=== PATIENT | female | born 1945 | race Caucasian/White ===

== ENCOUNTER 2018-01-26 21:55 | Emergency (ER) | payer MEDICARE, OTHER ==
[~2018-01-26] VITALS: Ht 162.6 cm; Wt 97.5 kg
[~2018-01-26 21:55] MED LIST: ASPI-605 PO; ATEN25TA PO; BUSP10TA35 PO; LOVA20TA2 PO; PANT40TA4 PO; TRAZ300T2 PO; VENL25TA4 PO
--- NOTE | 2018-01-26 22:20 | NUR ---
"TRIPPED AND FELL WHILE IN THE GARDEN AND EVERYTHING HURTS"; DENIES HEAD INJURY. NAD NOTED, VSS, RESP EVEN AND UNLABORED, PT WAS PUT ON MONITOR, WAITING FOR MD HWANG.
--- NOTE | 2018-01-26 22:37 | NUR ---
CXR AT BEDSIDE
[2018-01-26 22:51] LABS: BASOPHILS % (AUTO) 0.6 % (0.0-2.0); EOSINOPHILS % (AUTO) 4.1 % (0.0-6.0); HEMATOCRIT 35 % (33-45); HEMOGLOBIN 11.4 g/dL (11.5-14.8); LYMPHOCYTES # (AUTO) 2.5 /CMM (0.8-4.8); LYMPHOCYTES % (AUTO) 33.9 % (20.0-44.0); MEAN CORPUSCULAR HGB CONC 33 g/dl (31.0-36.0); MEAN CORPUSCULAR VOLUME 86 fL (82-100); MONOCYTES # (AUTO) 0.7 /CMM (0.1-1.30); MONOCYTES % (AUTO) 9.6 % (2.0-12.0); NEUTROPHILS # (AUTO) 3.8 /CMM (1.8-8.9); NEUTROPHILS % (AUTO) 51.8 % (43.0-81.0); PLATELET COUNT (AUTO) 266 /CMM (150-450); RDW COEFFICIENT OF VARIATION 15.3 (11.5-15.0); RED BLOOD CELL COUNT(AUTO) 4.09 MIL/uL (4.0-5.2); WHITE BLOOD COUNT (AUTO) 7.2 K/uL (4.3-11.0)
[2018-01-26] MEDS ORDERED: methylPREDNISolone SOD SUCC 125 MG/2ML VIAL IV ONE (23:00)
[2018-01-26] MEDS ORDERED: methylPREDNISolone SOD SUCC 125 MG/2ML VIAL ONE (23:02)
[2018-01-26 23:07] LABS: INR 0.9 (0.87-1.13)
[2018-01-26 23:08] LABS: CALCIUM, SERUM 8.6 mg/dL (8.5-10.1); CARBON DIOXIDE 30 mmol/L (21-32); CHLORIDE 105 mmol/L (98-107); CREATININE 1.3 mg/dL (0.6-1.3); GLUCOSE 135 mg/dL (74-106); SODIUM SERUM 140 mmol/L (136-145); UREA NITROGEN, BLOOD 23 mg/dL (7-18)
[2018-01-26 23:11] LABS: TROPONIN I < 0.017 ng/mL (0.00-0.056)
[2018-01-26 23:20] LABS: ALANINE AMINOTRANSFERASE 25 U/L (12-78); ALBUMIN 2.5 g/dL (3.4-5.0); ALKALINE PHOSPHATASE 69 U/L (46-116); ASPARTATE AMINOTRANSFERASE 20 U/L (15-37); B-TYPE NATRIURETIC PEPTIDE 399 PG/ML (0-125); BILIRUBIN,TOTAL 0.1 mg/dL (0.2-1.0); TOTAL PROTEIN, SERUM 6.6 g/dL (6.4-8.2)
--- NOTE | 2018-01-26 23:22 | NUR ---
RECEIVED REPORT FROM CHRISTA HUGGINS FOR JENNI.
--- NOTE | 2018-01-26 23:54 | NUR ---
IV removed. Catheter intact and site benign. Pressure and 4x4 applied to site. No bleeding noted. Patient discharged to home in stable condition. Written and verbal after care instructions given. Patient verbalizes understanding of instruction. ambulatory with a steady gait. pt with daughter.
[2018-01-26 23:56] VITALS: BP 134/78
[2018-01-27] MEDS ORDERED: OMEP40CA37 PO (10:37)
[2018-01-27] MEDS ORDERED: VENL150C58 PO (10:37)
[2018-01-27] MEDS ORDERED: LORA-259 PO (10:37)
[2018-01-27] MEDS ORDERED: GABA-534 PO (10:37)
[2018-01-27] MEDS ORDERED: GABA-532 PO (10:45)
[2018-01-27] MEDS ORDERED: LISI-607 PO (10:45)
[2018-01-27] MEDS ORDERED: AMOX500T2 PO (13:35)
[2018-01-27] MEDS ORDERED: IBUP-1957 PO (13:35)
[2018-01-27] MEDS ORDERED: BUPR1FIL3 SL (13:35)
== END 2018-01-27 00:02 | disposition home or self-care (01) ==
LOC: ER 21:59
DX: J44.9 Chronic obstructive pulmonary disease, unspecified (principal); I10 Essential (primary) hypertension; F03.90 Unspecified dementia, unspecified severity, without behavioral disturbance, psychotic disturbance, mood disturbance, and anxiety; F41.9 Anxiety disorder, unspecified; F32.9 Major depressive disorder, single episode, unspecified; F17.290 Nicotine dependence, other tobacco product, uncomplicated; Z90.89 Acquired absence of other organs; Z90.710 Acquired absence of both cervix and uterus; Z79.82 Long term (current) use of aspirin; W01.0XXA Fall on same level from slipping, tripping and stumbling without subsequent striking against object, initial encounter; Y93.89 Activity, other specified; Y92.096 Garden or yard of other non-institutional residence as the place of occurrence of the external cause; Y99.8 Other external cause status
CPT/HCPCS: 36415; 71045-TC; 80048-TC; 80076-TC; 83605-TC; 83880; 84484-TC; 85025-TC; 85730-TC; 87040-TC; A4606; J2930; Z7610

== ENCOUNTER 2018-01-27 09:37 | Inpatient (IN) | payer MEDICARE, OTHER ==
[~2018-01-27] VITALS: Ht 162.6 cm; Wt 75.3 kg
[2018-01-27] MEDS ORDERED: OMEP40CA37 PO (10:37)
[2018-01-27] MEDS ORDERED: LORA-259 PO (10:37)
[2018-01-27] MEDS ORDERED: GABA-534 PO (10:37)
[2018-01-27] MEDS ORDERED: VENL150C58 PO (10:37)
[2018-01-27 10:44] LABS: BASOPHILS # (AUTO) 0.1 /CMM (0.0-0.2); BASOPHILS % (AUTO) 0.8 % (0.0-2.0); EOSINOPHILS % (AUTO) 0.1 % (0.0-6.0); HEMATOCRIT 39 % (33-45); HEMOGLOBIN 12.8 g/dL (11.5-14.8); LYMPHOCYTES # (AUTO) 1.2 /CMM (0.8-4.8); MEAN CORPUSCULAR HGB CONC 33 g/dl (31.0-36.0); MEAN CORPUSCULAR VOLUME 85 fL (82-100); MONOCYTES # (AUTO) 0.1 /CMM (0.1-1.30); MONOCYTES % (AUTO) 1.5 % (2.0-12.0); NEUTROPHILS # (AUTO) 8.4 /CMM (1.8-8.9); NEUTROPHILS % (AUTO) 85.6 % (43.0-81.0); PLATELET COUNT (AUTO) 319 /CMM (150-450); RDW COEFFICIENT OF VARIATION 14.9 (11.5-15.0); RED BLOOD CELL COUNT(AUTO) 4.52 MIL/uL (4.0-5.2); WHITE BLOOD COUNT (AUTO) 9.8 K/uL (4.3-11.0)
[2018-01-27 10:45] LABS: CALCIUM, SERUM 8.9 mg/dL (8.5-10.1); CARBON DIOXIDE 28 mmol/L (21-32); CHLORIDE 103 mmol/L (98-107); CREATININE 1.3 mg/dL (0.6-1.3); GLUCOSE 157 mg/dL (74-106); POTASSIUM 4.7 mmol/L (3.5-5.1); SODIUM SERUM 138 mmol/L (136-145); UREA NITROGEN, BLOOD 27 mg/dL (7-18)
[2018-01-27] MEDS ORDERED: GABA-532 PO (10:45)
[2018-01-27] MEDS ORDERED: LISI-607 PO (10:45)
[2018-01-27 10:49] LABS: INR 0.85 (0.85-1.15)
[2018-01-27 10:53] LABS: TROPONIN I < 0.017 ng/mL (0.00-0.056)
[2018-01-27 11:01] LABS: ALANINE AMINOTRANSFERASE 32 U/L (12-78); ALBUMIN 2.6 g/dL (3.4-5.0); ALKALINE PHOSPHATASE 70 U/L (46-116); ASPARTATE AMINOTRANSFERASE 25 U/L (15-37); B-TYPE NATRIURETIC PEPTIDE 472 PG/ML (0-125); BILIRUBIN,TOTAL 0.2 mg/dL (0.2-1.0); LIPASE 148 U/L (73-393); TOTAL PROTEIN, SERUM 7.5 g/dL (6.4-8.2)
[2018-01-27] MEDS ORDERED: LORAZEPAM 1 MG TABLET ONE ×2 (11:17→11:39)
[2018-01-27] MEDS ORDERED: ACETAMINOPHEN ES 500 MG TABLET ONE (11:17)
[2018-01-27] MEDS ORDERED: LORAZEPAM 0.5 MG TABLET PO ONE (11:30)
[2018-01-27] MEDS ORDERED: ACETAMINOPHEN ES 500 MG TABLET PO ONE (11:30)
[2018-01-27] MEDS ORDERED: IPRATROPIUM NEB FS 0.5 MG/2.5 ML AMPUL.NEB ONE (11:47)
[2018-01-27] MEDS ORDERED: ALBUTEROL FS 2.5 MG/3 ML VIAL.NEB ONE (11:47)
[2018-01-27] MEDS ORDERED: IPRATROPIUM NEB FS 0.5 MG/2.5 ML AMPUL.NEB NEB ONE (12:00)
[2018-01-27] MEDS ORDERED: ALBUTEROL FS 2.5 MG/3 ML VIAL.NEB NEB ONE (12:00)
[2018-01-27] MEDS ORDERED: LORAZEPAM 1 MG TABLET PO ONE (12:00)
[2018-01-27 13:20] VITALS: BP 148/60
[2018-01-27] MEDS ORDERED: ACETAMINOPHEN 325 MG TABLET PO PRN (13:30)
[2018-01-27] MEDS ORDERED: ZOLPIDEM TARTRATE 5 MG TABLET PO PRN (13:30)
[2018-01-27] MEDS ORDERED: LORAZEPAM INJ 2 MG/ML VIAL IV PRN (13:30)
[2018-01-27] MEDS ORDERED: HYDROCODONE/APAP 5/325MG 1 EACH TABLET PO PRN (13:30)
[2018-01-27] MEDS ORDERED: MAG HYDROX/AL HYDROX/SIMETH 30 ML UDC PO PRN (13:30)
[2018-01-27] MEDS ORDERED: Z GUARD REMEDY 2 OZ OINT TP PRN (13:30)
[2018-01-27] MEDS ORDERED: ONDANSETRON HCL/PF 4 MG/2 ML VIAL IVP PRN (13:30)
[2018-01-27] MEDS ORDERED: IBUP-1957 PO (13:35)
[2018-01-27] MEDS ORDERED: AMOX500T2 PO (13:35)
[2018-01-27] MEDS ORDERED: BUPR1FIL3 SL (13:35)
[2018-01-27] MEDS: PANTOPRAZOLE 40 MG TABLET.DR PO SCH (13:50)
[2018-01-27] MEDS: ENOXAPARIN SODIUM 40 MG/0.4 ML DISP.SYRIN SQ SCH (13:54)
[2018-01-27 16:00] VITALS: BP 139/65
[2018-01-27] MEDS ORDERED: IBUPROFEN 400 MG TABLET PO PRN (16:30)
[2018-01-27 20:00] VITALS: BP 148/61
[2018-01-27] MEDS: TRAZODONE 50 MG TABLET PO SCH (21:16)
[2018-01-27] MEDS: GABAPENTIN 300 MG CAPSULE PO SCH (21:16)
[2018-01-27 22:00] VITALS: BP 148/61
[2018-01-28] VITALS (7 sets, daily range): BP systolic 126–171; BP diastolic 53–92
[2018-01-28 06:43] LABS: BASOPHILS % (AUTO) 0.3 % (0.0-2.0); EOSINOPHILS % (AUTO) 1.1 % (0.0-6.0); HEMATOCRIT 35 % (33-45); HEMOGLOBIN 11.1 g/dL (11.5-14.8); LYMPHOCYTES # (AUTO) 2.8 /CMM (0.8-4.8); LYMPHOCYTES % (AUTO) 24.6 % (20.0-44.0); MEAN CORPUSCULAR HGB CONC 32 g/dl (31.0-36.0); MEAN CORPUSCULAR VOLUME 87 fL (82-100); MONOCYTES # (AUTO) 0.9 /CMM (0.1-1.30); MONOCYTES % (AUTO) 8.3 % (2.0-12.0); NEUTROPHILS # (AUTO) 7.4 /CMM (1.8-8.9); NEUTROPHILS % (AUTO) 65.7 % (43.0-81.0); PLATELET COUNT (AUTO) 270 /CMM (150-450); RDW COEFFICIENT OF VARIATION 15.9 (11.5-15.0); RED BLOOD CELL COUNT(AUTO) 3.97 MIL/uL (4.0-5.2); WHITE BLOOD COUNT (AUTO) 11.3 K/uL (4.3-11.0)
[2018-01-28 07:04] LABS: B-TYPE NATRIURETIC PEPTIDE 405 PG/ML (0-125); CALCIUM, SERUM 8.4 mg/dL (8.5-10.1); CARBON DIOXIDE 32 mmol/L (21-32); CHLORIDE 106 mmol/L (98-107); CREATININE 1.2 mg/dL (0.6-1.3); GLUCOSE 121 mg/dL (74-106); MAGNESIUM 2.2 mg/dL (1.8-2.4); PHOSPHORUS 3.8 mg/dL (2.5-4.9); POTASSIUM 4.2 mmol/L (3.5-5.1); SODIUM SERUM 142 mmol/L (136-145); UREA NITROGEN, BLOOD 28 mg/dL (7-18)
[2018-01-28 07:25] LABS: APPEARANCE,URINE CLEAR (CLEAR); BILIRUBIN,URINE NEGATIVE (NEGATIVE); BLOOD, URINE TRACE-INTA Ery/uL (NEGATIVE); KETONES,URINE NEGATIVE (NEGATIVE); LEUKOCYTE ESTERASE ,URINE NEGATIVE (NEGATIVE); NITRITE, URINE NEGATIVE (NEGATIVE); PH,URINE 6.5 (5.0-8.0); PROTEIN,URINE 2+ mg/dl (NEGATIVE); UGLUCOSE NEGATIVE (NEGATIVE); UROBILINOGEN,URINE 0.2 EU/dL (0.2)
[2018-01-28 07:29] LABS: COLOR,URINE Light yellow (YELLOW)
[2018-01-28 07:34] LABS: CHOLESTEROL 236 mg/dL (<200); HDL CHOLESTEROL 69 mg/dL (40-60); LDL 137 mg/dL (0-99); TRIGLYCERIDES 235 mg/dL (30-150)
[2018-01-28] MEDS ORDERED: REGADENOSON 0.4 MG/5 ML DISP.SYRIN IVP ONE (08:00)
[2018-01-28 08:08] LABS: BACTERIA,URINE Rare /HPF (None Seen); RBC,URINE 0-2 /HPF (0-2); SQUAMOUS EPITHELIAL CELL,UR Few /HPF (None Seen); WBC,URINE 0-2 /HPF (0-3)
[2018-01-28] MEDS: GABAPENTIN 100 MG CAPSULE PO SCH ×2 (09:16→12:22)
[2018-01-28] MEDS: ASPIRIN EC 81 MG TABLET.DR PO SCH (09:17)
[2018-01-28] MEDS: LISINOPRIL (5MG) 5 MG TABLET PO SCH (09:17)
[2018-01-28] MEDS: PANTOPRAZOLE 40 MG TABLET.DR PO SCH (09:17)
[2018-01-28] MEDS: VENLAFAXINE XR 150 MG CAP.SR.24H PO SCH (09:18)
[2018-01-28] MEDS: ENOXAPARIN SODIUM 40 MG/0.4 ML DISP.SYRIN SQ SCH (09:21)
[2018-01-28] MEDS: MAGNESIUM HYDROXIDE 30 ML UDC PO PRN (16:36)
[2018-01-28] MEDS: LORAZEPAM INJ 2 MG/ML VIAL IV PRN (18:05)
[2018-01-28] MEDS: GABAPENTIN 300 MG CAPSULE PO SCH (21:06)
[2018-01-28] MEDS: TRAZODONE 50 MG TABLET PO SCH (21:06)
[2018-01-28] MEDS ORDERED: ATORVASTATIN 10 MG TABLET PO SCH (22:00)
[2018-01-29] VITALS: BP 145/70
[2018-01-29 04:00] VITALS: BP 139/51
[2018-01-29] MEDS: MAGNESIUM HYDROXIDE 30 ML UDC PO PRN (06:12)
[2018-01-29 08:00] VITALS: BP 151/80
[2018-01-29] MEDS: VENLAFAXINE XR 150 MG CAP.SR.24H PO SCH (08:33)
[2018-01-29] MEDS: ASPIRIN EC 81 MG TABLET.DR PO SCH (08:33)
[2018-01-29] MEDS: PANTOPRAZOLE 40 MG TABLET.DR PO SCH (08:33)
[2018-01-29] MEDS: GABAPENTIN 100 MG CAPSULE PO SCH ×2 (08:33→12:29)
[2018-01-29] MEDS: ENOXAPARIN SODIUM 40 MG/0.4 ML DISP.SYRIN SQ SCH (08:35)
[2018-01-29] MEDS: LISINOPRIL (5MG) 5 MG TABLET PO SCH (08:36)
[2018-01-29] MEDS ORDERED: LACTULOSE 10 G/15 ML UDC (PYXIS) PO PRN (10:00)
[2018-01-29] MEDS: LORAZEPAM INJ 2 MG/ML VIAL IV PRN ×2 (11:11→17:09)
[2018-01-29 16:00] VITALS: BP_SYST 158; BP_SYST 168; BP_DIAS 70
[2018-01-30] MEDS ORDERED: LISINOPRIL (5MG) 5 MG TABLET PO SCH (09:00)
== END 2018-01-29 17:20 | disposition home or self-care (01) | DRG 191 ==
LOC: ER 09:39 → TELE1 12:35 → MEDSG1 01-28 09:10
PROVIDERS: ADMIT Hospitalist; ATTEND Hospitalist
DX: J44.1 Chronic obstructive pulmonary disease with (acute) exacerbation (principal); I50.32 Chronic diastolic (congestive) heart failure; E88.09 Other disorders of plasma-protein metabolism, not elsewhere classified; E66.01 Morbid (severe) obesity due to excess calories; I11.0 Hypertensive heart disease with heart failure; M94.0 Chondrocostal junction syndrome [Tietze]; E78.5 Hyperlipidemia, unspecified; M79.7 Fibromyalgia; I34.0 Nonrheumatic mitral (valve) insufficiency; F41.9 Anxiety disorder, unspecified; G47.00 Insomnia, unspecified; Z68.28 Body mass index [BMI] 28.0-28.9, adult; K59.00 Constipation, unspecified; Z71.6 Tobacco abuse counseling; F17.210 Nicotine dependence, cigarettes, uncomplicated; F32.9 Major depressive disorder, single episode, unspecified; F41.1 Generalized anxiety disorder; E11.9 Type 2 diabetes mellitus without complications; N28.1 Cyst of kidney, acquired; E78.1 Pure hyperglyceridemia; F03.90 Unspecified dementia, unspecified severity, without behavioral disturbance, psychotic disturbance, mood disturbance, and anxiety
CPT/HCPCS: 36415; 71045-TC; 80048-TC; 80061-TC; 80076-TC; 81000-TC; 83605-TC; 83690-TC; 83735-TC; 83880; 84100-TC; 84484-TC; 85025-TC; 85730-TC; 87040-TC; 87081-TC; 93307-TC; A4606; A6253; A9502; J1650; J2060; J2785; Z7610

== ENCOUNTER 2018-09-10 11:54 | Inpatient (IN) | payer MEDICARE, OTHER ==
[~2018-09-10] VITALS: Ht 162.6 cm; Wt 103.4 kg
[~2018-09-10 11:54] MED LIST changes: +AMOX500T2 PO; -ATEN25TA PO; +BUPR1FIL3 SL; -BUSP10TA35 PO; +GABA-532 PO; +GABA-534 PO; +IBUP-1957 PO; +LISI-607 PO; +LORA-259 PO; -LOVA20TA2 PO; +OMEP40CA37 PO; -PANT40TA4 PO; +VENL150C58 PO; -VENL25TA4 PO
--- NOTE | 2018-09-10 12:00 | NUR ---
BIB SELF, W C/O ABDOMINAL PAIN SINCE YESTERDAY EVENING, TO ER BED 9, HOOKED TO MONITOR, AWAITING MD HWANG
--- NOTE | 2018-09-10 12:12 | NUR ---
PA MAIN AT BEDSIDE
[2018-09-10] MEDS ORDERED: KETOROLAC TROMETHAMINE INJ 30 MG/ML VIAL ONE (12:29)
[2018-09-10] MEDS ORDERED: IV NS 0.9% 1,000 ML BAG IV ONE ×2 (12:30→14:30)
[2018-09-10] MEDS ORDERED: KETOROLAC TROMETHAMINE INJ 30 MG/ML VIAL IV ONE (12:30)
[2018-09-10 12:33] LABS: APPEARANCE,URINE Clear (CLEAR); BILIRUBIN,URINE Negative (NEGATIVE); BLOOD, URINE Negative Ery/uL (NEGATIVE); COLOR,URINE Yellow (YELLOW); KETONES,URINE Negative (NEGATIVE); LEUKOCYTE ESTERASE ,URINE Negative (NEGATIVE); NITRITE, URINE Negative (NEGATIVE); PH,URINE 6.5 (5.0-8.0); PROTEIN,URINE Negative (NEGATIVE); UGLUCOSE Negative (NEGATIVE); UROBILINOGEN,URINE 0.2 EU/dL (0.2)
[2018-09-10 12:35] LABS: BASOPHILS # (AUTO) 0.1 /CMM (0.0-0.2); BASOPHILS % (AUTO) 0.5 % (0.0-2.0); EOSINOPHILS % (AUTO) 1.1 % (0.0-6.0); HEMATOCRIT 39 % (33-45); HEMOGLOBIN 12.4 g/dL (11.5-14.8); LYMPHOCYTES # (AUTO) 2.3 /CMM (0.8-4.8); LYMPHOCYTES % (AUTO) 19.2 % (20.0-44.0); MEAN CORPUSCULAR HGB CONC 32 g/dl (31.0-36.0); MEAN CORPUSCULAR VOLUME 96 fL (82-100); MONOCYTES % (AUTO) 8.7 % (2.0-12.0); NEUTROPHILS # (AUTO) 8.5 /CMM (1.8-8.9); NEUTROPHILS % (AUTO) 70.5 % (43.0-81.0); PLATELET COUNT (AUTO) 251 /CMM (150-450); RED BLOOD CELL COUNT(AUTO) 4.03 MIL/uL (4.0-5.2); WHITE BLOOD COUNT (AUTO) 12.1 K/uL (4.3-11.0)
[2018-09-10] MEDS ORDERED: EZET10TA14 PO (12:41)
[2018-09-10] MEDS ORDERED: THIO300C PO (12:41)
[2018-09-10] MEDS ORDERED: ZOLP10TA2 PO (12:41)
[2018-09-10] MEDS ORDERED: GABA-534 PO (12:41)
[2018-09-10] MEDS ORDERED: DULO60CA45 PO (12:41)
[2018-09-10] MEDS ORDERED: SENN-168 PO (12:41)
[2018-09-10] MEDS ORDERED: MAGN400T26 PO (12:41)
[2018-09-10] MEDS ORDERED: MORP60CP14 PO (12:41)
[2018-09-10] MEDS ORDERED: CALC500T52 PO (12:41)
[2018-09-10] MEDS ORDERED: MORP30CP13 PO (12:41)
[2018-09-10] MEDS ORDERED: MULT-1200 PO (12:41)
[2018-09-10] MEDS ORDERED: METF-440 PO (12:41)
[2018-09-10] MEDS ORDERED: TRAZ300T2 PO (12:43)
[2018-09-10 12:44] LABS: CALCIUM, SERUM 8.8 mg/dL (8.5-10.1); CARBON DIOXIDE 34 mmol/L (21-32); CHLORIDE 100 mmol/L (98-107); GLUCOSE 113 mg/dL (74-106); SODIUM SERUM 137 mmol/L (136-145); UREA NITROGEN, BLOOD 15 mg/dL (7-18)
[2018-09-10 12:50] LABS: ALANINE AMINOTRANSFERASE 41 U/L (12-78); ALBUMIN 3.4 g/dL (3.4-5.0); ALKALINE PHOSPHATASE 48 U/L (46-116); ASPARTATE AMINOTRANSFERASE 24 U/L (15-37); BILIRUBIN,DIRECT 0.1 mg/dL (0.0-0.2); BILIRUBIN,TOTAL 0.3 mg/dL (0.2-1.0); LIPASE 84 U/L (73-393); TOTAL PROTEIN, SERUM 6.9 g/dL (6.4-8.2)
--- NOTE | 2018-09-10 12:57 | NUR ---
OUT FOR CT OF ABDOMEN PELVIS
[2018-09-10] MEDS ORDERED: MORPHINE SULFATE INJ 4 MG/ML DISP.SYRIN ONE (13:27)
[2018-09-10] MEDS ORDERED: MORPHINE SULFATE INJ 10 MG/ML DISP.SYRIN IV ONE (13:30)
[2018-09-10] MEDS ORDERED: METRONIDAZOLE 500MG/ NS 100ML 100 ML IV ONE (14:28)
[2018-09-10] MEDS ORDERED: CEFTRIAXONE 2 G in IV D5W 50 ML IV ONE (14:30)
[2018-09-10] MEDS: FLAGYL/NS RTU 500 MG/100 ML PIGGYBACK IV ONE ×2 (15:12→15:24)
--- NOTE | 2018-09-10 15:16 | NUR ---
IVA TURK CALLED ON THE PHONE WITH EFREM ALVAREZ.
[2018-09-10] MEDS ORDERED: HYDROMORPHONE 1 MG/1 ML DISP.SYRIN ONE ×2 (15:40→17:04)
[2018-09-10] MEDS ORDERED: HYDROMORPHONE 1 MG/1 ML DISP.SYRIN IV ONE (16:00)
--- NOTE | 2018-09-10 16:57 | NUR ---
REPORT GIVEN TO JESSICA GOODWIN
[2018-09-10] MEDS ORDERED: HYDROMORPHONE INJ 0.5 MG/0.5 ML SYRINGE IM ONE (17:00)
[2018-09-10] MEDS: HYDROMORPHONE 1 MG/1 ML DISP.SYRIN IV PRN ×2 (17:08→22:28)
[2018-09-10 17:41] VITALS: BP 99/37
--- NOTE | 2018-09-10 17:41 | NUR ---
MS CLOTH BURLER 73 years old female admitted to med surg. brought in via wheel chair from ER. Patient is A/O x4, ambulates independently. Skin intact, reported pain in her right lower abdomen, patient was given pain medication prior transferred to the unit. Orientation to room, unit, staff. Maintained safety, will cont to monitor.
[2018-09-10] MEDS ORDERED: SENNOSIDES 8.6 MG TABLET PO SCH (18:30)
[2018-09-10] MEDS ORDERED: ONDANSETRON HCL/PF 4 MG/2 ML VIAL IVP PRN (19:00)
[2018-09-10] MEDS ORDERED: LACTULOSE 10 G/15 ML UDC (PYXIS) PO PRN (19:00)
[2018-09-10] MEDS ORDERED: ACETAMINOPHEN 325 MG TABLET PO PRN (19:00)
[2018-09-10] MEDS ORDERED: BISACODYL SUPP (10 MG) 10 MG/SUPP.RECT SUPP.RECT RC PRN (19:00)
[2018-09-10] MEDS ORDERED: Z GUARD REMEDY 2 OZ OINT TP PRN (19:00)
--- NOTE | 2018-09-10 19:00 | NUR ---
RECIEVED ALERT AND ORIENTATED. MANY QUESTIONS AND DEMANDS. SPEECH CLEAR. REVIEVED TONIGHTS PROGRAM.
--- NOTE | 2018-09-10 19:00 | NUR ---
AWAKE AND ALERT ORIENTATED X4 VERBALIZING HER NEEDS. TALKATIVE REGARDING HER HEALTH CALL LIGHT REVIEVED WITH PATIENT
--- NOTE | 2018-09-10 19:17 | NUR ---
MS RN CLOSING NOTES Patient is awake, up sitting in the bed, having dinner with good appetite. No complaint of abdominal pain, awaiting medication to be verified by pharmacy. Maintained safety, endorsed to oncoming RN.
[2018-09-10] MEDS ORDERED: MAGNESIUM CITRATE 296 ML BOTTLE PO ONE (20:00)
[2018-09-10] MEDS ORDERED: SENNOSIDES 8.6 MG TABLET ONE (20:09)
[2018-09-10] MEDS: IV NS 0.9% 1,000 ML IV PRN (20:25)
[2018-09-10] MEDS: LEVOFLOXACIN (500MG) 500 MG TABLET PO SCH (21:19)
[2018-09-10] MEDS: GABAPENTIN 300 MG CAPSULE PO SCH (21:20)
[2018-09-10] MEDS: ENOXAPARIN SODIUM 40 MG/0.4 ML DISP.SYRIN SQ SCH (21:21)
[2018-09-10] MEDS ORDERED: TRAZODONE 50 MG TABLET PO PRN (22:00)
[2018-09-10] MEDS ORDERED: ZOLPIDEM TARTRATE 5 MG TABLET PO PRN (22:00)
[2018-09-10] MEDS ORDERED: TRAZODONE 50 MG TABLET PO SCH (22:00)
[2018-09-10] MEDS: ZOLPIDEM TARTRATE 5 MG TABLET PO SCH (22:27)
[2018-09-10] MEDS: METRONIDAZOLE 250 MG TABLET PO SCH (23:39)
[2018-09-11] MEDS: HYDROMORPHONE 1 MG/1 ML DISP.SYRIN IV PRN ×3 (00:02→15:11)
[2018-09-11 04:00] VITALS: BP 102/52
[2018-09-11] MEDS: METRONIDAZOLE 250 MG TABLET PO SCH ×3 (05:22→18:09)
--- NOTE | 2018-09-11 05:30 | NUR ---
ENDING NOTES: MS. EATON MEDICATED X2 WITH DILAUDID FOR RIGHT LOWER ABD PAIN, EFFECTIVE. AMBULATED TO THE BATHROOM STEADY ON HER LEGS, NO BM VOIDED ONLY. MG CITRATE AND SENOKOT GIVEN EARLIER ORDERED. SLEPT BETWEEN CARE NO N/V COMLAINTS.
[2018-09-11 06:35] LABS: BASOPHILS % (AUTO) 0.4 % (0.0-2.0); EOSINOPHILS % (AUTO) 2.3 % (0.0-6.0); HEMATOCRIT 33 % (33-45); HEMOGLOBIN 10.6 g/dL (11.5-14.8); LYMPHOCYTES # (AUTO) 2.2 /CMM (0.8-4.8); LYMPHOCYTES % (AUTO) 31.1 % (20.0-44.0); MEAN CORPUSCULAR HGB CONC 32 g/dl (31.0-36.0); MEAN CORPUSCULAR VOLUME 96 fL (82-100); MONOCYTES # (AUTO) 0.8 /CMM (0.1-1.30); MONOCYTES % (AUTO) 11.8 % (2.0-12.0); NEUTROPHILS # (AUTO) 3.9 /CMM (1.8-8.9); NEUTROPHILS % (AUTO) 54.4 % (43.0-81.0); PLATELET COUNT (AUTO) 178 /CMM (150-450); WHITE BLOOD COUNT (AUTO) 7.1 K/uL (4.3-11.0)
[2018-09-11 06:51] LABS: ALANINE AMINOTRANSFERASE 30 U/L (12-78); ALBUMIN 2.5 g/dL (3.4-5.0); ALKALINE PHOSPHATASE 43 U/L (46-116); ASPARTATE AMINOTRANSFERASE 21 U/L (15-37); BILIRUBIN,TOTAL 0.2 mg/dL (0.2-1.0); CALCIUM, SERUM 8.3 mg/dL (8.5-10.1); CARBON DIOXIDE 28 mmol/L (21-32); CHLORIDE 106 mmol/L (98-107); CREATININE 1.1 mg/dL (0.6-1.3); GLUCOSE 139 mg/dL (74-106); MAGNESIUM 2.1 mg/dL (1.8-2.4); PHOSPHORUS 3.3 mg/dL (2.5-4.9); POTASSIUM 3.9 mmol/L (3.5-5.1); SODIUM SERUM 142 mmol/L (136-145); TOTAL PROTEIN, SERUM 5.6 g/dL (6.4-8.2); UREA NITROGEN, BLOOD 15 mg/dL (7-18)
[2018-09-11 06:58] LABS: CHOLESTEROL 157 mg/dL (<200); HDL CHOLESTEROL 51 mg/dL (40-60); LDL 87 mg/dL (0-99); THYROID STIMULATING HORMONE 2.674 uIU/mL (0.358-3.74); TRIGLYCERIDES 183 mg/dL (30-150)
[2018-09-11] MEDS: MORPHINE SULFATE SR 15 MG TABLET.SA PO SCH (07:30)
--- NOTE | 2018-09-11 07:30 | NUR ---
RN OPENING NOTES RECEIVED PT. IN BED A&OX4. BREATHING UNLABORED ON ROOM AIR. NO S/S OF ACUTE DISTRESS. IV FLUIDS RUNNING AT 75 ML/HR. BED IS IN LOWEST, AND LOCKED POSITION, 2 SIDE RAILS UP, AND INSTRUCTED PT. TO USE CALL LIGHT FOR ASSISTANCE.
--- NOTE | 2018-09-11 07:30 | NUR ---
PER EEG TECH PT.'S SPO2 IS BETWEEN 83-85 %. REASSESSED PT.'S OXYGEN. PT. C/O THAT SHE HAD BEEN FEELING SOB SINCE 6 AM THIS MORNING. PT. WAS PLACED ON OXYGEN AT 3L/MIN VIA NASAL CANNULA. PT. IS TOLERATING OXYGEN WELL, AND SPO2 IS AT 92%.
[2018-09-11 08:00] VITALS: BP 108/63
[2018-09-11] MEDS ORDERED: NA PHOS,M-B/NA PHOS,DI-BA 1 EA ENEMA RC ONE (09:00)
[2018-09-11] MEDS ORDERED: LISINOPRIL (5MG) 5 MG TABLET PO SCH (09:00)
[2018-09-11] MEDS: GABAPENTIN 300 MG CAPSULE PO SCH ×2 (09:24→22:21)
[2018-09-11] MEDS: MAGNESIUM OXIDE 400 MG TABLET PO SCH ×2 (09:24→17:03)
[2018-09-11] MEDS: DULOXETINE HCL 30 MG CAPSULE.DR PO SCH (09:24)
[2018-09-11] MEDS: EZETIMIBE 10 MG TABLET PO SCH (09:25)
--- NOTE | 2018-09-11 09:31 | NUR ---
PT. HAD AN EPISODE OF DIARRHEA AND DOES NOT WANT TO RECEIVE THE FLEET ENEMA AT THIS TIME.
[2018-09-11] MEDS: GABAPENTIN 100 MG CAPSULE PO SCH (12:49)
[2018-09-11] MEDS ORDERED: FURO-144 PO (14:30)
[2018-09-11] MEDS ORDERED: AMLO5TAB7 PO (14:30)
[2018-09-11] MEDS ORDERED: LURA40TA PO (14:30)
[2018-09-11] MEDS ORDERED: PHEN15CA PO (14:30)
[2018-09-11] MEDS ORDERED: ASPI-1169 PO (14:30)
[2018-09-11] MEDS: IV NS 0.9% 1,000 ML IV PRN (15:19)
[2018-09-11 16:00] VITALS: BP 110/51
[2018-09-11] MEDS: PEG 3350/NA SULF,BICARB,CL/KCL 4,000 ML BOTTLE PO ONE ×2 (17:00→20:25)
[2018-09-11] MEDS ORDERED: MORPHINE SULFATE SR 15 MG TABLET.SA PO SCH (18:00)
--- NOTE | 2018-09-11 19:45 | NUR ---
MS RN NOTE: RECEIVED PT SITTING AT EDGE OF BED ALERT AND ORIENTED X3. ABLE TO MAKE NEEDS KNOWN. NO APPARENT DISTRESS NOTED. DENIES PAIN AND DISCOMFORT AT THIS TIME. ON ROOM AIR, SATURATING WELL. IV ON RIGHT HAND #22 INTACT AND PATENT, IVF INFUSING WELL. PT IS AMBULATORY. CALL LIGHT PLACED WITHIN REACH. KEPT CLEAN, DRY AND COMFORTABLE. SAFETY AND FALL PRECAUTIONS OBSERVED AND MAINTAINED. WILL CONTINUE TO MONITOR PT.
--- NOTE | 2018-09-11 19:54 | NUR ---
RN CLOSING NOTES PT. IS IN BED A&OX4. BREATHING UNLABORED ON OXYGEN AT 2.5L/MIN VIA NASAL CANNULA. NO S/S OF ACUTE DISTRESS. IV FLUIDS RUNNING AT 75 ML/HR. BED IS IN LOWEST, AND LOCKED POSITION, 2 SIDE RAILS UP, AND INSTRUCTED PT. TO USE CALL LIGHT FOR ASSISTANCE. WILL ENDORSE REPORT TO NURSE.
[2018-09-11 20:00] VITALS: BP 129/63
[2018-09-11] MEDS: LEVOFLOXACIN (500MG) 500 MG TABLET PO SCH (20:22)
[2018-09-11] MEDS: ENOXAPARIN SODIUM 40 MG/0.4 ML DISP.SYRIN SQ SCH (20:23)
--- NOTE | 2018-09-11 21:49 | NUR ---
MS RN NOTE: PATIENT REFUSED TO FINISH THE GOLYTELY, STATED "I DONT WANT TO FINISH IT ANYMORE". EXPLAINED RISKS AND BENEFITS PT STILL REFUSED.
[2018-09-11] MEDS: ZOLPIDEM TARTRATE 5 MG TABLET PO SCH (22:21)
[2018-09-11] MEDS: LORAZEPAM 1 MG TABLET PO PRN (22:49)
[2018-09-12] MEDS: METRONIDAZOLE 250 MG TABLET PO SCH ×3 (00:20→13:02)
[2018-09-12] MEDS: LORAZEPAM 1 MG TABLET PO PRN ×2 (04:53→10:54)
[2018-09-12 05:19] VITALS: BP 148/74
[2018-09-12] MEDS: HYDROMORPHONE 1 MG/1 ML DISP.SYRIN IV PRN ×2 (06:40→13:31)
--- NOTE | 2018-09-12 06:47 | NUR ---
MS RN NOTE: NO CHANGES NOTED THROUGHOUT THE SHIFT. NO APPARENT DISTRESS NOTED. PT COMPLAINED OF GENERALIZED BODY PAIN, PRN DILAUDID GIVEN. NO SOB NOTED. KEPT CLEAN, DRY AND COMFORTABLE. CALL LIGHT PLACED WITHIN REACH. WILL ENDORSE TO DAY SHIFT RN FOR CONTINUITY OF CARE.
--- NOTE | 2018-09-12 07:10 | NUR ---
MS RN OPENING NOTES RECEIVED PT ON BED.ALERT/ORIENTED X4.WITH ROOM AIR,TOLERATING WELL.NO SOB AND ACUTE DISTRESS NOTED.CAM AMBULATE WELL WITH OUT ASSISTANCE.IV LINE IS ON RIGHT HAND G22,SITE IS CLEAN,DRY AND INTACT.SAFETY IS MAINTAINED AT ALL TIMES.BED IS IN LOW POSITION AND LOCKED.CALL LIGHT IS WITHIN REACH.WILL CONTINUE TO MONITOR THE PT CLOSELY.
[2018-09-12 08:00] VITALS: BP_SYST 131; BP_DIAS 50; BP_DIAS 58
[2018-09-12 08:15] VITALS: BP 131/58
[2018-09-12] MEDS: DULOXETINE HCL 30 MG CAPSULE.DR PO SCH (08:15)
[2018-09-12] MEDS: EZETIMIBE 10 MG TABLET PO SCH (08:15)
[2018-09-12] MEDS: MAGNESIUM OXIDE 400 MG TABLET PO SCH (08:15)
[2018-09-12] MEDS: GABAPENTIN 300 MG CAPSULE PO SCH (08:19)
[2018-09-12] MEDS ORDERED: ASPIRIN 81 MG TAB.CHEW PO SCH (09:00)
[2018-09-12] MEDS ORDERED: AMLODIPINE BESYLATE 5 MG TABLET PO SCH (09:00)
[2018-09-12] MEDS ORDERED: FUROSEMIDE 40 MG TABLET PO SCH (09:00)
[2018-09-12] MEDS ORDERED: LISINOPRIL (20MG) 20 MG TABLET PO SCH (09:00)
[2018-09-12] MEDS: MORPHINE SULFATE SR 15 MG TABLET.SA PO SCH (10:23)
[2018-09-12] MEDS: GABAPENTIN 100 MG CAPSULE PO SCH (13:01)
[2018-09-12 13:54] LABS: BASOPHILS % (AUTO) 0.5 % (0.0-2.0); EOSINOPHILS % (AUTO) 1.3 % (0.0-6.0); HEMATOCRIT 36 % (33-45); HEMOGLOBIN 11.5 g/dL (11.5-14.8); LYMPHOCYTES # (AUTO) 1.3 /CMM (0.8-4.8); LYMPHOCYTES % (AUTO) 17.6 % (20.0-44.0); MEAN CORPUSCULAR HGB CONC 32 g/dl (31.0-36.0); MEAN CORPUSCULAR VOLUME 95 fL (82-100); MONOCYTES # (AUTO) 0.5 /CMM (0.1-1.30); MONOCYTES % (AUTO) 6.7 % (2.0-12.0); NEUTROPHILS # (AUTO) 5.5 /CMM (1.8-8.9); NEUTROPHILS % (AUTO) 73.9 % (43.0-81.0); PLATELET COUNT (AUTO) 228 /CMM (150-450); WHITE BLOOD COUNT (AUTO) 7.5 K/uL (4.3-11.0)
[2018-09-12 14:03] LABS: CALCIUM, SERUM 8.9 mg/dL (8.5-10.1); CARBON DIOXIDE 28 mmol/L (21-32); CHLORIDE 105 mmol/L (98-107); GLUCOSE 208 mg/dL (74-106); MAGNESIUM 1.9 mg/dL (1.8-2.4); PHOSPHORUS 2.9 mg/dL (2.5-4.9); POTASSIUM 4.1 mmol/L (3.5-5.1); SODIUM SERUM 142 mmol/L (136-145); UREA NITROGEN, BLOOD 11 mg/dL (7-18)
[2018-09-12] MEDS ORDERED: METR500T PO (14:38)
[2018-09-12] MEDS ORDERED: LEVO500T75 PO (14:38)
--- NOTE | 2018-09-12 15:45 | NUR ---
MS FASHION EDITOR NOTES PT IS DISCHARGED TO HOME WITH THE DAUGHTER VIA PRIVATE CAR.ALERT/ORIENTED X4.ON ROOM AIR WITH VITAL SIGNS ARE WNL.NO SOB AND ACUTE DISTRESS NOTED.ALL THE DISCHARGE MEDICATIONS AND PROCESS DISCUSSED TO THE PT AND DAUGHTER.THE MEDICATION PRESCRIPTION IS GIVEN TO THE PT.INVENTORY LIST SIGNED BY THE DAUGHTER.SKIN ASSESSMENT IS DONE AND PICTURE HAS TAKEN.IV LINE FROM RIGHT FA IS REMOVED.DRESSING IS APPLIED.NO BLEEDING NOTED.PT AMBULATED TO HOME WITH THE DAUGHTER.NO COMPLICATIONS NOTED.
[2018-09-12] MEDS ORDERED: LURASIDONE HCL 20 MG PO SCH (18:00)
== END 2018-09-12 14:45 | disposition home or self-care (01) | DRG 372 ==
LOC: ER 11:55 → MEDSG1 16:50
PROVIDERS: ADMIT Nurse Practitioner Acute Care; ATTEND Nurse Practitioner Acute Care
DX: A04.9 Bacterial intestinal infection, unspecified (principal); E66.2 Morbid (severe) obesity with alveolar hypoventilation; E87.3 Alkalosis; F11.20 Opioid dependence, uncomplicated; M79.7 Fibromyalgia; E78.5 Hyperlipidemia, unspecified; J44.9 Chronic obstructive pulmonary disease, unspecified; Z90.49 Acquired absence of other specified parts of digestive tract; F03.90 Unspecified dementia, unspecified severity, without behavioral disturbance, psychotic disturbance, mood disturbance, and anxiety; M19.90 Unspecified osteoarthritis, unspecified site; K59.00 Constipation, unspecified; F41.9 Anxiety disorder, unspecified; F32.9 Major depressive disorder, single episode, unspecified; I25.10 Atherosclerotic heart disease of native coronary artery without angina pectoris; F17.210 Nicotine dependence, cigarettes, uncomplicated; I10 Essential (primary) hypertension; E11.51 Type 2 diabetes mellitus with diabetic peripheral angiopathy without gangrene; Z79.84 Long term (current) use of oral hypoglycemic drugs; Z68.39 Body mass index [BMI] 39.0-39.9, adult; R59.0 Localized enlarged lymph nodes; K76.0 Fatty (change of) liver, not elsewhere classified; Z87.442 Personal history of urinary calculi; Z90.710 Acquired absence of both cervix and uterus
CPT/HCPCS: 36415; 71045-TC; 80048-TC; 80053-TC; 80061-TC; 80076-TC; 81000-TC; 82378; 82962-TC; 83605-TC; 83690-TC; 83735-TC; 84100-TC; 84443-TC; 84484-TC; 85025-TC; 85730-TC; 87040-TC; 87081-TC; 87086-TC; A4606; A6402; G0378; J0696; J1170; J1650; J1885; J2270; J3490; J7030; J7060; Z7610

== ENCOUNTER 2018-11-17 16:13 | Emergency (ER) | payer MEDICARE, OTHER ==
[~2018-11-17] VITALS: Ht 165.1 cm; Wt 97.5 kg
[~2018-11-17 16:13] MED LIST changes: +AMLO5TAB9 PO; -AMOX500T2 PO; +ASPI-1169 PO; -ASPI-605 PO; -BUPR1FIL3 SL; +CALC500T52 PO; +DULO60CA45 PO; +EZET10TA14 PO; +FURO-144 PO; +LEVO500T75 PO; +LURA40TA PO; +MAGN400T26 PO; +METF-440 PO; +METR500T PO; +MORP30CP13 PO; +MORP60CP14 PO; +MULT-1200 PO; -OMEP40CA37 PO; +PHEN15CA PO; +SENN-168 PO; -VENL150C58 PO; +ZOLP10TA2 PO
--- NOTE | 2018-11-17 16:15 | NUR ---
BIB DAUGHTER 73 YEAR OLD FEMALE C/O RLE PAIN SINCE 1329. WORST WHEN AMBULATING. ALERT AND ORIENTED X4, BREATHING EVEN AND UNLABORED WITH NO DISTRESS NOTED. SKIN INTACT AND WARM TO TOUCH. AWAITING TO BE SEEN BY
[2018-11-17] MEDS ORDERED: oxyCODONE/APAP (5/325 MG) 1 UDTAB TABLET ONE (17:04)
[2018-11-17] MEDS: oxyCODONE/APAP (5/325 MG) 1 UDTAB TABLET PO ONE (17:05)
--- NOTE | 2018-11-17 17:20 | NUR ---
U/S TECH AT BEDSIDE
[2018-11-17 18:18] VITALS: BP 112/66
== END 2018-11-17 18:10 | disposition home or self-care (01) ==
LOC: ER 16:16
DX: M79.661 Pain in right lower leg (principal); I10 Essential (primary) hypertension; E11.9 Type 2 diabetes mellitus without complications; F32.9 Major depressive disorder, single episode, unspecified; F41.9 Anxiety disorder, unspecified; F03.90 Unspecified dementia, unspecified severity, without behavioral disturbance, psychotic disturbance, mood disturbance, and anxiety; M79.7 Fibromyalgia; I73.89 Other specified peripheral vascular diseases; M19.90 Unspecified osteoarthritis, unspecified site; F17.200 Nicotine dependence, unspecified, uncomplicated; Z90.89 Acquired absence of other organs; Z90.710 Acquired absence of both cervix and uterus; Z98.890 Other specified postprocedural states; Z79.82 Long term (current) use of aspirin; Z79.899 Other long term (current) drug therapy; Z79.84 Long term (current) use of oral hypoglycemic drugs
CPT/HCPCS: 93971; 99284; A4606

== ENCOUNTER 2018-12-18 10:53 | Emergency (ER) | payer MEDICARE, OTHER ==
[~2018-12-18] VITALS: Ht 162.6 cm; Wt 101.6 kg
--- NOTE | 2018-12-18 11:00 | NUR ---
PT C/O "When I wipe this morning, I see blood but I don't know whether it is coming from my vagina or rectum" PT IS AAOX2, NOT IN RESPIRATORY DISTRESS, V/S STABLE, KEPT RESTED AND COMFORTABLE, WILL CONTINUE TO MONITOR.
--- NOTE | 2018-12-18 11:40 | NUR ---
PT IV LINE ESTABLISHED, LABS DRAWNED AND SENT TO LAB.
--- NOTE | 2018-12-18 11:50 | NUR ---
URINAL GIVEN BUT UNABLE TO PROVIDE URINE SAMPLE.
--- NOTE | 2018-12-18 11:50 | NUR ---
Lis tamez in [facility] - 12/18/18 at 1246 by LEXI URINE COLLECTED AND SENT TO LAB.
[2018-12-18 11:53] LABS: BASOPHILS # (AUTO) 0.1 /CMM (0.0-0.2); BASOPHILS % (AUTO) 0.8 % (0.0-2.0); EOSINOPHILS % (AUTO) 4.8 % (0.0-6.0); HEMATOCRIT 35 % (33-45); HEMOGLOBIN 11.6 g/dL (11.5-14.8); LYMPHOCYTES # (AUTO) 2.4 /CMM (0.8-4.8); LYMPHOCYTES % (AUTO) 36.2 % (20.0-44.0); MEAN CORPUSCULAR HGB CONC 33 g/dl (31.0-36.0); MEAN CORPUSCULAR VOLUME 93 fL (82-100); MONOCYTES # (AUTO) 0.6 /CMM (0.1-1.30); MONOCYTES % (AUTO) 9.7 % (2.0-12.0); NEUTROPHILS # (AUTO) 3.2 /CMM (1.8-8.9); NEUTROPHILS % (AUTO) 48.5 % (43.0-81.0); PLATELET COUNT (AUTO) 243 /CMM (150-450); RED BLOOD CELL COUNT(AUTO) 3.81 MIL/uL (4.0-5.2); WHITE BLOOD COUNT (AUTO) 6.7 K/uL (4.3-11.0)
[2018-12-18 12:00] LABS: CALCIUM, SERUM 9.3 mg/dL (8.5-10.1); CARBON DIOXIDE 34 mmol/L (21-32); CHLORIDE 102 mmol/L (98-107); CREATININE 1.7 mg/dL (0.6-1.3); GLUCOSE 113 mg/dL (74-106); POTASSIUM 5.2 mmol/L (3.5-5.1); SODIUM SERUM 140 mmol/L (136-145); UREA NITROGEN, BLOOD 34 mg/dL (7-18)
[2018-12-18 12:06] LABS: ALANINE AMINOTRANSFERASE 27 U/L (12-78); ALBUMIN 3.9 g/dL (3.4-5.0); ALKALINE PHOSPHATASE 54 U/L (46-116); ASPARTATE AMINOTRANSFERASE 19 U/L (15-37); BILIRUBIN,DIRECT 0.1 mg/dL (0.0-0.2); BILIRUBIN,TOTAL 0.5 mg/dL (0.2-1.0); TOTAL PROTEIN, SERUM 6.7 g/dL (6.4-8.2)
--- NOTE | 2018-12-18 12:26 | NUR ---
CALLED HOUSE SUP FOR TELE BED
[2018-12-18] MEDS ORDERED: IV NS 0.9% 1,000 ML BAG IV ONE (12:30)
--- NOTE | 2018-12-18 12:30 | NUR ---
YARD ATTENDANT AT BEDSIDE FOR XRAY.
[2018-12-18] MEDS ORDERED: VITA1TAB56 PO (12:36)
[2018-12-18] MEDS ORDERED: OXYC30TA2 PO (12:36)
[2018-12-18] MEDS ORDERED: THIO100C2 PO (12:36)
[2018-12-18] MEDS ORDERED: NAPR-1009 PO (12:36)
[2018-12-18] MEDS ORDERED: ALBU8.5H8 IH (12:36)
[2018-12-18] MEDS ORDERED: ESZO3TAB27 PO (12:36)
[2018-12-18] MEDS ORDERED: POLY17PO4 PO (12:36)
[2018-12-18] MEDS ORDERED: ACET-2605 PO (12:36)
--- NOTE | 2018-12-18 12:47 | NUR ---
FOLLOW UP TO PT FOR URINE SPECIMEN, BUT STILL UNABLE TO PROVIDE.
[2018-12-18 13:23] LABS: APPEARANCE,URINE Clear (CLEAR); BILIRUBIN,URINE Negative (NEGATIVE); BLOOD, URINE Negative Ery/uL (NEGATIVE); COLOR,URINE Yellow (YELLOW); KETONES,URINE Negative (NEGATIVE); LEUKOCYTE ESTERASE ,URINE Negative (NEGATIVE); NITRITE, URINE Negative (NEGATIVE); PH,URINE 5.5 (5.0-8.0); PROTEIN,URINE Negative (NEGATIVE); UGLUCOSE Negative (NEGATIVE); UROBILINOGEN,URINE 0.2 EU/dL (0.2)
[2018-12-18 14:22] VITALS: BP 122/58
--- NOTE | 2018-12-18 14:22 | NUR ---
IV removed. Catheter intact and site benign. Pressure and 4x4 applied to site. No bleeding noted. Patient discharged to home in stable condition. Written and verbal after care instructions given. Patient verbalizes understanding of instruction.
== END 2018-12-18 14:28 | disposition home or self-care (01) ==
LOC: ER 10:56
DX: K62.5 Hemorrhage of anus and rectum (principal); N17.9 Acute kidney failure, unspecified; G89.29 Other chronic pain; F03.90 Unspecified dementia, unspecified severity, without behavioral disturbance, psychotic disturbance, mood disturbance, and anxiety; M79.7 Fibromyalgia; I10 Essential (primary) hypertension; E11.9 Type 2 diabetes mellitus without complications; F32.9 Major depressive disorder, single episode, unspecified; E78.00 Pure hypercholesterolemia, unspecified; F41.9 Anxiety disorder, unspecified; F17.200 Nicotine dependence, unspecified, uncomplicated; Z90.89 Acquired absence of other organs; Z90.710 Acquired absence of both cervix and uterus; Z79.82 Long term (current) use of aspirin
CPT/HCPCS: 36415; 80048; 80076; 81001; 85025; 85730; 86850; 93005; 99284; J7030; 81000-TC

== ENCOUNTER 2018-12-26 00:45 | Emergency (ER) | payer MEDICARE, OTHER ==
[~2018-12-26] VITALS: Ht 165.1 cm; Wt 99.8 kg
[~2018-12-26 00:45] MED LIST changes: +ACET-2605 PO; +ALBU8.5H8 IH; +ESZO3TAB27 PO; -GABA-532 PO; -IBUP-1957 PO; -LEVO500T75 PO; -METR500T PO; -MORP30CP13 PO; -MORP60CP14 PO; +NAPR-1009 PO; +OXYC30TA2 PO; +POLY17PO4 PO; -SENN-168 PO; +THIO100C2 PO; +VITA1TAB56 PO; -ZOLP10TA2 PO
[2018-12-26] MEDS ORDERED: IV NS 0.9% 1,000 ML BAG IV ONE (01:30)
[2018-12-26 01:34] LABS: BASOPHILS % (AUTO) 0.5 % (0.0-2.0); EOSINOPHILS % (AUTO) 2.1 % (0.0-6.0); HEMATOCRIT 38 % (33-45); HEMOGLOBIN 12.4 g/dL (11.5-14.8); LYMPHOCYTES # (AUTO) 2.1 /CMM (0.8-4.8); LYMPHOCYTES % (AUTO) 30.1 % (20.0-44.0); MEAN CORPUSCULAR HGB CONC 33 g/dl (31.0-36.0); MEAN CORPUSCULAR VOLUME 94 fL (82-100); MONOCYTES # (AUTO) 0.6 /CMM (0.1-1.30); MONOCYTES % (AUTO) 8.8 % (2.0-12.0); NEUTROPHILS % (AUTO) 58.5 % (43.0-81.0); PLATELET COUNT (AUTO) 293 /CMM (150-450); RED BLOOD CELL COUNT(AUTO) 4.06 MIL/uL (4.0-5.2); WHITE BLOOD COUNT (AUTO) 6.9 K/uL (4.3-11.0)
[2018-12-26 01:40] LABS: CALCIUM, SERUM 8.9 mg/dL (8.5-10.1); CARBON DIOXIDE 32 mmol/L (21-32); CHLORIDE 104 mmol/L (98-107); CREATININE 1.3 mg/dL (0.6-1.3); GLUCOSE 111 mg/dL (74-106); POTASSIUM 4.9 mmol/L (3.5-5.1); SODIUM SERUM 140 mmol/L (136-145); UREA NITROGEN, BLOOD 21 mg/dL (7-18)
[2018-12-26 01:54] LABS: ALANINE AMINOTRANSFERASE 30 U/L (12-78); ALBUMIN 3.9 g/dL (3.4-5.0); ALKALINE PHOSPHATASE 59 U/L (46-116); ASPARTATE AMINOTRANSFERASE 21 U/L (15-37); BILIRUBIN,DIRECT 0.1 mg/dL (0.0-0.2); BILIRUBIN,TOTAL 0.3 mg/dL (0.2-1.0); LIPASE 126 U/L (73-393); TOTAL PROTEIN, SERUM 7.4 g/dL (6.4-8.2)
--- NOTE | 2018-12-26 02:00 | NUR ---
BIB SELF FOR DIARRHEA. NEGATIVE FOR NAUSEA/ VOMITING.
[2018-12-26 02:17] LABS: APPEARANCE,URINE Clear (CLEAR); BILIRUBIN,URINE Negative (NEGATIVE); BLOOD, URINE Negative Ery/uL (NEGATIVE); COLOR,URINE Yellow (YELLOW); KETONES,URINE Negative (NEGATIVE); LEUKOCYTE ESTERASE ,URINE Negative (NEGATIVE); NITRITE, URINE Negative (NEGATIVE); PH,URINE 7.5 (5.0-8.0); PROTEIN,URINE 100 mg/dl (NEGATIVE); UGLUCOSE Negative (NEGATIVE); UROBILINOGEN,URINE 0.2 EU/dL (0.2)
[2018-12-26 02:35] LABS: BACTERIA,URINE Few /HPF (None Seen); RBC,URINE 0-2 /HPF (0-2); SQUAMOUS EPITHELIAL CELL,UR Rare /HPF (None Seen); URINE AMORPHOUS PHOSPHATES Moderate /HPF (None Seen); WBC,URINE 0-2 /HPF (0-3)
[2018-12-26 04:07] VITALS: BP 137/73
== END 2018-12-26 04:08 | disposition home or self-care (01) ==
LOC: ER 00:48
DX: R19.7 Diarrhea, unspecified (principal); R00.2 Palpitations; F03.90 Unspecified dementia, unspecified severity, without behavioral disturbance, psychotic disturbance, mood disturbance, and anxiety; M79.7 Fibromyalgia; E11.40 Type 2 diabetes mellitus with diabetic neuropathy, unspecified; I10 Essential (primary) hypertension; F32.9 Major depressive disorder, single episode, unspecified; F41.9 Anxiety disorder, unspecified; M19.90 Unspecified osteoarthritis, unspecified site; F17.200 Nicotine dependence, unspecified, uncomplicated; Z90.89 Acquired absence of other organs; Z90.710 Acquired absence of both cervix and uterus; Z98.890 Other specified postprocedural states; Z79.82 Long term (current) use of aspirin; Z79.899 Other long term (current) drug therapy; Z79.84 Long term (current) use of oral hypoglycemic drugs
CPT/HCPCS: 36415; 71045; 74176; 80048; 80076; 81001; 83605; 83690; 84484; 85025; 85730; 87040 ×2; 93005; 96360; 99284; J7030; 81000-TC

== ENCOUNTER 2019-06-18 16:25 | Emergency (ER) | payer MEDICARE, OTHER ==
[~2019-06-18] VITALS: Ht 167.6 cm; Wt 90.7 kg
[~2019-06-18 16:25] MED LIST changes: -EZET10TA14 PO; +EZET10TA16 PO
--- NOTE | 2019-06-18 16:50 | NUR ---
seen by ER MD at bedside
--- NOTE | 2019-06-18 16:51 | NUR ---
labs drawn and sent to lab
[2019-06-18 17:21] LABS: BASOPHILS # (AUTO) 0.1 /CMM (0.0-0.2); HEMATOCRIT 35 % (33-45); HEMOGLOBIN 11.3 g/dL (11.5-14.8); LYMPHOCYTES # (AUTO) 2.3 /CMM (0.8-4.8); LYMPHOCYTES % (AUTO) 33.6 % (20.0-44.0); MEAN CORPUSCULAR HGB CONC 32 g/dl (31.0-36.0); MEAN CORPUSCULAR VOLUME 96 fL (82-100); MONOCYTES # (AUTO) 0.8 /CMM (0.1-1.30); MONOCYTES % (AUTO) 11.3 % (2.0-12.0); NEUTROPHILS # (AUTO) 3.5 /CMM (1.8-8.9); NEUTROPHILS % (AUTO) 50.1 % (43.0-81.0); PLATELET COUNT (AUTO) 297 /CMM (150-450); RED BLOOD CELL COUNT(AUTO) 3.63 MIL/uL (4.0-5.2)
[2019-06-18 17:31] LABS: CALCIUM, SERUM 9.6 mg/dL (8.5-10.1); CARBON DIOXIDE 31 mmol/L (21-32); CHLORIDE 102 mmol/L (98-107); CREATININE 1.3 mg/dL (0.6-1.3); GLUCOSE 123 mg/dL (74-106); POTASSIUM 4.4 mmol/L (3.5-5.1); SODIUM SERUM 141 mmol/L (136-145); UREA NITROGEN, BLOOD 26 mg/dL (7-18)
[2019-06-18 17:44] LABS: ALANINE AMINOTRANSFERASE 26 U/L (12-78); ALBUMIN 3.7 g/dL (3.4-5.0); ALKALINE PHOSPHATASE 53 U/L (46-116); ASPARTATE AMINOTRANSFERASE 23 U/L (15-37); B-TYPE NATRIURETIC PEPTIDE 141 PG/ML (0-125); BILIRUBIN,DIRECT 0.1 mg/dL (0.0-0.2); BILIRUBIN,TOTAL 0.2 mg/dL (0.2-1.0); TOTAL PROTEIN, SERUM 7.6 g/dL (6.4-8.2)
[2019-06-18] MEDS ORDERED: VANCOMYCIN 1 GM in IV D5W 250 ML IV ONE (18:30)
[2019-06-18 20:13] VITALS: BP 108/60
--- NOTE | 2019-06-18 20:13 | NUR ---
Patient discharged to home in stable condition. Written and verbal after care instructions given. Patient verbalizes understanding of instruction. IV removed. Catheter intact and site benign. Pressure and 4x4 applied to site. No bleeding noted.
== END 2019-06-18 20:14 | disposition home or self-care (01) ==
LOC: ER 16:27
DX: L03.116 Cellulitis of left lower limb (principal); L03.115 Cellulitis of right lower limb; R09.02 Hypoxemia; J44.9 Chronic obstructive pulmonary disease, unspecified; E11.22 Type 2 diabetes mellitus with diabetic chronic kidney disease; E11.40 Type 2 diabetes mellitus with diabetic neuropathy, unspecified; E87.5 Hyperkalemia; F03.90 Unspecified dementia, unspecified severity, without behavioral disturbance, psychotic disturbance, mood disturbance, and anxiety; M79.7 Fibromyalgia; I10 Essential (primary) hypertension; E78.00 Pure hypercholesterolemia, unspecified; F32.9 Major depressive disorder, single episode, unspecified; F41.9 Anxiety disorder, unspecified; F17.200 Nicotine dependence, unspecified, uncomplicated; E86.0 Dehydration; Z90.89 Acquired absence of other organs; Z90.710 Acquired absence of both cervix and uterus; Z79.82 Long term (current) use of aspirin
CPT/HCPCS: 36415; 71045; 80048; 80076; 83605; 83880; 84484; 85025; 85730; 87040 ×2; 93005; 93970; 96365; 99284; J3370; J7060

== ENCOUNTER 2019-07-02 12:04 | Emergency (ER) | payer MEDICARE, OTHER ==
[~2019-07-02] VITALS: Ht 165.1 cm; Wt 105.2 kg
--- NOTE | 2019-07-02 12:05 | NUR ---
"PAINFUL RASH,LEFT INFRAMAMMARY AREA X 2 DAYS" PT AAOX4, -SOB, NAD NOTED, VSS ,PENDING MD HWANG
[2019-07-02 12:55] LABS: BASOPHILS % (AUTO) 0.6 % (0.0-2.0); EOSINOPHILS % (AUTO) 2.6 % (0.0-6.0); HEMATOCRIT 34 % (33-45); HEMOGLOBIN 11.2 g/dL (11.5-14.8); LYMPHOCYTES # (AUTO) 2.8 /CMM (0.8-4.8); LYMPHOCYTES % (AUTO) 34.8 % (20.0-44.0); MEAN CORPUSCULAR HGB CONC 33 g/dl (31.0-36.0); MEAN CORPUSCULAR VOLUME 95 fL (82-100); MONOCYTES # (AUTO) 0.8 /CMM (0.1-1.30); MONOCYTES % (AUTO) 10.5 % (2.0-12.0); NEUTROPHILS # (AUTO) 4.1 /CMM (1.8-8.9); NEUTROPHILS % (AUTO) 51.5 % (43.0-81.0); PLATELET COUNT (AUTO) 373 /CMM (150-450); RED BLOOD CELL COUNT(AUTO) 3.59 MIL/uL (4.0-5.2)
[2019-07-02 13:03] LABS: CALCIUM, SERUM 9.7 mg/dL (8.5-10.1); CARBON DIOXIDE 34 mmol/L (21-32); CHLORIDE 101 mmol/L (98-107); CREATININE 1.2 mg/dL (0.6-1.3); GLUCOSE 110 mg/dL (74-106); POTASSIUM 3.9 mmol/L (3.5-5.1); SODIUM SERUM 140 mmol/L (136-145); UREA NITROGEN, BLOOD 27 mg/dL (7-18)
[2019-07-02 13:16] LABS: ALANINE AMINOTRANSFERASE 24 U/L (12-78); ALBUMIN 3.9 g/dL (3.4-5.0); ALKALINE PHOSPHATASE 58 U/L (46-116); ASPARTATE AMINOTRANSFERASE 21 U/L (15-37); B-TYPE NATRIURETIC PEPTIDE 237 PG/ML (0-125); BILIRUBIN,TOTAL 0.2 mg/dL (0.2-1.0); TOTAL PROTEIN, SERUM 7.9 g/dL (6.4-8.2)
[2019-07-02] MEDS ORDERED: CT SWABBABLE VALVE TRANS SET 1 EA INFUS.SET MC ONE (13:28)
[2019-07-02] MEDS ORDERED: IOHEXOL-350 100 ML VIAL IV ONE (13:28)
[2019-07-02] MEDS ORDERED: IV NS 0.9% 250 ML IV ONE (13:28)
--- NOTE | 2019-07-02 14:45 | NUR ---
Patient discharged to home in stable condition. Written and verbal after care instructions given. Patient verbalizes understanding of instruction.IV removed. Catheter intact and site benign. Pressure and 4x4 applied to site. No bleeding noted.
[2019-07-02 14:46] VITALS: BP 121/70
== END 2019-07-02 14:46 | disposition home or self-care (01) ==
LOC: ER 12:11
DX: R07.89 Other chest pain (principal); R21 Rash and other nonspecific skin eruption; R60.0 Localized edema; F03.90 Unspecified dementia, unspecified severity, without behavioral disturbance, psychotic disturbance, mood disturbance, and anxiety; M79.7 Fibromyalgia; I10 Essential (primary) hypertension; E11.40 Type 2 diabetes mellitus with diabetic neuropathy, unspecified; M19.90 Unspecified osteoarthritis, unspecified site; F32.9 Major depressive disorder, single episode, unspecified; F41.9 Anxiety disorder, unspecified; F17.200 Nicotine dependence, unspecified, uncomplicated; Z90.89 Acquired absence of other organs; Z90.710 Acquired absence of both cervix and uterus; Z98.890 Other specified postprocedural states; Z79.899 Other long term (current) drug therapy; Z79.82 Long term (current) use of aspirin
CPT/HCPCS: 36415; 71275; 80048; 80076; 83880; 84484; 85025; 85730; 93005; 99284; J7050; Q9967

== ENCOUNTER 2019-08-22 10:21 | Emergency (ER) | payer MEDICARE, OTHER ==
[~2019-08-22] VITALS: Ht 165.1 cm; Wt 98.4 kg
--- NOTE | 2019-08-22 10:39 | NUR ---
BIB SELF C/O BILATERAL LOWER LEG PAIN FOR 2 MONTHS MUCH WORSE TODAY, DENIES INJURY. +HIP PAIN, TO ER BED 12, HOOKED TO MONITOR, CHANGED TO HOSP GOWN, AWAITING MD HWANG.
--- NOTE | 2019-08-22 11:10 | NUR ---
SEEN AND EXAMINED BY
--- NOTE | 2019-08-22 11:12 | NUR ---
ER PHLEB AT BEDSIDE FOR BLOOD DRAW
[2019-08-22 11:21] LABS: BASOPHILS # (AUTO) 0.1 /CMM (0.0-0.2); BASOPHILS % (AUTO) 0.8 % (0.0-2.0); EOSINOPHILS % (AUTO) 2.2 % (0.0-6.0); HEMATOCRIT 42 % (33-45); HEMOGLOBIN 13.2 g/dL (11.5-14.8); LYMPHOCYTES # (AUTO) 2.6 /CMM (0.8-4.8); LYMPHOCYTES % (AUTO) 27.3 % (20.0-44.0); MEAN CORPUSCULAR HGB CONC 31 g/dl (31.0-36.0); MEAN CORPUSCULAR VOLUME 96 fL (82-100); MONOCYTES # (AUTO) 0.8 /CMM (0.1-1.30); MONOCYTES % (AUTO) 8.1 % (2.0-12.0); NEUTROPHILS # (AUTO) 5.9 /CMM (1.8-8.9); NEUTROPHILS % (AUTO) 61.6 % (43.0-81.0); PLATELET COUNT (AUTO) 352 /CMM (150-450); RED BLOOD CELL COUNT(AUTO) 4.38 MIL/uL (4.0-5.2); WHITE BLOOD COUNT (AUTO) 9.5 K/uL (4.3-11.0)
[2019-08-22 11:29] LABS: CARBON DIOXIDE 30 mmol/L (21-32); CHLORIDE 102 mmol/L (98-107); CREATININE 1.2 mg/dL (0.6-1.3); GLUCOSE 142 mg/dL (74-106); POTASSIUM 4.4 mmol/L (3.5-5.1); SODIUM SERUM 141 mmol/L (136-145); UREA NITROGEN, BLOOD 33 mg/dL (7-18)
[2019-08-22 11:35] LABS: ALANINE AMINOTRANSFERASE 28 U/L (12-78); ALBUMIN 3.9 g/dL (3.4-5.0); ALKALINE PHOSPHATASE 62 U/L (46-116); ASPARTATE AMINOTRANSFERASE 17 U/L (15-37); BILIRUBIN,TOTAL 0.1 mg/dL (0.2-1.0); CALCIUM, SERUM 9.6 mg/dL (8.5-10.1); LIPASE 163 U/L (73-393); TOTAL PROTEIN, SERUM 7.9 g/dL (6.4-8.2)
--- NOTE | 2019-08-22 11:43 | NUR ---
PATIENT UNABLE TO PROVIDE URINE SAMPLE, MADE AWARE
[2019-08-22 12:38] LABS: APPEARANCE,URINE Clear (CLEAR); BILIRUBIN,URINE Negative (NEGATIVE); BLOOD, URINE Trace-intact Ery/uL (NEGATIVE); COLOR,URINE Yellow (YELLOW); KETONES,URINE Negative (NEGATIVE); LEUKOCYTE ESTERASE ,URINE Negative (NEGATIVE); NITRITE, URINE Negative (NEGATIVE); PH,URINE 6.5 (5.0-8.0); PROTEIN,URINE Negative (NEGATIVE); UGLUCOSE Negative (NEGATIVE); UROBILINOGEN,URINE 0.2 EU/dL (0.2)
[2019-08-22 12:56] LABS: BACTERIA,URINE None seen /HPF (None Seen); WBC,URINE 0-2 /HPF (0-3)
[2019-08-22 12:57] LABS: SQUAMOUS EPITHELIAL CELL,UR Few /HPF (None Seen)
[2019-08-22 13:50] VITALS: BP 127/89
--- NOTE | 2019-08-22 13:50 | NUR ---
Patient discharged to home in stable condition. Written and verbal after care instructions given. Patient verbalizes understanding of instruction.
[2019-09-23] MEDS ORDERED: BUPR1TAB34 SL (08:35)
[2019-09-27] MEDS ORDERED: PRED20TA PO (11:46)
[2019-09-27] MEDS ORDERED: FLUT1BLS IH (11:46)
[2019-09-27] MEDS ORDERED: DILT240C88 PO (11:58)
== END 2019-08-22 13:52 | disposition home or self-care (01) ==
LOC: ER 10:24
DX: M79.662 Pain in left lower leg (principal); M79.661 Pain in right lower leg; G89.29 Other chronic pain; R10.30 Lower abdominal pain, unspecified; M54.5 Low back pain; E11.40 Type 2 diabetes mellitus with diabetic neuropathy, unspecified; I48.91 Unspecified atrial fibrillation; N28.1 Cyst of kidney, acquired; F03.90 Unspecified dementia, unspecified severity, without behavioral disturbance, psychotic disturbance, mood disturbance, and anxiety; I10 Essential (primary) hypertension; M79.7 Fibromyalgia; M19.90 Unspecified osteoarthritis, unspecified site; F32.9 Major depressive disorder, single episode, unspecified; F41.9 Anxiety disorder, unspecified; F17.200 Nicotine dependence, unspecified, uncomplicated; Z90.89 Acquired absence of other organs; Z90.710 Acquired absence of both cervix and uterus; Z98.890 Other specified postprocedural states; Z79.899 Other long term (current) drug therapy; Z79.82 Long term (current) use of aspirin; Z79.84 Long term (current) use of oral hypoglycemic drugs
CPT/HCPCS: 36415; 80048-TC; 80076-TC; 81000-TC; 83690-TC; 83880; 84484-TC; 85025-TC; 93926-TC; 93970-TC

== ENCOUNTER 2019-09-22 18:20 | Inpatient (IN) | payer MEDICARE, OTHER ==
[~2019-09-22] VITALS: Ht 165.1 cm; Wt 104.3 kg
--- NOTE | 2019-09-22 18:28 | NUR ---
PT AAOX4. AMBULATORY. C/O SOB X4 DAYS, SAT 90 ON RA. UPON ASSESMSMENT RR EVEN AND UNLABORED. SAT 92 ON ROOM AIR. PLACED ON 2L NC. ON MONITOR AND PULSE OX. AT BEDSIDE.
[2019-09-22] MEDS ORDERED: ALBUTEROL FS 2.5 MG/3 ML VIAL.NEB NEB ONE (18:30)
[2019-09-22] MEDS ORDERED: FUROSEMIDE 40 MG/4 ML VIAL IV ONE (18:30)
[2019-09-22] MEDS ORDERED: methylPREDNISolone SOD SUCC 125 MG/2ML VIAL IV ONE (18:30)
[2019-09-22] MEDS ORDERED: IPRATROPIUM NEB FS 0.5 MG/2.5 ML AMPUL.NEB NEB ONE (18:30)
[2019-09-22] MEDS ORDERED: ASPIRIN 325 MG TABLET PO ONE (18:30)
[2019-09-22] MEDS ORDERED: methylPREDNISolone SOD SUCC 125 MG/2ML VIAL ONE (18:34)
[2019-09-22] MEDS ORDERED: FUROSEMIDE 100 MG/10 ML VIAL ONE (18:34)
[2019-09-22] MEDS ORDERED: ASPIRIN 81 MG TAB.CHEW ONE (18:35)
[2019-09-22 18:45] LABS: BASOPHILS % (AUTO) 0.5 % (0.0-2.0); EOSINOPHILS % (AUTO) 3.5 % (0.0-6.0); HEMATOCRIT 37 % (33-45); HEMOGLOBIN 11.5 g/dL (11.5-14.8); LYMPHOCYTES % (AUTO) 13.5 % (20.0-44.0); MEAN CORPUSCULAR HGB CONC 32 g/dl (31.0-36.0); MEAN CORPUSCULAR VOLUME 96 fL (82-100); MONOCYTES # (AUTO) 0.5 /CMM (0.1-1.30); MONOCYTES % (AUTO) 7.1 % (2.0-12.0); NEUTROPHILS # (AUTO) 5.6 /CMM (1.8-8.9); NEUTROPHILS % (AUTO) 75.4 % (43.0-81.0); PLATELET COUNT (AUTO) 281 /CMM (150-450); RED BLOOD CELL COUNT(AUTO) 3.82 MIL/uL (4.0-5.2); WHITE BLOOD COUNT (AUTO) 7.4 K/uL (4.3-11.0)
--- NOTE | 2019-09-22 18:55 | NUR ---
PT AMBULATED TO RESTROOM
--- NOTE | 2019-09-22 19:04 | NUR ---
PT RECIEVING BREATHING TREATMENT
[2019-09-22 19:05] LABS: ALANINE AMINOTRANSFERASE 29 U/L (12-78); ALKALINE PHOSPHATASE 67 U/L (46-116); ASPARTATE AMINOTRANSFERASE 16 U/L (15-37); B-TYPE NATRIURETIC PEPTIDE 1389 PG/ML (0-125); BILIRUBIN,TOTAL 0.1 mg/dL (0.2-1.0); CALCIUM, SERUM 9.1 mg/dL (8.5-10.1); CARBON DIOXIDE 35 mmol/L (21-32); CHLORIDE 104 mmol/L (98-107); CREATININE 1.1 mg/dL (0.6-1.3); GLUCOSE 129 mg/dL (74-106); POTASSIUM 4.7 mmol/L (3.5-5.1); SODIUM SERUM 142 mmol/L (136-145); TOTAL PROTEIN, SERUM 7.1 g/dL (6.4-8.2); UREA NITROGEN, BLOOD 32 mg/dL (7-18)
[2019-09-22] MEDS ORDERED: ALBUTEROL FS 2.5 MG/0.5 ML VIAL.NEB ONE (19:10)
[2019-09-22] MEDS ORDERED: ALBUTEROL FS 2.5 MG/3 ML VIAL.NEB ONE (19:10)
--- NOTE | 2019-09-22 19:27 | NUR ---
XRAY AT BEDSIDE
--- NOTE | 2019-09-22 19:30 | NUR ---
CALLED [facility], DAVID PONCE
--- NOTE | 2019-09-22 19:32 | NUR ---
CALLED NURSING SUP FOR BED
--- NOTE | 2019-09-22 20:38 | NUR ---
REPORT GIVEN TO LEV GOODWIN FOR JENNI
[2019-09-22] MEDS ORDERED: MAGNESIUM HYDROXIDE 30 ML UDC PO PRN (21:00)
[2019-09-22] MEDS ORDERED: ENOXAPARIN SODIUM 40 MG/0.4 ML DISP.SYRIN SQ SCH (21:00)
[2019-09-22] MEDS ORDERED: Z GUARD REMEDY 2 OZ OINT TP PRN (21:00)
[2019-09-22] MEDS ORDERED: ACETAMINOPHEN 325 MG TABLET PO PRN (21:00)
[2019-09-22] MEDS ORDERED: ONDANSETRON HCL/PF 4 MG/2 ML VIAL IVP PRN (21:00)
[2019-09-22] MEDS ORDERED: MAG HYDROX/AL HYDROX/SIMETH 30 ML UDC PO PRN (21:00)
[2019-09-22] MEDS ORDERED: ZOLPIDEM TARTRATE 5 MG TABLET PO PRN (21:00)
--- NOTE | 2019-09-22 21:00 | NUR ---
PT TRANSFERED PER ACLS PROTOCOL
[2019-09-22 21:05] VITALS: BP 118/71
--- NOTE | 2019-09-22 21:05 | NUR ---
ELECTRICIAN RESEARCH NOTES AFTER REPORT RECEIVED FROM JENIFER VELÁZQUEZ RN. PATIENT ARRIVED ON THE UNIT AT 2100 VIA GURNEY. PATIENT ON TELE MONITORING. PATIENT PLACED ON O2 2 LPM WITH CURRENT READING AT 90% O2 SAT, TOLERATING WELL, NO COMPLAINTS. PATIENT WEIGHED VIA BED SCALE. VITAL SIGNS TAKEN. ALL QUESTIONS AND CONCERNS ADDRESSED. BELONGINGS CHECKED AND INSPECTED BY PHUC MARTINEZ. SAFETY PRECAUTIONS IMPLEMENTED; CALL LIGHT WITHIN REACH, BED LOW, BED LOCKED, BILATERAL UPPER SIDE RAILS UP. WILL CONTINUE TO MONITOR.
[2019-09-22] MEDS ORDERED: DEXTROSE 50%-WATER 50 ML DISP.SYRIN IV PRN (23:30)
[2019-09-22] MEDS: BLOOD SUGAR DIAGNOSTIC 1 EACH STRIP VI SCH (23:47)
[2019-09-22] MEDS: *INSULIN REGULAR(HUMULIN R)HUM 100 UNIT/ML VIAL SQ PRN (23:50)
[2019-09-23] VITALS (12 sets, daily range): BP systolic 93–126; BP diastolic 57–82
[2019-09-23] MEDS: IPRATROPIUM NEB FS 0.5 MG/2.5 ML AMPUL.NEB NEB SCH ×7 (00:13→23:30)
[2019-09-23] MEDS: ALBUTEROL FS 2.5 MG/0.5 ML VIAL.NEB NEB SCH ×7 (00:13→23:30)
[2019-09-23] MEDS: INSULIN REGULAR, HUMAN 100 UNIT/ML 3 ML VIAL SQ PRN ×3 (06:30→17:01)
--- NOTE | 2019-09-23 06:40 | NUR ---
RN CLOSING NOTES PATIENT ASLEEP, RESTING COMFORTABLY IN BED, EASILY AWAKENED. NO SIGNS OF RESPIRATORY DISTRESS. NO SHORTNESS OF BREATH NOTED. PATIENT DENIES ANY PAIN. IV SITE INTACT, NO SIGNS OF INFECTION/INFILTRATION. TELE MONITOR. PATIENT REFUSED AM INSULIN ADMINISTRATION, EXPLAINED THE RISKS AND BENEFITS, PATIENT INSISTS ON REFUSING. ALL NEEDS ATTENDED. SAFETY PRECAUTIONS IMPLEMENTED; CALL LIGHT WITHIN REACH, BED LOW, BED LOCKED, BILATERAL UPPER SIDE RAILS UP. NO SIGNIFICANT CHANGES SINCE ADMISSION. WILL ENDORSE TO DAY SHIFT NURSE FOR CONTINUITY OF CARE.
[2019-09-23 06:58] LABS: BASOPHILS % (AUTO) 0.2 % (0.0-2.0); EOSINOPHILS % (AUTO) 0.1 % (0.0-6.0); HEMATOCRIT 36 % (33-45); HEMOGLOBIN 11.2 g/dL (11.5-14.8); LYMPHOCYTES # (AUTO) 0.7 /CMM (0.8-4.8); LYMPHOCYTES % (AUTO) 8.2 % (20.0-44.0); MEAN CORPUSCULAR HGB CONC 32 g/dl (31.0-36.0); MEAN CORPUSCULAR VOLUME 95 fL (82-100); MONOCYTES # (AUTO) 0.2 /CMM (0.1-1.30); MONOCYTES % (AUTO) 2.7 % (2.0-12.0); NEUTROPHILS # (AUTO) 7.1 /CMM (1.8-8.9); NEUTROPHILS % (AUTO) 88.8 % (43.0-81.0); PLATELET COUNT (AUTO) 272 /CMM (150-450); RED BLOOD CELL COUNT(AUTO) 3.76 MIL/uL (4.0-5.2)
[2019-09-23 07:26] LABS: ALBUMIN 2.9 g/dL (3.4-5.0); BILIRUBIN,TOTAL 0.1 mg/dL (0.2-1.0); CALCIUM, SERUM 9.1 mg/dL (8.5-10.1); MAGNESIUM 2.2 mg/dL (1.8-2.4); PHOSPHORUS 3.5 mg/dL (2.5-4.9); POTASSIUM 4.8 mmol/L (3.5-5.1); TOTAL PROTEIN, SERUM 7.2 g/dL (6.4-8.2)
[2019-09-23] MEDS: BLOOD SUGAR DIAGNOSTIC 1 EACH STRIP VI SCH ×4 (07:57→21:38)
--- NOTE | 2019-09-23 08:00 | NUR ---
WEB MERCHANT OPENING NOTES RECEIVED PT IN BED. AWAKE, ALERT AND ORIENTED X4. NO CARDIAC OR [id number] DISTRESS NOTED. BREATH SOUNDS CLEAR. BREATHING EVEN AND UNLABORED. O2 SAT 97% ON ROOM AIR. PT IS AMBULATORY. SKIN INTACT. IV SITE INTACT. ON R AC G20. PT REFUSED INSULIN THIS AM. NO COMPLAINTS OF PAIN OR DISCOMFORT. ON PORTABLE ROUTER OPERATOR NSR.
[2019-09-23] MEDS: methylPREDNISolone SOD SUCC 40 MG/ML VIAL IV SCH ×3 (08:25→16:56)
[2019-09-23] MEDS ORDERED: AMIODARONE 150 MG in IV D5W 100 ML IV ONE (08:30)
[2019-09-23] MEDS ORDERED: AMIODARONE 900 MG in IV D5W 500 ML IV PRN (08:30)
[2019-09-23] MEDS ORDERED: RIVAROXABAN 10 MG TABLET PO SCH (08:30)
--- NOTE | 2019-09-23 08:30 | NUR ---
Tele/RN - Xarelto dose Xarelto dose not given at 08:30, scheduled for 1700 dinnertime.
[2019-09-23] MEDS ORDERED: CARV6.252 PO (08:35)
[2019-09-23] MEDS ORDERED: THIO300C PO (08:35)
[2019-09-23] MEDS ORDERED: FERR160T11 PO (08:35)
[2019-09-23] MEDS ORDERED: BUPR1TAB45 SL (08:35)
[2019-09-23] MEDS ORDERED: GLUC100017 PO (08:35)
[2019-09-23] MEDS ORDERED: VENL150C2 PO (08:35)
[2019-09-23] MEDS ORDERED: APIX5TAB PO (08:35)
[2019-09-23] MEDS ORDERED: CLON2TAB PO (08:35)
[2019-09-23] MEDS ORDERED: LAMO25TA5 PO (08:35)
[2019-09-23] MEDS ORDERED: DICL100G16 TP (08:35)
[2019-09-23] MEDS ORDERED: OMEP20TA5 PO (08:35)
[2019-09-23] MEDS ORDERED: NIFE-34 PO (08:35)
[2019-09-23] MEDS ORDERED: FUROSEMIDE 40 MG/4 ML VIAL IV SCH (09:00)
--- NOTE | 2019-09-23 09:34 | NUR ---
transfer to [facility] PT TRANSFERRED TO [facility] TO NEW ONSET OF AFIB. REPORT GIVEN TO BRENNON GOODWIN. ENDORSED TO RN RE: AMIODARONE INFUSION.
--- NOTE | 2019-09-23 10:00 | NUR ---
BAND TACKER NOTE PATIENT TRANSFERED FROM [address] [place] [address] SURGICAL UNIT. ALERT ORIENTEDX4 , NEW ONSET ATRIAL FIBRILATION. CARDIOLOGY ORDERED AMIODARONE DRIP. RN TO START BOLUS AND CONTINUE IV, MONITOR VITALS AND RHYTHM EVERY HOUR. PATIENT AMBULATORY WITH ASIST, SKIN IS INTACT, IV PATENT RIGHT AC AND RN PLACED ANOTHER IV L HAND. RN COUNSELED PATIENT ON REFUSAL OF INSULIN INJECTION PER MD ORDER. PATIENT ORIGIANLLY WAS REFUSING ADMINISTRATION " i DONT WANT TO START TAKING INJECTION, ONLY WANT ORAL MEDS". RN INFORMED NEED FOR INSULIN DUE TO STEROIDS. SIDE RAILS UP CALL LIGHT WITHIN REACH, ALL NEEDS MET AT THIS TIME. RECOMEDATION TO REST WITH OXYGEN AT THIS TIME.
[2019-09-23] MEDS ORDERED: AMIODARONE 900 MG in IV D5W 482 ML IV PRN (10:30)
--- NOTE | 2019-09-23 12:00 | NUR ---
RN NOTE RN CONTACTED PRIMARY MD TO CONTINUE GABAPENTIN KLONOPIN AND ATIVAN ORDERS. MD OK TO CONTINUE. PATIENT IS AGIATED, ALL VITALS WNL, O2 AT 3 LITERS SATURTION 93% AT REST.
[2019-09-23] MEDS: HYDROCODONE/APAP 5/325MG 1 EACH TABLET PO PRN ×2 (12:15→21:27)
[2019-09-23] MEDS ORDERED: METFORMIN 500 MG TABLET PO SCH (13:00)
[2019-09-23] MEDS: GABAPENTIN 300 MG CAPSULE PO SCH ×2 (13:09→16:53)
[2019-09-23] MEDS: *INSULIN REGULAR(HUMULIN R)HUM 100 UNIT/ML VIAL SQ PRN ×2 (13:40→21:45)
--- NOTE | 2019-09-23 14:00 | NUR ---
RN NOTE PATIENT AGITATED, WANTS THE ATIVAN NOW. RN TO ADMINISTER . RHYTHM REMAINS THE SAME AFIB 90'S
[2019-09-23] MEDS: LORAZEPAM INJ 2 MG/ML VIAL IV PRN (14:40)
[2019-09-23] MEDS: APIXABAN 5 MG TABLET PO SCH (16:55)
--- NOTE | 2019-09-23 19:15 | NUR ---
RN OPENING NOTE RECEIVED PATIENT IN BED RESTING WITH HOB ELEVATED. PATIENT IS WATCHING TV. A&O X3. BREATHING IS EVEN AND NON LABORED, NO SOB NOTED. ON O2 3 LITERS VIA NC AND TOLERATED WELL. IN NO APPARENT DISTRESS NOTED. BED IS LOWERED AND LOCKED FOR SAFETY. CALL LIGHT IS WITHIN EASY REACH. INSTRUCTED PATIENT TO USE CALL LIGHT WHEN IN NEED OF ASSISTANCE. WILL CONTINUE TO MONITOR.
--- NOTE | 2019-09-23 20:00 | NUR ---
RN NOTE RECEIVED PATIENT ON AMIODARONE 0.5 MG/MIN VIA IV. PER DAY SHIFT RN, AMIODARONE 0.5 MG/MIN IV BEGAN AT 1612.
[2019-09-23] MEDS: GABAPENTIN 400 MG CAPSULE PO SCH (21:29)
[2019-09-23] MEDS: clonazePAM 1 MG TABLET PO SCH (21:29)
--- NOTE | 2019-09-23 21:40 | NUR ---
Patient is alert,lives locally with family. States she ambulates without assistive device inside household and uses a walker outside mobility. She is independent with adl's and has good family support. Pcp is Dr. Eboni Aparicio [phone]. She plan to return home once discharge. Addendum: 09/23/19 at 2141 by ALYSIA REYES RN Amended: Links added.
[2019-09-24] VITALS (7 sets, daily range): BP systolic 105–139; BP diastolic 60–88
[2019-09-24] MEDS: ALBUTEROL FS 2.5 MG/0.5 ML VIAL.NEB NEB SCH ×5 (03:41→20:27)
[2019-09-24] MEDS: IPRATROPIUM NEB FS 0.5 MG/2.5 ML AMPUL.NEB NEB SCH ×5 (03:41→20:27)
--- NOTE | 2019-09-24 06:54 | NUR ---
RN CLOSING NOTE PATIENT IS IN BED RESTING WITH HOB ELEVATED, WATCHING TV. A&O X3. BREATHING IS EVEN AND NON LABORED. ON O2 3 LPM VIA NC AND TOLERATED WELL. IN NO APPARENT DISTRESS NOTED AT THIS TIME. ALL DUE MEDS GIVEN AND TOLERATED WELL. BED IS LOWERED TO LOWEST POSITION AND LOCKED FOR SAFETY. CALL LIGHT IS WITHIN EASY REACH. WILL ENDORSE TO AM SHIFT RN FOR JENNI.
[2019-09-24] MEDS: BLOOD SUGAR DIAGNOSTIC 1 EACH STRIP VI SCH ×4 (07:41→22:00)
[2019-09-24] MEDS: methylPREDNISolone SOD SUCC 40 MG/ML VIAL IV SCH ×3 (08:30→18:03)
[2019-09-24] MEDS: GABAPENTIN 300 MG CAPSULE PO SCH ×2 (08:31→18:03)
[2019-09-24] MEDS: APIXABAN 5 MG TABLET PO SCH ×2 (08:33→18:07)
[2019-09-24 09:45] LABS: BASOPHILS % (AUTO) 0.4 % (0.0-2.0); EOSINOPHILS % (AUTO) 0.3 % (0.0-6.0); HEMATOCRIT 35 % (33-45); LYMPHOCYTES # (AUTO) 1.1 /CMM (0.8-4.8); LYMPHOCYTES % (AUTO) 9.3 % (20.0-44.0); MEAN CORPUSCULAR HGB CONC 31 g/dl (31.0-36.0); MEAN CORPUSCULAR VOLUME 94 fL (82-100); MONOCYTES # (AUTO) 0.6 /CMM (0.1-1.30); MONOCYTES % (AUTO) 4.7 % (2.0-12.0); NEUTROPHILS # (AUTO) 10.6 /CMM (1.8-8.9); NEUTROPHILS % (AUTO) 85.3 % (43.0-81.0); PLATELET COUNT (AUTO) 318 /CMM (150-450); RED BLOOD CELL COUNT(AUTO) 3.72 MIL/uL (4.0-5.2); WHITE BLOOD COUNT (AUTO) 12.4 K/uL (4.3-11.0)
[2019-09-24 10:18] LABS: CALCIUM, SERUM 8.9 mg/dL (8.5-10.1); MAGNESIUM 2.2 mg/dL (1.8-2.4); PHOSPHORUS 3.4 mg/dL (2.5-4.9); POTASSIUM 3.9 mmol/L (3.5-5.1)
[2019-09-24] MEDS: DILTIAZEM HCL CD 240 MG PO SCH (10:28)
[2019-09-24] MEDS: HYDROCODONE/APAP 5/325MG 1 EACH TABLET PO PRN ×2 (11:42→20:50)
[2019-09-24] MEDS: NALOXONE MC SCH ×2 (11:55→18:32)
[2019-09-24] MEDS: BUPRENORPHINE MC SCH ×2 (11:55→18:32)
[2019-09-24] MEDS ORDERED: KEY,NONCONTROL,TO KEEP IN PYXI 1 EA MC ONE ×2 (12:07→18:15)
--- NOTE | 2019-09-24 19:10 | NUR ---
RN OPENING NOTES RECEIVED PATIENT RESTING IN BED, A/O X4. NO SOB NOTED. ON O2 AT 3L/MIN NASAL CANNULA. NO WHEEZING NOTED. NO COMPLAIN OF PAIN. CALL LIGHT WITHIN REACH. BED ALARM ON. BED IN LOWEST AND LOCKED POSITION. WITH MEPILEX DRESSING ON THE RIGHT UPPER OUTER THIGH INTACT, WITH VERY SMALL WOUND NOTED. PER REPORT, WOUND CARE CONSULTED. ACCORDING TO PATIENT, SHE SCRATCHED IT.
--- NOTE | 2019-09-24 20:53 | NUR ---
PATIENT SAT IN THE CHAIR EARLIER. WALKED BACK TO THE BED, STEADY GAIT. HOLDING ON TO THE BED SIDERAILS. CALL LIGHT WITHIN REACH.
[2019-09-24] MEDS: *INSULIN REGULAR(HUMULIN R)HUM 100 UNIT/ML VIAL SQ PRN (22:39)
--- NOTE | 2019-09-24 22:40 | NUR ---
BLOOD SUGAR FINGERSTICK 136, PATIENT REFUSED INSULIN.
[2019-09-24] MEDS: GABAPENTIN 400 MG CAPSULE PO SCH (23:32)
[2019-09-24] MEDS: clonazePAM 1 MG TABLET PO SCH (23:33)
--- NOTE | 2019-09-24 23:38 | NUR ---
PATIENT VERBALIZED " I DO NOT WANT TO TAKE MY OWN MED AT 0000, DO NOT BRING IT TO ME".
[2019-09-25] VITALS: BP 131/78
[2019-09-25] MEDS: IPRATROPIUM NEB FS 0.5 MG/2.5 ML AMPUL.NEB NEB SCH ×7 (00:14→22:56)
[2019-09-25] MEDS: ALBUTEROL FS 2.5 MG/0.5 ML VIAL.NEB NEB SCH ×7 (00:14→22:57)
[2019-09-25] MEDS: HYDROCODONE/APAP 5/325MG 1 EACH TABLET PO PRN (03:13)
[2019-09-25 04:00] VITALS: BP 122/85
--- NOTE | 2019-09-25 05:09 | NUR ---
PT REFUSED EKG AT THIS TIME. NURSE IS AWARE OF THE SITUATION.
[2019-09-25] MEDS: NALOXONE MC SCH ×4 (06:00→18:22)
[2019-09-25] MEDS: BUPRENORPHINE MC SCH ×4 (06:00→18:22)
--- NOTE | 2019-09-25 06:22 | NUR ---
RN CLOSING NOTES: PATIENT IS RESTING IN BED AT THIS TIME. NO SOB NOTED. NO ACUTE EVENTS OVERNIGHT. NO CHEST PAIN NOTED. AMBULATORY. VITALS STABLE. AFEBRILE. CALL LIGHT WITHIN REACH. BED IN LOWEST AND LOCKED POSITION.
--- NOTE | 2019-09-25 06:33 | NUR ---
PATIENT REFUSED TO TAKE HER OWN MED RIGHT NOW. PATIENT SAID SHE WILL TAKE IT DURING BREAKFAST TODAY, WILL ENDORSE TO THE NEXT SHIFT RN. PATIENT IS SITTING IN THE CHAIR AT THIS TIME.
[2019-09-25 06:52] LABS: BASOPHILS % (AUTO) 0.2 % (0.0-2.0); HEMATOCRIT 34 % (33-45); HEMOGLOBIN 10.8 g/dL (11.5-14.8); LYMPHOCYTES # (AUTO) 1.2 /CMM (0.8-4.8); LYMPHOCYTES % (AUTO) 10.2 % (20.0-44.0); MEAN CORPUSCULAR HGB CONC 32 g/dl (31.0-36.0); MEAN CORPUSCULAR VOLUME 95 fL (82-100); MONOCYTES # (AUTO) 0.5 /CMM (0.1-1.30); MONOCYTES % (AUTO) 4.2 % (2.0-12.0); NEUTROPHILS # (AUTO) 10.4 /CMM (1.8-8.9); NEUTROPHILS % (AUTO) 85.4 % (43.0-81.0); PLATELET COUNT (AUTO) 313 /CMM (150-450); RED BLOOD CELL COUNT(AUTO) 3.59 MIL/uL (4.0-5.2); WHITE BLOOD COUNT (AUTO) 12.2 K/uL (4.3-11.0)
[2019-09-25 07:19] LABS: MAGNESIUM 2.3 mg/dL (1.8-2.4); PHOSPHORUS 3.6 mg/dL (2.5-4.9); POTASSIUM 4.9 mmol/L (3.5-5.1)
[2019-09-25] MEDS: LORAZEPAM INJ 2 MG/ML VIAL IV PRN ×2 (07:23→13:45)
--- NOTE | 2019-09-25 07:30 | NUR ---
RN NOTE AROUND 0720 PT WAS CRYING, CALLING HER , CO ABOUT ANXIETY AND CHEST PAIN, ASKING FOR SUBLINGUAL NITROGLYCERIN. VS STABLE, AFIB 80 BEATS/MIN ON TELEMETRY, DENIES SOB. ATIVAN OFFERED, AND DR EMMANUEL HERNANDEZ, PER HIM DR COLEMAN WILL FOLLOW UP WITH PT. ATIVAN 0.5 MG IV GIVEN WILL CONTINUE TO MONITOR.
[2019-09-25] MEDS: BLOOD SUGAR DIAGNOSTIC 1 EACH STRIP VI SCH ×4 (07:42→21:58)
[2019-09-25 08:00] VITALS: BP 137/73
[2019-09-25] MEDS: APIXABAN 5 MG TABLET PO SCH ×2 (08:34→18:11)
[2019-09-25] MEDS: GABAPENTIN 300 MG CAPSULE PO SCH ×2 (08:34→18:05)
[2019-09-25] MEDS: methylPREDNISolone SOD SUCC 40 MG/ML VIAL IV SCH ×3 (08:35→18:07)
[2019-09-25] MEDS: DILTIAZEM HCL CD 240 MG PO SCH (08:35)
[2019-09-25] MEDS: INSULIN REGULAR, HUMAN 100 UNIT/ML 3 ML VIAL SQ PRN ×3 (08:43→18:13)
[2019-09-25] MEDS ORDERED: NITROGLYCERIN 4.9 GM SPRAY SL ONE (09:00)
[2019-09-25] MEDS ORDERED: DICLOFENAC TOPICAL 100 GM GEL..GM. TP SCH (10:30)
[2019-09-25] MEDS ORDERED: NAPROXEN 500 MG TABLET PO PRN (10:30)
[2019-09-25] MEDS ORDERED: LORAZEPAM 1 MG TABLET PO PRN (10:30)
[2019-09-25] MEDS: FUROSEMIDE 40 MG TABLET PO SCH (10:33)
[2019-09-25] MEDS: POLYETHYLENE GLYCOL 3350 17 GM POWD.PACK PO SCH (10:37)
[2019-09-25] MEDS ORDERED: APIXABAN 5 MG TABLET PO SCH (10:39)
[2019-09-25] MEDS: CARVEDILOL 6.25 MG TABLET PO SCH ×2 (10:40→20:47)
[2019-09-25] MEDS: MULTIPLE VIT (LYCOPENE/FA/MV,CA,IRON,MIN/LUT)1 TAB PO SCH (10:40)
[2019-09-25] MEDS ORDERED: CT SWABBABLE VALVE TRANS SET 1 EA INFUS.SET MC ONE (10:59)
[2019-09-25] MEDS ORDERED: IV NS 0.9% 250 ML IV ONE (10:59)
[2019-09-25] MEDS ORDERED: IOHEXOL-350 100 ML VIAL IV ONE (10:59)
[2019-09-25] MEDS: SLOW FE 1 TAB PO SCH (11:00)
[2019-09-25] MEDS ORDERED: METOPROLOL TARTRATE INJ 5 MG/5 ML AMPUL ONE ×2 (11:22→12:01)
[2019-09-25] MEDS ORDERED: NITROGLYCERIN 0.4 MG/TAB BOTTLE SL PRN (11:30)
[2019-09-25] MEDS: METOPROLOL TARTRATE INJ 5 MG/5 ML AMPUL IVP PRN ×11 (11:38→12:28)
[2019-09-25 12:00] VITALS: BP_SYST 131; BP_SYST 96; BP_DIAS 64; BP_DIAS 73
--- NOTE | 2019-09-25 12:30 | NUR ---
ICU/RN: PT IN CT FOR CTA. LEFT AC 18G IV IN PLACE, IV ASSESSED, FLUSHED, NO S/S OF INFILTRATION NOTED. BLOOD RETURN NOTED. MAX DOSE OF METOPROLOL ADMINISTERED PER PROTOCOL. PT A.FIB ON TELE. PER OK TO PROCEED EVEN THOUGHT AFTER FULL DOSE HR WAS NOT IN 50S-60S. DURING EXAM IV WAS TESTED WITH NS FLUSH, DURING CONTRAST INFUSION PIV BLEW AND CONTRAST INFILTRATED LEFT ARM. EXAM WAS IMMEDIATELY STOPPED, PIV REMOVED AND HOT PACK APPLIED. CALLED AND NOTIFIED. PRIMARY MD GAVE ORDERS FOR MIDLINE. WILL REATTEMPT EXAM IN AM PER PT REQUEST.
[2019-09-25] MEDS: ACETAMINOPHEN ES 500 MG TABLET PO SCH ×2 (12:52→20:48)
[2019-09-25] MEDS ORDERED: KEY,NONCONTROL,TO KEEP IN PYXI 1 EA MC ONE ×2 (12:55→18:19)
[2019-09-25] MEDS ORDERED: [UNRECOGNIZED DRUG - OTHER] SL SCH (13:00)
[2019-09-25] MEDS ORDERED: NALOXONE HCL SL SCH (13:00)
[2019-09-25] MEDS ORDERED: BUPRENORPHINE HCL SL SCH (13:00)
--- NOTE | 2019-09-25 13:00 | NUR ---
PT HAD LEFT ac 18 IV INSERTED JUST BEFORE CTA, pt was not able to go through CTA DUE TO IV SITE INFILTRATION DURING CONTRAST ADMINISTRATION. PT WILL HAVE MIDLINE INSERTED.
[2019-09-25] MEDS ORDERED: ALBUTEROL FS 2.5 MG/3 ML VIAL.NEB NEB PRN (13:30)
--- NOTE | 2019-09-25 14:00 | NUR ---
RN NOTE PT WANTED TO HAVE CTA IN 30 MIN, BUT PER RADIOLOGIST THEY WERE NOT HAVING TIME TO WAIT, SO PT AGREED TO DO THE TEST TOMORROW. PT WANTS TO GET ATIVAN DOSE BEFORE CTA, WILL ENDORSE TO NIGHT/NEXT SHIFT.
[2019-09-25 16:00] VITALS: BP 144/82
[2019-09-25] MEDS ORDERED: FURO80TA3 PO (16:34)
[2019-09-25] MEDS ORDERED: IBUP-1953 PO (16:45)
[2019-09-25] MEDS: MAGNESIUM OXIDE 400 MG TABLET PO SCH (18:05)
[2019-09-25] MEDS: LamoTRIgine 25 MG TABLET PO SCH ×2 (18:05→20:48)
[2019-09-25] MEDS: EZETIMIBE 10 MG TABLET PO SCH (18:06)
[2019-09-25] MEDS: VITAMIN B COMP W-C 1 TAB TABLET PO SCH (18:17)
[2019-09-25] MEDS: CALCIUM CARBONATE (1250) 500 MG TABLET PO SCH (18:18)
--- NOTE | 2019-09-25 19:35 | NUR ---
RN NOTE RECEIVED PT ALERT AND ORIENTED IN BED IN SEMI WHITAKER'S POSITION. PT DENIES PAIN OR DISCOMFORT. ON 2L OF O2 VIA NC AND WITHOUT SHORTNESS OF BREATH. TELE MONITOR ON. WILL MONITOR.
--- NOTE | 2019-09-25 19:45 | NUR ---
RN NOTE PER BURR BENCH HAND REPORT PT MIDLINE DRESSING CUSTODIAL PEELING OFF AND MIDLINE WAS ABOUT TO DISLODGE, DRESSING CHANGED , BLOOD RETURN PRESENT, PORT FLUSHES WELL, WILL ENDORSE TO CLOTH STOCK SORTER TO MONITOR AND PT INSTRUCTED NOT TO SHOWER TODAY.
[2019-09-25 20:00] VITALS: BP 132/94
[2019-09-25] MEDS: clonazePAM 1 MG TABLET PO SCH (21:58)
[2019-09-25] MEDS: GABAPENTIN 400 MG CAPSULE PO SCH (21:58)
[2019-09-25] MEDS ORDERED: Medication Not On Formulary EA (Eszopiclone (Lunesta) 3 MG) PO SCH (22:00)
[2019-09-25] MEDS: *INSULIN REGULAR(HUMULIN R)HUM 100 UNIT/ML VIAL SQ PRN (22:00)
[2019-09-25] MEDS: TRAZODONE 50 MG TABLET PO SCH (22:36)
[2019-09-26] VITALS: BP 129/71
--- NOTE | 2019-09-26 00:26 | NUR ---
RN NOTE PT REFUSED TO TAKE NALOXONE AT THIS TIME. EXPLAINED RISKS AND ADVANTAGES BUT PT CONTINUES TO REFUSE.
[2019-09-26] MEDS: ALBUTEROL FS 2.5 MG/0.5 ML VIAL.NEB NEB SCH ×6 (03:07→23:26)
[2019-09-26] MEDS: IPRATROPIUM NEB FS 0.5 MG/2.5 ML AMPUL.NEB NEB SCH ×6 (03:07→23:26)
[2019-09-26 04:00] VITALS: BP 116/72
--- NOTE | 2019-09-26 06:00 | NUR ---
RN NOTE OFFERED PT NALOXONE TO BE GIVEN AT 0600 ORDERED. PT REFUSED AND STATES THAT SHE WANTS TO TAKE IT AFTER SHE EATS BREAKFAST. WILL ENDORSE TO MORNING SHIFT.
[2019-09-26 07:02] LABS: BASOPHILS % (AUTO) 0.1 % (0.0-2.0); HEMATOCRIT 34 % (33-45); HEMOGLOBIN 10.8 g/dL (11.5-14.8); LYMPHOCYTES # (AUTO) 1.3 /CMM (0.8-4.8); LYMPHOCYTES % (AUTO) 10.7 % (20.0-44.0); MEAN CORPUSCULAR HGB CONC 32 g/dl (31.0-36.0); MEAN CORPUSCULAR VOLUME 95 fL (82-100); MONOCYTES # (AUTO) 0.6 /CMM (0.1-1.30); MONOCYTES % (AUTO) 5.3 % (2.0-12.0); NEUTROPHILS # (AUTO) 10.2 /CMM (1.8-8.9); NEUTROPHILS % (AUTO) 83.9 % (43.0-81.0); PLATELET COUNT (AUTO) 348 /CMM (150-450); RED BLOOD CELL COUNT(AUTO) 3.55 MIL/uL (4.0-5.2); WHITE BLOOD COUNT (AUTO) 12.1 K/uL (4.3-11.0)
--- NOTE | 2019-09-26 07:16 | NUR ---
RN CLOSING NOTE PT IN BED SLEEPING COMFORTABLY WITH HEAD OF BED SLIGHTLY ELEVATED. CURRENTLY ON 3L OF O2 VIA NC. NO SOB NOTED. RESPIRATIONS EVEN AND UNLABORED. NO INDICATIONS OF PAIN OR DISCOMFORT. ON TELE MONITOR. SAFETY MEASURES IN PLACE. CALL LIGHT WITHIN REACH. ENDORSED TO MORNING SHIFT.
[2019-09-26] MEDS: BLOOD SUGAR DIAGNOSTIC 1 EACH STRIP VI SCH ×4 (07:32→22:12)
--- NOTE | 2019-09-26 07:45 | NUR ---
ANVIL WORKER NOTES PATIENT IN BED A/OX4 WITH AFIB 89. NO SOB OR DISTRESS NOTED AT THIS TIME. CALL LIGHT WITHIN REACH. BED AT THE LOWEST POSITION LOCKED. WILL CONTINUE TO MONITOR.
[2019-09-26] MEDS: INSULIN REGULAR, HUMAN 100 UNIT/ML 3 ML VIAL SQ PRN ×4 (07:53→22:29)
[2019-09-26 08:00] VITALS: BP 143/73
[2019-09-26] MEDS ORDERED: KEY,NONCONTROL,TO KEEP IN PYXI 1 EA MC ONE ×4 (08:18→19:28)
[2019-09-26] MEDS: NALOXONE MC SCH ×4 (08:33→19:29)
[2019-09-26] MEDS: BUPRENORPHINE MC SCH ×4 (08:33→19:29)
[2019-09-26] MEDS: PANTOPRAZOLE 40 MG TABLET.DR PO SCH (08:34)
[2019-09-26 08:52] LABS: CREATININE 1.2 mg/dL (0.6-1.3); POTASSIUM 4.5 mmol/L (3.5-5.1)
[2019-09-26] MEDS: CALCIUM CARBONATE (1250) 500 MG TABLET PO SCH ×2 (09:00→10:52)
[2019-09-26] MEDS ORDERED: THIOCTIC ACID PO SCH (09:00)
[2019-09-26] MEDS: VITAMIN B COMP W-C 1 TAB TABLET PO SCH ×2 (09:00→10:51)
[2019-09-26] MEDS ORDERED: GLUCOSAMINE SULFATE 3000 MG PO SCH (09:00)
[2019-09-26] MEDS ORDERED: IBUPROFEN 400 MG TABLET PO SCH (09:00)
[2019-09-26] MEDS: POLYETHYLENE GLYCOL 3350 17 GM POWD.PACK PO SCH (09:00)
[2019-09-26] MEDS ORDERED: FUROSEMIDE 80 MG TABLET PO SCH (09:00)
[2019-09-26] MEDS: SLOW FE 1 TAB PO SCH ×2 (09:00→10:52)
[2019-09-26 09:25] LABS: BAND % (MANUAL) 4 % (0.0-5.0); LYMPHOCYTES % (MANUAL) 19 % (16-48); MONOCYTES % (MANUAL) 4 % (0-11.0); NEUTROPHILS % (MANUAL) 73 (42-76)
--- NOTE | 2019-09-26 09:50 | NUR ---
BREAKER UP NOTES PATIENT WAS TAKEN TO CT, WILL ADMINISTER MEDICATION AFTER SHE RETURNS.
[2019-09-26] MEDS ORDERED: IOHEXOL-350 100 ML VIAL IV ONE (09:52)
[2019-09-26] MEDS ORDERED: IV NS 0.9% 250 ML IV ONE (09:53)
[2019-09-26] MEDS: METOPROLOL TARTRATE INJ 5 MG/5 ML AMPUL IVP PRN (10:11)
--- NOTE | 2019-09-26 10:16 | NUR ---
ICU/RN: PT BROUGHT INTO CT FOR REPEAT CTA. LEFT UPPER ARM MIDLINE IN PLACE, GOOD BLOOD RETURN NOTED. POST ONE DOSE OF METOPROLOL PT WAS HYPOTENSIVE, BP 105/57, HR 82, A.FIB ON TELE. UNABLE TO PROCEED WITH FURTHER DOSES OF METOPROLOL AND NITRO. WILL PROCEED WITH EXAM.
--- NOTE | 2019-09-26 10:30 | NUR ---
ICU/RN: POST PROCEDURE VITALS, BP 98/65, HR 71, O2 95%, RR 18. ON 2LITERS NASAL CANULA. ADMINISTERED 5MG METOPROLOL AND NO NITROGLYCERINE. EXAM WAS COMPLETED AND MD NOTIFIED. WILL ENDORSE REPORT TO PRIMARY RN.
--- NOTE | 2019-09-26 10:34 | NUR ---
FILTROSE CRUSHER NOTES PATIENT IS BACK FROM CT SAFELY WITH WHEELCHAIR.
[2019-09-26] MEDS: methylPREDNISolone SOD SUCC 40 MG/ML VIAL IV SCH ×3 (10:47→17:26)
[2019-09-26] MEDS: GABAPENTIN 300 MG CAPSULE PO SCH ×2 (10:51→17:30)
[2019-09-26] MEDS: MULTIPLE VIT (LYCOPENE/FA/MV,CA,IRON,MIN/LUT)1 TAB PO SCH (10:53)
[2019-09-26] MEDS: MAGNESIUM OXIDE 400 MG TABLET PO SCH ×2 (10:54→17:30)
[2019-09-26] MEDS: CARVEDILOL 6.25 MG TABLET PO SCH ×2 (10:56→20:31)
[2019-09-26] MEDS: LamoTRIgine 25 MG TABLET PO SCH ×2 (10:57→17:30)
[2019-09-26] MEDS: APIXABAN 5 MG TABLET PO SCH ×2 (10:59→17:31)
--- NOTE | 2019-09-26 11:00 | NUR ---
MS RN NOTES PATIENT STATED THAT SHE DOES NOT WANT TO TAKE THE VITAMINS. SUPPLEMENTS DISCARDED IN WASTE BIN.
[2019-09-26] MEDS: NIFEdipine XL 60 MG TAB PO SCH (11:01)
[2019-09-26] MEDS: VENLAFAXINE XR 150 MG CAP.SR.24H PO SCH (11:01)
--- NOTE | 2019-09-26 11:22 | NUR ---
IT SENIOR ANALYST NOTES CALLED DR BENITEZ FOR FUROSEMIDE CLARIFICATION AND PER DR BENITEZ CONTINUE FUROSEMIDE PO 40 MG DAILY.
[2019-09-26] MEDS: ACETAMINOPHEN ES 500 MG TABLET PO SCH ×3 (11:40→20:58)
[2019-09-26] MEDS: DILTIAZEM HCL CD 240 MG PO SCH (11:40)
[2019-09-26] MEDS: FUROSEMIDE 40 MG TABLET PO SCH (11:40)
[2019-09-26 12:00] VITALS: BP 123/67
--- NOTE | 2019-09-26 12:00 | NUR ---
MS RN NOTES ACCORDING TO PATIENT`S DAUGHTER PATIENT TAKES FUROSEMIDE PO 80MG ON MONDAYS, WEDNESDAYS AND FRIDAYS.AND FUROSEMIDE 40 MG IS TAKEN ON TUESDAYS, Thursdays AND SUNDAYS.
--- NOTE | 2019-09-26 13:25 | NUR ---
MS RN NOTES PATIENT HAD PREVIOUS DOSE ACETAMINOPHEN LATE SO HELD THE MED FOR 1300 SCHEDULE TIME.
[2019-09-26 16:00] VITALS: BP 143/82
[2019-09-26] MEDS: EZETIMIBE 10 MG TABLET PO SCH (17:30)
--- NOTE | 2019-09-26 18:45 | NUR ---
MS RN NOTES PATIENT STATED THAT SHE WANTS HER 1800 HOME MED BUPRENOPHINE/NALAXONE AT LATER TIME.
--- NOTE | 2019-09-26 19:35 | NUR ---
MS RN NOTES PATIENT IS SITTING IN BED WITHOUT NASAL CANNULA THE SATURATION IS 91%. NON COMPLIANT WITH DIET. NO SOB OR DISCOMFORT NOTED. ALL NEEDS ATTENDANT , MEDICATIONS GIVEN. BED AT THE LOWEST POSITION LOCKED. CALL LIGHT WITHIN REACH . ENDORSED TO NATIONAL SECRETARY NURSE FOR JENNI.
--- NOTE | 2019-09-26 19:46 | NUR ---
MS/RN OPENING NOTES RECEIVED PATIENT SITTING IN THE [place], AWAKE, ALERT X3, ABLE TO VERBALIZE NEED, MEDICATION GIVEN HOME MED BY AM RN AFTER DINNER REQUESTED BY PATIENT, VITAL SIGNS CHECK BY CLASS C DRIVER,. PATIENT BELONGINGS WITHIN REACH, BED LOCKED CALL LIGHTS WITHIN REACH, INSTRUCTED TO CALL FOR ASSISTANCE, OBSERVE SOME REDNESS AND WOUND SCAB, PATIENT SCRATCHES LEGS. WILL MONITOR HYPO/HYPER GLYCEMIAM RIGHT UPPER MIDLINE AMEE 18 PATIENT, ON USE OF OXYGEN NEEDEDM TO FOLLOW UP ANY HOME MEDICATION OF CONCERN PER DAUGHTER IN AM .
[2019-09-26 20:00] VITALS: BP 132/73
--- NOTE | 2019-09-26 20:34 | NUR ---
ms/rn notes patient reported tylenol not working for her pain that she had home medication earlier which is effective.
[2019-09-26] MEDS: clonazePAM 1 MG TABLET PO SCH (22:12)
[2019-09-26] MEDS: TRAZODONE 50 MG TABLET PO SCH (22:13)
[2019-09-26] MEDS: GABAPENTIN 400 MG CAPSULE PO SCH (22:13)
[2019-09-27] MEDS: IPRATROPIUM NEB FS 0.5 MG/2.5 ML AMPUL.NEB NEB SCH ×4 (03:39→15:30)
[2019-09-27] MEDS: ALBUTEROL FS 2.5 MG/0.5 ML VIAL.NEB NEB SCH ×4 (03:39→15:30)
[2019-09-27 04:00] VITALS: BP 108/57
[2019-09-27] MEDS: NALOXONE MC SCH ×3 (06:00→13:29)
[2019-09-27] MEDS: BUPRENORPHINE MC SCH ×3 (06:00→13:29)
[2019-09-27 06:08] LABS: CREATININE 1.3 mg/dL (0.6-1.3); POTASSIUM 4.9 mmol/L (3.5-5.1)
[2019-09-27 06:14] LABS: BASOPHILS % (AUTO) 0.2 % (0.0-2.0); HEMATOCRIT 35 % (33-45); HEMOGLOBIN 11.1 g/dL (11.5-14.8); LYMPHOCYTES # (AUTO) 1.6 /CMM (0.8-4.8); LYMPHOCYTES % (AUTO) 10.9 % (20.0-44.0); MEAN CORPUSCULAR HGB CONC 32 g/dl (31.0-36.0); MEAN CORPUSCULAR VOLUME 94 fL (82-100); MONOCYTES # (AUTO) 0.8 /CMM (0.1-1.30); MONOCYTES % (AUTO) 5.5 % (2.0-12.0); NEUTROPHILS # (AUTO) 12.1 /CMM (1.8-8.9); NEUTROPHILS % (AUTO) 83.4 % (43.0-81.0); PLATELET COUNT (AUTO) 347 /CMM (150-450); WHITE BLOOD COUNT (AUTO) 14.6 K/uL (4.3-11.0)
--- NOTE | 2019-09-27 06:28 | NUR ---
106-1 MS/RN CLOSING NOTES PATIENT ABLE TO SLEEP DURING THE NIGHTS, SLEPT WELL,RESPIRATIONS EVEN AND UNLABORED, ABLE TO VERBALIZE NDEEDS, ON OXYGEN AT 2LITER FOR COMFORT MEASURES, EDUCATED ON DIET AND DISEASE PROCESS, MOTIVATED TO LEARN BUT ENCOURAGE TO ASK FOR ASSISTANCE FOR SAFETY. BED LOCKED, CALL LIGHTS WITHIN REACH. VITAL SIGNS CHECK, MONTIORED FOR HYPO/HYPERGLYCEMIA. SKIN INTACT WITH SOME SCANS AND REDNESS ON LEGS.NO OPEN WOUND. WILL ENDORSE TO AM RN FOR JENNI. BED LOCKED, CALL LIGHTS WITHIN REACH
--- NOTE | 2019-09-27 06:35 | NUR ---
106-1 MS/RN NOTES PATIENT ASLEEP.REFUSE TO BE AWAKEN AT THIS TIME, NOT GIVEN HOME MEDICATION FOR PAIN PATIENT WITH NO GRIMACE AND NO GUARDING, COMFORTABLE. NO SKIN ISSUES BUT ONLY OLD SCAB AND REDNESS PATIENT EASILY SCRATCHES LEGS FREQUENTLY.
--- NOTE | 2019-09-27 07:00 | NUR ---
RN MS NOTES 1 - OPENING. PATIENT IS A/O X4 PATIENT IS ASLEEP BUT EASILY WOKEN WITH NAME AND TOUCH . PATIENT IS IN 2 L OF OXYGEN . PATIENT IS SATURATING WELL. NO SON. NO PAIN. EVEN AND UNLABORED BREATHING . PATIENT HAS BLE REDNESS AND SACBS . PATIENT HAS DONI MIDLNE 18 - R AC 20# . INTACT AND PATENT. C/V/I DRESSING. BED LOCKED AND LOWEST POSITION CALL LIGHT WITH IN REACH . ALL SAFETY MEASURE IMPLEMENTED PER HOSPITAL POLICY.
[2019-09-27] MEDS ORDERED: KEY,NONCONTROL,TO KEEP IN PYXI 1 EA MC ONE ×5 (07:14→16:17)
[2019-09-27 08:00] VITALS: BP_SYST 130; BP_SYST 98; BP_DIAS 59; BP_DIAS 70
[2019-09-27 08:16] LABS: BAND % (MANUAL) 1 % (0.0-5.0); LYMPHOCYTES % (MANUAL) 23 % (16-48); MONOCYTES % (MANUAL) 5 % (0-11.0); NEUTROPHILS % (MANUAL) 71 (42-76)
[2019-09-27] MEDS: LamoTRIgine 25 MG TABLET PO SCH (09:00)
[2019-09-27] MEDS: VITAMIN B COMP W-C 1 TAB TABLET PO SCH (09:00)
[2019-09-27] MEDS: POLYETHYLENE GLYCOL 3350 17 GM POWD.PACK PO SCH (09:00)
[2019-09-27] MEDS: SLOW FE 1 TAB PO SCH (09:00)
[2019-09-27] MEDS: MAGNESIUM OXIDE 400 MG TABLET PO SCH (09:00)
[2019-09-27] MEDS: MULTIPLE VIT (LYCOPENE/FA/MV,CA,IRON,MIN/LUT)1 TAB PO SCH (09:00)
[2019-09-27] MEDS: DILTIAZEM HCL CD 240 MG PO SCH (09:00)
[2019-09-27] MEDS: NIFEdipine XL 60 MG TAB PO SCH (09:00)
[2019-09-27] MEDS: ACETAMINOPHEN ES 500 MG TABLET PO SCH ×2 (10:08→13:00)
[2019-09-27] MEDS: PANTOPRAZOLE 40 MG TABLET.DR PO SCH (10:08)
[2019-09-27] MEDS: methylPREDNISolone SOD SUCC 40 MG/ML VIAL IV SCH ×2 (10:08→13:27)
[2019-09-27] MEDS: CALCIUM CARBONATE (1250) 500 MG TABLET PO SCH (10:09)
[2019-09-27] MEDS: GABAPENTIN 300 MG CAPSULE PO SCH (10:09)
[2019-09-27] MEDS: VENLAFAXINE XR 150 MG CAP.SR.24H PO SCH (10:10)
[2019-09-27] MEDS: *INSULIN REGULAR(HUMULIN R)HUM 100 UNIT/ML VIAL SQ PRN ×2 (10:24→13:36)
[2019-09-27] MEDS: BLOOD SUGAR DIAGNOSTIC 1 EACH STRIP VI SCH ×2 (10:26→13:26)
[2019-09-27 10:38] VITALS: BP 98/59
[2019-09-27] MEDS: CARVEDILOL 6.25 MG TABLET PO SCH (10:38)
[2019-09-27] MEDS: APIXABAN 5 MG TABLET PO SCH (10:39)
[2019-09-27] MEDS ORDERED: FLUT1BLS IH (11:46)
[2019-09-27] MEDS ORDERED: PRED20TA PO (11:46)
[2019-09-27] MEDS ORDERED: DILT240C88 PO (11:58)
--- NOTE | 2019-09-27 12:00 | NUR ---
RN MS NOTES FAMILY AT BED SIDE
--- NOTE | 2019-09-27 17:00 | NUR ---
BRAIN WAVE TECHNICIAN NOTES PATIENT A/O X4 . PATIENT IS ON ROOM AIR. NO SOB. EVEN AND UNLABORED BREATHING . NO PAIN . NO ACUTE RESPIRATORY DISTRESS. ALL DISCHARGE PAPERS SIGNED. MEDICATIONS GIVEN. ALL BELONGEINGS GIVEN AND MEDICATION FROM PHARMACY GIVEN TO DAUGHTER. PATIENT WHEEL CHAIRED TO THE CAR AND ARRIVED SAFETY.
== END 2019-09-27 17:24 | disposition home or self-care (01) | DRG 291 ==
LOC: ER 18:23 → TELE 20:27 → TELE-TD 09-23 09:23 → TELE1 09-24 10:19 → MEDSG1 09-26 12:09
PROVIDERS: ADMIT Internal Medicine; ATTEND Family Medicine
PROC: 05H933Z Insertion of Infusion Device into Right Brachial Vein, Percutaneous Approach (ICD-10-PCS; principal; 2019-09-25)
DX: I11.0 Hypertensive heart disease with heart failure (principal); J96.01 Acute respiratory failure with hypoxia; J44.1 Chronic obstructive pulmonary disease with (acute) exacerbation; I50.33 Acute on chronic diastolic (congestive) heart failure; E11.51 Type 2 diabetes mellitus with diabetic peripheral angiopathy without gangrene; E78.5 Hyperlipidemia, unspecified; F41.9 Anxiety disorder, unspecified; E11.65 Type 2 diabetes mellitus with hyperglycemia; I48.91 Unspecified atrial fibrillation; F17.210 Nicotine dependence, cigarettes, uncomplicated; G47.33 Obstructive sleep apnea (adult) (pediatric); Z79.01 Long term (current) use of anticoagulants; R07.81 Pleurodynia; F03.90 Unspecified dementia, unspecified severity, without behavioral disturbance, psychotic disturbance, mood disturbance, and anxiety; F32.9 Major depressive disorder, single episode, unspecified; Z91.14 Patient's other noncompliance with medication regimen
CPT/HCPCS: 36410; 36415; 71045-TC; 75574; 80048-TC; 80053-TC; 80061-TC; 80076-TC; 82962-TC; 83735-TC; 83880; 84100-TC; 84484-TC; 85025-TC; 87081-TC; 93307-TC; 94799-TC; G0378; J0282; J1650; J1815; J1940; J2060; J2405; J2920; J2930; J3490; J7040; J7050; J7060; Q9967

== ENCOUNTER 2020-07-24 18:56 | Emergency (ER) | payer MEDICARE, OTHER ==
[~2020-07-24] VITALS: Ht 165.1 cm; Wt 104.3 kg
[~2020-07-24 18:56] MED LIST changes: -ALBU8.5H8 IH; -AMLO5TAB9 PO; +APIX5TAB PO; -ASPI-1169 PO; +BUPR1TAB45 SL; +CLON2TAB PO; +DICL100G16 TP; +DILT240C88 PO; -DULO60CA45 PO; -EZET10TA16 PO; +EZET10TA6 PO; +FERR160T11 PO; +FLUT1BLS IH; +FURO80TA3 PO; +GLUC100017 PO; +IBUP-1953 PO; +LAMO25TA5 PO; -LISI-607 PO; -LURA40TA PO; -NAPR-1009 PO; +NIFE-34 PO; +OMEP20TA5 PO; -OXYC30TA2 PO; -PHEN15CA PO; +PRED20TA PO; -THIO100C2 PO; +THIO300C PO; +VENL150C2 PO
[2020-07-24 19:04] VITALS: BP 123/85
--- NOTE | 2020-07-24 19:21 | NUR ---
dr lopez at bed side
== END 2020-07-24 19:32 | disposition home or self-care (01) ==
LOC: ER 18:58
DX: M25.552 Pain in left hip (principal); M25.551 Pain in right hip; I10 Essential (primary) hypertension; M19.90 Unspecified osteoarthritis, unspecified site; F03.90 Unspecified dementia, unspecified severity, without behavioral disturbance, psychotic disturbance, mood disturbance, and anxiety; M79.7 Fibromyalgia; E11.40 Type 2 diabetes mellitus with diabetic neuropathy, unspecified; J44.9 Chronic obstructive pulmonary disease, unspecified; F41.9 Anxiety disorder, unspecified; E78.5 Hyperlipidemia, unspecified; F32.9 Major depressive disorder, single episode, unspecified; F17.200 Nicotine dependence, unspecified, uncomplicated; Z90.89 Acquired absence of other organs; Z98.890 Other specified postprocedural states; Z79.899 Other long term (current) drug therapy

== ENCOUNTER 2021-03-18 12:10 | Inpatient (IN) | payer MEDICARE, OTHER ==
[~2021-03-18] VITALS: Ht 165.1 cm; Wt 102.6 kg
--- NOTE | 2021-03-18 12:40 | NUR ---
[id number] HOME, C/O R ARM PAIN, LOWER BACK PAIN S/P GLF IN BATHROOM. PATIENT AWAKE AND ALERT, NO DISTRESS NOTED. PLACED IN BED, HOB ELEVATED, PULSE OX ROOM AIR SHOWS 80%, PLACED PATIENT ON 4LPM VIA NC WITH SPO2 INCREASED TO 94%.
--- NOTE | 2021-03-18 14:06 | NUR ---
TAKEN TO CT.
--- NOTE | 2021-03-18 14:15 | NUR ---
PATIENT ASSISTED TO THE COMMODE. PATIENT ABLE TO STAND AND TRANSFER HERSELF FROM BED TO THE COMMODE WITH MINIMUM ASSIST.
[2021-03-18] MEDS ORDERED: IV NS 0.9% 1,000 ML BAG IV ONE (15:00)
--- NOTE | 2021-03-18 15:23 | NUR ---
COVID ANTIGEN SENT TO LAB.
[2021-03-18 15:29] LABS: BASOPHILS # (AUTO) 0.2 K/uL (0.0-0.2); BASOPHILS % (AUTO) 1.3 % (0.0-2.0); EOSINOPHILS % (AUTO) 0.2 % (0.0-6.0); HEMATOCRIT 30 % (33-45); HEMOGLOBIN 9.2 g/dL (11.5-14.8); LYMPHOCYTES # (AUTO) 1.5 K/uL (0.8-4.8); LYMPHOCYTES % (AUTO) 12.1 % (20.0-44.0); MEAN CORPUSCULAR HGB CONC 31 g/dl (31.0-36.0); MEAN CORPUSCULAR VOLUME 95 fL (82-100); MONOCYTES # (AUTO) 0.8 K/uL (0.1-1.30); MONOCYTES % (AUTO) 6.4 % (2.0-12.0); NEUTROPHILS # (AUTO) 10.2 K/uL (1.8-8.9); PLATELET COUNT (AUTO) 358 K/uL (150-450); RED BLOOD CELL COUNT(AUTO) 3.12 MIL/uL (4.0-5.2); WHITE BLOOD COUNT (AUTO) 12.8 K/uL (4.3-11.0)
--- NOTE | 2021-03-18 15:31 | NUR ---
UA SENT TO LAB.
--- NOTE | 2021-03-18 15:38 | NUR ---
MOVE SHEET SUBMITTED
--- NOTE | 2021-03-18 15:41 | NUR ---
CALLED FOR TELE BED.
[2021-03-18 15:42] LABS: CALCIUM, SERUM 9.1 mg/dL (8.5-10.1); CARBON DIOXIDE 34 mmol/L (21-32); CHLORIDE 103 mmol/L (98-107); CREATININE 1.2 mg/dL (0.6-1.3); GLUCOSE 120 mg/dL (74-106); POTASSIUM 3.6 mmol/L (3.5-5.1); SODIUM SERUM 143 mmol/L (136-145); UREA NITROGEN, BLOOD 14 mg/dL (7-18)
[2021-03-18 15:48] LABS: ALANINE AMINOTRANSFERASE 28 U/L (12-78); ALBUMIN 2.4 g/dL (3.4-5.0); ALKALINE PHOSPHATASE 104 U/L (46-116); ASPARTATE AMINOTRANSFERASE 63 U/L (15-37); BILIRUBIN,DIRECT 0.1 mg/dL (0.0-0.2); BILIRUBIN,TOTAL 0.3 mg/dL (0.2-1.0); TOTAL PROTEIN, SERUM 6.4 g/dL (6.4-8.2)
[2021-03-18] MEDS ORDERED: OMEG1CAP PO (15:59)
[2021-03-18] MEDS ORDERED: ALLO100T PO (15:59)
[2021-03-18] MEDS ORDERED: DILT-32 PO (15:59)
[2021-03-18] MEDS ORDERED: DILT-4 PO (15:59)
[2021-03-18] MEDS ORDERED: TRAZ-257 PO (15:59)
[2021-03-18] MEDS ORDERED: UBID100C13 PO (15:59)
[2021-03-18] MEDS ORDERED: PROM118S5 PO (15:59)
[2021-03-18] MEDS ORDERED: METO5TAB7 PO (15:59)
[2021-03-18] MEDS ORDERED: PRAV10TA40 PO (15:59)
[2021-03-18] MEDS ORDERED: DIAZ10TA4 PO (15:59)
[2021-03-18] MEDS ORDERED: GLUC1TAB20 PO (15:59)
[2021-03-18] MEDS ORDERED: EMPA10TA PO (15:59)
[2021-03-18] MEDS ORDERED: DIAZ5TAB4 PO (15:59)
[2021-03-18] MEDS ORDERED: BUPR1FIL3 SL (15:59)
[2021-03-18] MEDS ORDERED: FERR325T23 PO (15:59)
[2021-03-18] MEDS ORDERED: MONT10TA22 PO (15:59)
[2021-03-18] MEDS ORDERED: CHOL400T PO (15:59)
[2021-03-18 16:02] LABS: BILIRUBIN,URINE NEGATIVE (NEGATIVE); COLOR,URINE YELLOW (YELLOW); LEUKOCYTE ESTERASE ,URINE MODERATE (NEGATIVE); NITRITE, URINE POSITIVE (NEGATIVE); PROTEIN,URINE 100 mg/dl (NEGATIVE); UGLUCOSE 100 MG/DL mg/dL (NEGATIVE); UROBILINOGEN,URINE 0.2 EU/dL (0.2)
--- NOTE | 2021-03-18 16:05 | NUR ---
[facility] CALLED STAFF RN PAGED.
--- NOTE | 2021-03-18 16:14 | NUR ---
MIDLINE NURSE AT BEDSIDE.
--- NOTE | 2021-03-18 16:22 | NUR ---
REPORT GIVEN TO ANNE-MARIE GOODWIN FOR JENNI.
[2021-03-18 16:23] LABS: SQUAMOUS EPITHELIAL CELL,UR 0-2 /HPF (None Seen)
[2021-03-18] MEDS ORDERED: CEFTRIAXONE 1GM BAG (ER ONLY) 50 ML IV ONE ×2 (16:23→16:30)
[2021-03-18] MEDS ORDERED: FUROSEMIDE 40 MG/4 ML VIAL ONE (16:23)
[2021-03-18 16:24] LABS: BACTERIA,URINE 2+ /HPF (None Seen)
[2021-03-18] MEDS ORDERED: FUROSEMIDE 40 MG/4 ML VIAL IV ONE (16:30)
[2021-03-18] MEDS ORDERED: AZITHROMYCIN 500 MG in IV D5W 250 ML IV ONE (16:30)
[2021-03-18 16:32] LABS: CREATINE KINASE, TOTAL 1417 U/L (26-192)
--- NOTE | 2021-03-18 16:49 | NUR ---
HENRY TURK DNP AT BEDSIDEFOR EVAL, MED SURG BED ONLY.
--- NOTE | 2021-03-18 16:58 | NUR ---
SUBOXONE FILM BROUGHT BY FAMILY DROPPED OFF AT PHARMACY, RECEIVED BY SOO.
--- NOTE | 2021-03-18 16:59 | NUR ---
PATIENT TRANSFERRED TO ROOM 326-1 IN STABLE CONDITION. NO DISTRESS NOTED.
[2021-03-18 17:00] VITALS: BP 119/69
--- NOTE | 2021-03-18 17:00 | NUR ---
RN NOTE PT IN ROOM 326. NO RESPIRATORY DISTRESS NOTED. V/S TAKEN UPON ADMISSION. WOUND PICTURES TAKEN AND PLACED IN CHART. LABS AND ORDERS REVIEWED. WILL CONTINUE TO MONITOR.
[2021-03-18] MEDS ORDERED: *INSULIN REGULAR(HUMULIN R)HUM 100 UNIT/ML VIAL SQ PRN (17:30)
[2021-03-18] MEDS ORDERED: MORPHINE SULFATE INJ 2 MG/ML DISP.SYRIN IV PRN (17:30)
[2021-03-18] MEDS: BLOOD SUGAR DIAGNOSTIC 1 EACH STRIP VI SCH ×2 (17:30→22:20)
[2021-03-18] MEDS ORDERED: INSULIN REGULAR, HUMAN 100 UNIT/ML 3 ML VIAL SQ PRN (17:30)
[2021-03-18] MEDS ORDERED: ONDANSETRON HCL/PF 4 MG/2 ML VIAL IVP PRN (17:30)
[2021-03-18] MEDS ORDERED: Z GUARD REMEDY 2 OZ OINT TP PRN (17:30)
[2021-03-18] MEDS ORDERED: DEXTROSE 50%-WATER 50 ML DISP.SYRIN IV PRN (17:30)
[2021-03-18] MEDS ORDERED: BUMETANIDE INJ 6 MG in IV NS 0.9% 36 ML IV ONE (18:00)
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
[2021-03-18] MEDS: ACETAMINOPHEN 325 MG TABLET PO PRN (19:58)
[2021-03-18 20:00] VITALS: BP 136/52
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
[2021-03-18] MEDS: TRAZODONE 50 MG TABLET PO SCH (21:34)
[2021-03-18] MEDS: ATORVASTATIN 40 MG TABLET PO SCH (21:35)
[2021-03-18] MEDS: EZETIMIBE 10 MG TABLET PO SCH (21:35)
[2021-03-19] MEDS: ACETAMINOPHEN 325 MG TABLET PO PRN (03:26)
[2021-03-19 05:58] LABS: BASOPHILS % (AUTO) 0.4 % (0.0-2.0); EOSINOPHILS % (AUTO) 2.1 % (0.0-6.0); HEMATOCRIT 27 % (33-45); HEMOGLOBIN 8.8 g/dL (11.5-14.8); LYMPHOCYTES # (AUTO) 1.5 K/uL (0.8-4.8); LYMPHOCYTES % (AUTO) 15.4 % (20.0-44.0); MEAN CORPUSCULAR HGB CONC 32 g/dl (31.0-36.0); MEAN CORPUSCULAR VOLUME 94 fL (82-100); MONOCYTES # (AUTO) 0.7 K/uL (0.1-1.30); MONOCYTES % (AUTO) 7.3 % (2.0-12.0); NEUTROPHILS # (AUTO) 7.1 K/uL (1.8-8.9); NEUTROPHILS % (AUTO) 74.8 % (43.0-81.0); PLATELET COUNT (AUTO) 357 K/uL (150-450); RED BLOOD CELL COUNT(AUTO) 2.91 MIL/uL (4.0-5.2); WHITE BLOOD COUNT (AUTO) 9.6 K/uL (4.3-11.0)
[2021-03-19 06:38] LABS: ALBUMIN 2.3 g/dL (3.4-5.0); BILIRUBIN,TOTAL 0.3 mg/dL (0.2-1.0); CALCIUM, SERUM 8.4 mg/dL (8.5-10.1); CREATININE 1.2 mg/dL (0.6-1.3); MAGNESIUM 2.1 mg/dL (1.8-2.4); PHOSPHORUS 3.9 mg/dL (2.5-4.9)
[2021-03-19 06:55] LABS: THYROID STIMULATING HORMONE 3.974 uIU/mL (0.358-3.74)
--- NOTE | 2021-03-19 07:00 | NUR ---
MS RN CLOSING NOTES PATIENT RESTING IN BED, SITTER PRESENT AT BEDSIDE. PATIENT STABLE ON 2L OF OXYGEN VIA NASAL CANNULA, NO S/S OF DISTRESS OR SHORTNESS OF BREATH NOTED. MEDICATIONS GIVEN ORDERED, NEEDS MET THROUGHOUT SHIFT. STOOL SAMPLE FOR WBC AND CULTURES SENT TO LAB. SAFETY MEASURES IN PLACE, CALL LIGHT AND BEDSIDE TABLE WITHIN REACH, BED LOCKED IN LOWEST POSITION, SIDE RAILS UP X 3, BED ALARM ON. WILL ENDORSE TO DAY SHIFT NURSE FOR CONTINUITY OF CARE
[2021-03-19 07:03] VITALS: BP 119/69
[2021-03-19] MEDS: BLOOD SUGAR DIAGNOSTIC 1 EACH STRIP VI SCH ×4 (07:35→23:13)
--- NOTE | 2021-03-19 07:48 | NUR ---
MS RN OPENING NOTES RECEIVED PATIENT IN BED, AWAKE, A/O X2. PATIENT ON OXYGEN THERAPY AT 2 LPM FOR COMFORT PER PATIENT REQUEST. NO COMPLAINS OF PAIN AT THIS TIME. DONI MIDLINE SL PRESENT AND INTACT. SAFETY PRECAUTIONS IN PLACE; BED IN LOW POSITION AND LOCKED, RAILS UP X2, CALL LIGHT WITHIN REACH. WILL CONTINUE TO MONITOR PATIENT.
[2021-03-19 08:00] VITALS: BP 107/73
[2021-03-19] MEDS: FERROUS SULFATE (325 MG) 325 MG/TAB TABLET PO SCH (08:51)
[2021-03-19] MEDS: PANTOPRAZOLE 40 MG VIAL IV SCH (08:51)
[2021-03-19] MEDS: GABAPENTIN 300 MG CAPSULE PO SCH ×3 (08:52→17:22)
[2021-03-19] MEDS: MAGNESIUM OXIDE 400 MG TABLET PO SCH (08:52)
[2021-03-19] MEDS: MONTELUKAST SODIUM (10MG) 10 MG TABLET PO SCH (08:52)
[2021-03-19] MEDS: METFORMIN 500 MG TABLET PO SCH ×2 (08:52→17:22)
[2021-03-19] MEDS: ALLOPURINOL 100 MG TABLET PO SCH (08:52)
[2021-03-19] MEDS: APIXABAN 5 MG TABLET PO SCH ×2 (08:53→17:23)
[2021-03-19] MEDS: VENLAFAXINE XR 150 MG CAP.SR.24H PO SCH ×2 (08:57→17:22)
[2021-03-19] MEDS: DILTIAZEM HCL CD 240 MG PO SCH (08:58)
[2021-03-19] MEDS ORDERED: POLYETHYLENE GLYCOL 3350 17 GM POWD.PACK PO PRN (11:00)
[2021-03-19] MEDS ORDERED: LORAZEPAM INJ 2 MG/ML VIAL IV PRN (11:00)
[2021-03-19] MEDS: POTASSIUM CHLORIDE 20 MEQ TAB.PRT.SR PO SCH ×3 (11:07→13:54)
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
[2021-03-19] MEDS: IPRATROPIUM NEB FS 0.5 MG/2.5 ML AMPUL.NEB NEB SCH ×4 (11:52→23:30)
[2021-03-19] MEDS: ALBUTEROL HALF STRENGTH 1.25 MG/3 ML VIAL.NEB NEB SCH ×4 (11:52→23:30)
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
[2021-03-19] MEDS ORDERED: [UNRECOGNIZED DRUG - OTHER] SL PRN (14:00)
[2021-03-19] MEDS: NALOXONE SL SCH (14:58)
[2021-03-19] MEDS: BUPRENORPHINE SL SCH (14:58)
[2021-03-19 16:00] VITALS: BP 113/65
[2021-03-19] MEDS: AZITHROMYCIN 500 MG in IV D5W 250 ML IV SCH (16:08)
--- NOTE | 2021-03-19 17:11 | NUR ---
MS CHRISTA NOTES REQUESTED MEDICAL RECORDS FROM [facility] TODAY BY FAXING AUTHORIZATION FORM TO [facility] MEDICAL RECORDS.
[2021-03-19] MEDS: CEFTRIAXONE 1 G in IV D5W 50 ML IV SCH (18:21)
--- NOTE | 2021-03-19 18:55 | NUR ---
MS RN CLOSING NOTES PATIENT REMAINS IN BED, ASLEEP, A/O X2. PATIENT ON OXYGEN THERAPY AT 2 LPM FOR COMFORT PER PATIENT REQUEST. NO COMPLAINS OF PAIN AT THIS TIME. DONI MIDLINE SL PRESENT AND INTACT. ALL NEEDS ATTENDED DURING THE DAY. SAFETY PRECAUTIONS IN PLACE; BED IN LOW POSITION AND LOCKED, RAILS UP X2, CALL LIGHT WITHIN REACH. WILL ENDORSE TO ERICK SHIFT NURSE.
--- NOTE | 2021-03-19 19:30 | NUR ---
Patient is awake, A&Ox2. Denies pain or discomfort. No distress noted. Sitter at bedside for fall risk/ episodes of confusion. All other safety measures in place as well.
[2021-03-19] MEDS ORDERED: KEY,NONCONTROL,TO KEEP IN PYXI 1 EA MC ONE (19:58)
[2021-03-19] MEDS: ATORVASTATIN 40 MG TABLET PO SCH (23:12)
[2021-03-19] MEDS: TRAZODONE 50 MG TABLET PO SCH (23:12)
[2021-03-19] MEDS: EZETIMIBE 10 MG TABLET PO SCH (23:12)
--- NOTE | 2021-03-20 | NUR ---
stool sample collected and sent to lab.
[2021-03-20 00:35] VITALS: BP 117/71
[2021-03-20] MEDS: IPRATROPIUM NEB FS 0.5 MG/2.5 ML AMPUL.NEB NEB SCH ×6 (03:30→23:30)
[2021-03-20] MEDS: ALBUTEROL HALF STRENGTH 1.25 MG/3 ML VIAL.NEB NEB SCH ×6 (03:30→23:30)
[2021-03-20 05:20] LABS: OCCULT BLOOD STOOL POSITIVE (NEGATIVE)
[2021-03-20 06:05] LABS: BASOPHILS % (AUTO) 0.6 % (0.0-2.0); EOSINOPHILS % (AUTO) 4.2 % (0.0-6.0); HEMATOCRIT 26 % (33-45); HEMOGLOBIN 8.3 g/dL (11.5-14.8); LYMPHOCYTES # (AUTO) 1.8 K/uL (0.8-4.8); LYMPHOCYTES % (AUTO) 24.8 % (20.0-44.0); MEAN CORPUSCULAR HGB CONC 32 g/dl (31.0-36.0); MEAN CORPUSCULAR VOLUME 95 fL (82-100); MONOCYTES # (AUTO) 0.6 K/uL (0.1-1.30); MONOCYTES % (AUTO) 9.1 % (2.0-12.0); NEUTROPHILS # (AUTO) 4.4 K/uL (1.8-8.9); NEUTROPHILS % (AUTO) 61.3 % (43.0-81.0); PLATELET COUNT (AUTO) 343 K/uL (150-450); RED BLOOD CELL COUNT(AUTO) 2.73 MIL/uL (4.0-5.2); WHITE BLOOD COUNT (AUTO) 7.1 K/uL (4.3-11.0)
[2021-03-20] MEDS: BLOOD SUGAR DIAGNOSTIC 1 EACH STRIP VI SCH ×4 (06:48→21:54)
[2021-03-20 07:25] LABS: CALCIUM, SERUM 8.8 mg/dL (8.5-10.1); CREATININE 1.2 mg/dL (0.6-1.3); MAGNESIUM 2.3 mg/dL (1.8-2.4); POTASSIUM 3.4 mmol/L (3.5-5.1)
[2021-03-20 07:35] LABS: FERRITIN 175 ng/mL (8-388)
--- NOTE | 2021-03-20 07:45 | NUR ---
MS RN OPENING NOTE RECEIVED PATIENT SITTING IN A CHAIR. A/O X2. 02 NC AT 2 LPM. NO SOB NOTED. NO S/S OF RESPIRATORY DISTRESS. SITTER AT THE BEDSIDE. IV ACCESS ON DONI MIDLINE, INTACT. SAFETY MEASURES MAINTAINED. BED IN LOWEST POSITION, BRAKES LOCKED. SIDE RAILS UP X2. CALL LIGHT WITHIN REACH. WILL CONTINUE PLAN OF CARE.
--- NOTE | 2021-03-20 07:49 | NUR ---
Patient has been NPO since midnight. Educated on upcoming procedure CT of chest. VSS. A&Ox3 at this time. Confused at night trying to get out of bed. Safety protocol and sitter helped keep patient safe.
[2021-03-20] MEDS: DILTIAZEM HCL CD 240 MG PO SCH (09:00)
[2021-03-20] MEDS ORDERED: METOLAZONE 2.5 MG TABLET PO SCH (09:00)
[2021-03-20] MEDS: METFORMIN 500 MG TABLET PO SCH ×2 (09:00→16:55)
[2021-03-20] MEDS ORDERED: IV NS 0.9% 250 ML IV ONE (09:08)
[2021-03-20] MEDS ORDERED: IOHEXOL-300 100 ML VIAL IV ONE (09:08)
[2021-03-20] MEDS: MAGNESIUM OXIDE 400 MG TABLET PO SCH (09:30)
[2021-03-20] MEDS: MONTELUKAST SODIUM (10MG) 10 MG TABLET PO SCH (09:30)
[2021-03-20] MEDS: FERROUS SULFATE (325 MG) 325 MG/TAB TABLET PO SCH (09:31)
[2021-03-20] MEDS: GABAPENTIN 300 MG CAPSULE PO SCH ×3 (09:32→16:59)
[2021-03-20] MEDS: ALLOPURINOL 100 MG TABLET PO SCH (09:32)
[2021-03-20] MEDS: PANTOPRAZOLE 40 MG VIAL IV SCH (09:32)
[2021-03-20] MEDS: APIXABAN 5 MG TABLET PO SCH (09:39)
[2021-03-20] MEDS: VENLAFAXINE XR 150 MG CAP.SR.24H PO SCH ×2 (09:43→16:59)
[2021-03-20] MEDS ORDERED: KEY,NONCONTROL,TO KEEP IN PYXI 1 EA MC ONE ×2 (09:58→16:40)
[2021-03-20] MEDS ORDERED: POTASSIUM CHLORIDE 20 MEQ TAB.PRT.SR PO ONE (10:00)
[2021-03-20] MEDS: NALOXONE SL SCH (10:06)
[2021-03-20] MEDS: BUPRENORPHINE SL SCH (10:06)
--- NOTE | 2021-03-20 10:22 | NUR ---
RN NOTE PATIENT UNDERGONE CT CHEST WITH CONTRAST. WITHHOLD METFORMIN FOR 48 HOURS.
[2021-03-20 10:26] LABS: ABG BASE EXCESS 4.9 mmol/L; ABG OXYGEN SATURATION 92.5 % (92.0-98.5); ABG PCO2 46.2 mmHg (35.0-45.0); ABG PH 7.429 (7.350-7.450); ABG PO2 63.6 mmHg (75.0-100.0); AaDO2 30.8 mmHg; COHb 0.1 % (0.5-1.5); MetHb 0.2 % (0.0-1.5); O2Hb 92.2 % (94.0-97.0); SITE, ABG Left Radial; VENT MODE, BG ROOM AIR
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
[2021-03-20] MEDS: AZITHROMYCIN 500 MG in IV D5W 250 ML IV SCH (16:58)
[2021-03-20] MEDS ORDERED: METRONIDAZOLE 500 MG TABLET PO SCH (18:00)
[2021-03-20] MEDS: CEFTRIAXONE 1 G in IV D5W 50 ML IV SCH (18:09)
--- NOTE | 2021-03-20 18:36 | NUR ---
MS RN CLOSING NOTE PATIENT SITTING IN A CHAIR. A/O X2. CONFUSED AT TIMES. 02 NC AT 2 LPM. NO SOB NOTED. NO S/S OF RESPIRATORY DISTRESS. SITTER AT THE BEDSIDE. IV ACCESS ON DONI MIDLINE, INTACT AND PATENT. ALL DUE MEDS GIVEN ORDERED. NO INSULIN COVERAGE PER PROTOCOL. ALL NEEDS HAVE BEEN MET AND ATTENDED. SAFETY MEASURES MAINTAINED. BED IN LOWEST POSITION, BRAKES LOCKED. SIDE RAILS UP X2. KEPT CALL LIGHT WITHIN REACH. WILL ENDORSE CONTINUITY OF CARE TO ONCOMING SHIFT.
--- NOTE | 2021-03-20 19:25 | NUR ---
RN Opening Notes Patient was last seen sleeping in bed. Patient's alert and oriented x2. Patient's on 2LPM of oxygen via NC with no respiratory distress noted. Patient has a DONI midline, which is intact and patent. Patient's in no acute distress at this time. Safety measures in place: Bed locked, bed alarm on, side rails up x3, and call light within reach. Will continue to monitor the patient. Addendum: 03/20/21 at 1928 by STEPHANIE SANCHEZ RN Patient has a sitter at bedside. Patient's confused at times.
[2021-03-20 20:43] VITALS: BP 98/53
[2021-03-20] MEDS: ATORVASTATIN 40 MG TABLET PO SCH (21:22)
[2021-03-20] MEDS: TRAZODONE 50 MG TABLET PO SCH (21:22)
[2021-03-20] MEDS: EZETIMIBE 10 MG TABLET PO SCH (21:22)
[2021-03-20] MEDS: METRONIDAZOLE 500 MG TABLET PO SCH (21:23)
--- NOTE | 2021-03-20 21:56 | NUR ---
RN Notes Patient's blood sugar at 2153 was 110 mg/dL. Will continue to monitor the patient.
--- NOTE | 2021-03-21 02:37 | NUR ---
RN Notes Daughter, Dr. Liao - [phone].
[2021-03-21] MEDS: ALBUTEROL HALF STRENGTH 1.25 MG/3 ML VIAL.NEB NEB SCH ×4 (03:30→15:30)
[2021-03-21] MEDS: IPRATROPIUM NEB FS 0.5 MG/2.5 ML AMPUL.NEB NEB SCH ×4 (03:30→15:30)
[2021-03-21] MEDS: METRONIDAZOLE 500 MG TABLET PO SCH ×2 (04:05→13:36)
[2021-03-21 04:07] LABS: CANCER AG, 125 21.8 U/mL (0.0-38.1); CANCER AG, 15-3 8.4 U/mL (0.0-25.0)
--- NOTE | 2021-03-21 06:07 | NUR ---
RN Notes Patient's blood sugar at 0603 was 106 mg/dL. Will continue to monitor the patient.
[2021-03-21] MEDS: BLOOD SUGAR DIAGNOSTIC 1 EACH STRIP VI SCH ×3 (06:33→18:14)
--- NOTE | 2021-03-21 06:38 | NUR ---
RN Closing Notes Patient was last seen awake resting in bed. Patient's alert and oriented x2 and can be confused at times. Patient's on 2LPM of oxygen via nasal cannula with no respiratory distress noted. Patient has a DONI midline, which is intact and patent. Patient's in no acute distress at this time. Safety measures in place: Sitter in the room, bed locked, bed alarm on, side rails up x3, and call light within reach. Will endorse care to the day shift nurse.
--- NOTE | 2021-03-21 07:15 | NUR ---
MS RN OPENING NOTE RECEIVED PATIENT ON BED. ALERT AND ORIENTED X2. WITH NO SIGNS OF DISTESS. PATIENT ON 02 NC WHEN ON BED BUT USUALLY REMOVES IT BUT TOLERATED WELL. NO SOB NOTED. SITTER AT THE BEDSIDE. IV ACCESS ON DONI MIDLINE, INTACT. SAFETY MEASURES MAINTAINED. BED IN LOWEST POSITION, BRAKES LOCKED. SIDE RAILS UP X2. CALL LIGHT WITHIN REACH. WILL CONTINUE TO MONITOR PATIENT.
[2021-03-21] MEDS ORDERED: PANTOPRAZOLE 40 MG TABLET.DR PO SCH (07:30)
[2021-03-21] MEDS: ACETAMINOPHEN 325 MG TABLET PO PRN (07:35)
[2021-03-21 08:06] LABS: IMMUNOGLOBULIN A, SERUM 236 mg/dL (64-422); IMMUNOGLOBULIN G, SERUM 972 mg/dL (586-1602); IMMUNOGLOBULIN M, SERUM 68 mg/dL (26-217)
[2021-03-21] MEDS ORDERED: KEY,NONCONTROL,TO KEEP IN PYXI 1 EA MC ONE ×2 (08:10→08:17)
[2021-03-21] MEDS: ALLOPURINOL 100 MG TABLET PO SCH (08:54)
[2021-03-21] MEDS: FERROUS SULFATE (325 MG) 325 MG/TAB TABLET PO SCH (08:54)
[2021-03-21] MEDS: MONTELUKAST SODIUM (10MG) 10 MG TABLET PO SCH (08:54)
[2021-03-21] MEDS: MAGNESIUM OXIDE 400 MG TABLET PO SCH (08:54)
[2021-03-21] MEDS: GABAPENTIN 300 MG CAPSULE PO SCH ×3 (08:55→17:46)
[2021-03-21] MEDS: VENLAFAXINE XR 150 MG CAP.SR.24H PO SCH ×2 (08:55→17:48)
[2021-03-21] MEDS: METFORMIN 500 MG TABLET PO SCH ×2 (08:55→17:46)
[2021-03-21] MEDS ORDERED: METR500T PO (08:58)
[2021-03-21] MEDS ORDERED: LEVO500T90 PO (08:58)
[2021-03-21 08:59] LABS: BASOPHILS # (AUTO) 0.1 K/uL (0.0-0.2); BASOPHILS % (AUTO) 0.6 % (0.0-2.0); EOSINOPHILS % (AUTO) 3.5 % (0.0-6.0); HEMATOCRIT 30 % (33-45); HEMOGLOBIN 9.3 g/dL (11.5-14.8); LYMPHOCYTES # (AUTO) 2.5 K/uL (0.8-4.8); LYMPHOCYTES % (AUTO) 29.8 % (20.0-44.0); MEAN CORPUSCULAR HGB CONC 31 g/dl (31.0-36.0); MEAN CORPUSCULAR VOLUME 96 fL (82-100); MONOCYTES # (AUTO) 0.7 K/uL (0.1-1.30); MONOCYTES % (AUTO) 8.4 % (2.0-12.0); NEUTROPHILS # (AUTO) 4.8 K/uL (1.8-8.9); NEUTROPHILS % (AUTO) 57.7 % (43.0-81.0); PLATELET COUNT (AUTO) 418 K/uL (150-450); WHITE BLOOD COUNT (AUTO) 8.2 K/uL (4.3-11.0)
[2021-03-21 09:04] LABS: CREATININE 1.3 mg/dL (0.6-1.3); MAGNESIUM 2.4 mg/dL (1.8-2.4); PHOSPHORUS 3.5 mg/dL (2.5-4.9); POTASSIUM 3.9 mmol/L (3.5-5.1)
[2021-03-21] MEDS: NALOXONE SL SCH (09:30)
[2021-03-21] MEDS: BUPRENORPHINE SL SCH (09:30)
[2021-03-21 10:00] VITALS: BP 94/59
[2021-03-21] MEDS: DILTIAZEM HCL CD 240 MG PO SCH (10:00)
--- NOTE | 2021-03-21 12:30 | NUR ---
MS RN NOTE PATIENT SEEN BY DR. WHEAT WITH ORDER TO DISCHARGE PATIENT. PATIENT VERBALIZED UNDERSTANDIGN OF MD ORDERS. HEALTH TEACHING DONE REGARDING DISCHARGE ORDERS AND MEDICATION ORDERED. VERBALIZED UNDERSTANDIGN AND APPRECIATION. WILL CONTINUE TO MONITOR PATIENT,
[2021-03-21] MEDS ORDERED: SOD FERRIC GLUC 125 MG in IV NS 0.9% 100 ML IV SCH (14:00)
[2021-03-21 15:07] LABS: *SPE A/G RATIO 0.8 (0.7-1.7); *SPE ALBUMIN 2.4 g/dL (2.9-4.4); *SPE ALPHA-1-GLOBULIN 0.4 g/dL (0.0-0.4); *SPE ALPHA-2-GLOBULIN 0.7 g/dL (0.4-1.0); *SPE BETA GLOBULIN 1.1 g/dL (0.7-1.3); *SPE GLOBULIN, TOTAL 3.1 g/dL (2.2-3.9); *SPE M-SPIKE Not Observed g/dL (Not Observed)
--- NOTE | 2021-03-21 16:45 | NUR ---
MS RN NOTE PATIENT ENDORSED TO NURSE MENSAH AT [facility] . PATIENT WILL BE SENT WITH MEDICATIONS SUBLINGUALLY REQUESTED BY PATIENT'S DAUGHTER DR. MERCER . COMFORT MEASURES PROVIDED. HEALTH TEACHING DONE REGARDIGN DISCHARGE AND VERBALIZED UNDERSTANDING. IV ACCESS ON THE RIGHT ARM REMOVED PER PATINET'S REQUEST. DISHCARGE INSTRUCTION AND INVENTORY LIST SIGNED AND ATTACHED TO CHART. BODY CHECK DONE AND DOCUMENTED ACCORDINGLY. WILL CONTINUE TO MONITOR PATIENT.
[2021-03-21] MEDS ORDERED: APIXABAN 5 MG TABLET PO SCH (17:00)
[2021-03-21] MEDS: AZITHROMYCIN 500 MG in IV D5W 250 ML IV SCH (17:00)
[2021-03-21] MEDS: CEFTRIAXONE 1 G in IV D5W 50 ML IV SCH (18:00)
--- NOTE | 2021-03-21 18:20 | NUR ---
MS RN NOTE PATIENT PICKED UP BY EMT FOR TRANSFER TO [facility] S ORDERED. PATILEONIDN IN STABLE CONDITION. PATIENT LEFT WITH 2 EMT ON A GURNEY. ENDORSED ACCORDINGLY.
== END 2021-03-21 18:30 | disposition home or self-care (01) | DRG 73 ==
LOC: ER 12:11 → TELE 16:23 → MED 17:50
PROVIDERS: ADMIT Nurse Practitioner Acute Care; ATTEND Internal Medicine
PROC: 05HB33Z Insertion of Infusion Device into Right Basilic Vein, Percutaneous Approach (ICD-10-PCS; principal; 2021-03-18)
DX: G90.8 Other disorders of autonomic nervous system (principal); G93.41 Metabolic encephalopathy; D68.59 Other primary thrombophilia; N39.0 Urinary tract infection, site not specified; M62.82 Rhabdomyolysis; I50.32 Chronic diastolic (congestive) heart failure; I13.0 Hypertensive heart and chronic kidney disease with heart failure and stage 1 through stage 4 chronic kidney disease, or unspecified chronic kidney disease; J98.11 Atelectasis; A04.72 Enterocolitis due to Clostridium difficile, not specified as recurrent; Z20.822 Contact with and (suspected) exposure to COVID-19; M79.7 Fibromyalgia; E11.22 Type 2 diabetes mellitus with diabetic chronic kidney disease; E11.51 Type 2 diabetes mellitus with diabetic peripheral angiopathy without gangrene; E11.40 Type 2 diabetes mellitus with diabetic neuropathy, unspecified; E78.5 Hyperlipidemia, unspecified; E78.00 Pure hypercholesterolemia, unspecified; M19.90 Unspecified osteoarthritis, unspecified site; E66.01 Morbid (severe) obesity due to excess calories; E87.6 Hypokalemia; E88.09 Other disorders of plasma-protein metabolism, not elsewhere classified; F11.90 Opioid use, unspecified, uncomplicated; F41.9 Anxiety disorder, unspecified; F32.9 Major depressive disorder, single episode, unspecified; Z72.0 Tobacco use; Z79.899 Other long term (current) drug therapy; I25.10 Atherosclerotic heart disease of native coronary artery without angina pectoris; N18.9 Chronic kidney disease, unspecified; R29.6 Repeated falls; Z98.1 Arthrodesis status; Z90.710 Acquired absence of both cervix and uterus; J44.9 Chronic obstructive pulmonary disease, unspecified; M10.9 Gout, unspecified; Z79.01 Long term (current) use of anticoagulants; Z90.49 Acquired absence of other specified parts of digestive tract; I48.91 Unspecified atrial fibrillation; G47.30 Sleep apnea, unspecified; M75.101 Unspecified rotator cuff tear or rupture of right shoulder, not specified as traumatic; W18.30XA Fall on same level, unspecified, initial encounter; Y92.009 Unspecified place in unspecified non-institutional (private) residence as the place of occurrence of the external cause; Z87.19 Personal history of other diseases of the digestive system; G47.00 Insomnia, unspecified; F03.90 Unspecified dementia, unspecified severity, without behavioral disturbance, psychotic disturbance, mood disturbance, and anxiety; E61.1 Iron deficiency; K83.8 Other specified diseases of biliary tract; B96.1 Klebsiella pneumoniae [K. pneumoniae] as the cause of diseases classified elsewhere; F19.90 Other psychoactive substance use, unspecified, uncomplicated; T50.7X5A Adverse effect of analeptics and opioid receptor antagonists, initial encounter; T42.6X5A Adverse effect of other antiepileptic and sedative-hypnotic drugs, initial encounter; T42.4X5A Adverse effect of benzodiazepines, initial encounter
CPT/HCPCS: 36415; 36600; 70450-TC; 71045-TC; 71260-TC; 72125-TC; 73030-TC; 73080-TC; 80048-TC; 80053-TC; 80061-TC; 80076-TC; 81001; 82272-TC; 82378; 82550-TC; 82553; 82728-TC; 82784; 82803-TC; 82962-TC; 83540-TC; 83605-TC; 83615-TC; 83735-TC; 83880; 84100-TC; 84155; 84165; 84443-TC; 84484-TC; 85025-TC; 85730-TC; 86300; 86304; 86334; 87040-TC; 87045-TC; 87081-TC; 87086-TC; 87186-TC; 89055; 93307-TC; 94799-TC; 97112-TC; 97116-TC; 97530-TC; C9113; C9803; G0378; J0456; J0696; J1815; J1940; J2916; J3490; J7030; J7050; J7060; Q9967

== ENCOUNTER 2021-04-21 09:23 | Emergency (ER) | payer MEDICARE, OTHER ==
[~2021-04-21] VITALS: Ht 165.1 cm; Wt 101.2 kg
[~2021-04-21 09:23] MED LIST changes: -ACET-2605 PO; +ALLO100T PO; +BUPR1FIL3 SL; +CHOL400T PO; -CLON2TAB PO; +DIAZ10TA4 PO; +DIAZ5TAB4 PO; -DICL100G16 TP; +DILT-32 PO; +DILT-4 PO; -DILT240C88 PO; +EMPA10TA PO; -ESZO3TAB27 PO; +EZET10TA16 PO; -EZET10TA6 PO; -FERR160T11 PO; +FERR325T23 PO; -FLUT1BLS IH; -GLUC100017 PO; +GLUC1TAB20 PO; -IBUP-1953 PO; -LAMO25TA5 PO; +LEVO500T90 PO; -LORA-259 PO; +METO5TAB7 PO; +METR500T PO; +MONT10TA22 PO; -NIFE-34 PO; +OMEG1CAP PO; -OMEP20TA5 PO; -POLY17PO4 PO; +PRAV10TA40 PO; -PRED20TA PO; +PROM118S5 PO; +TRAZ-257 PO; -TRAZ300T2 PO; +UBID100C13 PO
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
--- NOTE | 2021-04-21 09:30 | NUR ---
SEEN AND EXAMINED BY .
--- NOTE | 2021-04-21 09:40 | NUR ---
COVERAGE SPECIALIST RN AT BEDSIDE FOR ULTRASOUND.
[2021-04-21 10:45] VITALS: BP 127/64
[2021-04-21] MEDS ORDERED: SULF1TAB48 PO (10:54)
[2021-04-21] MEDS ORDERED: CEPH500C2 PO (10:54)
== END 2021-04-21 10:58 | disposition home or self-care (01) ==
LOC: ER 09:26
DX: R60.0 Localized edema (principal); L03.116 Cellulitis of left lower limb; L03.115 Cellulitis of right lower limb; I11.0 Hypertensive heart disease with heart failure; I50.9 Heart failure, unspecified; F03.90 Unspecified dementia, unspecified severity, without behavioral disturbance, psychotic disturbance, mood disturbance, and anxiety; M79.7 Fibromyalgia; F41.9 Anxiety disorder, unspecified; E78.5 Hyperlipidemia, unspecified; F32.9 Major depressive disorder, single episode, unspecified; E11.40 Type 2 diabetes mellitus with diabetic neuropathy, unspecified; F17.200 Nicotine dependence, unspecified, uncomplicated; Z98.890 Other specified postprocedural states; Z79.84 Long term (current) use of oral hypoglycemic drugs
CPT/HCPCS: 93970-TC

== ENCOUNTER 2021-04-23 10:12 | Inpatient (IN) | payer MEDICARE, OTHER ==
[~2021-04-23] VITALS: Ht 165.1 cm; Wt 100.7 kg
[~2021-04-23 10:12] MED LIST changes: +CEPH500C2 PO; +SULF1TAB48 PO
--- NOTE | 2021-04-23 10:12 | NUR ---
PT BIB C/O SUICIDAL IDEATION " IM GONNA TAKE ALL MY MEDICATION PILLS" PT IS AAOX3, NOT IN RESPIRATORY DISTRESS, V/S STABLE, KEPT RESTED AND COMFORTABLE. SITTER AT BEDSIDE. WILL CONTINUE TO MONITOR.
--- NOTE | 2021-04-23 10:26 | NUR ---
AT BEDSIDE FOR EVAL.
--- NOTE | 2021-04-23 10:28 | NUR ---
URINE SPECIMEN COLLECTED AND SENT TO LAB.
--- NOTE | 2021-04-23 10:32 | NUR ---
ART CALLED [phone]
--- NOTE | 2021-04-23 10:44 | NUR ---
ER PHLEB AT BEDSIDE FOR BLOOD DRAW.
[2021-04-23] MEDS ORDERED: CAPS60CR4 TP (10:57)
[2021-04-23] MEDS ORDERED: CLON0.5T4 PO (10:57)
[2021-04-23] MEDS ORDERED: QUET25TA PO (10:57)
[2021-04-23] MEDS ORDERED: LAMO150T2 PO (10:57)
[2021-04-23] MEDS ORDERED: CALC-903 PO (10:57)
[2021-04-23 11:02] LABS: BASOPHILS # (AUTO) 0.1 K/uL (0.0-0.2); BASOPHILS % (AUTO) 0.6 % (0.0-2.0); EOSINOPHILS % (AUTO) 1.7 % (0.0-6.0); HEMATOCRIT 32 % (33-45); LYMPHOCYTES # (AUTO) 1.2 K/uL (0.8-4.8); LYMPHOCYTES % (AUTO) 13.7 % (20.0-44.0); MEAN CORPUSCULAR HGB CONC 31 g/dl (31.0-36.0); MEAN CORPUSCULAR VOLUME 90 fL (82-100); MONOCYTES # (AUTO) 0.8 K/uL (0.1-1.30); NEUTROPHILS # (AUTO) 6.4 K/uL (1.8-8.9); PLATELET COUNT (AUTO) 519 K/uL (150-450); RED BLOOD CELL COUNT(AUTO) 3.55 MIL/uL (4.0-5.2); WHITE BLOOD COUNT (AUTO) 8.5 K/uL (4.3-11.0)
[2021-04-23 11:07] LABS: BILIRUBIN,URINE NEGATIVE (NEGATIVE); COLOR,URINE YELLOW (YELLOW); LEUKOCYTE ESTERASE ,URINE NEGATIVE (NEGATIVE); NITRITE, URINE NEGATIVE (NEGATIVE); PH,URINE 7.5 (5.0-8.0); PROTEIN,URINE NEGATIVE (NEGATIVE); UGLUCOSE 250 MG/DL mg/dL (NEGATIVE); UROBILINOGEN,URINE 0.2 EU/dL (0.2)
[2021-04-23 11:11] LABS: CALCIUM, SERUM 10.2 mg/dL (8.5-10.1); CARBON DIOXIDE 36 mmol/L (21-32); CHLORIDE 95 mmol/L (98-107); CREATININE 1.7 mg/dL (0.6-1.3); GLUCOSE 111 mg/dL (74-106); POTASSIUM 2.9 mmol/L (3.5-5.1); SODIUM SERUM 140 mmol/L (136-145); UREA NITROGEN, BLOOD 15 mg/dL (7-18)
--- NOTE | 2021-04-23 11:12 | NUR ---
PT DAUGHTER CALLED MIRIAM [phone]
[2021-04-23 11:20] LABS: ALANINE AMINOTRANSFERASE 18 U/L (12-78); ALBUMIN 3.8 g/dL (3.4-5.0); ALCOHOL, BLOOD < 3 mg/dL (0-0); ALKALINE PHOSPHATASE 81 U/L (46-116); ASPARTATE AMINOTRANSFERASE 28 U/L (15-37); BILIRUBIN,DIRECT 0.1 mg/dL (0.0-0.2); BILIRUBIN,TOTAL 0.5 mg/dL (0.2-1.0); TOTAL PROTEIN, SERUM 8.3 g/dL (6.4-8.2)
[2021-04-23 11:23] LABS: ACETAMINOPHEN 0 ug/ml (10-30)
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
[2021-04-23] MEDS ORDERED: POTASSIUM CHLORIDE 20 MEQ TAB.PRT.SR PO ONE ×2 (12:00→12:01)
[2021-04-23 12:05] LABS: BACTERIA,URINE None seen /HPF (None Seen); RBC,URINE 0-2 /HPF (0-2); SQUAMOUS EPITHELIAL CELL,UR Few /HPF (None Seen); WBC,URINE 0-2 /HPF (0-3)
--- NOTE | 2021-04-23 13:00 | NUR ---
REPORT GIVEN TO CHRISTA MACIAS FOR JENNI.
[2021-04-23] MEDS ORDERED: DEXTROSE 50%-WATER 50 ML DISP.SYRIN IV PRN (13:30)
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
[2021-04-23] MEDS ORDERED: ACETAMINOPHEN 325 MG TABLET PO PRN (14:00)
[2021-04-23] MEDS ORDERED: BLOOD SUGAR DIAGNOSTIC 1 EACH STRIP IN ONE (14:00)
[2021-04-23] MEDS ORDERED: MAG HYDROX/AL HYDROX/SIMETH 30 ML UDC PO PRN (14:00)
[2021-04-23] MEDS ORDERED: MAGNESIUM HYDROXIDE 30 ML UDC PO PRN (14:00)
[2021-04-23] MEDS: GABAPENTIN 300 MG CAPSULE PO SCH ×2 (14:01→17:00)
[2021-04-23 14:37] VITALS: BP 98/61
[2021-04-23] MEDS ORDERED: LORAZEPAM 0.5 MG TABLET PO PRN (15:00)
[2021-04-23] MEDS ORDERED: TEMAZEPAM 7.5 MG CAPSULE PO PRN (15:00)
--- NOTE | 2021-04-23 15:15 | NUR ---
RN NOTE: PT'S DAUGHTER NOTIFIED OF ADMISSION. DAUGHTER STATED BY WAS SEEN IN [facility] ER 04/21 AND STARTED ON KEFLEX AND TO BE FOLLOWED WITH BACTRIM IF NO IMPROVEMENT IN TWO DAYS. DAUGHTER STATED MOTHER IS ON SUBOXONE AND LASIX DAILY. FERDINAND ADLER NOTIFIED
[2021-04-23 16:00] VITALS: BP 134/54
[2021-04-23] MEDS: CALCIUM CARBONATE 500 MG TAB.CHEW PO SCH (17:00)
[2021-04-23] MEDS: CHOLECALCIFEROL (VITAMIN D 3) 400 UNIT TABLET PO SCH (17:00)
[2021-04-23] MEDS: APIXABAN 5 MG TABLET PO SCH (17:56)
[2021-04-23] MEDS: DILTIAZEM HCL CD 120 MG PO SCH (18:00)
[2021-04-23] MEDS: BLOOD SUGAR DIAGNOSTIC 1 EACH STRIP IN SCH ×2 (18:09→22:16)
[2021-04-23] MEDS: SULFAMETH/TRIMETH 800/160 MG 1 UDTAB TABLET PO SCH (18:09)
[2021-04-23] MEDS: CEPHALEXIN MONOHYDRATE 250 MG CAPSULE PO SCH (18:10)
[2021-04-23] MEDS: INSULIN REGULAR, HUMAN 100 UNIT/ML 3 ML VIAL SQ PRN ×2 (18:16→22:20)
[2021-04-23] MEDS ORDERED: NALOXONE HCL SL SCH (19:21)
[2021-04-23] MEDS ORDERED: BUPRENORPHINE HCL SL SCH (19:21)
[2021-04-23 20:00] VITALS: BP 113/80
[2021-04-23] MEDS: BUPRENORPHINE HCL SL SCH (20:02)
[2021-04-23] MEDS: NALOXONE HCL SL SCH (20:02)
[2021-04-23] MEDS ORDERED: KEY,NONCONTROL,TO KEEP IN PYXI 1 EA MC ONE (20:16)
[2021-04-23] MEDS ORDERED: CEPHALEXIN MONOHYDRATE 500 MG CAPSULE PO SCH (21:00)
[2021-04-23] MEDS: EZETIMIBE 10 MG TABLET PO SCH (21:07)
[2021-04-23] MEDS: ATORVASTATIN 10 MG TABLET PO SCH (21:07)
[2021-04-23] MEDS: TRAZODONE 50 MG TABLET PO SCH (22:00)
[2021-04-23] MEDS: LamoTRIgine 25 MG TABLET PO SCH (22:00)
[2021-04-23] MEDS ORDERED: QUETIAPINE FUMARATE 100 MG TABLET PO SCH (22:00)
--- NOTE | 2021-04-23 22:34 | NUR ---
RN NOTE: MEDICATION REFUSAL PT REFUSED 2200 PO MEDICATIONS. ATTEMPTED TO EDUCATE PT RE IMPORTANCE OF MEDICATION COMPLIANCE. PT CONT'D TO REFUSE X 3. WILL CONT TO MONITOR FOR SAFETY AND BEHAVIOR
[2021-04-24] MEDS: CEPHALEXIN MONOHYDRATE 250 MG CAPSULE PO SCH ×5 (00:34→18:00)
--- NOTE | 2021-04-24 06:40 | NUR ---
RN NOTE: UA COLLECTED AND SENT TO LAB.
[2021-04-24] MEDS ORDERED: KEY,NONCONTROL,TO KEEP IN PYXI 1 EA MC ONE ×5 (07:20→19:13)
[2021-04-24] MEDS: BLOOD SUGAR DIAGNOSTIC 1 EACH STRIP IN SCH ×4 (07:30→22:34)
[2021-04-24 07:56] LABS: CHOLESTEROL 136 mg/dL (<200); HDL CHOLESTEROL 63 mg/dL (40-60); LDL 51 mg/dL (0-99); TRIGLYCERIDES 129 mg/dL (30-150)
[2021-04-24 08:00] VITALS: BP 98/50
[2021-04-24 08:02] LABS: ALANINE AMINOTRANSFERASE 14 U/L (12-78); ALBUMIN 3.9 g/dL (3.4-5.0); ALKALINE PHOSPHATASE 86 U/L (46-116); ASPARTATE AMINOTRANSFERASE 23 U/L (15-37); BILIRUBIN,TOTAL 0.5 mg/dL (0.2-1.0); CALCIUM, SERUM 10.2 mg/dL (8.5-10.1); CARBON DIOXIDE 34 mmol/L (21-32); CHLORIDE 94 mmol/L (98-107); CREATININE 1.8 mg/dL (0.6-1.3); GLUCOSE 131 mg/dL (74-106); POTASSIUM 3.3 mmol/L (3.5-5.1); SODIUM SERUM 138 mmol/L (136-145); TOTAL PROTEIN, SERUM 8.9 g/dL (6.4-8.2); UREA NITROGEN, BLOOD 16 mg/dL (7-18)
[2021-04-24] MEDS: ALLOPURINOL 100 MG TABLET PO SCH (08:56)
[2021-04-24] MEDS: MONTELUKAST SODIUM (10MG) 10 MG TABLET PO SCH (08:56)
[2021-04-24] MEDS: FERROUS SULFATE (325 MG) 325 MG/TAB TABLET PO SCH (08:56)
[2021-04-24] MEDS: MULTIPLE VIT (LYCOPENE/FA/MV,CA,IRON,MIN/LUT)1 TAB PO SCH (08:56)
[2021-04-24] MEDS: VENLAFAXINE XR 150 MG CAP.SR.24H PO SCH (08:56)
[2021-04-24] MEDS: MAGNESIUM OXIDE 400 MG TABLET PO SCH (08:56)
[2021-04-24] MEDS: CALCIUM CARBONATE 500 MG TAB.CHEW PO SCH ×2 (08:56→17:51)
[2021-04-24] MEDS: SULFAMETH/TRIMETH 800/160 MG 1 UDTAB TABLET PO SCH ×2 (08:56→17:51)
[2021-04-24] MEDS: CHOLECALCIFEROL (VITAMIN D 3) 400 UNIT TABLET PO SCH (08:56)
[2021-04-24] MEDS ORDERED: POTASSIUM CHLORIDE 10 MEQ TABLET.SA PO ONE (09:00)
[2021-04-24] MEDS ORDERED: QUETIAPINE FUMARATE 25 MG TABLET PO SCH (09:00)
[2021-04-24] MEDS: GABAPENTIN 300 MG CAPSULE PO SCH ×3 (09:05→17:51)
[2021-04-24] MEDS: APIXABAN 5 MG TABLET PO SCH ×2 (09:07→17:53)
[2021-04-24] MEDS: BUPRENORPHINE HCL SL SCH ×2 (09:15→17:50)
[2021-04-24] MEDS: NALOXONE HCL SL SCH ×2 (09:15→17:50)
[2021-04-24] MEDS: FUROSEMIDE 40 MG TABLET PO SCH (11:00)
[2021-04-24 13:10] LABS: CREATININE, URINE 127.4 MG/DL (30.0-125.0)
--- NOTE | 2021-04-24 13:16 | NUR ---
patient vomited x2 ,Inocencio Olvera DNP notified with new order ,Zofran 4mg as needed.
[2021-04-24] MEDS: ONDANSETRON 4 MG TAB.RAPDIS PO PRN (14:35)
--- NOTE | 2021-04-24 14:35 | NUR ---
patient medicated with Zofran 4mg x1 given will continue to monitor .
[2021-04-24 16:00] VITALS: BP 115/59
[2021-04-24] MEDS: DILTIAZEM HCL CD 120 MG PO SCH (17:36)
[2021-04-24] MEDS: INSULIN REGULAR, HUMAN 100 UNIT/ML 3 ML VIAL SQ PRN (17:53)
[2021-04-24 20:25] VITALS: BP 99/55
[2021-04-24 21:20] VITALS: BP 110/62
[2021-04-24] MEDS: LamoTRIgine 25 MG TABLET PO SCH (22:00)
[2021-04-24] MEDS: TRAZODONE 50 MG TABLET PO SCH (22:00)
--- NOTE | 2021-04-24 22:20 | NUR ---
RN NOTE PATIENT WOKE UP & WANTED TO USE THE RESTROOM, ASSISTED PATIENT TO THE RESTROOM & BACK TO BED. NOTED TO BE STEADY WITH WALKER & STAND BY ASSIST.
[2021-04-24] MEDS: ATORVASTATIN 10 MG TABLET PO SCH (22:36)
[2021-04-24] MEDS: EZETIMIBE 10 MG TABLET PO SCH (22:36)
--- NOTE | 2021-04-24 22:38 | NUR ---
RN NOTE PATIENT'S BLOOD SUGAR IS 121 MG/DL, NO SSI COVERAGE NEEDED AT THIS TIME. PATIENT WAS REFUSING TO EAT ANY SNACK AT THIS TIME, ENCOURAGED PATIENT FOR PO INTAKE, OFFERED SNACK TO THE PATIENT & SHE AGREED TO HAVE JELLO & TOLERATED WELL. WILL CONTINUE TO MONITOR.
--- NOTE | 2021-04-24 22:54 | NUR ---
RN NOTE: MEDICATION REFUSAL PATIENT REFUSED 2200 TRAZODONE & LAMICTAL DESPITE OF RISKS & BENEFITS EXPLANATIONS. PATIENT IS SELECTIVE WITH MEDICATIONS AT THIS TIME, STATED," IT'S TOO MUCH MEDICINE, I AM TIRED, I WANT TO SLEEP, WHY YOU WAKE ME UP." PATIENT IS NON COMPLAINT DESPITE OF EXPLANATIONS, CONTINUED TO REFUSE & WANTS TO SLEEP AT THIS TIME. WILL CONTINUE TO MONITOR.
[2021-04-25] MEDS: CEPHALEXIN MONOHYDRATE 250 MG CAPSULE PO SCH ×5 (00:07→22:44)
--- NOTE | 2021-04-25 07:03 | NUR ---
RN NOTE PATIENT WOKE UP, ASSISTED TO THE BATHROOM USING HER WALKER & THEN BACK TO BED, PATIENT REMAINS, CONFUSED & FORGETFUL AT TIMES, ASKING QUESTIONS REPETITIVELY EVEN ALL HER QUESTIONS ARE ANSWERED. PARANOID AT TIMES. REDIRECTABLE AT THIS TIME. WILL ENDORSE TO AM RN FOR CONTINUITY OF CARE.
[2021-04-25] MEDS: BLOOD SUGAR DIAGNOSTIC 1 EACH STRIP IN SCH ×4 (07:31→22:45)
[2021-04-25] MEDS: INSULIN REGULAR, HUMAN 100 UNIT/ML 3 ML VIAL SQ PRN (07:34)
[2021-04-25 08:00] VITALS: BP 100/52
[2021-04-25] MEDS ORDERED: KEY,NONCONTROL,TO KEEP IN PYXI 1 EA MC ONE ×2 (08:30→18:02)
[2021-04-25] MEDS: BUPRENORPHINE HCL SL SCH ×2 (08:33→18:10)
[2021-04-25] MEDS: NALOXONE HCL SL SCH ×2 (08:33→18:10)
[2021-04-25] MEDS: CALCIUM CARBONATE 500 MG TAB.CHEW PO SCH ×2 (08:36→17:52)
[2021-04-25] MEDS: GABAPENTIN 300 MG CAPSULE PO SCH ×3 (08:36→17:52)
[2021-04-25] MEDS: MONTELUKAST SODIUM (10MG) 10 MG TABLET PO SCH (08:37)
[2021-04-25] MEDS: MAGNESIUM OXIDE 400 MG TABLET PO SCH (08:37)
[2021-04-25] MEDS: SULFAMETH/TRIMETH 800/160 MG 1 UDTAB TABLET PO SCH ×2 (08:37→17:52)
[2021-04-25] MEDS: MULTIPLE VIT (LYCOPENE/FA/MV,CA,IRON,MIN/LUT)1 TAB PO SCH (08:37)
[2021-04-25] MEDS: VENLAFAXINE XR 150 MG CAP.SR.24H PO SCH (08:37)
[2021-04-25] MEDS: FERROUS SULFATE (325 MG) 325 MG/TAB TABLET PO SCH (08:38)
[2021-04-25] MEDS: APIXABAN 5 MG TABLET PO SCH ×2 (08:38→17:52)
[2021-04-25] MEDS: ALLOPURINOL 100 MG TABLET PO SCH (08:38)
[2021-04-25] MEDS: FUROSEMIDE 40 MG TABLET PO SCH (08:40)
[2021-04-25] MEDS: ONDANSETRON 4 MG TAB.RAPDIS PO PRN (13:34)
--- NOTE | 2021-04-25 13:39 | NUR ---
PT STATED FEELING NAUSEOUS. ZOFRAN 4MG PRN GIVEN
--- NOTE | 2021-04-25 14:05 | NUR ---
Family Contact: NATE received a call from pts daughter, Sofia, requesting for SW to follow up with Dr. Ramirez regarding Form 602 for assisted living placement. Sofia stated that the form must be filled out by a psychiatrist. Sofia stated that the she is unsure of the d/c plan at this time but is considering assisted living. Sofia was provided with SW email in order to provide the form. NATE will f/u when the form has been received. NATE will continue to f/u with pts daughter regarding d/c plans.
--- NOTE | 2021-04-25 15:05 | NUR ---
DR HOLGUIN CONTACTED PER MRI QUESTIONNAIRE GUIDELINES IN ORDER TO INFORM HIM THAT THE PATIENT HAD AN L4-L5 ANTERIOR INTERBODY FUSION/POSTERIOR PERCUTANEOUS FIXATION/VASCULAR EXPOSURE FOR ANTERIOR SPINE APPROACH. DR HOLGUIN GAVE ORDER TO PROCEED WITH MRI.
[2021-04-25] MEDS ORDERED: LORAZEPAM 1 MG TABLET PO STA (15:59)
[2021-04-25 16:00] VITALS: BP 111/75
--- NOTE | 2021-04-25 16:08 | NUR ---
DR BROWN CONTACTED IN ORDER TO INFORM HIM THAT PER DAUGHTER, THE PATIENT REQUIRES MEDICATION IN ORDER TO BE COMPLIANT WITH MRI WHILE GOING THROUGH THE PROCEDURE DUE TO POSSIBLE CLAUSTROPHOBIA. DR BROWN ORDERED ATIVAN 1MG PO ONE TIME. ALSO DR BROWN WAS MADE AWARE THAT DAUGHTER DR PATTIE EATON WISHES TO SPEAK WITH HIM, TO WHICH HE STATED HE WILL PERHAPS CALL HER TONIGHT OR TOMORROW HE HAS ALREADY SPOKEN TO HER. DR BROWN HAS DR PATTIE EATON CONTACT INFO.
--- NOTE | 2021-04-25 16:25 | NUR ---
ATIVAN 1MG PO GIVEN X1 FOR MRI PROCEDURE
[2021-04-25] MEDS: DILTIAZEM HCL CD 120 MG PO SCH (17:36)
--- NOTE | 2021-04-25 18:00 | NUR ---
BS: 0730: 107 NC 1200: 106 NC 1700: 104 NC BLOOD SUGAR METER NOT TRANSMITTING INFO. BE LAN RN AWARE Addendum: 04/25/21 at 1924 by ASMITA DILLARD RN WRONG PATIENT PLEASE DISREGARD.
--- NOTE | 2021-04-25 18:15 | NUR ---
BS: 0730: 132 2 UNITS 1200: 114 NC 1700: 125 NC BLOOD SUGAR METER NOT TRANSMITTING INFO. NOC SHIFT RN AWARE
[2021-04-25 18:48] VITALS: BP 121/76
[2021-04-25 19:49] VITALS: BP 109/59
[2021-04-25] MEDS: TRAZODONE 50 MG TABLET PO SCH (22:00)
[2021-04-25] MEDS: LamoTRIgine 25 MG TABLET PO SCH (22:00)
--- NOTE | 2021-04-25 22:00 | NUR ---
RECEIVED PATIENT IN ROOM LAYING IN BED PATIENT IS ALERT, ORIENTED X 1-2, ON ROOM AIR PATIENT WENT TO THE BATHROOM. NO ACUTE DISTRESS NOTED. PT OXYGEN LEVEL WENT DOWN TO 84%. ASSISTED BACK PT TO BED, HEAD OF THE BED ELEVATED. BP CHECKED 109/48, HR 102, BS WAS 112MG/DL. PATIENT LOOKS VERY LETHARGIC. DENIES ANY PAIN OR DISCOMFORT AT THIS TIME. NAYELY FERRERA CAME TO THE UNIT AND ASSESSED THE PATIENT AND STATED PATIENT NEEDS AN IVPB FOR BILATERAL LOWER LEG CELLULITIS. PAGED DR. IVA TURK NOTIFIED OF PATIENT'S CONDITION AND OBTAINED TELEPHONE ORDER TO TRANSFER PATIENT TO MEDICAL SURGICAL FLOOR FOR FURTHER TREATMENT. 2299- DR. BROWN NOTIFIED AND WITH ORDER TO CONTINUE THE HOLD.
[2021-04-25] MEDS: EZETIMIBE 10 MG TABLET PO SCH (22:44)
[2021-04-25] MEDS: ATORVASTATIN 10 MG TABLET PO SCH (22:44)
--- NOTE | 2021-04-26 01:00 | NUR ---
PATIENT DISCHARGE TO MEDICAL SURGICAL UNIT ACCOMPANIED BY [facility] UPON DISCHARGE PATIENT WAS ALERT, ORIENTED X 2- NO DISTRESS NOTED PATIENT AMBULATE WITH WALKER BELONGING SEND WITH PATIENT ORIGINAL HOLD SEND WITH PATIENT REPORT GIVEN TO NELLY GOODWIN
[2021-04-26] MEDS ORDERED: BUMETANIDE INJ 0.25 MG/ML VIAL IV ONE (01:30)
[2021-04-26] MEDS ORDERED: CEFTRIAXONE 1 G in IV D5W 50 ML IV SCH (01:30)
[2021-04-26] MEDS ORDERED: ONDANSETRON HCL/PF 4 MG/2 ML VIAL IVP PRN (01:30)
[2021-04-26] MEDS ORDERED: Z GUARD REMEDY 2 OZ OINT TP PRN (01:30)
[2021-04-26] MEDS ORDERED: ACETAMINOPHEN 325 MG TABLET PO PRN (01:30)
[2021-04-26] MEDS ORDERED: VANCOMYCIN HCL 1.25 GM in IV D5W 260 ML IV ONE (01:30)
[2021-04-26] MEDS ORDERED: BUMETANIDE (1 MG) 1 MG TABLET PO SCH (09:00)
== END 2021-04-26 01:22 | disposition short-term general hospital (02) | DRG 885 ==
LOC: ER 10:15 → GPS 12:54
PROVIDERS: ADMIT Psychiatry & Neurology Psychiatry; ATTEND Nurse Practitioner Acute Care
DX: F39 Unspecified mood [affective] disorder (principal); N18.9 Chronic kidney disease, unspecified; N17.0 Acute kidney failure with tubular necrosis; G93.40 Encephalopathy, unspecified; R45.851 Suicidal ideations; I13.0 Hypertensive heart and chronic kidney disease with heart failure and stage 1 through stage 4 chronic kidney disease, or unspecified chronic kidney disease; I50.32 Chronic diastolic (congestive) heart failure; F03.91 Unspecified dementia, unspecified severity, with behavioral disturbance; I48.20 Chronic atrial fibrillation, unspecified; L03.115 Cellulitis of right lower limb; L03.116 Cellulitis of left lower limb; E11.22 Type 2 diabetes mellitus with diabetic chronic kidney disease; D63.8 Anemia in other chronic diseases classified elsewhere; E11.51 Type 2 diabetes mellitus with diabetic peripheral angiopathy without gangrene; F32.9 Major depressive disorder, single episode, unspecified; E87.6 Hypokalemia; E78.5 Hyperlipidemia, unspecified; M79.7 Fibromyalgia; Z98.890 Other specified postprocedural states; E66.01 Morbid (severe) obesity due to excess calories; F41.9 Anxiety disorder, unspecified; I25.10 Atherosclerotic heart disease of native coronary artery without angina pectoris; Z90.710 Acquired absence of both cervix and uterus; Z90.49 Acquired absence of other specified parts of digestive tract; Z79.899 Other long term (current) drug therapy; Z87.891 Personal history of nicotine dependence; Z79.01 Long term (current) use of anticoagulants; T50.2X5A Adverse effect of carbonic-anhydrase inhibitors, benzothiadiazides and other diuretics, initial encounter; Z91.19 Patient's noncompliance with other medical treatment and regimen; Z79.84 Long term (current) use of oral hypoglycemic drugs; J44.9 Chronic obstructive pulmonary disease, unspecified; Z73.6 Limitation of activities due to disability; R21 Rash and other nonspecific skin eruption; K83.8 Other specified diseases of biliary tract; G47.00 Insomnia, unspecified; Z20.822 Contact with and (suspected) exposure to COVID-19
CPT/HCPCS: 36415; 70551-TC; 71045-TC; 80048-TC; 80053-TC; 80061-TC; 80076-TC; 81001; 82570-TC; 82962-TC; 84300-TC; 85025-TC; 87081-TC; 93970-TC; 97116-TC; 97530-TC; C9803; G0480; J1815; Q0162

== ENCOUNTER 2021-04-26 00:09 | Inpatient (IN) | payer MEDICARE, OTHER ==
[~2021-04-26] VITALS: Ht 165.1 cm; Wt 98.9 kg
[~2021-04-26 00:09] MED LIST changes: -BUPR1TAB45 SL; +CALC-903 PO; -CALC500T52 PO; +CAPS60CR4 TP; +CLON0.5T4 PO; -DIAZ10TA4 PO; -DIAZ5TAB4 PO; +LAMO150T2 PO; -LEVO500T90 PO; -METR500T PO; +QUET25TA PO; -VENL150C2 PO; -VITA1TAB56 PO
[2021-04-26 01:00] VITALS: BP 109/62
--- NOTE | 2021-04-26 01:00 | NUR ---
MS RN ADMITTING NOTES RECEIVED PATIENT FORM GPS VIA WHEELCHAIR, PATIENT IS AWAKE, A&O X 2-3 WITH PERIODS OF OF FORGETFULNESS NOTED. PATIENT WAS ABLE TO AMBULATE UPON TRANSFER TO BED. VS TAKEN AND RECORDED FOLLOWS, TEMP 97.6, LA 108, RR 20, BP 109/62, O2 SAT 109/62. ON ROOM AIR TOLERATING WELL, NO SOB, NO ACUTE DISTRESS NOTED. NOTED WITH REDNESS ON BLE. PICTURES TAKEN AND FILED TO CHART. STARTED AN IV ACCESS ON RIGHT HAND USING IV CATHETER G#22, PATENT AND FLUSHES WELL,. SAFETY PRECAUTIONS IN PLACE, BED ON LOWEST LOCKED POSITION, SIDE RAILS UP X 2, CALL LIGHT WITHIN EASY REACH. SITTER AT BEDSIDE, PATIENT IS ON HOLD DUE TO DANGER TO SELF AND OTHERS. WILL CONTINUE TO MONITOR PAT'S CONDITION.
[2021-04-26] MEDS ORDERED: BUMETANIDE INJ 0.25 MG/ML VIAL IV ONE (03:30)
[2021-04-26] MEDS ORDERED: CEFTRIAXONE 1 G in IV D5W 50 ML IV SCH (03:30)
[2021-04-26] MEDS ORDERED: ACETAMINOPHEN 325 MG TABLET PO PRN (03:30)
[2021-04-26] MEDS ORDERED: Z GUARD REMEDY 2 OZ OINT TP PRN (03:30)
[2021-04-26] MEDS ORDERED: ONDANSETRON HCL/PF 4 MG/2 ML VIAL IVP PRN (03:30)
[2021-04-26] MEDS ORDERED: CEFTRIAXONE 1 G VIAL ONE (03:57)
[2021-04-26] MEDS ORDERED: VANCOMYCIN 1 GM VIAL ONE ×2 (03:59→04:01)
[2021-04-26] MEDS ORDERED: DEXTROSE 50%-WATER 50 ML DISP.SYRIN IV PRN (04:00)
[2021-04-26] MEDS ORDERED: VANCOMYCIN HCL 1.25 GM in IV D5W 260 ML IV ONE (04:45)
[2021-04-26 06:07] LABS: BASOPHILS # (AUTO) 0.1 K/uL (0.0-0.2); BASOPHILS % (AUTO) 0.7 % (0.0-2.0); EOSINOPHILS % (AUTO) 4.4 % (0.0-6.0); HEMATOCRIT 29 % (33-45); HEMOGLOBIN 9.4 g/dL (11.5-14.8); LYMPHOCYTES # (AUTO) 1.8 K/uL (0.8-4.8); LYMPHOCYTES % (AUTO) 25.3 % (20.0-44.0); MEAN CORPUSCULAR HGB CONC 32 g/dl (31.0-36.0); MEAN CORPUSCULAR VOLUME 90 fL (82-100); MONOCYTES # (AUTO) 0.9 K/uL (0.1-1.30); MONOCYTES % (AUTO) 12.5 % (2.0-12.0); NEUTROPHILS # (AUTO) 4.2 K/uL (1.8-8.9); NEUTROPHILS % (AUTO) 57.1 % (43.0-81.0); PLATELET COUNT (AUTO) 488 K/uL (150-450); RED BLOOD CELL COUNT(AUTO) 3.25 MIL/uL (4.0-5.2); WHITE BLOOD COUNT (AUTO) 7.3 K/uL (4.3-11.0)
[2021-04-26] MEDS: INSULIN REGULAR, HUMAN 100 UNIT/ML 3 ML VIAL SQ PRN (06:35)
--- NOTE | 2021-04-26 06:38 | NUR ---
MS RN CLOSING NOTES PATIENT IN BED, ASLEEP, EASILY AWAKEN BY VERBAL AND TACTILE STIMULI, ON ROOM AIR TOLERATING WELL, NO SOB, NO ACUTE DISTRESS NOTED. IV ACCESS ON RIGHT HAND G#22, PATENT AND FLUSHES WELL, SAFETY PRECAUTIONS IN PLACE, BED ON LOWEST LOCKED POSITION, SIDE RAILS UP X 2, CALL LIGHT WITHIN EASY REACH. SITTER AT BEDSIDE, ALL NEEDS ATTENDED AND MET. WILL CONTINUE TO MONITOR.
[2021-04-26 06:39] LABS: ALANINE AMINOTRANSFERASE 13 U/L (12-78); ALBUMIN 3.2 g/dL (3.4-5.0); ALKALINE PHOSPHATASE 75 U/L (46-116); ASPARTATE AMINOTRANSFERASE 20 U/L (15-37); BILIRUBIN,TOTAL 0.2 mg/dL (0.2-1.0); CARBON DIOXIDE 36 mmol/L (21-32); CHLORIDE 91 mmol/L (98-107); CREATININE 2.3 mg/dL (0.6-1.3); GLUCOSE 138 mg/dL (74-106); MAGNESIUM 2.8 mg/dL (1.8-2.4); PHOSPHORUS 4.9 mg/dL (2.5-4.9); SODIUM SERUM 134 mmol/L (136-145); TOTAL PROTEIN, SERUM 7.5 g/dL (6.4-8.2); UREA NITROGEN, BLOOD 22 mg/dL (7-18)
[2021-04-26 06:45] LABS: POTASSIUM 2.7 mmol/L (3.5-5.1)
--- NOTE | 2021-04-26 06:55 | NUR ---
RN NOTES RECEIVED A CRITICAL POTASSIUM VALUE OF 2.7 FROM CHARISMA OF LAB. RELAYED TO IVA CLEANING, AWAITING ORDER.
--- NOTE | 2021-04-26 07:00 | NUR ---
RN NOTES FOLLOWED UP WITH IVA CLEANING, NO RESPONSE, ENDORSED TO AM SHIFT NURSE.
[2021-04-26] MEDS: BLOOD SUGAR DIAGNOSTIC 1 EACH STRIP IN SCH ×4 (07:30→21:12)
--- NOTE | 2021-04-26 07:30 | NUR ---
RN-NOTES RECEIVED PATIENT SITTING IN BED ALERT X2, ANXIOUS AND ARGUMENTATIVE WITH THE STAFF. REDIRECTED AND REORIENTED PATIENT.ON 1:1 SITTER FOR SAFETY AND BEHAVIOR.
[2021-04-26 08:00] VITALS: BP 115/64
[2021-04-26] MEDS ORDERED: CLINDAMYCIN 600 MG in IV D5W 50 ML IV SCH (08:30)
--- NOTE | 2021-04-26 08:55 | NUR ---
RN-NOTES NOTED PATIENT VERY ANXIOUS/ANGRY STATED" I DON'T WANT TO STAY IN THE ROOM,I WANT TO STAY OUTSIDE".REDIRECTED PATIENT. DR. BROWN MADE AWARE OF PATIENT'S BEHAVIOR WITH T.O ORDER TO CHANGE KLONOPIN 0.5MG P.O HS TO KLONOPIN 0.5MG P.O Q6HR PRN. NOTED AND CARRIED OUT.
[2021-04-26] MEDS ORDERED: METFORMIN 500 MG TABLET PO SCH ×2 (09:00)
[2021-04-26] MEDS: POTASSIUM CHLORIDE 20 MEQ TAB.PRT.SR PO SCH ×5 (09:20→14:01)
[2021-04-26] MEDS: GABAPENTIN 300 MG CAPSULE PO SCH ×3 (09:20→17:00)
[2021-04-26] MEDS: MONTELUKAST SODIUM (10MG) 10 MG TABLET PO SCH (09:21)
[2021-04-26] MEDS: MAGNESIUM OXIDE 400 MG TABLET PO SCH (09:21)
[2021-04-26] MEDS: FERROUS SULFATE (325 MG) 325 MG/TAB TABLET PO SCH (09:21)
[2021-04-26] MEDS: BUMETANIDE (1 MG) 1 MG TABLET PO SCH ×2 (09:21→17:00)
[2021-04-26] MEDS: APIXABAN 5 MG TABLET PO SCH ×2 (09:23→17:00)
[2021-04-26 09:25] LABS: CREATININE 2.4 mg/dL (0.6-1.3); POTASSIUM 2.9 mmol/L (3.5-5.1)
[2021-04-26] MEDS: LamoTRIgine 25 MG TABLET PO SCH ×2 (09:27→21:11)
[2021-04-26 09:36] LABS: ABG OXYGEN SATURATION 66.1 % (92.0-98.5); ABG PCO2 56.8 mmHg (35.0-45.0); ABG PO2 35.9 mmHg (75.0-100.0); AaDO2 45.8 mmHg; COHb 1.1 % (0.5-1.5); MetHb 0.3 % (0.0-1.5); O2Hb 65.2 % (94.0-97.0); SITE, ABG Right Radial; VENT MODE, BG ROOM AIR
[2021-04-26] MEDS: DILTIAZEM HCL CD 240 MG PO SCH (09:51)
[2021-04-26] MEDS: ALLOPURINOL 100 MG TABLET PO SCH (09:52)
[2021-04-26] MEDS: clonazePAM 0.5 MG TABLET PO PRN (10:07)
--- NOTE | 2021-04-26 10:09 | NUR ---
RN-NOTES PATIENT ASKING FOR ANXIETY MEDICATION,KLONOPIN 0.5MG P.O GIVEN PRN ORDER. WILL CONT. MONITORING FOR SAFETY AND BEHAVIOR.
[2021-04-26] MEDS ORDERED: CLINDAMYCIN HCL 150 MG CAPSULE PO SCH (11:00)
--- NOTE | 2021-04-26 11:05 | NUR ---
RN-NOTES NOTED PATIENT ANGRY ,SCREAMING AND YELLING AT THE SITTER STAFF, GETTING OUT OF BED UNASSISTED. UNABLE TO REDIRECT PATIENT. DR. MINAYA MADE AWARE WITH T.O ORDER OF THORAZINE 25MG IM AND ATIVAN 1MG IM ONCE. NOTED AND CARRIED OUT.
[2021-04-26] MEDS ORDERED: LORAZEPAM INJ 2 MG/ML VIAL IM ONE (11:30)
--- NOTE | 2021-04-26 12:00 | NUR ---
RN-NOTES PATIENT BS WAS 132MG/DL,2 UNITS OF R INSULIN NOT GIVEN DUE TO PATIENT REFUSED TO EAT LUNCH.
--- NOTE | 2021-04-26 12:20 | NUR ---
RN-NOTES PATIENT LYING IN BED AWAKE,ALERT,CALM NO ACUTE DISTRESS NOTED. ON 1:1 SITTER FOR SAFETY AND BEHAVIOR.
[2021-04-26] MEDS: LINEZOLID 600 MG TABLET PO SCH ×2 (12:52→21:11)
[2021-04-26] MEDS: IPRATROPIUM NEB FS 0.5 MG/2.5 ML AMPUL.NEB NEB SCH ×3 (15:30→23:30)
[2021-04-26 16:00] VITALS: BP_SYST 100; BP_SYST 90; BP_DIAS 49; BP_DIAS 53
--- NOTE | 2021-04-26 17:45 | NUR ---
RN-NOTES ALL 1700MEDICATIONS WAS NOT GIVEN DUE TO PATIENT IS TOO SEDATED.
--- NOTE | 2021-04-26 18:35 | NUR ---
RN-CLOSED NOTES PATIENT STILL SLEEPING WITH BREATHING EVEN AND NONLABORED ,EASILY AROUSED,NO ACUTE DISTRESS NOTED. ALL NEEDS ATTENDED AND ANTICIPATED. WILL ENDORSE TO INCOMING NURSED FOR CONTINUITY OF CARE AND MONITORING.PATIENT ON 1:1 MONITORING FOR SAFETY.
[2021-04-26 20:00] VITALS: BP 112/54
[2021-04-26] MEDS: ATORVASTATIN 10 MG TABLET PO SCH (21:11)
[2021-04-26] MEDS: EZETIMIBE 10 MG TABLET PO SCH (21:11)
[2021-04-26] MEDS ORDERED: QUETIAPINE FUMARATE 25 MG TABLET PO SCH (22:00)
[2021-04-26] MEDS ORDERED: clonazePAM 0.5 MG TABLET PO SCH (22:00)
[2021-04-27] MEDS: clonazePAM 0.5 MG TABLET PO PRN ×2 (03:16→09:23)
[2021-04-27] MEDS: IPRATROPIUM NEB FS 0.5 MG/2.5 ML AMPUL.NEB NEB SCH ×6 (03:46→23:30)
[2021-04-27] MEDS ORDERED: VANCOMYCIN 1 GM in IV D5W 250ml IV SCH (05:00)
[2021-04-27] MEDS: CEFTRIAXONE 1 G in IV D5W 50 ML IV SCH (05:07)
--- NOTE | 2021-04-27 06:04 | NUR ---
MS RN NOTES AWAKE & RESPONSIVE. NOT IN ANY DISTRESS. NO SOB NOTED. DENIES ANY PAIN OR DISCOMFORT AT THIS TIME. WITH IV-HL PATENT & INTACT. MONITORED ACCORDINGLY WITH SITTER AT BEDSIDE. CALL LIGHT WITHIN REACH. BED IN LOWEST POSITION. SR UP X 3 WITH BED ALARM ON FOR SAFETY. WILL ENDORSE TO NEXT SHIFT.
[2021-04-27 06:43] LABS: BASOPHILS % (AUTO) 0.5 % (0.0-2.0); EOSINOPHILS % (AUTO) 2.3 % (0.0-6.0); HEMATOCRIT 28 % (33-45); HEMOGLOBIN 8.9 g/dL (11.5-14.8); LYMPHOCYTES # (AUTO) 1.5 K/uL (0.8-4.8); LYMPHOCYTES % (AUTO) 16.3 % (20.0-44.0); MEAN CORPUSCULAR HGB CONC 32 g/dl (31.0-36.0); MEAN CORPUSCULAR VOLUME 90 fL (82-100); MONOCYTES # (AUTO) 1.1 K/uL (0.1-1.30); MONOCYTES % (AUTO) 11.4 % (2.0-12.0); NEUTROPHILS # (AUTO) 6.5 K/uL (1.8-8.9); NEUTROPHILS % (AUTO) 69.5 % (43.0-81.0); PLATELET COUNT (AUTO) 466 K/uL (150-450); RED BLOOD CELL COUNT(AUTO) 3.07 MIL/uL (4.0-5.2); WHITE BLOOD COUNT (AUTO) 9.4 K/uL (4.3-11.0)
[2021-04-27 06:53] LABS: CHOLESTEROL 112 mg/dL (<200); HDL CHOLESTEROL 45 mg/dL (40-60); LDL 45 mg/dL (0-99); TRIGLYCERIDES 112 mg/dL (30-150)
[2021-04-27 06:54] LABS: ALANINE AMINOTRANSFERASE 15 U/L (12-78); ALBUMIN 3.2 g/dL (3.4-5.0); ALKALINE PHOSPHATASE 75 U/L (46-116); ASPARTATE AMINOTRANSFERASE 25 U/L (15-37); BILIRUBIN,TOTAL 0.4 mg/dL (0.2-1.0); CALCIUM, SERUM 8.5 mg/dL (8.5-10.1); CARBON DIOXIDE 36 mmol/L (21-32); CHLORIDE 93 mmol/L (98-107); CREATININE 2.3 mg/dL (0.6-1.3); GLUCOSE 127 mg/dL (74-106); MAGNESIUM 2.9 mg/dL (1.8-2.4); PHOSPHORUS 3.9 mg/dL (2.5-4.9); POTASSIUM 3.1 mmol/L (3.5-5.1); SODIUM SERUM 134 mmol/L (136-145); TOTAL PROTEIN, SERUM 7.3 g/dL (6.4-8.2); UREA NITROGEN, BLOOD 21 mg/dL (7-18)
[2021-04-27] MEDS: BLOOD SUGAR DIAGNOSTIC 1 EACH STRIP IN SCH ×4 (06:58→22:00)
--- NOTE | 2021-04-27 07:54 | NUR ---
RN Opening Notes: Received pt. awake in the commode with oxygen via nasal cannula with sitter at the side. Pt. is irritable and disorganized. No sign of distress and no agitation noted. Will continue to monitor for safety.
[2021-04-27 08:00] VITALS: BP 112/61
[2021-04-27] MEDS ORDERED: DILTIAZEM HCL CD 240 MG ONE (08:25)
[2021-04-27] MEDS: DILTIAZEM HCL CD 240 MG PO SCH (08:30)
[2021-04-27] MEDS: APIXABAN 5 MG TABLET PO SCH ×2 (08:31→18:17)
[2021-04-27] MEDS: BUMETANIDE (1 MG) 1 MG TABLET PO SCH ×2 (08:32→18:16)
[2021-04-27] MEDS: MAGNESIUM OXIDE 400 MG TABLET PO SCH (08:32)
[2021-04-27] MEDS: FERROUS SULFATE (325 MG) 325 MG/TAB TABLET PO SCH (08:32)
[2021-04-27] MEDS: GABAPENTIN 300 MG CAPSULE PO SCH ×4 (08:32→18:16)
[2021-04-27] MEDS: LINEZOLID 600 MG TABLET PO SCH ×2 (08:32→20:54)
[2021-04-27] MEDS: MONTELUKAST SODIUM (10MG) 10 MG TABLET PO SCH (08:32)
[2021-04-27] MEDS: ALLOPURINOL 100 MG TABLET PO SCH (08:35)
[2021-04-27] MEDS: POTASSIUM CHLORIDE 20 MEQ TAB.PRT.SR PO SCH ×2 (09:23→18:16)
--- NOTE | 2021-04-27 11:12 | NUR ---
Dr. Mack ordered Buprenorphine and Naloxone 8mg/2mg of 1/2 tab BID and to start now.
[2021-04-27] MEDS: LamoTRIgine 25 MG TABLET PO SCH ×2 (11:20→20:54)
[2021-04-27] MEDS: SUBOXONE SL SCH ×2 (12:05→20:52)
[2021-04-27] MEDS ORDERED: KEY,NONCONTROL,TO KEEP IN PYXI 1 EA MC ONE ×2 (12:13→20:34)
[2021-04-27] MEDS: INSULIN REGULAR, HUMAN 100 UNIT/ML 3 ML VIAL SQ PRN ×2 (12:19→18:34)
--- NOTE | 2021-04-27 13:19 | NUR ---
Gabapentin of 600 mg not given due to old order were given already
[2021-04-27 16:00] VITALS: BP 106/53
--- NOTE | 2021-04-27 17:34 | NUR ---
Pt. to radiology for MRI and escorted by sitter. Pt. left the unit via a wheelchair.
[2021-04-27 18:14] VITALS: BP 123/64
--- NOTE | 2021-04-27 19:04 | NUR ---
Closing Notes. Pt. is awke at this time, with ongoing oxygen. Unable to do MRI of the brain due to pt. is restless irritable and not following direction. Dr. mcdonnell made aware.
--- NOTE | 2021-04-27 19:32 | NUR ---
MS RN OPENING NOTES: RECEIVED PATIENT SLEEP IN NIECY CHAIR, AROUSABLE TO STIMULI, A/OX 3, NO COMPAIN OF PAIN AND DISCOMFORT AT THIS TIME, WITH 1:1 SITTER , PATIETN APPEARS CALM, PATIENT KEPT CLEAN AND DRY, WILL CONTINUE TO MONITOR.
[2021-04-27] MEDS: QUETIAPINE FUMARATE 100 MG TABLET PO SCH (20:54)
[2021-04-27] MEDS: EZETIMIBE 10 MG TABLET PO SCH (23:07)
[2021-04-27] MEDS: ATORVASTATIN 10 MG TABLET PO SCH (23:07)
[2021-04-28] MEDS: IPRATROPIUM NEB FS 0.5 MG/2.5 ML AMPUL.NEB NEB SCH ×5 (03:30→19:29)
[2021-04-28] MEDS: CEFTRIAXONE 1 G in IV D5W 50 ML IV SCH (05:09)
[2021-04-28 06:51] LABS: BASOPHILS % (AUTO) 0.6 % (0.0-2.0); EOSINOPHILS % (AUTO) 1.6 % (0.0-6.0); HEMATOCRIT 28 % (33-45); HEMOGLOBIN 8.8 g/dL (11.5-14.8); LYMPHOCYTES # (AUTO) 1.3 K/uL (0.8-4.8); LYMPHOCYTES % (AUTO) 17.8 % (20.0-44.0); MEAN CORPUSCULAR HGB CONC 32 g/dl (31.0-36.0); MEAN CORPUSCULAR VOLUME 91 fL (82-100); MONOCYTES # (AUTO) 0.8 K/uL (0.1-1.30); PLATELET COUNT (AUTO) 403 K/uL (150-450); RED BLOOD CELL COUNT(AUTO) 3.07 MIL/uL (4.0-5.2); WHITE BLOOD COUNT (AUTO) 7.3 K/uL (4.3-11.0)
--- NOTE | 2021-04-28 07:03 | NUR ---
MS RN CLOSING NOTE: PATIENT SLEEP IN BED COMFORTABLY, BED IN LOW POSITION, CALL LIGHTS WITHIN REACH, NO COMPLAIN OF PAIN AND DISCOMFORT AT THIS TIME, PATIENT IS A/OX2-3 AMBULATORY WITH ASSITANCE, WITH IV LINE AT RFA #20 INFUSING WELL, WITH !;! SITTER , PATIENT KEPT CLEAN AND DRY, ALL NEEDS MET, WILL ENDORSE TO INCOMING SHIFT.
[2021-04-28 07:20] LABS: CALCIUM, SERUM 8.9 mg/dL (8.5-10.1); CARBON DIOXIDE 37 mmol/L (21-32); CHLORIDE 94 mmol/L (98-107); CREATININE 1.8 mg/dL (0.6-1.3); GLUCOSE 130 mg/dL (74-106); MAGNESIUM 3.2 mg/dL (1.8-2.4); PHOSPHORUS 4.5 mg/dL (2.5-4.9); POTASSIUM 3.5 mmol/L (3.5-5.1); SODIUM SERUM 137 mmol/L (136-145); UREA NITROGEN, BLOOD 20 mg/dL (7-18)
[2021-04-28] MEDS: BLOOD SUGAR DIAGNOSTIC 1 EACH STRIP IN SCH ×3 (07:30→17:45)
--- NOTE | 2021-04-28 07:39 | NUR ---
RN NOTES: BS-128, NO INSULIN GIVEN
--- NOTE | 2021-04-28 08:18 | NUR ---
MS/RN OPENING NOTE: RECEIVED PATIENT IN BED, AWAKE, ALERT AND ORIENTEDX1-2. ON OXYGEN AT 3LPM VIA NASAL CANNULA. NO SOB NOTED. NO COMPLAIN OF PAIN AND DISCOMFORT AT THIS TIME. WITH IV ACCESS AT RFA #20G INFUSING WELL, WITH A SITTER. SAFETY PRECAUTIONS IN PLACED. BED LOCKED ON LOWEST POSITION, DISE RAILS UPX2, CALL LIGHT AND TABLE WITHIN EASY REACH. WILL CONTINUE TO MONITOR PATIENT.
[2021-04-28] MEDS: GABAPENTIN 300 MG CAPSULE PO SCH ×3 (08:42→17:00)
[2021-04-28] MEDS: MONTELUKAST SODIUM (10MG) 10 MG TABLET PO SCH (08:42)
[2021-04-28] MEDS: LamoTRIgine 25 MG TABLET PO SCH (08:42)
[2021-04-28] MEDS: ALLOPURINOL 100 MG TABLET PO SCH (08:43)
[2021-04-28] MEDS: FERROUS SULFATE (325 MG) 325 MG/TAB TABLET PO SCH (08:43)
[2021-04-28] MEDS: POTASSIUM CHLORIDE 20 MEQ TAB.PRT.SR PO SCH ×2 (08:43→17:00)
[2021-04-28] MEDS: QUETIAPINE FUMARATE 100 MG TABLET PO SCH (08:44)
[2021-04-28] MEDS: APIXABAN 5 MG TABLET PO SCH ×2 (08:45→17:00)
[2021-04-28] MEDS: BUMETANIDE (1 MG) 1 MG TABLET PO SCH ×2 (08:45→17:00)
[2021-04-28] MEDS: MAGNESIUM OXIDE 400 MG TABLET PO SCH (08:45)
[2021-04-28] MEDS: LINEZOLID 600 MG TABLET PO SCH (08:45)
[2021-04-28 09:00] VITALS: BP 99/50
[2021-04-28] MEDS: DILTIAZEM HCL CD 240 MG PO SCH (09:00)
[2021-04-28] MEDS ORDERED: KEY,NONCONTROL,TO KEEP IN PYXI 1 EA MC ONE (09:32)
[2021-04-28] MEDS: SUBOXONE SL SCH ×2 (09:44→17:43)
--- NOTE | 2021-04-28 19:33 | NUR ---
MS/PRODUCT SAFETY TECHNICIAN NOTES PATIENT MEDICALLY STABLE AND MD ORDERED DC AND TRANSFER TO [facility] UNIT. PATIENT ALERT AND ORIENTEDX1, ON O2 AT 1LPM WITH O2 SAT AT 95%. BEDBOUND. REPORTS GIVEN TO CHRISTA CLARK AT [facility].
[2021-05-04] MEDS ORDERED: GABAPENTIN 300 MG CAPSULE PO SCH (09:00)
[2021-05-11] MEDS ORDERED: GABAPENTIN 300 MG CAPSULE PO SCH (09:00)
[2021-05-18] MEDS ORDERED: GABAPENTIN 300 MG CAPSULE PO SCH (09:00)
== END 2021-04-28 19:30 | DRG 291 ==
LOC: MED 00:09
PROVIDERS: ADMIT Internal Medicine; ATTEND Nurse Practitioner Acute Care
DX: I13.0 Hypertensive heart and chronic kidney disease with heart failure and stage 1 through stage 4 chronic kidney disease, or unspecified chronic kidney disease (principal); N17.0 Acute kidney failure with tubular necrosis; I50.33 Acute on chronic diastolic (congestive) heart failure; L03.116 Cellulitis of left lower limb; J96.12 Chronic respiratory failure with hypercapnia; J96.11 Chronic respiratory failure with hypoxia; E66.2 Morbid (severe) obesity with alveolar hypoventilation; J44.0 Chronic obstructive pulmonary disease with (acute) lower respiratory infection; L03.115 Cellulitis of right lower limb; G93.40 Encephalopathy, unspecified; R45.851 Suicidal ideations; J44.9 Chronic obstructive pulmonary disease, unspecified; I25.10 Atherosclerotic heart disease of native coronary artery without angina pectoris; I48.91 Unspecified atrial fibrillation; F39 Unspecified mood [affective] disorder; D63.8 Anemia in other chronic diseases classified elsewhere; E11.22 Type 2 diabetes mellitus with diabetic chronic kidney disease; E11.65 Type 2 diabetes mellitus with hyperglycemia; E78.5 Hyperlipidemia, unspecified; F41.9 Anxiety disorder, unspecified; M79.7 Fibromyalgia; N18.9 Chronic kidney disease, unspecified; G89.29 Other chronic pain; M19.90 Unspecified osteoarthritis, unspecified site; Z90.49 Acquired absence of other specified parts of digestive tract; Z90.710 Acquired absence of both cervix and uterus; Z79.01 Long term (current) use of anticoagulants; Z87.891 Personal history of nicotine dependence; Z79.84 Long term (current) use of oral hypoglycemic drugs; Z79.899 Other long term (current) drug therapy; E87.6 Hypokalemia; F03.90 Unspecified dementia, unspecified severity, without behavioral disturbance, psychotic disturbance, mood disturbance, and anxiety; D47.3 Essential (hemorrhagic) thrombocythemia; F32.9 Major depressive disorder, single episode, unspecified; F29 Unspecified psychosis not due to a substance or known physiological condition; Z73.6 Limitation of activities due to disability; R21 Rash and other nonspecific skin eruption; G47.00 Insomnia, unspecified; I87.8 Other specified disorders of veins
CPT/HCPCS: 36415; 36600; 70551-TC; 71045-TC; 80048-TC; 80053-TC; 80061-TC; 82565-TC; 82962-TC; 83735-TC; 83880; 84100-TC; 84132-TC; 85025-TC; 87081-TC; 94762-TC; 94799-TC; 97112-TC; 97530-TC; G0378; J0696; J1815; J2060; J3230; J3370; J3490; J7050; J7060

== ENCOUNTER 2021-04-28 17:35 | Inpatient (IN) | payer MEDICARE, OTHER ==
[~2021-04-28] VITALS: Ht 165.1 cm; Wt 98.9 kg
[2021-04-28] MEDS ORDERED: ACETAMINOPHEN 325 MG TABLET PO PRN (18:00)
[2021-04-28] MEDS ORDERED: MAG HYDROX/AL HYDROX/SIMETH 30 ML UDC PO PRN (18:00)
[2021-04-28] MEDS ORDERED: ZOLPIDEM TARTRATE 5 MG TABLET PO PRN (18:00)
[2021-04-28] MEDS ORDERED: MAGNESIUM HYDROXIDE 30 ML UDC PO PRN (18:00)
[2021-04-28 19:35] VITALS: BP_SYST 116; BP_SYST 128; BP_DIAS 66; BP_DIAS 74
[2021-04-28 19:50] VITALS: BP 128/74
[2021-04-28] MEDS ORDERED: BLOOD SUGAR DIAGNOSTIC 1 EACH STRIP IN ONE (20:00)
--- NOTE | 2021-04-28 20:00 | NUR ---
RN NOTES : NOTIFIED TECHNICAL PROJECT COORDINATOR DR. IVA TURK REGARDING ABOUT NEW ADMISSION MED RECON.
[2021-04-28 21:05] VITALS: BP 119/63
--- NOTE | 2021-04-28 23:41 | NUR ---
ADMISSION NOTES: ADMITTED THIS 75Y/O FEMALE PATIENT ADMIT FROM [facility] MED SURG/ INTIALLY FROM HOME , ADMITTED TO GPS ON 5250 HOLD, PER HOLD DTS GRAVELY DISABLE,PER HOLD ,UPON FACE TO FACE ASSESSMENT PATIENT IS A&O X , 2,3 ANXIOUS ,DISHELVED ,EASILY GETS AGITATED, DISORGNIZED, DENIES SI /HI AT THIS TIME, PT. IS POOR HISTORIAN, POOR INSIGHT ,POOR JUDGEMENT , PT. REFUSED TO SIGNS ADMISSION CONSENT PAPERS , DUE TO MENTAL STATUS , PT. REFUSED INTIALLY , BOTH MD AWARE AND NOTIFIED OF THE ADMISSION, BELONGINGS CONTRABAND WERE DONE , NURSING ASSESSMENT DONE ,PT. RIGHTS DISCUSS BY STEAMTABLE ATTENDANT RAILROAD , PROVIDE THE PT. WITH HANDBOOK, AND MEDICATIONS GUIDE, ENVIRONMENTAL SAFETY CHECK DONE, ENCOURAGED PT. VERBALIZED ANY FEELING CONCERN TO STAFF, ORIENT TO UNIT POLICY, NO ACUTE DISTRESS NOTED,VITAL SIGNS WNL ,DENIES ANY PAIN AT THIS TIME,WILL CONTINUE TO MONITOR FOR Q15 SAFETY AND BEHAVIOR.
[2021-04-29] VITALS: BP 121/70
--- NOTE | 2021-04-29 01:54 | NUR ---
RN NOTES : NOTIFIED ENVIRONMENTAL PLANNING ENGINEER DR. IVA TURK REGARDING ABOUT NEW ADMISSION MED RECON.
[2021-04-29] MEDS ORDERED: Z GUARD REMEDY 4 OZ OINT TP PRN (02:30)
[2021-04-29 03:00] VITALS: BP 115/65
[2021-04-29 06:00] VITALS: BP 113/68
--- NOTE | 2021-04-29 06:58 | NUR ---
RN NOTES : NOTIFIED DIE REPAIR DR. IVA TURK REGARDING ABOUT NEW ADMISSION MED RECON.
--- NOTE | 2021-04-29 07:00 | NUR ---
GPS RN NOTE: PATIENT IS CURRENTLY SLEEPING COMFORTABLY IN BED. PATIENT SLEPT 9 HOURS THIS SHIFT. NO S/S OF DISTRESS, PT.ON O2 - 2L-NC. VITAL SIGNS WNL , BED IN LOWEST POSITION AND LOCKED, SIDE RAILS UP X2. ALL PATIENT CARE NEEDS HAVE BEEN MET AT THIS TIME. WILL CONTINUE TO MONITOR AND ENDORSE TO AM SHIFT.
[2021-04-29 08:00] VITALS: BP 100/60
[2021-04-29 08:51] LABS: ALANINE AMINOTRANSFERASE 9 U/L (12-78); ALBUMIN 2.9 g/dL (3.4-5.0); ALKALINE PHOSPHATASE 79 U/L (46-116); ASPARTATE AMINOTRANSFERASE 28 U/L (15-37); BILIRUBIN,TOTAL 0.4 mg/dL (0.2-1.0); CALCIUM, SERUM 9.2 mg/dL (8.5-10.1); CARBON DIOXIDE 36 mmol/L (21-32); CHLORIDE 100 mmol/L (98-107); CREATININE 1.5 mg/dL (0.6-1.3); GLUCOSE 103 mg/dL (74-106); POTASSIUM 3.8 mmol/L (3.5-5.1); SODIUM SERUM 140 mmol/L (136-145); TOTAL PROTEIN, SERUM 7.3 g/dL (6.4-8.2); UREA NITROGEN, BLOOD 16 mg/dL (7-18)
[2021-04-29] MEDS: Z GUARD REMEDY 4 OZ OINT TP SCH (09:00)
[2021-04-29 09:03] LABS: CHOLESTEROL 110 mg/dL (<200); HDL CHOLESTEROL 51 mg/dL (40-60); LDL 42 mg/dL (0-99); TRIGLYCERIDES 79 mg/dL (30-150)
[2021-04-29] MEDS ORDERED: QUETIAPINE FUMARATE 100 MG TABLET PO SCH (10:00)
[2021-04-29] MEDS ORDERED: DEXTROSE 50%-WATER 50 ML DISP.SYRIN IV PRN (10:30)
[2021-04-29] MEDS ORDERED: D-METHORPHAN HB/PROMETH HCL 5 ML UDC PO PRN (10:30)
[2021-04-29] MEDS: APIXABAN 5 MG TABLET PO SCH ×2 (11:00→21:54)
[2021-04-29] MEDS ORDERED: KEY,NONCONTROL,TO KEEP IN PYXI 1 EA MC ONE ×3 (11:50→19:58)
[2021-04-29] MEDS: BLOOD SUGAR DIAGNOSTIC 1 EACH STRIP IN SCH ×3 (12:00→21:56)
[2021-04-29] MEDS: SUBOXONE SL SCH ×2 (12:01→20:06)
[2021-04-29] MEDS ORDERED: CEPHALEXIN MONOHYDRATE 500 MG CAPSULE PO SCH (13:00)
[2021-04-29] MEDS: QUETIAPINE FUMARATE 100 MG TABLET PO SCH ×2 (13:21→21:09)
[2021-04-29 16:00] VITALS: BP 105/75
[2021-04-29] MEDS: LORAZEPAM 0.5 MG TABLET PO PRN (16:18)
--- NOTE | 2021-04-29 16:19 | NUR ---
Patient yelling and agitated medicated with Ativan 1mg x1 will continue to monitor .
[2021-04-29] MEDS ORDERED: Medication Not On Formulary EA (Omega-3 Fatty Acids/Fish Oil (Fish Oil 1,000 Mg Capsule) PO SCH (17:00)
[2021-04-29] MEDS ORDERED: SUBOXONE SL SCH (17:00)
[2021-04-29] MEDS ORDERED: DILTIAZEM HCL CD 120 MG PO SCH (18:00)
[2021-04-29 20:29] VITALS: BP 111/76
[2021-04-29] MEDS: EZETIMIBE 10 MG TABLET PO SCH (21:09)
[2021-04-29] MEDS: LINEZOLID 600 MG TABLET PO SCH (21:09)
[2021-04-29] MEDS: ATORVASTATIN 10 MG TABLET PO SCH (21:10)
[2021-04-29] MEDS: INSULIN REGULAR, HUMAN 100 UNIT/ML 3 ML VIAL SQ PRN (21:56)
[2021-04-29] MEDS ORDERED: Medication Not On Formulary EA (Ubidecarenone (Coq-10) 200 MG) PO SCH (22:00)
[2021-04-30] MEDS: LORAZEPAM 0.5 MG TABLET PO PRN ×3 (02:28→15:27)
--- NOTE | 2021-04-30 02:28 | NUR ---
GPS-RN NOTES: PATIENT IS VERY ANXIOUS AND WITH EPISODES OF YELLING AND SCREAMING. PRN ATIVAN 1MG PO GIVEN. WILL CONTINUE TO MONITOR.
[2021-04-30] MEDS: BLOOD SUGAR DIAGNOSTIC 1 EACH STRIP IN SCH ×4 (07:18→21:43)
[2021-04-30] MEDS: INSULIN REGULAR, HUMAN 100 UNIT/ML 3 ML VIAL SQ PRN ×2 (07:18→17:02)
[2021-04-30 08:31] VITALS: BP 134/66
[2021-04-30] MEDS: QUETIAPINE FUMARATE 100 MG TABLET PO SCH ×2 (08:59→21:13)
[2021-04-30] MEDS ORDERED: THIOCTIC ACID PO SCH (09:00)
--- NOTE | 2021-04-30 09:00 | NUR ---
RN NOTE- PATIENT IS CURRENTLY ANXIOUS. PT.ON O2 - 2L-NC. VITAL SIGNS WNL , BED IN LOWEST POSITION AND LOCKED, SIDE RAILS UP X2. ALL PATIENT CARE NEEDS HAVE BEEN MET AT THIS TIME. WILL CONTINUE TO MONITOR AND ENDORSE TO AM SHIFT.
--- NOTE | 2021-04-30 09:01 | NUR ---
RN NOTE- SCREAMING AND OPPOSITIONAL. COMBATIVE. ATIVAN 1 MG GIVEN
[2021-04-30] MEDS: MONTELUKAST SODIUM (10MG) 10 MG TABLET PO SCH (09:04)
[2021-04-30] MEDS: FERROUS SULFATE (325 MG) 325 MG/TAB TABLET PO SCH (09:04)
[2021-04-30] MEDS: DILTIAZEM HCL CD 240 MG PO SCH (09:04)
[2021-04-30] MEDS: LINEZOLID 600 MG TABLET PO SCH ×2 (09:04→21:13)
[2021-04-30] MEDS: MAGNESIUM OXIDE 400 MG TABLET PO SCH (09:04)
[2021-04-30] MEDS: ALLOPURINOL 100 MG TABLET PO SCH (09:04)
[2021-04-30] MEDS: APIXABAN 5 MG TABLET PO SCH ×2 (09:05→21:15)
[2021-04-30] MEDS: Z GUARD REMEDY 4 OZ OINT TP SCH (09:05)
[2021-04-30] MEDS ORDERED: KEY,NONCONTROL,TO KEEP IN PYXI 1 EA MC ONE ×3 (09:06→16:45)
[2021-04-30] MEDS: SUBOXONE SL SCH ×2 (09:23→16:52)
--- NOTE | 2021-04-30 12:21 | NUR ---
Probable cause hearing: Pt.'s 5250 hold was upheld on the grounds of gravely disabled and Danger to Self.
--- NOTE | 2021-04-30 15:27 | NUR ---
RN NOTE- AGITATION, SCREAMING, DISRUPTIVE. ATIVAN 1 MG GIVEN
[2021-04-30 16:00] VITALS: BP 131/70
--- NOTE | 2021-04-30 16:28 | NUR ---
Initial D/C Plan: Per Dr. Ramirez's recommendation pt. to be placed in SNF.
--- NOTE | 2021-04-30 16:29 | NUR ---
D/C planning: NATE faxed clinicals to [facility] FAX: [phone]; [facility] FAX: [phone]; [facility] fax: [phone]; [facility] FAX:[phone]
--- NOTE | 2021-04-30 16:32 | NUR ---
Point of Contact: The pt.'s , Aquilino Liao [phone] was called however, call went to voicemail and SW left call back number. The pt.'s daughter, Dr.Lilian Thompsontoan [phone] was called to provide collateral information. Sofia is requesting [facility]. SW notified her that Dr. Ramirez is recommending that pt. go to a SNF as pt. needs higher level of care. Sofia stated that the SNF that she has had to deal with the past couple of months are horrible and she would like for SW to refer pt. to memory care CORRECTION. Noted.
--- NOTE | 2021-04-30 19:56 | NUR ---
RN OPENING NOTE- PATIENT IS CURRENTLY IN GERICHAIR IN NO APPARENT DISTRESS. PATIENT OCCASIONALLY HAS OUTBURST OF YELLING. PT.ON O2 - 2L-NC. IN NO APPARENT PHYSICAL DISTRESS, BREATHING EVEN AND UNLABORED. BED IN LOWEST POSITION AND LOCKED, SIDE RAILS UP X2. WILL CONT TO MONITOR MOOD AND BEHAVIOR. RENE JUST RECENTLY LEFT UNIT AFTER VISITING PER REPORT FROM DAY SHIFT CASE MANAGEMENT IS WORKING ON DISCHARGE POSSIBLY TO HAPPEN TOMORROW MOST LIKELY TO CB. WILL CONTINUE TO MONITOR MOOD AND BEHAVIOR AND TO ENSURE SAFETY.
[2021-04-30 20:00] VITALS: BP 138/63
[2021-04-30] MEDS: EZETIMIBE 10 MG TABLET PO SCH (21:13)
[2021-04-30] MEDS: ATORVASTATIN 10 MG TABLET PO SCH (21:13)
[2021-05-01] MEDS: LORAZEPAM 0.5 MG TABLET PO PRN (07:02)
--- NOTE | 2021-05-01 07:02 | NUR ---
RN NOTE- AGITATION, SCREAMING, DISRUPTIVE. ATIVAN 1 MG GIVEN
[2021-05-01 07:04] LABS: BASOPHILS # (AUTO) 0.1 K/uL (0.0-0.2); BASOPHILS % (AUTO) 0.8 % (0.0-2.0); EOSINOPHILS % (AUTO) 5.9 % (0.0-6.0); HEMATOCRIT 33 % (33-45); HEMOGLOBIN 10.4 g/dL (11.5-14.8); LYMPHOCYTES # (AUTO) 2.9 K/uL (0.8-4.8); LYMPHOCYTES % (AUTO) 39.2 % (20.0-44.0); MEAN CORPUSCULAR HGB CONC 31 g/dl (31.0-36.0); MEAN CORPUSCULAR VOLUME 89 fL (82-100); MONOCYTES # (AUTO) 0.7 K/uL (0.1-1.30); MONOCYTES % (AUTO) 9.9 % (2.0-12.0); NEUTROPHILS # (AUTO) 3.2 K/uL (1.8-8.9); NEUTROPHILS % (AUTO) 44.2 % (43.0-81.0); PLATELET COUNT (AUTO) 550 K/uL (150-450); RED BLOOD CELL COUNT(AUTO) 3.74 MIL/uL (4.0-5.2); WHITE BLOOD COUNT (AUTO) 7.3 K/uL (4.3-11.0)
[2021-05-01] MEDS: BLOOD SUGAR DIAGNOSTIC 1 EACH STRIP IN SCH ×2 (07:40→11:58)
[2021-05-01 08:00] VITALS: BP 148/96
[2021-05-01] MEDS: LINEZOLID 600 MG TABLET PO SCH (08:05)
[2021-05-01] MEDS: QUETIAPINE FUMARATE 100 MG TABLET PO SCH (08:05)
[2021-05-01] MEDS: ALLOPURINOL 100 MG TABLET PO SCH (08:05)
[2021-05-01] MEDS: MAGNESIUM OXIDE 400 MG TABLET PO SCH (08:05)
[2021-05-01] MEDS: MONTELUKAST SODIUM (10MG) 10 MG TABLET PO SCH (08:05)
[2021-05-01] MEDS: FERROUS SULFATE (325 MG) 325 MG/TAB TABLET PO SCH (08:05)
[2021-05-01] MEDS: DILTIAZEM HCL CD 240 MG PO SCH (08:05)
[2021-05-01] MEDS: APIXABAN 5 MG TABLET PO SCH (08:07)
[2021-05-01 08:24] LABS: CALCIUM, SERUM 9.9 mg/dL (8.5-10.1); CARBON DIOXIDE 35 mmol/L (21-32); CHLORIDE 98 mmol/L (98-107); CREATININE 1.4 mg/dL (0.6-1.3); GLUCOSE 117 mg/dL (74-106); MAGNESIUM 2.9 mg/dL (1.8-2.4); PHOSPHORUS 3.9 mg/dL (2.5-4.9); POTASSIUM 3.5 mmol/L (3.5-5.1); SODIUM SERUM 139 mmol/L (136-145); UREA NITROGEN, BLOOD 13 mg/dL (7-18)
[2021-05-01] MEDS ORDERED: KEY,NONCONTROL,TO KEEP IN PYXI 1 EA MC ONE ×2 (08:35→17:06)
[2021-05-01] MEDS ORDERED: VENLAFAXINE XR 150 MG CAP.SR.24H PO SCH (09:00)
--- NOTE | 2021-05-01 09:17 | NUR ---
WOUND CARE CONSULT: UNABLE TO DO SKIN ASSESSMENT DUE TO PT SCREAMING AND AGITATED AT THIS TIME. PER RN, PT BECOMES COMBATIVE. REVIEWED CHART, NURSING DOCUMENTATION AND PHOTOS WHICH INDICATE REDNESS/RASH TO SKIN FOLDS AND BUTTOCKS. RECOMMENDATIONS MADE FOR SKIN PROTECTION. DISCUSSED WITH NURSING STAFF. MD IN AGREEMENT WITH PLAN OF CARE.
--- NOTE | 2021-05-01 10:50 | NUR ---
D/C planning: Pt was accepted at [facility] FAX: [phone], [facility] FAX:[phone], [facility] FAX: [phone], and [facility] FAX: [phone].
--- NOTE | 2021-05-01 11:30 | NUR ---
Manager Of Applications Development note: Pt is a 75-year-old, female. Pt was previously living at home with her spouse, Aquilino Liao ([phone]/work: [phone]) and her daughter, Sofia Liao ([phone]) at [address] [place] [address]. Per EMR, pt was initially at the geropsych unit on 04/23/21 and was transferred to the med-surg unit on 04/26/21. Pt was readmitted to the geropsych unit once she was medically cleared on 04/28/21. Pt has a history of psychiatric illness. Pt was brought in by pts spouse, Aquilino Liao for attempting to harm herself by overdosing. SW assessed pt on the geropsych unit. Pt presented with depressed mood and flat affect. Pt was yelling and screaming. Pt was unable to provide SW with adequate history as the pt presents with a disorganized thought process and is confused. Her presentation is that of dementia with a high level of agitation and possible psychosis. SW discussed discharge plans with the pts daughter, Sofia. Pts daughter, Sofia was requesting [facility]. SW notified pts daughter of Dr. Mancia recommendations for SNF as the pt requires a higher level of care at this time. Pts daughter was receptive to SNF if assisted living options were unavailable. SS faxed clinicals to SNFs on 04/30/21. Per Rossi request, SW faxed Form 136 for assisted living admission to [facility] ([phone]), [facility] ([phone]), and [facility] ([phone]). SW will continue to work on the pts discharge plan to SNF versus Assisted Living.
--- NOTE | 2021-05-01 16:10 | NUR ---
Discharge Plan: Pt will be discharged to [facility] (SNF) located at [address] [place] [address]; ([phone]). Pt will be transported via [facility]. Pts daughter, Sofia ([phone]) consented to transfer to [facility] after she was educated about the patients need for a higher level of care. SW informed the daughter, Sofia of this discharge. At this time, pt presents with a depressed mood and flat affect. Pt is cooperative. Pt denies both suicidal and homicidal ideation as well as auditory and visual hallucinations. Pt will continue to be under the care of her psychiatrist, Dr. Phillips located at [address] [address]; and her high school social studies tutor, Dr. Cazares, located at [address] [place] [address]; .
[2021-05-01] MEDS ORDERED: OLANZAPINE ZYDIS 5 MG TAB.RAPDIS SL STA (16:19)
[2021-05-01 16:31] VITALS: BP 142/66
[2021-05-01] MEDS ORDERED: CLOTRIMAZOLE 1% 15 GM TUBE TP SCH (17:00)
--- NOTE | 2021-05-01 17:30 | NUR ---
Patient discharged to [facility] ([facility]) located at [address] [facility], [place] [address]; ([phone]). transported via Ambulance. Pts daughter, Sofia ([phone]) consented to transfer to [facility] . At this time, pt presents calm and cooperative at time of discharge.. Pt is on continuos O2 via N/C @ 2L/M. Medical clearance given by Eran Romo NP. Dr Ramirez ordered Zyprexa Zydis 5mg sublingual prior to transport. Vital taken BP 118/[address] ramirez asked to consult with NAYELY Romo prior to administering zyprexa Zydis 5mg sublingual. NAYELY Romo ordered administration of Zyprexa Zydis 5mg sublingual. Report given to Arielle GOODWIN from [facility]. Arielle aware that pt is on continuos O2 and needs a 1:1 sitter in order to help maintain O2@ sats @ 88% - 92%. Personal meds SUBOXONE 8MG2MG SL FILM in the amount of 7.5 given to transport team in order to give to facility Pt is cooperative. Pt denies both suicidal and homicidal ideation as well as auditory and visual hallucinations. Pt will continue to be under the care of her psychiatrist, Dr. Phillips located at [address]
== END 2021-05-01 17:30 | DRG 885 ==
LOC: GPS 17:35
PROVIDERS: ADMIT Psychiatry & Neurology Psychiatry; ATTEND Nurse Practitioner Family
DX: F39 Unspecified mood [affective] disorder (principal); N17.0 Acute kidney failure with tubular necrosis; N18.9 Chronic kidney disease, unspecified; E11.65 Type 2 diabetes mellitus with hyperglycemia; I50.32 Chronic diastolic (congestive) heart failure; I13.0 Hypertensive heart and chronic kidney disease with heart failure and stage 1 through stage 4 chronic kidney disease, or unspecified chronic kidney disease; L03.116 Cellulitis of left lower limb; L03.115 Cellulitis of right lower limb; G93.40 Encephalopathy, unspecified; F29 Unspecified psychosis not due to a substance or known physiological condition; E11.22 Type 2 diabetes mellitus with diabetic chronic kidney disease; I25.10 Atherosclerotic heart disease of native coronary artery without angina pectoris; F03.90 Unspecified dementia, unspecified severity, without behavioral disturbance, psychotic disturbance, mood disturbance, and anxiety; E78.5 Hyperlipidemia, unspecified; I48.91 Unspecified atrial fibrillation; Z79.01 Long term (current) use of anticoagulants; Z90.710 Acquired absence of both cervix and uterus; J44.9 Chronic obstructive pulmonary disease, unspecified; I87.8 Other specified disorders of veins; Z73.6 Limitation of activities due to disability; F41.9 Anxiety disorder, unspecified; F32.9 Major depressive disorder, single episode, unspecified; E66.01 Morbid (severe) obesity due to excess calories; D63.8 Anemia in other chronic diseases classified elsewhere; Z98.1 Arthrodesis status; G47.00 Insomnia, unspecified; M79.7 Fibromyalgia; M19.90 Unspecified osteoarthritis, unspecified site; E87.6 Hypokalemia
CPT/HCPCS: 36415; 80048-TC; 80053-TC; 80061-TC; 83735-TC; 84100-TC; 85025-TC; 87081-TC; J1815

== ENCOUNTER 2021-06-12 11:54 | Inpatient (IN) | payer MEDICARE, OTHER ==
[~2021-06-12] VITALS: Ht 165.1 cm; Wt 90.3 kg
--- NOTE | 2021-06-12 12:15 | NUR ---
TO ER BED 1, C/O LLE EDEMA FOR 3WKS, SKIN TEAR ON LFA WITH DRESSING HAPPENED 2WKS AGO, AAOX4, BREATHING EVEN AND NON LABORED
--- NOTE | 2021-06-12 12:23 | NUR ---
CALLED DR. HELMS [phone] WILEY.
[2021-06-12] MEDS ORDERED: IV NS 0.9% 1,000 ML BAG IV ONE (12:30)
[2021-06-12] MEDS ORDERED: VANCOMYCIN 1 GM in IV D5W 250 ML IV ONE (12:30)
[2021-06-12] MEDS ORDERED: PIPERACILLIN /TAZOBACTAM 3.375 G in IV D5W 50 ML IV ONE (12:30)
[2021-06-12] MEDS ORDERED: VENL150C2 PO (12:46)
--- NOTE | 2021-06-12 12:51 | NUR ---
US TECH AT BEDSIDE
[2021-06-12] MEDS ORDERED: BUME1TAB8 PO (13:11)
[2021-06-12] MEDS ORDERED: POTA10TA10 PO (13:11)
[2021-06-12] MEDS ORDERED: ONDA-97 PO (13:11)
[2021-06-12] MEDS ORDERED: EMPA10TA PO (13:11)
[2021-06-12] MEDS ORDERED: LEVO25TA9 PO (13:11)
[2021-06-12] MEDS ORDERED: LIDO30AD10 TP (13:11)
[2021-06-12 13:21] LABS: BASOPHILS # (AUTO) 0.2 K/uL (0.0-0.2); BASOPHILS % (AUTO) 1.4 % (0.0-2.0); EOSINOPHILS % (AUTO) 0.6 % (0.0-6.0); HEMATOCRIT 33 % (33-45); HEMOGLOBIN 10.1 g/dL (11.5-14.8); LYMPHOCYTES # (AUTO) 1.8 K/uL (0.8-4.8); LYMPHOCYTES % (AUTO) 12.6 % (20.0-44.0); MEAN CORPUSCULAR HGB CONC 30 g/dl (31.0-36.0); MEAN CORPUSCULAR VOLUME 81 fL (82-100); MONOCYTES % (AUTO) 7.1 % (2.0-12.0); NEUTROPHILS # (AUTO) 11.4 K/uL (1.8-8.9); NEUTROPHILS % (AUTO) 78.3 % (43.0-81.0); PLATELET COUNT (AUTO) 740 K/uL (150-450); RED BLOOD CELL COUNT(AUTO) 4.07 MIL/uL (4.0-5.2); WHITE BLOOD COUNT (AUTO) 14.5 K/uL (4.3-11.0)
[2021-06-12 13:32] LABS: CARBON DIOXIDE 28 mmol/L (21-32); CHLORIDE 99 mmol/L (98-107); CREATININE 1.5 mg/dL (0.6-1.3); GLUCOSE 100 mg/dL (74-106); SODIUM SERUM 136 mmol/L (136-145); UREA NITROGEN, BLOOD 18 mg/dL (7-18)
--- NOTE | 2021-06-12 13:40 | NUR ---
COVID SWAB DONE AND SENT TO LAB
[2021-06-12 13:45] LABS: ALANINE AMINOTRANSFERASE 64 U/L (12-78); ALBUMIN 2.2 g/dL (3.4-5.0); ALKALINE PHOSPHATASE 139 U/L (46-116); ASPARTATE AMINOTRANSFERASE 94 U/L (15-37); BILIRUBIN,DIRECT 0.1 mg/dL (0.0-0.2); BILIRUBIN,TOTAL 0.3 mg/dL (0.2-1.0); CALCIUM, SERUM 8.6 mg/dL (8.5-10.1); TOTAL PROTEIN, SERUM 7.4 g/dL (6.4-8.2)
--- NOTE | 2021-06-12 14:40 | NUR ---
URINE COLLECTED AND SENT TO LAB
--- NOTE | 2021-06-12 14:45 | NUR ---
SENIOR NETWORK SECURITY ENGINEER ADMITTING NOTES RECEIVED PATIENT VIA BEHZAD, PATIENT IS AWAKE, A&O X 4, ABLE TO ,MAKE NEEDS KNOWN. ON ROOM AIR TOLERATING WELL. NO S/SX OF ACUTE DISTRESS NOTED. TRANSFERRED TO BED SAFELY. IV ACCESS ON RIGHT AC INTACT AND PATENT. HOOKED TO TELE MONITOR SHOWING SR HR AT 80'S. SKIN ISSUES IDENTIFIED, SKIN TEAR ON LEFT FOREARM AND REDNESS ON LEFT LOWER EXTREMITY NOTED, PICTURE TAKEN AND PLACED TO PATIENT'S CHART. SAFETY PRECAUTIONS IN PLACE: BED ON LOWEST LOCKED POSITION, SIDE RAILS UP X 2, CALL LIGHT WITHIN EASY REACH. WILL CONTINUE TO MONITOR ACCORDINGLY. Addendum: 06/12/21 at 1835 by NELLY FERRERA RN PATIENT WAS RECEIVED FROM [facility] AT 1645.
[2021-06-12 14:47] LABS: BILIRUBIN,URINE Negative (NEGATIVE); COLOR,URINE YELLOW (YELLOW); LEUKOCYTE ESTERASE ,URINE Moderate (NEGATIVE); NITRITE, URINE Positive (NEGATIVE); PROTEIN,URINE 30 mg/dl (NEGATIVE); UGLUCOSE 500 MG/DL mg/dL (NEGATIVE); UROBILINOGEN,URINE 0.2 EU/dL (0.2)
[2021-06-12] MEDS ORDERED: IV NS 0.9% 250 ML IV ONE (14:48)
[2021-06-12] MEDS ORDERED: IOHEXOL-300 100 ML VIAL IV ONE (14:48)
--- NOTE | 2021-06-12 14:50 | NUR ---
TAKEN TO CT
[2021-06-12 15:19] LABS: BACTERIA,URINE Many /HPF (None Seen); RBC,URINE 21-50 /HPF (0-2); SQUAMOUS EPITHELIAL CELL,UR Moderate /HPF (None Seen); WBC,URINE 81-100 /HPF (0-3)
[2021-06-12] MEDS ORDERED: *INSULIN REGULAR(HUMULIN R)HUM 100 UNIT/ML VIAL SQ PRN (15:30)
[2021-06-12] MEDS ORDERED: MAGNESIUM HYDROXIDE 30 ML UDC PO PRN (15:30)
[2021-06-12] MEDS ORDERED: ONDANSETRON HCL/PF 4 MG/2 ML VIAL IVP PRN (15:30)
[2021-06-12] MEDS ORDERED: ACETAMINOPHEN 325 MG TABLET PO PRN (15:30)
[2021-06-12] MEDS ORDERED: DEXTROSE 50%-WATER 50 ML DISP.SYRIN IV PRN (15:30)
[2021-06-12] MEDS ORDERED: MAG HYDROX/AL HYDROX/SIMETH 30 ML UDC PO PRN (15:30)
[2021-06-12] MEDS ORDERED: Z GUARD REMEDY 2 OZ OINT TP PRN (15:30)
--- NOTE | 2021-06-12 16:05 | NUR ---
room 320-2
--- NOTE | 2021-06-12 16:13 | NUR ---
report given to nicholas carrillo for JENNI
[2021-06-12 16:39] LABS: BASOPHILS # (AUTO) 0.1 K/uL (0.0-0.2); BASOPHILS % (AUTO) 0.6 % (0.0-2.0); EOSINOPHILS % (AUTO) 0.9 % (0.0-6.0); HEMATOCRIT 32 % (33-45); HEMOGLOBIN 9.4 g/dL (11.5-14.8); LYMPHOCYTES # (AUTO) 2.2 K/uL (0.8-4.8); LYMPHOCYTES % (AUTO) 15.7 % (20.0-44.0); MEAN CORPUSCULAR HGB CONC 30 g/dl (31.0-36.0); MEAN CORPUSCULAR VOLUME 82 fL (82-100); MONOCYTES % (AUTO) 7.2 % (2.0-12.0); NEUTROPHILS # (AUTO) 10.7 K/uL (1.8-8.9); NEUTROPHILS % (AUTO) 75.6 % (43.0-81.0); PLATELET COUNT (AUTO) 654 K/uL (150-450); RED BLOOD CELL COUNT(AUTO) 3.86 MIL/uL (4.0-5.2); WHITE BLOOD COUNT (AUTO) 14.2 K/uL (4.3-11.0)
[2021-06-12 17:00] VITALS: BP 105/57
[2021-06-12] MEDS: METFORMIN 500 MG TABLET PO SCH (17:07)
[2021-06-12] MEDS: clonazePAM 0.5 MG TABLET PO SCH (17:07)
[2021-06-12] MEDS: CEFTRIAXONE 1 G in IV D5W 50 ML IV SCH (17:17)
[2021-06-12] MEDS: BLOOD SUGAR DIAGNOSTIC 1 EACH STRIP VI SCH ×2 (17:49→22:18)
--- NOTE | 2021-06-12 18:36 | NUR ---
BEVERAGE INSPECTION MACHINE TENDER CLOSING NOTES PATIENT IN BED, AWAKE, A&O X 4, ABLE TO ,MAKE NEEDS KNOWN. ON ROOM AIR TOLERATING WELL. NO S/SX OF ACUTE DISTRESS NOTED. IV ACCESS ON RIGHT AC INTACT AND PATENT. ON TELE MONITOR SHOWING SR HR AT 80'S. SAFETY PRECAUTIONS IN PLACE: BED ON LOWEST LOCKED POSITION, SIDE RAILS UP X 2, CALL LIGHT WITHIN EASY REACH. ALL NEEDS ATTENDED AND MET. WILL ENDORSE TO ONCOMING SHIFT FOR JENNI.
[2021-06-12 18:37] LABS: CALCIUM, SERUM 8.2 mg/dL (8.5-10.1); CARBON DIOXIDE 24 mmol/L (21-32); CHLORIDE 100 mmol/L (98-107); CREATININE 1.4 mg/dL (0.6-1.3); GLUCOSE 93 mg/dL (74-106); MAGNESIUM 2.1 mg/dL (1.8-2.4); PHOSPHORUS 3.6 mg/dL (2.5-4.9); POTASSIUM 4.1 mmol/L (3.5-5.1); SODIUM SERUM 135 mmol/L (136-145); UREA NITROGEN, BLOOD 15 mg/dL (7-18)
--- NOTE | 2021-06-12 19:54 | NUR ---
BLOOD BANK MANAGER OPENING NOTES PATIENT WAS LAST SEEN AWAKE RESTING IN BED. PATIENT'S ON ROOM AIR WITH NO RESPIRATORY DISTRESS NOTED. PATIENT'S CONNECTED TO A HEART MONITOR WITH NO CARDIAC DISTRESS NOTED. PATIENT HAS AN IV ACCESS ON HER RAC GAUGE #18. PATIENT'S IN NO ACUTE DISTRESS AT THIS TIME. SAFETY PRECAUTIONS IN PLACE: BED LOCKED, BED ALARM ON, SIDE RAILS UP X3, AND CALL LIGHT WITHIN EASY REACH OF THE PATIENT. WILL CONTINUE TO MONITOR THE PATIENT.
[2021-06-12 20:00] VITALS: BP 120/60
[2021-06-12] MEDS: ATORVASTATIN 10 MG TABLET PO SCH (21:12)
[2021-06-12] MEDS: TRAZODONE 50 MG TABLET PO SCH (21:12)
--- NOTE | 2021-06-12 21:45 | NUR ---
DIE CAST TECHNICIAN NOTES PATIENT'S BLOOD SUGAR AT 2129 WAS 122MG/DL. WILL CONTINUE TO MONITOR THE PATIENT.
[2021-06-13] VITALS: BP 118/59
[2021-06-13 04:00] VITALS: BP 121/62
--- NOTE | 2021-06-13 07:30 | NUR ---
RN NOTES PATIENT SEEN AWAKE RESTING IN BED, ABLE TO USE BEDSIDE COMMODE. ON ROOM AIR WITH NO RESPIRATORY DISTRESS NOTED. ON TELE MONITORING, READING OF CONTROLLED AFIB WITH NO CARDIAC DISTRESS NOTED. IV ACCESS ON RAC GAUGE #18, INTACT AND PATENT. SAFETY PRECAUTIONS IN PLACE: BED LOCKED, BED ALARM ON, SIDE RAILS UP X3, AND CALL LIGHT WITHIN EASY REACH OF THE PATIENT. WILL CONTINUE TO MONITOR.
[2021-06-13] MEDS: BLOOD SUGAR DIAGNOSTIC 1 EACH STRIP VI SCH ×4 (07:58→21:41)
[2021-06-13 08:00] VITALS: BP 102/55
[2021-06-13] MEDS: LEVOTHYROXINE SODIUM 25 MCG TABLET PO SCH (08:18)
[2021-06-13] MEDS: LIDOCAINE 5% (PATCH) 1 EA PATCH TP SCH (08:18)
[2021-06-13] MEDS: POTASSIUM CHLORIDE 10 MEQ TABLET.SA PO SCH (08:18)
[2021-06-13] MEDS: ALLOPURINOL 100 MG TABLET PO SCH (08:18)
[2021-06-13] MEDS: VENLAFAXINE XR 150 MG CAP.SR.24H PO SCH (08:18)
[2021-06-13] MEDS: clonazePAM 0.5 MG TABLET PO SCH ×2 (08:19→16:21)
[2021-06-13] MEDS: METFORMIN 500 MG TABLET PO SCH ×2 (08:19→16:21)
[2021-06-13] MEDS: DILTIAZEM HCL CD 240 MG PO SCH (08:20)
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
[2021-06-13 12:00] VITALS: BP 97/48
[2021-06-13] MEDS: INSULIN REGULAR, HUMAN 100 UNIT/ML 3 ML VIAL SQ PRN ×2 (12:01→17:25)
[2021-06-13 12:53] LABS: BASOPHILS % (AUTO) 0.2 % (0.0-2.0); EOSINOPHILS % (AUTO) 0.9 % (0.0-6.0); HEMATOCRIT 32 % (33-45); HEMOGLOBIN 9.6 g/dL (11.5-14.8); LYMPHOCYTES # (AUTO) 1.7 K/uL (0.8-4.8); LYMPHOCYTES % (AUTO) 11.3 % (20.0-44.0); MEAN CORPUSCULAR HGB CONC 30 g/dl (31.0-36.0); MEAN CORPUSCULAR VOLUME 81 fL (82-100); MONOCYTES # (AUTO) 0.9 K/uL (0.1-1.30); MONOCYTES % (AUTO) 5.7 % (2.0-12.0); NEUTROPHILS # (AUTO) 12.3 K/uL (1.8-8.9); NEUTROPHILS % (AUTO) 81.9 % (43.0-81.0); PLATELET COUNT (AUTO) 707 K/uL (150-450); RED BLOOD CELL COUNT(AUTO) 3.92 MIL/uL (4.0-5.2)
[2021-06-13 13:01] LABS: CALCIUM, SERUM 8.4 mg/dL (8.5-10.1); CREATININE 0.9 mg/dL (0.6-1.3); POTASSIUM 4.3 mmol/L (3.5-5.1)
--- NOTE | 2021-06-13 13:50 | NUR ---
RN NOTES SPOKE W/ PATIENT REGARDING BONE MESA GRANDE BIOPSY PROCEDURE TO OBTAIN CONSENT; PER PATIENT, SHE DOES NOT WANT ANYTHING TO DO WITH IT UNTIL HER DAUGHTER EXPLAINS THE PROCEDURE TO HER.
[2021-06-13] MEDS ORDERED: BUPR1FIL3 SL ×2 (14:45→14:46)
--- NOTE | 2021-06-13 14:52 | NUR ---
RN NOTES SPOKE W/ PATIENT'S DAUGHTER, MIRIAM, AND DISCUSSED PATIENT'S MEDICATION LIST AND ASKS TO HAVE SUBOXONE MEDICATION, ALONG W/ OTHERS, BE INCLUDED. SPOKE W/ MELLISA, MED RECON NURSE, AND WAS INFORMED THAT MEDICATIONS THAT DAUGHTER WANTS TO BE INCLUDED WERE NOT PART OF THE LIST FROM THE FACILITY SHE WAS FROM. INFORMED DR. WHEAT ABOUT DTR'S REQUEST FOR THE SUBOXONE MEDICATION DTR WOULD LIKE FOR PATIENT TO RECEIVE SUBOXONE PRIOR TO BONE MARROW BIOPSY. CONSENT FORM SIGNED BY PATIENT AFTER DTR SPOKE W/ HER AND EXPLAINED PROCEDURE.
[2021-06-13] MEDS ORDERED: ENOXAPARIN SODIUM 100 MG/ML DISP.SYRIN SQ ONE (15:30)
--- NOTE | 2021-06-13 15:30 | NUR ---
RN NOTES URINE SPECIMEN COLLECTED AND PLACED IN THE REFRIGERATOR.
[2021-06-13] MEDS: FERROUS SULFATE (325 MG) 325 MG/TAB TABLET PO SCH (16:21)
[2021-06-13] MEDS: CEFTRIAXONE 1 G in IV D5W 50 ML IV SCH (16:21)
--- NOTE | 2021-06-13 17:50 | NUR ---
RN NOTES SPOKE W/ ROBERT, PAPER PRODUCTION ENGINEER; PER PAPER PRODUCTION ENGINEER, BONE MARROW BIOPSY IS SCHEDULED BETWEEN 9-10AM TOMORROW.
--- NOTE | 2021-06-13 18:24 | NUR ---
RN NOTES MIRIAM EATON ([phone]).
--- NOTE | 2021-06-13 18:25 | NUR ---
RN NOTES RECEIVED BUPRENORPHINE-NALOXONE SL FILM FROM ; BROUGHT TO PHARMACY.
--- NOTE | 2021-06-13 18:46 | NUR ---
RN NOTES PATIENT SEEN IN BED RESTING, AWAKE AND VERBALLY RESPONSIVE, NAD. CURRENTLY MS. BREATHING EVEN AND UNLABORED, CONTINUES ON ROOM AIR. IV LINE INTACT AND PATENT. FOR BONE MARROW BIOPSY AND ASPIRATION TOMORROW W/ DR. HELMS, CONSENT FORM IN THE CHART. UPDATED DTR OVER THE PHONE. SAFETY MEASURES MAINTAINED. WILL ENDORSE TO OPEN SHANK COVERER RN FOR JENNI.
--- NOTE | 2021-06-13 19:30 | NUR ---
MS RN NOTES RECEIVED ON LAYING COMFORTABLY ON BED, A/O X3,BREATHING EASY,NO SOB,SALINE LOCK RIGHT AC INTACT AND PATENT.NOTED SWELLING ON LEFT LEG,ULTRASOUND REVEALS NEGATIVE FOR DVT.INSTRUCTED NPO POST MIDNIGHT FOR BONE MARROW BIOPSY TOMORROW MORNING.CALL LIGHT IN REACH,NEEDS ANTICIPATED.
[2021-06-13 20:00] VITALS: BP 117/60
[2021-06-13] MEDS: TRAZODONE 50 MG TABLET PO SCH (21:39)
[2021-06-13] MEDS: ATORVASTATIN 10 MG TABLET PO SCH (21:39)
--- NOTE | 2021-06-13 22:00 | NUR ---
MS RN NOTES ACCU-CHECK BLOOD SUGAR CHECK 118,NO INSULIN COVERAGE.
--- NOTE | 2021-06-14 | NUR ---
MS RN NOTES NPO FOR NOW,GOING FOR BONE MARROW BIOPSY IN THE MORNING
[2021-06-14 04:40] LABS: BILIRUBIN,URINE NEGATIVE (NEGATIVE); COLOR,URINE YELLOW (YELLOW); LEUKOCYTE ESTERASE ,URINE NEGATIVE (NEGATIVE); NITRITE, URINE NEGATIVE (NEGATIVE); PH,URINE 6.5 (5.0-8.0); PROTEIN,URINE TRACE mg/dl (NEGATIVE); UGLUCOSE 500 MG/DL mg/dL (NEGATIVE); UROBILINOGEN,URINE 0.2 EU/dL (0.2)
[2021-06-14 04:53] LABS: URINE TOTAL PROTEIN 79.5 mg/dL (0-11.9)
[2021-06-14 05:00] LABS: BACTERIA,URINE Few /HPF (None Seen); SQUAMOUS EPITHELIAL CELL,UR Few /HPF (None Seen)
[2021-06-14 05:05] LABS: EOSINOPHIL,URINE Few
--- NOTE | 2021-06-14 05:30 | NUR ---
MS RN NOTES ACCU-CHECK BLOOD SUGAR CHECK 106,NO INSULIN COVERAGE.
[2021-06-14] MEDS: BLOOD SUGAR DIAGNOSTIC 1 EACH STRIP VI SCH ×2 (05:48→14:49)
[2021-06-14 06:31] LABS: BASOPHILS % (AUTO) 0.3 % (0.0-2.0); HEMATOCRIT 31 % (33-45); HEMOGLOBIN 9.4 g/dL (11.5-14.8); LYMPHOCYTES # (AUTO) 1.4 K/uL (0.8-4.8); MEAN CORPUSCULAR HGB CONC 30 g/dl (31.0-36.0); MEAN CORPUSCULAR VOLUME 81 fL (82-100); MONOCYTES # (AUTO) 0.8 K/uL (0.1-1.30); MONOCYTES % (AUTO) 6.5 % (2.0-12.0); NEUTROPHILS # (AUTO) 10.3 K/uL (1.8-8.9); NEUTROPHILS % (AUTO) 81.2 % (43.0-81.0); PLATELET COUNT (AUTO) 600 K/uL (150-450); RED BLOOD CELL COUNT(AUTO) 3.84 MIL/uL (4.0-5.2); WHITE BLOOD COUNT (AUTO) 12.7 K/uL (4.3-11.0)
--- NOTE | 2021-06-14 06:52 | NUR ---
MS RN NOTES LAYING COMFORTABLY ON BED,NPO FOR THE PROCEDURE,AND MRCP WITH OUT CONTRAST.IN NO ACUTE DISTRESS.
[2021-06-14 06:54] LABS: ALANINE AMINOTRANSFERASE 43 U/L (12-78); ALBUMIN 1.8 g/dL (3.4-5.0); ALKALINE PHOSPHATASE 110 U/L (46-116); ASPARTATE AMINOTRANSFERASE 44 U/L (15-37); BILIRUBIN,TOTAL 0.2 mg/dL (0.2-1.0); CALCIUM, SERUM 8.2 mg/dL (8.5-10.1); CARBON DIOXIDE 26 mmol/L (21-32); CHLORIDE 104 mmol/L (98-107); CREATININE 1.4 mg/dL (0.6-1.3); GLUCOSE 112 mg/dL (74-106); PHOSPHORUS 3.6 mg/dL (2.5-4.9); POTASSIUM 3.8 mmol/L (3.5-5.1); SODIUM SERUM 136 mmol/L (136-145); TOTAL PROTEIN, SERUM 6.4 g/dL (6.4-8.2); UREA NITROGEN, BLOOD 12 mg/dL (7-18)
[2021-06-14] MEDS ORDERED: LIDOCAINE 1% INJ 50 ML MDV IJ ONE (07:00)
--- NOTE | 2021-06-14 07:30 | NUR ---
MS RN OPENING NOTES RECEIVED PATIENT ON BED, AWAKE AND A/O X 3. ON ROOM AIR TOLERATING WELL. NOT IN DISTRESS. WITH NO COMPLAINTS OF PAIN AT THIS TIME. WITH IV ACCESS AT LEFT AC G18, HEPLOCK, PATENT AND INTACT. SAFETY MEASURES IN PLACED. CALL LIGHT WITHIN REACH. BED ON LOWEST AND LOCKED POSITION. SIDE RAILS UP X2. WILL CONTINUE TO MONITOR.
[2021-06-14 08:00] VITALS: BP 131/61
[2021-06-14 08:06] LABS: IMMUNOGLOBULIN A, SERUM 363 mg/dL (64-422); IMMUNOGLOBULIN G, SERUM 1282 mg/dL (586-1602); IMMUNOGLOBULIN M, SERUM 105 mg/dL (26-217)
[2021-06-14] MEDS: LIDOCAINE 5% (PATCH) 1 EA PATCH TP SCH (09:45)
[2021-06-14 09:50] VITALS: BP 131/61
[2021-06-14] MEDS: METFORMIN 500 MG TABLET PO SCH ×2 (09:50→17:18)
[2021-06-14] MEDS: DILTIAZEM HCL CD 240 MG PO SCH (09:50)
[2021-06-14] MEDS ORDERED: LEVO500T90 PO (09:50)
[2021-06-14] MEDS: FERROUS SULFATE (325 MG) 325 MG/TAB TABLET PO SCH ×2 (09:51→17:18)
[2021-06-14] MEDS: ALLOPURINOL 100 MG TABLET PO SCH (09:51)
[2021-06-14] MEDS: clonazePAM 0.5 MG TABLET PO SCH ×2 (09:51→17:18)
[2021-06-14] MEDS: LEVOTHYROXINE SODIUM 25 MCG TABLET PO SCH (09:51)
[2021-06-14] MEDS: POTASSIUM CHLORIDE 10 MEQ TABLET.SA PO SCH (09:52)
[2021-06-14] MEDS: VENLAFAXINE XR 150 MG CAP.SR.24H PO SCH (09:52)
[2021-06-14] MEDS: BUMETANIDE (1 MG) 1 MG TABLET PO SCH ×2 (11:23→17:18)
[2021-06-14] MEDS ORDERED: HYDROMORPHONE INJ 2 MG/ML DISP.SYRIN ONE (11:47)
[2021-06-14 12:06] LABS: *SPE A/G RATIO 0.6 (0.7-1.7); *SPE ALPHA-1-GLOBULIN 0.5 g/dL (0.0-0.4); *SPE ALPHA-2-GLOBULIN 0.9 g/dL (0.4-1.0); *SPE BETA GLOBULIN 1.1 g/dL (0.7-1.3); *SPE M-SPIKE Not Observed g/dL (Not Observed)
[2021-06-14] MEDS ORDERED: LORAZEPAM 1 MG TABLET PO PRN (12:30)
[2021-06-14] MEDS ORDERED: LORAZEPAM 1 MG TABLET ONE (12:32)
--- NOTE | 2021-06-14 12:38 | NUR ---
RN NOTES ASSISTED DR. HELMS FOR BONE MARROW BIOPSY.
[2021-06-14 14:55] LABS: BASOPHILS # (AUTO) 0.1 K/uL (0.0-0.2); EOSINOPHILS % (AUTO) 0.7 % (0.0-6.0); HEMATOCRIT 32 % (33-45); HEMOGLOBIN 9.8 g/dL (11.5-14.8); LYMPHOCYTES # (AUTO) 1.3 K/uL (0.8-4.8); LYMPHOCYTES % (AUTO) 8.9 % (20.0-44.0); MEAN CORPUSCULAR HGB CONC 31 g/dl (31.0-36.0); MEAN CORPUSCULAR VOLUME 81 fL (82-100); MONOCYTES # (AUTO) 0.9 K/uL (0.1-1.30); NEUTROPHILS # (AUTO) 11.9 K/uL (1.8-8.9); NEUTROPHILS % (AUTO) 83.4 % (43.0-81.0); PLATELET COUNT (AUTO) 644 K/uL (150-450); RED BLOOD CELL COUNT(AUTO) 3.93 MIL/uL (4.0-5.2); WHITE BLOOD COUNT (AUTO) 14.2 K/uL (4.3-11.0)
[2021-06-14] MEDS ORDERED: NALOXONE HCL SL SCH (17:00)
[2021-06-14] MEDS ORDERED: BUPRENORPHINE HCL SL SCH (17:00)
--- NOTE | 2021-06-14 19:40 | NUR ---
MS DRAW STRING KNOTTER NOTES PATIENT IS FOR DISCHARGE TO ASSISTED LIVING FACILITY PER DR. HELMS'S ORDER. DISCHARGE INSTRUCTION AND EDUCATION PROVIDED TO PATIENT AND EXPLAINED MEDICATIONS AND PRESCRIPTIONS. PATIENT VERBALIZED UNDERSTANDING. DISCHARGE FORM AND BELONGINGS LIST FORM SIGNED BY PATIENT. NAME WRIST BAND AND IV LINE REMOVED. PATIENT WAS PICKED UP BY AMBULANCE PERSONNEL VIA GURNEY. CALLED THE FACILITY FOR ENDORSEMENT. CHARGE NURSE AND MD ARE AWARE OF THE DISCHARGE.
[2021-06-15] MEDS ORDERED: NALOXONE HCL SL SCH ×2 (09:00)
[2021-06-15] MEDS ORDERED: BUPRENORPHINE HCL SL SCH ×2 (09:00)
== END 2021-06-14 19:45 | DRG 690 ==
LOC: ER 11:58 → TELE 16:20 → MED 06-13 12:38
PROVIDERS: ADMIT Internal Medicine; ATTEND Internal Medicine
PROC: 07DR3ZX Extraction of Iliac Bone Marrow, Percutaneous Approach, Diagnostic (ICD-10-PCS; principal; 2021-06-14)
DX: N39.0 Urinary tract infection, site not specified (principal); I13.0 Hypertensive heart and chronic kidney disease with heart failure and stage 1 through stage 4 chronic kidney disease, or unspecified chronic kidney disease; E87.1 Hypo-osmolality and hyponatremia; I48.91 Unspecified atrial fibrillation; N18.9 Chronic kidney disease, unspecified; I25.10 Atherosclerotic heart disease of native coronary artery without angina pectoris; E11.22 Type 2 diabetes mellitus with diabetic chronic kidney disease; F03.90 Unspecified dementia, unspecified severity, without behavioral disturbance, psychotic disturbance, mood disturbance, and anxiety; I50.9 Heart failure, unspecified; D72.821 Monocytosis (symptomatic); E78.5 Hyperlipidemia, unspecified; F17.210 Nicotine dependence, cigarettes, uncomplicated; F32.9 Major depressive disorder, single episode, unspecified; G89.29 Other chronic pain; M79.7 Fibromyalgia; E03.9 Hypothyroidism, unspecified; D64.9 Anemia, unspecified; J44.9 Chronic obstructive pulmonary disease, unspecified; M89.9 Disorder of bone, unspecified; Z79.01 Long term (current) use of anticoagulants; Z79.84 Long term (current) use of oral hypoglycemic drugs; Z90.710 Acquired absence of both cervix and uterus; E11.40 Type 2 diabetes mellitus with diabetic neuropathy, unspecified; F41.9 Anxiety disorder, unspecified; D72.829 Elevated white blood cell count, unspecified; D47.3 Essential (hemorrhagic) thrombocythemia; Z20.822 Contact with and (suspected) exposure to COVID-19; D50.9 Iron deficiency anemia, unspecified; F39 Unspecified mood [affective] disorder; E83.9 Disorder of mineral metabolism, unspecified; E88.09 Other disorders of plasma-protein metabolism, not elsewhere classified; S51.802A Unspecified open wound of left forearm, initial encounter; X58.XXXA Exposure to other specified factors, initial encounter; Y93.9 Activity, unspecified; Y92.89 Other specified places as the place of occurrence of the external cause; E53.8 Deficiency of other specified B group vitamins; R59.0 Localized enlarged lymph nodes; N13.30 Unspecified hydronephrosis
CPT/HCPCS: 36415; 71045-TC; 71260-TC; 74181-TC; 76770-TC; 80048-TC; 80053-TC; 80076-TC; 81001; 82570-TC; 82728-TC; 82784; 82962-TC; 83540-TC; 83605-TC; 83615-TC; 83735-TC; 83880; 84100-TC; 84155; 84155-TC; 84165; 84300-TC; 84484-TC; 85025-TC; 85610-TC; 85730-TC; 86334; 87040-TC; 87081-TC; 87086-TC; 93971-TC; A6253; C9803; G0378; J0696; J1170; J1650; J1815; J2543; J3370; J3490; J7030; J7050; J7060; Q9967

== ENCOUNTER 2022-01-19 09:57 | Emergency (ER) | payer MEDICARE, OTHER ==
[~2022-01-19] VITALS: Ht 162.6 cm; Wt 68.0 kg
[~2022-01-19 09:57] MED LIST changes: +BUME1TAB8 PO; -CALC-903 PO; -CAPS60CR4 TP; -CEPH500C2 PO; -CHOL400T PO; -DILT-32 PO; -EZET10TA16 PO; -FERR325T23 PO; -FURO-144 PO; -FURO80TA3 PO; -GABA-534 PO; -LAMO150T2 PO; +LEVO25TA9 PO; +LEVO500T90 PO; +LIDO30AD10 TP; -MAGN400T26 PO; -METO5TAB7 PO; -MONT10TA22 PO; -MULT-1200 PO; -OMEG1CAP PO; +ONDA-97 PO; +POTA10TA10 PO; -PROM118S5 PO; -QUET25TA PO; -SULF1TAB48 PO; -THIO300C PO; -UBID100C13 PO; +VENL150C2 PO
[2022-01-19] MEDS ORDERED: TRAZ150T75 MT (10:04)
[2022-01-19] MEDS ORDERED: METF-440 PO (10:04)
--- NOTE | 2022-01-19 10:05 | NUR ---
BIB SPOUSE C/O L LEG SWEELING X5 WEEKS PT WENT TO A SPECIALIST 4 WEEKS AGO AND THEY GAVE HER A SHOT, PT CANNOT RECALL WHAT SHE WAS GIVEN, STATED IT HELPED FOR A COUPLE DAYS AND THEN STARTED TO SWELL AGAIN. PT IS A&OX4, NO RESPIRATORY DISTRESS NOTED. AWAITING MD HWANG.
--- NOTE | 2022-01-19 10:05 | NUR ---
AT BEDSIDE FOR EVAL.
--- NOTE | 2022-01-19 10:11 | NUR ---
SHREDDER TENDER AT BEDSIDE FOR XRAY.
[2022-01-19 10:27] LABS: BASOPHILS % (AUTO) 0.5 % (0.0-2.0); EOSINOPHILS % (AUTO) 1.3 % (0.0-6.0); HEMATOCRIT 32 % (33-45); HEMOGLOBIN 10.2 g/dL (11.5-14.8); LYMPHOCYTES # (AUTO) 1.6 K/uL (0.8-4.8); LYMPHOCYTES % (AUTO) 21.3 % (20.0-44.0); MEAN CORPUSCULAR HGB CONC 32 g/dl (31.0-36.0); MEAN CORPUSCULAR VOLUME 89 fL (82-100); MONOCYTES # (AUTO) 0.7 K/uL (0.1-1.30); MONOCYTES % (AUTO) 9.6 % (2.0-12.0); NEUTROPHILS # (AUTO) 5.1 K/uL (1.8-8.9); NEUTROPHILS % (AUTO) 67.3 % (43.0-81.0); PLATELET COUNT (AUTO) 360 K/uL (150-450); RED BLOOD CELL COUNT(AUTO) 3.64 MIL/uL (4.0-5.2); WHITE BLOOD COUNT (AUTO) 7.6 K/uL (4.3-11.0)
[2022-01-19] MEDS ORDERED: NALO25TA PO (10:27)
--- NOTE | 2022-01-19 10:28 | NUR ---
ULTRASOUND AT BEDSIDE
[2022-01-19 11:05] LABS: ALANINE AMINOTRANSFERASE 13 U/L (12-78); ALKALINE PHOSPHATASE 96 U/L (46-116); ASPARTATE AMINOTRANSFERASE 12 U/L (15-37); BILIRUBIN,DIRECT 0.1 mg/dL (0.0-0.2); BILIRUBIN,TOTAL 0.3 mg/dL (0.2-1.0); CALCIUM, SERUM 8.9 mg/dL (8.5-10.1); CARBON DIOXIDE 32 mmol/L (21-32); CHLORIDE 102 mmol/L (98-107); CREATININE 1.3 mg/dL (0.6-1.3); GLUCOSE 112 mg/dL (74-106); POTASSIUM 5.1 mmol/L (3.5-5.1); SODIUM SERUM 136 mmol/L (136-145); TOTAL PROTEIN, SERUM 7.2 g/dL (6.4-8.2); UREA NITROGEN, BLOOD 29 mg/dL (7-18)
[2022-01-19] MEDS ORDERED: ACETAMINOPHEN ES 500 MG TABLET ONE (11:15)
[2022-01-19] MEDS ORDERED: ACETAMINOPHEN ES 500 MG TABLET PO ONE (11:30)
[2022-01-19] MEDS ORDERED: SULF1TAB48 PO (11:41)
[2022-01-19] MEDS ORDERED: CEPH500C2 PO (11:41)
--- NOTE | 2022-01-19 11:49 | NUR ---
IV removed. Catheter intact and site benign. Pressure and 4x4 applied to site. No bleeding noted.Patient discharged to home in stable condition. Written and verbal after care instructions given. Patient verbalizes understanding of instruction.
[2022-01-19 11:58] VITALS: BP 137/82
== END 2022-01-19 11:58 | disposition home or self-care (01) ==
LOC: ER 10:00
DX: L03.116 Cellulitis of left lower limb (principal); R60.0 Localized edema; I48.91 Unspecified atrial fibrillation; M79.7 Fibromyalgia; I25.10 Atherosclerotic heart disease of native coronary artery without angina pectoris; E78.5 Hyperlipidemia, unspecified; E11.22 Type 2 diabetes mellitus with diabetic chronic kidney disease; I12.9 Hypertensive chronic kidney disease with stage 1 through stage 4 chronic kidney disease, or unspecified chronic kidney disease; N18.9 Chronic kidney disease, unspecified; G89.29 Other chronic pain; F41.9 Anxiety disorder, unspecified; F32.A Depression, unspecified; F17.200 Nicotine dependence, unspecified, uncomplicated; Z86.69 Personal history of other diseases of the nervous system and sense organs; Z90.89 Acquired absence of other organs; Z90.710 Acquired absence of both cervix and uterus; Z79.899 Other long term (current) drug therapy
CPT/HCPCS: 36415; 71045-TC; 80048-TC; 80076-TC; 83880; 84484-TC; 85025-TC; 85730-TC; 93970-TC

== ENCOUNTER 2022-03-12 17:04 | Emergency (ER) | payer MEDICARE, OTHER ==
[~2022-03-12] VITALS: Ht 165.1 cm; Wt 77.1 kg
[~2022-03-12 17:04] MED LIST changes: -BUPR1FIL3 SL; +CEPH500C2 PO; -LEVO500T90 PO; +NALO25TA PO; +SULF1TAB48 PO; -TRAZ-257 PO; +TRAZ150T75 MT
[2022-03-12] MEDS ORDERED: IV NS 0.9% 1,000 ML BAG IV ONE (18:30)
[2022-03-12] MEDS ORDERED: MORPHINE SULFATE INJ 2 MG/ML DISP.SYRIN IV ONE (18:30)
--- NOTE | 2022-03-12 18:30 | NUR ---
76 yrs femal came [place] [facility] c/o abdominale pain started at 8 am pt able to amblate at home by [facility]
--- NOTE | 2022-03-12 18:35 | NUR ---
BUSINESS DEVELOPMENT DIRECTOR AT BED SIDE
[2022-03-12] MEDS ORDERED: MORPHINE SULFATE INJ 4 MG/ML DISP.SYRIN ONE (18:46)
[2022-03-12 19:05] LABS: CALCIUM, SERUM 9.2 mg/dL (8.5-10.1); CREATININE 1.2 mg/dL (0.6-1.3); POTASSIUM 4.2 mmol/L (3.5-5.1)
[2022-03-12 19:11] LABS: ALBUMIN 3.2 g/dL (3.4-5.0); BILIRUBIN,TOTAL 0.2 mg/dL (0.2-1.0); TOTAL PROTEIN, SERUM 7.8 g/dL (6.4-8.2)
[2022-03-12] MEDS ORDERED: IOHEXOL-300 100 ML VIAL IV ONE (19:16)
[2022-03-12] MEDS ORDERED: IV NS 0.9% 250 ML IV ONE (19:17)
[2022-03-12 19:33] LABS: BASOPHILS % (AUTO) 0.3 % (0.0-2.0); EOSINOPHILS % (AUTO) 0.8 % (0.0-6.0); HEMATOCRIT 36 % (33-45); HEMOGLOBIN 11.5 g/dL (11.5-14.8); LYMPHOCYTES # (AUTO) 2.3 K/uL (0.8-4.8); LYMPHOCYTES % (AUTO) 22.4 % (20.0-44.0); MEAN CORPUSCULAR HGB CONC 32 g/dl (31.0-36.0); MEAN CORPUSCULAR VOLUME 86 fL (82-100); MONOCYTES # (AUTO) 0.8 K/uL (0.1-1.30); MONOCYTES % (AUTO) 7.7 % (2.0-12.0); NEUTROPHILS # (AUTO) 7.2 K/uL (1.8-8.9); NEUTROPHILS % (AUTO) 68.8 % (43.0-81.0); PLATELET COUNT (AUTO) 429 K/uL (150-450); RED BLOOD CELL COUNT(AUTO) 4.16 MIL/uL (4.0-5.2); WHITE BLOOD COUNT (AUTO) 10.5 K/uL (4.3-11.0)
--- NOTE | 2022-03-12 19:37 | NUR ---
CT ABDOMEN AND PELVIS DONE
--- NOTE | 2022-03-12 20:05 | NUR ---
INSTRUCTION GIVEN TO PATIENT NOT TO TAKE METFORMIN FOR 48HRS POST IV CONTRAST. IT WILL BE DUE Friday03/14/22 AT 2030.
[2022-03-12] MEDS ORDERED: HYDR-4209 PO (20:14)
[2022-03-12 20:34] VITALS: BP 135/69
== END 2022-03-12 20:35 | disposition home or self-care (01) ==
LOC: ER 17:10
DX: R14.0 Abdominal distension (gaseous) (principal); I10 Essential (primary) hypertension; I48.91 Unspecified atrial fibrillation; E78.5 Hyperlipidemia, unspecified; E11.9 Type 2 diabetes mellitus without complications; M79.7 Fibromyalgia; G89.29 Other chronic pain; F41.9 Anxiety disorder, unspecified; F32.A Depression, unspecified; J44.9 Chronic obstructive pulmonary disease, unspecified; F17.200 Nicotine dependence, unspecified, uncomplicated; Z90.710 Acquired absence of both cervix and uterus; Z90.89 Acquired absence of other organs; Z86.69 Personal history of other diseases of the nervous system and sense organs; Z79.899 Other long term (current) drug therapy
CPT/HCPCS: 36415; 74177; 80048; 80076; 83605; 83690; 85025; 96361; 96374; 99285; J2270; J7030; J7050; Q9967

== ENCOUNTER 2022-03-26 15:12 | Inpatient (IN) | payer MEDICARE, OTHER ==
[~2022-03-26] VITALS: Ht 165.1 cm; Wt 95.3 kg
[~2022-03-26 15:12] MED LIST changes: +HYDR-4209 PO
--- NOTE | 2022-03-26 15:35 | NUR ---
received pt 76 yrs female came by [facility] PT FALLOW COMMEND
--- NOTE | 2022-03-26 15:53 | NUR ---
COVID SWAB SENT TO LAB
[2022-03-26 16:35] LABS: BASOPHILS # (AUTO) 0.1 K/uL (0.0-0.2); BASOPHILS % (AUTO) 0.4 % (0.0-2.0); EOSINOPHILS % (AUTO) 1.2 % (0.0-6.0); HEMATOCRIT 33 % (33-45); HEMOGLOBIN 10.4 g/dL (11.5-14.8); LYMPHOCYTES # (AUTO) 1.7 K/uL (0.8-4.8); LYMPHOCYTES % (AUTO) 12.6 % (20.0-44.0); MEAN CORPUSCULAR HGB CONC 32 g/dl (31.0-36.0); MEAN CORPUSCULAR VOLUME 86 fL (82-100); MONOCYTES # (AUTO) 1.2 K/uL (0.1-1.30); NEUTROPHILS # (AUTO) 10.3 K/uL (1.8-8.9); NEUTROPHILS % (AUTO) 76.8 % (43.0-81.0); PLATELET COUNT (AUTO) 368 K/uL (150-450); RED BLOOD CELL COUNT(AUTO) 3.84 MIL/uL (4.0-5.2); WHITE BLOOD COUNT (AUTO) 13.4 K/uL (4.3-11.0)
[2022-03-26] MEDS ORDERED: GABA300C PO (16:42)
[2022-03-26] MEDS ORDERED: METF-440 PO (16:42)
[2022-03-26] MEDS ORDERED: QUET25TA PO (16:42)
[2022-03-26] MEDS ORDERED: HYDR-3980 PO (16:42)
[2022-03-26] MEDS ORDERED: CARI1.5C PO (16:42)
[2022-03-26] MEDS ORDERED: CYCL30DR EACHEYE (16:42)
--- NOTE | 2022-03-26 16:45 | NUR ---
UA SENT TO LAB
[2022-03-26 16:48] LABS: CALCIUM, SERUM 8.8 mg/dL (8.5-10.1); CARBON DIOXIDE 35 mmol/L (21-32); CHLORIDE 97 mmol/L (98-107); GLUCOSE 126 mg/dL (74-106); POTASSIUM 4.6 mmol/L (3.5-5.1); SODIUM SERUM 139 mmol/L (136-145); UREA NITROGEN, BLOOD 44 mg/dL (7-18)
[2022-03-26 16:50] LABS: SERUM AMMONIA < 10 umol/L (11-32)
--- NOTE | 2022-03-26 16:55 | NUR ---
creatinine 2.0. Per Dr Carrillo no CT with contrast. Radiology (Carlos) made aware.
[2022-03-26 16:59] LABS: THYROID STIMULATING HORMONE 3.104 uIU/mL (0.358-3.74)
[2022-03-26] MEDS ORDERED: VANCOMYCIN 1 GM in IV D5W 250 ML IV ONE (17:00)
[2022-03-26] MEDS ORDERED: PIPERACILLIN /TAZOBACTAM 3.375 G in IV D5W 50 ML IV ONE (17:00)
[2022-03-26 17:01] LABS: ALANINE AMINOTRANSFERASE 43 U/L (12-78); ALBUMIN 2.6 g/dL (3.4-5.0); ALKALINE PHOSPHATASE 100 U/L (46-116); ASPARTATE AMINOTRANSFERASE 123 U/L (15-37); BILIRUBIN,DIRECT 0.1 mg/dL (0.0-0.2); BILIRUBIN,TOTAL 0.3 mg/dL (0.2-1.0); TOTAL PROTEIN, SERUM 8.2 g/dL (6.4-8.2)
--- NOTE | 2022-03-26 17:05 | NUR ---
CALLED NURSING SUP REGARDING PT BED
[2022-03-26 17:06] LABS: ACETAMINOPHEN < 0 ug/ml (10-30); ALCOHOL, BLOOD < 3 mg/dL (0-0)
--- NOTE | 2022-03-26 17:07 | NUR ---
THE PATIENT IS TAKEN TO CT VIA RNEY
--- NOTE | 2022-03-26 17:09 | NUR ---
112-2. PRIMARY RN AWARE.
--- NOTE | 2022-03-26 17:19 | NUR ---
THE PATIENT IS BACK FROM CT VIA [facility]
[2022-03-26 17:37] LABS: BILIRUBIN,URINE NEGATIVE (NEGATIVE); COLOR,URINE YELLOW (YELLOW); LEUKOCYTE ESTERASE ,URINE NEGATIVE (NEGATIVE); NITRITE, URINE NEGATIVE (NEGATIVE); PROTEIN,URINE TRACE mg/dl (NEGATIVE); UGLUCOSE NEGATIVE (NEGATIVE); UROBILINOGEN,URINE 0.2 EU/dL (0.2)
--- NOTE | 2022-03-26 17:37 | NUR ---
REPORT GIVEN TO NURSE PEDRO FOR JENNI
--- NOTE | 2022-03-26 17:44 | NUR ---
TO ROOM 112-2 VIA RATNA
[2022-03-26 17:55] LABS: BACTERIA,URINE Few /HPF (None Seen)
[2022-03-26 17:56] LABS: SQUAMOUS EPITHELIAL CELL,UR Few /HPF (None Seen); YEAST,URINE Few /HPF (None Seen)
[2022-03-26] MEDS ORDERED: IV NS 0.9% 1,000 ML IV PRN (18:00)
[2022-03-26] MEDS ORDERED: MAGNESIUM HYDROXIDE 30 ML UDC PO PRN (18:00)
[2022-03-26] MEDS ORDERED: ACETAMINOPHEN 325 MG TABLET PO PRN (18:00)
[2022-03-26] MEDS ORDERED: DEXTROSE 50%-WATER 50 ML DISP.SYRIN IV PRN (18:00)
[2022-03-26] MEDS ORDERED: Z GUARD REMEDY 4 OZ OINT TP PRN (18:00)
[2022-03-26] MEDS ORDERED: HYDROCODONE/APAP 5/325MG TABLET PO PRN (18:00)
[2022-03-26] MEDS ORDERED: MAG HYDROX/AL HYDROX/SIMETH 30 ML UDC PO PRN (18:00)
[2022-03-26] MEDS ORDERED: ONDANSETRON HCL/PF 4 MG/2 ML VIAL IVP PRN (18:00)
[2022-03-26] MEDS ORDERED: HYDROCODONE/APAP 10/325MG TABLET PO PRN (18:00)
[2022-03-26 18:35] VITALS: BP 97/56
--- NOTE | 2022-03-26 18:40 | NUR ---
RECEIVED PATIENT VIA GURNEY FROM E.R DEPT., NO SSx APPARENT DISTRESS NOTED AT THIS TIME. VS TAKEN. CALL LIGHT IN REACH. WILL ENDORSE TO THE NEXT SHIFT
--- NOTE | 2022-03-26 18:44 | NUR ---
THE PATIENT IS TRANSFERED TO [facility] IN STABLE CONDITION AND PER ACLS
[2022-03-26 20:00] VITALS: BP 108/48
[2022-03-26] MEDS: APIXABAN 5 MG TABLET PO SCH (20:25)
[2022-03-26] MEDS: BLOOD SUGAR DIAGNOSTIC 1 EACH STRIP IN SCH (21:17)
--- NOTE | 2022-03-26 21:39 | NUR ---
NOTED PATIENT WITH RIGHT SHOULDER SWOLLEN AND C/O PAIN, INFORMED IVA TURK CRITICAL CARE REGISTERED NURSE AND HE REPLIED WITH ORDER FOR STAT RIGHT SHOULDER XR, ORDER NOTED AND CARRIED OUT.
--- NOTE | 2022-03-26 21:39 | NUR ---
ALSO INFORMED ROSALEE ABOUT THE RESULTS OF CT ABDOMEN AND THE FX SHOWING I THE RESULT AND PER ROSALEE, TO DO THE X-RAY FOR THE RIGHT SHOULDER AND DO NOT WORRY ABOUT THE REST, NOTED ORDER AND CARRIED OUT.
[2022-03-26] MEDS ORDERED: TRAZODONE 50 MG TABLET PO PRN (22:00)
[2022-03-27] VITALS: BP_SYST 101; BP_SYST 117; BP_DIAS 58; BP_DIAS 68
[2022-03-27 04:00] VITALS: BP 114/61
--- NOTE | 2022-03-27 06:40 | NUR ---
RN CLOSING NOTE, PATIENT IN BED, WITH ADEQUATE HOURS OF SLEEP, AT 3LPM VIA NC WITH 02> 88%, NO SOB/ACUTE DISTRESS NOTED DURING THE NIGHT, CONTINUE ON IVF ORDERED, S/P FALL FROM HOME, NO CHANGE IN LOC, MEDICATION FOR PAIN ADMINISTERED ONCE, OTHERWISE NO SIGNIFICANT CHANGE IN CONDITION DURING THE NIGHT, BED LOCKED AND IN LOWEST POSITION, S/R OF BED X2 UP, CALL LIGHT W/I REACH, WILL ENDORSE CONTINUITY OF CARE TO ONCOMING NURSE
[2022-03-27] MEDS: BLOOD SUGAR DIAGNOSTIC 1 EACH STRIP IN SCH ×4 (07:30→22:10)
--- NOTE | 2022-03-27 07:41 | NUR ---
RN OPENING NOTE, PATIENT SLEEPING IN BED BUT RESPONDS TO NAME AND OPENS EYES, ON 2L NC NO SOB/ACUTE DISTRESS, PATIENT IS A/0X3 IV ACCESS NOTED ON R AC 18G AND LA FA 20G RUNNING NS AT 50 MLS/HR. NOTED SAFETY MEASURES IN PLACE, BED LOCKED AND IN LOWEST POSITION, S/R OF BED X2 UP, CALL LIGHT W/I REACH, WILL ENDORSE CONTINUITY OF CARE TO ONCOMING NURSE
[2022-03-27 08:00] VITALS: BP 109/61
[2022-03-27] MEDS ORDERED: RESTASIS EYE EACHEYE SCH (09:00)
[2022-03-27] MEDS ORDERED: LORAZEPAM INJ 2 MG/ML VIAL IV ONE (09:00)
[2022-03-27] MEDS ORDERED: QUETIAPINE FUMARATE 25 MG TABLET PO SCH ×2 (09:00→22:00)
[2022-03-27] MEDS ORDERED: CARIPRAZINE 1.5 MG PO SCH (09:00)
[2022-03-27] MEDS: VENLAFAXINE XR 150 MG CAP.SR.24H PO SCH (09:01)
[2022-03-27] MEDS: PANTOPRAZOLE 40 MG TABLET.DR PO SCH (09:01)
[2022-03-27] MEDS: DILTIAZEM HCL CD 240 MG PO SCH (09:01)
[2022-03-27] MEDS: LEVOTHYROXINE SODIUM 25 MCG TABLET PO SCH (09:02)
[2022-03-27] MEDS: APIXABAN 5 MG TABLET PO SCH ×2 (09:03→17:39)
[2022-03-27] MEDS: ALLOPURINOL 100 MG TABLET PO SCH (09:03)
[2022-03-27] MEDS: INSULIN REGULAR, HUMAN 100 UNIT/ML 3 ML VIAL SQ PRN ×2 (09:29→18:05)
[2022-03-27 12:00] VITALS: BP 112/72
[2022-03-27 12:02] LABS: ABG BASE EXCESS 4.4 mmol/L; ABG OXYGEN SATURATION 65.1 % (92.0-98.5); ABG PCO2 48.4 mmHg (35.0-45.0); ABG PH 7.407 (7.350-7.450); ABG PO2 34.4 mmHg (75.0-100.0); AaDO2 57.4 mmHg; COHb 0.6 % (0.5-1.5); MetHb 0.2 % (0.0-1.5); O2Hb 64.6 % (94.0-97.0); SITE, ABG Right Radial; VENT MODE, BG ROOM AIR
[2022-03-27] MEDS ORDERED: GABAPENTIN 300 MG CAPSULE PO SCH (13:00)
[2022-03-27] MEDS: DIAZEPAM 5 MG TABLET PO SCH ×2 (13:00→13:49)
[2022-03-27] MEDS ORDERED: CEPHALEXIN MONOHYDRATE 250 MG CAPSULE PO SCH (13:00)
[2022-03-27] MEDS ORDERED: HOME MED MISCELLANEOUS XX SCH (13:30)
[2022-03-27] MEDS ORDERED: MISCELLANEOUS MED 1 EA EA XX ONE (13:30)
[2022-03-27 14:31] LABS: BASOPHILS % (AUTO) 0.4 % (0.0-2.0); EOSINOPHILS % (AUTO) 1.9 % (0.0-6.0); HEMATOCRIT 30 % (33-45); HEMOGLOBIN 9.5 g/dL (11.5-14.8); LYMPHOCYTES % (AUTO) 10.3 % (20.0-44.0); MEAN CORPUSCULAR HGB CONC 32 g/dl (31.0-36.0); MEAN CORPUSCULAR VOLUME 86 fL (82-100); MONOCYTES # (AUTO) 0.8 K/uL (0.1-1.30); MONOCYTES % (AUTO) 8.5 % (2.0-12.0); NEUTROPHILS # (AUTO) 7.6 K/uL (1.8-8.9); NEUTROPHILS % (AUTO) 78.9 % (43.0-81.0); PLATELET COUNT (AUTO) 325 K/uL (150-450); RED BLOOD CELL COUNT(AUTO) 3.46 MIL/uL (4.0-5.2); WHITE BLOOD COUNT (AUTO) 9.7 K/uL (4.3-11.0)
[2022-03-27 15:04] LABS: CALCIUM, SERUM 8.6 mg/dL (8.5-10.1); CARBON DIOXIDE 32 mmol/L (21-32); CHLORIDE 100 mmol/L (98-107); CREATININE 1.8 mg/dL (0.6-1.3); GLUCOSE 133 mg/dL (74-106); MAGNESIUM 2.6 mg/dL (1.8-2.4); PHOSPHORUS 3.3 mg/dL (2.5-4.9); POTASSIUM 4.5 mmol/L (3.5-5.1); SODIUM SERUM 138 mmol/L (136-145); UREA NITROGEN, BLOOD 40 mg/dL (7-18)
[2022-03-27 15:15] LABS: CREATINE KINASE, TOTAL 1972 U/L (26-192)
[2022-03-27 16:00] VITALS: BP 100/54
[2022-03-27] MEDS: QUETIAPINE FUMARATE 25 MG TABLET PO SCH (17:31)
--- NOTE | 2022-03-27 18:10 | NUR ---
RN NOTE ATTEMPTED TO CONTACT [facility] REGARDING PROVIDERS ORDER FOR TLSO BACK BRACE FOR PATIENT CENTER IS CLOSED, NOT ACCEPTING CALLS AT THIS MOMENT. WILL ENDORSE TO NEXT NURSE.
[2022-03-27] MEDS ORDERED: OLANZAPINE 10 MG VIAL IM ONE (18:30)
--- NOTE | 2022-03-27 18:37 | NUR ---
RN NOTE ATTEMPTED TO CONTACT DAUGHTER REGARDING HOME MEDICATIONS, DAUGHTER IS TO BRING MEDICATIONS BACK TO BE VERIFIED BY PHARMACY
--- NOTE | 2022-03-27 18:59 | NUR ---
RN CLOSING NOTE, PATIENT IN BED, WITH ADEQUATE HOURS OF SLEEP, AT 3LPM NC , IV ACCES ON RIGHT UPPER ARM MIDLINE 18G SL.
--- NOTE | 2022-03-27 19:00 | NUR ---
RN CLOSING NOTE PATIENT IN BED, ON NC 23L BILATERAL WRIST RESTRAINTS DUE TO AGITATION RENEW 1811. IV ACCESS ON RIGHT UPPER ARM 18G MIDLINE SL. SAFETY MEASURES IN PLACE, CALL LIGHT WITHIN REACH BED ALARM ACTIVATED 2 SIDE RAILS UP. BED ALARM ACTIVATED WILL ENDORSE TO NIGHT NURSE FOR JENNI.
--- NOTE | 2022-03-27 19:45 | NUR ---
MARCELO RN OPENING NOTE RECEIVED PATIENT IN BED AWAKE, YELLING AT CAREPROVIDERS, ON NC AT 3L TOLERATING WELL, PATIENT IS A/O X2-3, IV ACCESS NOTED ON DONI MIDLINE SL. NOTED WITH BILATERAL SOFT WRIST RESTRAINT, SAFETY MEASURES IN PLACE, BED LOCKED AND IN LOWEST POSITION, S/R OF BED X2 UP, CALL LIGHT WITHIN REACH, WILL CONTINUE TO MONITOR THROUGHOUT THE SHIFT.
[2022-03-27 20:00] VITALS: BP 127/72
--- NOTE | 2022-03-27 21:30 | NUR ---
RN NOTE PT NOTED DESATING AT 75% NC, RT CALLED PLACE ON MASK AT 8L, PT TOLERATING WELL AT 91 %, WILL CONT TO MONITOR. CN MADE AWARE
--- NOTE | 2022-03-27 21:40 | NUR ---
RN NOTE BS CHECKED AT 97 MG/DL, NO COVERAGE GIVEN.
[2022-03-27] MEDS ORDERED: MAGNESIUM OXIDE 400 MG TABLET PO SCH (22:00)
[2022-03-27] MEDS: ATORVASTATIN 10 MG TABLET PO SCH (22:00)
[2022-03-28] VITALS: BP 117/68
[2022-03-28 04:00] VITALS: BP 105/66
--- NOTE | 2022-03-28 07:20 | NUR ---
MARCELO RN CLOSING NOTE PATIENT IN BED SLEEPING BUT EASILY AROUSABLE TO TOUCH AND VOICE, ON SIMPLE MASK AT 8L, TOLERATING WELL, PATIENT IS A/O X2-3, IV ACCESS NOTED ON DONI MIDLINE INTACT AND PATENT. WITH BILATERAL SOFT WRIST RESTRAINT, SAFETY MEASURES IN PLACE, BED LOCKED AND IN LOWEST POSITION, S/R OF BED X2 UP,ALL DUE MEDS GIVEN, KEPT DRY AND CLEAN, CALL LIGHT WITHIN REACH, WILL ENDORSE TO AM SHIFT NURSE.
[2022-03-28] MEDS: BLOOD SUGAR DIAGNOSTIC 1 EACH STRIP IN SCH ×4 (07:51→21:40)
[2022-03-28] MEDS: PANTOPRAZOLE 40 MG TABLET.DR PO SCH (07:51)
[2022-03-28] MEDS: LEVOTHYROXINE SODIUM 25 MCG TABLET PO SCH (07:51)
[2022-03-28 08:00] VITALS: BP 130/62
[2022-03-28] MEDS: DILTIAZEM HCL CD 240 MG PO SCH (08:19)
[2022-03-28] MEDS: VENLAFAXINE XR 150 MG CAP.SR.24H PO SCH (08:19)
[2022-03-28] MEDS: ALLOPURINOL 100 MG TABLET PO SCH (08:19)
[2022-03-28] MEDS: QUETIAPINE FUMARATE 25 MG TABLET PO SCH ×2 (08:19→21:45)
[2022-03-28] MEDS: APIXABAN 5 MG TABLET PO SCH ×2 (08:22→17:03)
[2022-03-28] MEDS: BUPRENORPHINE SL SCH ×2 (08:49→14:48)
[2022-03-28] MEDS: NALOXONE SL SCH ×2 (08:49→14:48)
[2022-03-28] MEDS ORDERED: POTASSIUM CHLORIDE 10 MEQ TABLET.SA PO SCH (09:00)
[2022-03-28] MEDS ORDERED: BUMETANIDE (1 MG) 1 MG TABLET PO SCH (09:00)
[2022-03-28] MEDS ORDERED: APIXABAN 5 MG TABLET PO SCH (09:00)
[2022-03-28] MEDS ORDERED: cetrizine 10 MG TABLET PO SCH (09:00)
[2022-03-28] MEDS: LORAZEPAM INJ 2 MG/ML VIAL IV PRN (09:19)
--- NOTE | 2022-03-28 10:40 | NUR ---
RN NOTE [facility] CALLED REGARDING TLSO BRACE ORDERED BY [facility]. PER REQUEST, FACES[facility]ET FAXED OVER. [facility] RE[facility] BEING UNABLE TO COME TO SEE PT TODAY AND WILL COME TOMORROW.
[2022-03-28 12:00] VITALS: BP 106/56
[2022-03-28] MEDS ORDERED: KEY,NONCONTROL,TO KEEP IN PYXI 1 EA MC ONE (14:49)
[2022-03-28 16:00] VITALS: BP 113/59
--- NOTE | 2022-03-28 19:00 | NUR ---
MARCELO RN OPENING NOTE RECEIVED PATIENT IN BED ASLEEP, COMFORTABLE IN BED , ON NC AT 6L TOLERATING WELL,SATING 93% PATIENT IS A/O X2-3, V/S STABLE AFEBRILE NO SOB NO DISTRESS NOTED IV ACCESS NOTED ON DONI MIDLINE SL. NOTED WITH BILATERAL SOFT WRIST RESTRAINT, SAFETY MEASURES IN PLACE, BED LOCKED AND IN LOWEST POSITION, S/R OF BED X2 UP, CALL LIGHT WITHIN REACH, WILL CONTINUE TO MONITOR PTS.
[2022-03-28 20:00] VITALS: BP 118/69
[2022-03-28] MEDS: INSULIN REGULAR, HUMAN 100 UNIT/ML 3 ML VIAL SQ PRN (21:39)
--- NOTE | 2022-03-28 21:41 | NUR ---
roberto carlos rn notes blood sugar at 10pm is 126mg/dl n0 isulin coverage given per sliding scale, pts on po diet
[2022-03-28] MEDS: ATORVASTATIN 10 MG TABLET PO SCH (21:43)
[2022-03-28] MEDS ORDERED: TRAZODONE 50 MG TABLET PO PRN (22:00)
[2022-03-29] VITALS: BP 118/59
[2022-03-29 04:00] VITALS: BP 116/63
--- NOTE | 2022-03-29 07:24 | NUR ---
roberto carlos rn notes pts remains in bed awake and responsive no milad the whole shift ,pts on 6l via nc sating 93 % no sob no distress with episode of agitation on gianna soft wrist restraint all needs attended too call light within reach .will endorse to rn day shift for continuity of care.
--- NOTE | 2022-03-29 07:30 | NUR ---
OPENING NOTE RECEIVED PATIENT IN BED ASLEEP, COMFORTABLE IN BED , ON NC AT 6L TOLERATING WELL,SATING 93% PATIENT IS A/O X2, V/S STABLE AFEBRILE NO SOB NO DISTRESS NOTED, IV ACCESS ON DONI MIDLINE SL PATENT. NOTED WITH BILATERAL SOFT WRIST RESTRAINT, SAFETY MEASURES IN PLACE, BED LOCKED AND IN LOWEST POSITION, S/R OF BED X2 UP, CALL LIGHT WITHIN REACH, WILL CONTINUE TO MONITOR AND ATTEND TO PT NEEDS.
--- NOTE | 2022-03-29 07:34 | NUR ---
RN NOTE PT RECEIVED RESTING IN BED, AWAKE ALERT AND RESPONSIVE. ON O2 VIA NC @6L. WITH BILATERAL SOFT HAND RESTRAINTS. NO SS OF CIRCULATORY IMPAIRMENT. SAFETY MEASURES FOLLOWED. WILL CONTINUE TO MONITOR.
[2022-03-29 08:00] VITALS: BP 100/49
[2022-03-29] MEDS: BLOOD SUGAR DIAGNOSTIC 1 EACH STRIP IN SCH ×4 (09:00→21:34)
[2022-03-29] MEDS: PANTOPRAZOLE 40 MG TABLET.DR PO SCH (09:01)
[2022-03-29] MEDS: LORAZEPAM INJ 2 MG/ML VIAL IV PRN (09:01)
[2022-03-29] MEDS: APIXABAN 5 MG TABLET PO SCH ×2 (09:03→17:20)
[2022-03-29] MEDS: ALLOPURINOL 100 MG TABLET PO SCH (09:04)
[2022-03-29] MEDS: VENLAFAXINE XR 150 MG CAP.SR.24H PO SCH (09:04)
[2022-03-29] MEDS: DILTIAZEM HCL CD 240 MG PO SCH (09:08)
[2022-03-29] MEDS: LEVOTHYROXINE SODIUM 25 MCG TABLET PO SCH (09:09)
[2022-03-29 10:48] LABS: BASOPHILS % (AUTO) 0.4 % (0.0-2.0); EOSINOPHILS % (AUTO) 2.2 % (0.0-6.0); HEMATOCRIT 31 % (33-45); HEMOGLOBIN 9.7 g/dL (11.5-14.8); LYMPHOCYTES % (AUTO) 13.8 % (20.0-44.0); MEAN CORPUSCULAR HGB CONC 32 g/dl (31.0-36.0); MEAN CORPUSCULAR VOLUME 86 fL (82-100); MONOCYTES # (AUTO) 0.6 K/uL (0.1-1.30); MONOCYTES % (AUTO) 7.9 % (2.0-12.0); NEUTROPHILS # (AUTO) 5.7 K/uL (1.8-8.9); NEUTROPHILS % (AUTO) 75.7 % (43.0-81.0); PLATELET COUNT (AUTO) 359 K/uL (150-450); RED BLOOD CELL COUNT(AUTO) 3.58 MIL/uL (4.0-5.2); WHITE BLOOD COUNT (AUTO) 7.5 K/uL (4.3-11.0)
[2022-03-29 10:57] LABS: CALCIUM, SERUM 8.7 mg/dL (8.5-10.1); CARBON DIOXIDE 33 mmol/L (21-32); CHLORIDE 104 mmol/L (98-107); CREATININE 1.5 mg/dL (0.6-1.3); GLUCOSE 113 mg/dL (74-106); SODIUM SERUM 143 mmol/L (136-145); UREA NITROGEN, BLOOD 26 mg/dL (7-18)
[2022-03-29] MEDS ORDERED: KEY,NONCONTROL,TO KEEP IN PYXI 1 EA MC ONE (11:47)
[2022-03-29] MEDS: BUPRENORPHINE SL SCH (11:52)
[2022-03-29] MEDS: NALOXONE SL SCH (11:52)
[2022-03-29 12:00] VITALS: BP 121/63
[2022-03-29] MEDS: INSULIN REGULAR, HUMAN 100 UNIT/ML 3 ML VIAL SQ PRN (12:44)
--- NOTE | 2022-03-29 13:00 | NUR ---
Reoriented pt. Restraint removed. Addendum: 03/29/22 at 1646 by DAVID TORRES RN Amended: Links added.
[2022-03-29] MEDS ORDERED: DIAZ10TA4 PO (14:43)
[2022-03-29] MEDS ORDERED: BUPR1FIL3 SL (14:43)
[2022-03-29] MEDS ORDERED: MAGN400T52 PO (14:43)
[2022-03-29] MEDS ORDERED: POTA-10 PO (14:43)
[2022-03-29] MEDS ORDERED: CETI-355 PO (14:43)
[2022-03-29] MEDS ORDERED: AMOX500C2 PO (14:43)
[2022-03-29] MEDS ORDERED: CEPH750C9 PO (14:43)
[2022-03-29 16:00] VITALS: BP 120/61
--- NOTE | 2022-03-29 18:52 | NUR ---
CLOSING NOTE PATIENT IN BED SLEEPING BUT EASILY AROUSABLE TO TOUCH AND VOICE, ON NC AT 6L, TOLERATING WELL, PATIENT IS A/O X2-3, IV ACCESS NOTED ON DONI MIDLINE INTACT AND PATENT. WITH BILATERAL SOFT WRIST RESTRAINT, SAFETY MEASURES IN PLACE, BED LOCKED AND IN LOWEST POSITION, S/R OF BED X2 UP,ALL DUE MEDS GIVEN, KEPT DRY AND CLEAN, CALL LIGHT WITHIN REACH, WILL ENDORSE TO PM SHIFT NURSE.
[2022-03-29 20:00] VITALS: BP 121/70
--- NOTE | 2022-03-29 20:00 | NUR ---
RN NOTE RECEIVED PT IN BED, AWAKE AOX2. ON O2 AT 6L. NOT IN ANY DISTRESS PT DENIES ANY SOB OR PAIN. PT WITH BILATERAL SOFT WRIST RESTRAINTS, WITH EPISODES OF PULLING OUT O2 CANNULA ANG GETTING UP. ALL SAFETY MEASURES IN PLACE, WILL CONTINUE TO MONITOR.
[2022-03-29] MEDS: QUETIAPINE FUMARATE 25 MG TABLET PO SCH (21:34)
[2022-03-29] MEDS: ATORVASTATIN 10 MG TABLET PO SCH (21:34)
--- NOTE | 2022-03-29 21:35 | NUR ---
RN NOTE FSBS 96 NO INSULIN COVERAGE GIVEN.
[2022-03-30] VITALS: BP 118/62
[2022-03-30 04:00] VITALS: BP 119/68
--- NOTE | 2022-03-30 06:46 | NUR ---
RN NOTE PT SLEEPING, AROUSES EASILY. NOT IN ANY DISTRESS, TOLERATES O2 AT 6L. NOTED WITH URINE RETENTION, >895ML FROM BLADDER SCANNER. NOTIFIED PRESS LEADER TIRE BALANCER ROSALEE, ORDERED TO INSERT IN AND OUT CATHETER. PT TOLERATED, DRAINED 900ML YELLOW URINE OUTPUT. MIDLINE REMAIN PATENT AND INTACT. DENIES PAIN. WILL ENDORSE TO NEXT SHIFT NURSE FOR JENNI.
[2022-03-30 06:53] LABS: CALCIUM, SERUM 8.7 mg/dL (8.5-10.1); CREATININE 1.3 mg/dL (0.6-1.3)
[2022-03-30 08:00] VITALS: BP 106/70
[2022-03-30] MEDS: BLOOD SUGAR DIAGNOSTIC 1 EACH STRIP IN SCH ×3 (10:01→17:42)
[2022-03-30] MEDS: VENLAFAXINE XR 150 MG CAP.SR.24H PO SCH (10:04)
[2022-03-30] MEDS: DILTIAZEM HCL CD 240 MG PO SCH (10:04)
[2022-03-30] MEDS: ALLOPURINOL 100 MG TABLET PO SCH (10:04)
[2022-03-30] MEDS: PANTOPRAZOLE 40 MG TABLET.DR PO SCH (10:05)
[2022-03-30] MEDS: LEVOTHYROXINE SODIUM 25 MCG TABLET PO SCH (10:05)
[2022-03-30] MEDS: APIXABAN 5 MG TABLET PO SCH ×2 (10:09→18:21)
[2022-03-30] MEDS ORDERED: KEY,NONCONTROL,TO KEEP IN PYXI 1 EA MC ONE (10:26)
[2022-03-30] MEDS: BUPRENORPHINE SL SCH (10:27)
[2022-03-30] MEDS: NALOXONE SL SCH (10:27)
[2022-03-30 12:00] VITALS: BP 107/76
[2022-03-30] MEDS: INSULIN REGULAR, HUMAN 100 UNIT/ML 3 ML VIAL SQ PRN (12:33)
[2022-03-30] MEDS: CEPHALEXIN MONOHYDRATE 500 MG CAPSULE PO SCH ×2 (12:43→18:20)
[2022-03-30] MEDS: GABAPENTIN 300 MG CAPSULE PO SCH ×2 (12:43→18:20)
[2022-03-30 14:04] LABS: ABG BASE EXCESS 4.7 mmol/L; ABG OXYGEN SATURATION 88.3 % (92.0-98.5); ABG PCO2 40.1 mmHg (35.0-45.0); ABG PH 7.472 (7.350-7.450); ABG PO2 54.3 mmHg (75.0-100.0); AaDO2 126.9 mmHg; COHb 0.6 % (0.5-1.5); MetHb 0.3 % (0.0-1.5); O2Hb 87.5 % (94.0-97.0); SITE, ABG Right Radial; VENT MODE, BG NASAL CANNULA
--- NOTE | 2022-03-30 14:12 | NUR ---
abg result relayed to dr. anthony.
[2022-03-30 16:00] VITALS: BP 118/57
[2022-03-30] MEDS ORDERED: BUMETANIDE (1 MG) 1 MG TABLET PO SCH (17:00)
--- NOTE | 2022-03-30 18:23 | NUR ---
REPORT GIVEN TO [facility] TRUNG.
--- NOTE | 2022-03-30 18:45 | NUR ---
TRANSFERRED PT. TO [facility] UNIT IN STABLE CONDITION, NO ACUTE DISTRESS NOTED AT THIS TIME. TRANSFERRED PATIENT PER PROTOCOL.
[2022-03-30] MEDS ORDERED: AMOXICILLIN TRIHYDRATE 250 MG CAPSULE PO SCH (21:00)
[2022-03-30] MEDS ORDERED: QUETIAPINE FUMARATE 100 MG TABLET PO SCH (22:00)
[2022-03-31] MEDS ORDERED: Medication Not On Formulary EA (Buprenorphine Hcl/Naloxone Hcl (Suboxone 8 Mg-2 Mg Sl Fi SL SCH (09:00)
[2022-03-31] MEDS ORDERED: MAGNESIUM OXIDE 400 MG TABLET PO SCH (09:00)
[2022-03-31] MEDS ORDERED: POTASSIUM CHLORIDE 10 MEQ TABLET.SA PO SCH (09:00)
[2022-03-31] MEDS ORDERED: cetrizine 10 MG TABLET PO SCH (09:00)
[2022-03-31] MEDS ORDERED: Medication Not On Formulary EA (Naloxegol Oxalate (Movantik) 25 MG) PO SCH (09:00)
[2022-03-31] MEDS ORDERED: GABA-532 PO (10:09)
[2022-03-31] MEDS ORDERED: INSU100V3 SQ (10:09)
[2022-03-31] MEDS ORDERED: ACET-868 PO (10:09)
[2022-03-31] MEDS ORDERED: MAG30ORA PO (10:09)
[2022-03-31] MEDS ORDERED: MAGN400O6 PO (10:09)
[2022-03-31] MEDS ORDERED: ALLA266C2 TP (10:09)
[2022-03-31] MEDS ORDERED: DEXT50DI8 IV (10:09)
[2022-03-31] MEDS ORDERED: PANT40TA2 PO (10:09)
[2022-03-31] MEDS ORDERED: HYDR-4209 PO (10:09)
[2022-03-31] MEDS ORDERED: BLOO-668 IN (10:09)
[2022-03-31] MEDS ORDERED: ATOR10TA PO (10:09)
[2022-03-31] MEDS ORDERED: MAGN400T52 PO (10:10)
[2022-03-31] MEDS ORDERED: HYDR-3980 PO (10:14)
== END 2022-03-30 18:51 | DRG 557 ==
LOC: ER 15:19 → TELE1 18:02 → TELE-TD 18:35 → TELE1 03-30 08:45
PROVIDERS: ADMIT Nurse Practitioner Acute Care; ATTEND Nurse Practitioner Acute Care
PROC: 05H533Z Insertion of Infusion Device into Right Subclavian Vein, Percutaneous Approach (ICD-10-PCS; principal; 2022-03-27)
PROC: B546ZZA Ultrasonography of Right Subclavian Vein, Guidance (ICD-10-PCS; 2022-03-27)
DX: M62.82 Rhabdomyolysis (principal); J96.01 Acute respiratory failure with hypoxia; N17.0 Acute kidney failure with tubular necrosis; S22.089A Unspecified fracture of T11-T12 vertebra, initial encounter for closed fracture; G93.40 Encephalopathy, unspecified; I48.20 Chronic atrial fibrillation, unspecified; I13.0 Hypertensive heart and chronic kidney disease with heart failure and stage 1 through stage 4 chronic kidney disease, or unspecified chronic kidney disease; E66.2 Morbid (severe) obesity with alveolar hypoventilation; N18.9 Chronic kidney disease, unspecified; E03.9 Hypothyroidism, unspecified; E11.22 Type 2 diabetes mellitus with diabetic chronic kidney disease; E11.40 Type 2 diabetes mellitus with diabetic neuropathy, unspecified; E86.0 Dehydration; F03.90 Unspecified dementia, unspecified severity, without behavioral disturbance, psychotic disturbance, mood disturbance, and anxiety; F41.9 Anxiety disorder, unspecified; R29.6 Repeated falls; M79.7 Fibromyalgia; Z79.01 Long term (current) use of anticoagulants; Y93.9 Activity, unspecified; Y92.009 Unspecified place in unspecified non-institutional (private) residence as the place of occurrence of the external cause; D72.829 Elevated white blood cell count, unspecified; Z87.891 Personal history of nicotine dependence; G89.29 Other chronic pain; E78.5 Hyperlipidemia, unspecified; I50.9 Heart failure, unspecified; M19.90 Unspecified osteoarthritis, unspecified site; J44.9 Chronic obstructive pulmonary disease, unspecified; I25.10 Atherosclerotic heart disease of native coronary artery without angina pectoris; R59.0 Localized enlarged lymph nodes; F32.9 Major depressive disorder, single episode, unspecified; F39 Unspecified mood [affective] disorder; R41.9 Unspecified symptoms and signs involving cognitive functions and awareness; Z68.34 Body mass index [BMI] 34.0-34.9, adult; Z73.6 Limitation of activities due to disability; Z20.822 Contact with and (suspected) exposure to COVID-19; W18.30XA Fall on same level, unspecified, initial encounter; Z90.710 Acquired absence of both cervix and uterus; L08.9 Local infection of the skin and subcutaneous tissue, unspecified
CPT/HCPCS: 36410; 36415; 36600; 70450-TC; 71045-TC; 71250-TC; 76770-TC; 80048-TC; 80076-TC; 81001; 82140-TC; 82550-TC; 82553; 82803-TC; 82962-TC; 83605-TC; 83735-TC; 84100-TC; 84443-TC; 84484-TC; 85025-TC; 85730-TC; 87040-TC; 87081-TC; 93307-TC; 94799-TC; 97116-TC; 97530-TC; C9803; G0378; G0480; J1815; J2060; J2543; J3370; J3490; J7030; J7060

== ENCOUNTER 2022-03-30 18:04 | Inpatient (IN) | payer MEDICARE, OTHER ==
[~2022-03-30] VITALS: Ht 195.6 cm; Wt 95.3 kg
[~2022-03-30 18:04] MED LIST changes: +AMOX500C2 PO; +BUPR1FIL3 SL; -CEPH500C2 PO; +CEPH750C9 PO; +CETI-355 PO; -CLON0.5T4 PO; +DIAZ10TA4 PO; -EMPA10TA PO; +GABA300C PO; -GLUC1TAB20 PO; -HYDR-4209 PO; -LIDO30AD10 TP; +MAGN400T52 PO; -METF-440 PO; -ONDA-97 PO; +POTA-10 PO; -POTA10TA10 PO; +QUET25TA PO; -SULF1TAB48 PO
[2022-03-30] MEDS ORDERED: HYDROCODONE/APAP 5/325MG TABLET PO PRN (19:30)
[2022-03-30] MEDS ORDERED: INSULIN REGULAR, HUMAN 100 UNIT/ML 3 ML VIAL SQ PRN (19:30)
[2022-03-30] MEDS ORDERED: DEXTROSE 50%-WATER 50 ML DISP.SYRIN IV PRN (19:30)
[2022-03-30] MEDS ORDERED: HYDROCODONE/APAP 10/325MG TABLET PO PRN (19:30)
[2022-03-30] MEDS ORDERED: MAG HYDROX/AL HYDROX/SIMETH 30 ML UDC PO PRN (20:00)
[2022-03-30] MEDS ORDERED: TEMAZEPAM 7.5 MG CAPSULE PO PRN (20:00)
[2022-03-30] MEDS ORDERED: ACETAMINOPHEN 325 MG TABLET PO PRN (20:00)
[2022-03-30] MEDS ORDERED: MAGNESIUM HYDROXIDE 30 ML UDC PO PRN (20:00)
[2022-03-30] MEDS ORDERED: Z GUARD REMEDY 4 OZ OINT TP PRN (20:00)
[2022-03-30] MEDS ORDERED: clonazePAM 0.5 MG TABLET PO PRN (20:00)
[2022-03-30] MEDS: BLOOD SUGAR DIAGNOSTIC 1 EACH STRIP IN SCH (21:01)
[2022-03-30] MEDS ORDERED: ATORVASTATIN 10 MG TABLET PO SCH (22:00)
[2022-03-30 22:06] VITALS: BP 128/65
--- NOTE | 2022-03-30 23:56 | NUR ---
RN NOTES : ADMISSION NOTES: ADMITTED THIS 76Y/O FEMALE PATIENT ADMIT FROM [facility] , INITIALLY FROM HOME. ADMITTED TO 5150 HOLD, GRAVELY DISABLE, PER HOLD PT. INCREASED CONFUSION,AGITATION DISORGNIZED,UNCOOPERATIVE ,DEPRESSED. UPON FACE TO FACE ASSESSMENT PATIENT IS A&O X1, ANXIOUS ,EASILY AGITATED, RESTLESS ,PARANOID ,DISHELVED ,HYPERVERBAL ,NEEDS FREQUENTLY REDIRECTIONS , DENIES SI /HI AT THIS TIME, PT. IS POOR HISTORIAN, POOR INSIGHT ,POOR JUDGEMENT AND UN ABLE TO CARE FOR HERSELF , BOTH MD AWARE AND NOTIFIED OF THE ADMISSION, BELONGINGS CONTRABAND WERE DONE , PT. REFUSED SIGNS ADMISSION CONSENT PAPER DUE TO CONFUSED,ENCOURAGED PT. TO TAKE SHOWER, PT. RIGHTS DISCUSS BY INSURANCE CONSULTANT , PROVIDE THE PT. WITH HANDBOOK, AND MEDICATIONS GUIDE, ENVIRONMENTAL SAFETY CHECK DONE, ENCOURAGED PT. VERBALIZED ANY FEELING CONCERN TO STAFF, ORIENT TO UNIT POLICY, NO ACUTE DISTRESS NOTED,VITAL SIGNS WNL ,DENIES ANY PAIN AT THIS TIME,WILL CONTINUE TO MONITOR FOR Q15 SAFETY AND BEHAVIOR.
--- NOTE | 2022-03-31 06:28 | NUR ---
RN NOTES:NOTIFIED PT. UMA LÓPEZ [phone] , REGARDING ABOUT [facility] ADMISSSION. AND LEFT MESSAGE TO PT. DAUGHTER , LOULOU [phone] , REGARDING ABOUT [facility] ADMISSION.
--- NOTE | 2022-03-31 06:32 | NUR ---
RN NOTES: COLLECT MRSA AND SEND TO LAB.
--- NOTE | 2022-03-31 06:38 | NUR ---
RN NOTES: PATIENT IN BED RESTING. NO S/SX OF ACUTE DISTRESS NOTED. PT. 6 HOURS OF SLEEP EASILY AGITED,PT.IS ON O2 3 LITTER VIA NASAL CANULA VITAL SIGNS WNL, AT BED SIDE SITTER DUE TO PT. IS ON OXYGEN AND SAFETY , NO VERBALIZATION OF THOUGHTS AND FEELINGS. SAFETY PRECAUTIONS IN PLACE. WILL CONTINUE TO MONITOR Q15MIN ROUNDS FOR SAFETY AND BEHAVIOR.
[2022-03-31 06:59] LABS: BASOPHILS % (AUTO) 0.4 % (0.0-2.0); EOSINOPHILS % (AUTO) 2.8 % (0.0-6.0); HEMATOCRIT 33 % (33-45); HEMOGLOBIN 10.5 g/dL (11.5-14.8); LYMPHOCYTES # (AUTO) 1.9 K/uL (0.8-4.8); LYMPHOCYTES % (AUTO) 22.5 % (20.0-44.0); MEAN CORPUSCULAR HGB CONC 32 g/dl (31.0-36.0); MEAN CORPUSCULAR VOLUME 85 fL (82-100); MONOCYTES # (AUTO) 0.7 K/uL (0.1-1.30); MONOCYTES % (AUTO) 8.3 % (2.0-12.0); NEUTROPHILS # (AUTO) 5.7 K/uL (1.8-8.9); PLATELET COUNT (AUTO) 481 K/uL (150-450); RED BLOOD CELL COUNT(AUTO) 3.87 MIL/uL (4.0-5.2); WHITE BLOOD COUNT (AUTO) 8.6 K/uL (4.3-11.0)
[2022-03-31 07:07] LABS: ALANINE AMINOTRANSFERASE 23 U/L (12-78); ALBUMIN 2.4 g/dL (3.4-5.0); ALKALINE PHOSPHATASE 88 U/L (46-116); ASPARTATE AMINOTRANSFERASE 24 U/L (15-37); BILIRUBIN,TOTAL 0.3 mg/dL (0.2-1.0); CALCIUM, SERUM 8.7 mg/dL (8.5-10.1); CARBON DIOXIDE 31 mmol/L (21-32); CHLORIDE 103 mmol/L (98-107); CREATININE 1.4 mg/dL (0.6-1.3); GLUCOSE 102 mg/dL (74-106); POTASSIUM 4.2 mmol/L (3.5-5.1); SODIUM SERUM 141 mmol/L (136-145); TOTAL PROTEIN, SERUM 7.6 g/dL (6.4-8.2); UREA NITROGEN, BLOOD 18 mg/dL (7-18)
[2022-03-31] MEDS: BLOOD SUGAR DIAGNOSTIC 1 EACH STRIP IN SCH ×4 (07:25→21:38)
[2022-03-31 07:28] LABS: CHOLESTEROL 153 mg/dL (<200); HDL CHOLESTEROL 49 mg/dL (40-60); LDL 85 mg/dL (0-99); TRIGLYCERIDES 106 mg/dL (30-150)
[2022-03-31] MEDS ORDERED: LEVOTHYROXINE SODIUM 25 MCG TABLET PO SCH (07:30)
[2022-03-31] MEDS: LEVOTHYROXINE SODIUM 25 MCG TABLET PO SCH (07:33)
[2022-03-31] MEDS: PANTOPRAZOLE 40 MG TABLET.DR PO SCH (07:33)
[2022-03-31 08:00] VITALS: BP 98/66
--- NOTE | 2022-03-31 08:12 | NUR ---
RN OPENING NOTE PATIENT AWAKE IN BED RESTING, A/O X 1-2. NO S/S OF PAIN NOTED AT THIS TIME. ON ROOM AIR, NO DISTRESS OR SHORTNESS OF BREATH NOTED. PATIENT IS COOPERATIVE AND COMPLIANT WITH MEDICATION. PATIENT DENIES SUICIDE IDEATION AND HOMICIDAL IDEATION AT THIS TIME. PATIENT HAS NO NEEDS AT THIS TIME. PATIENT EDUCATED ON THE USE OF THE CALL PERDUE. FALL AND SAFETY MEASURES IN PLACE, BED ALARM ON, BED IN LOW AND LOCK POSITION, CALL LIGHT AND TABLE WITHIN EASY REACH, SIDE RAILS UP X2. WILL CONTINUE TO MONITOR Q15 MIN. WITH THE HELP OF STAFF TO MAINTAIN SAFETY.
[2022-03-31] MEDS ORDERED: APIXABAN 5 MG TABLET PO SCH (09:00)
[2022-03-31] MEDS ORDERED: DILTIAZEM HCL CD 240 MG PO SCH (09:00)
[2022-03-31] MEDS ORDERED: GABAPENTIN 300 MG CAPSULE PO SCH (09:00)
[2022-03-31] MEDS ORDERED: ALLOPURINOL 100 MG TABLET PO SCH (09:00)
[2022-03-31] MEDS ORDERED: BUMETANIDE (1 MG) 1 MG TABLET PO SCH (09:00)
[2022-03-31] MEDS ORDERED: AMOXICILLIN TRIHYDRATE 250 MG CAPSULE PO SCH (09:00)
[2022-03-31] MEDS ORDERED: cetrizine 10 MG TABLET PO SCH (09:00)
[2022-03-31] MEDS: POTASSIUM CHLORIDE 10 MEQ TABLET.SA PO SCH (09:03)
[2022-03-31] MEDS: DILTIAZEM HCL CD 240 MG PO SCH (09:05)
[2022-03-31] MEDS: ALLOPURINOL 100 MG TABLET PO SCH (09:06)
[2022-03-31] MEDS: GABAPENTIN 300 MG CAPSULE PO SCH ×4 (09:06→17:00)
[2022-03-31] MEDS: APIXABAN 5 MG TABLET PO SCH ×2 (09:09→21:32)
[2022-03-31] MEDS: cetrizine 10 MG TABLET PO SCH (09:12)
[2022-03-31] MEDS: MAGNESIUM OXIDE 400 MG TABLET PO SCH (09:13)
[2022-03-31] MEDS ORDERED: HYDROCODONE/APAP 10/325MG TABLET PO PRN (09:55)
[2022-03-31] MEDS ORDERED: DEXT50DI8 IV (10:09)
[2022-03-31] MEDS ORDERED: ATOR10TA PO (10:09)
[2022-03-31] MEDS ORDERED: INSU100V3 SQ (10:09)
[2022-03-31] MEDS ORDERED: HYDR-4209 PO (10:09)
[2022-03-31] MEDS ORDERED: MAGN400O6 PO (10:09)
[2022-03-31] MEDS ORDERED: ACET-868 PO (10:09)
[2022-03-31] MEDS ORDERED: MAG30ORA PO (10:09)
[2022-03-31] MEDS ORDERED: ALLA266C2 TP (10:09)
[2022-03-31] MEDS ORDERED: GABA-532 PO (10:09)
[2022-03-31] MEDS ORDERED: PANT40TA2 PO (10:09)
[2022-03-31] MEDS ORDERED: BLOO-668 IN (10:09)
[2022-03-31] MEDS: BUPRENORPHINE SL SCH (10:10)
[2022-03-31] MEDS: NALOXONE SL SCH (10:10)
[2022-03-31] MEDS ORDERED: MAGN400T52 PO (10:10)
[2022-03-31] MEDS ORDERED: HYDR-3980 PO (10:14)
[2022-03-31] MEDS ORDERED: KEY,NONCONTROL,TO KEEP IN PYXI 1 EA MC ONE (10:17)
[2022-03-31] MEDS: VENLAFAXINE XR 75 MG CAP.SR.24H PO SCH (11:01)
--- NOTE | 2022-03-31 11:15 | NUR ---
RN-CO: PER DR HAWLEY, PT WILL BE D/C [facility]OM[facility] HOME., WILL ENDORSE TO NEXT SHIFT.
[2022-03-31] MEDS: BUMETANIDE (1 MG) 1 MG TABLET PO SCH ×2 (12:08→17:00)
[2022-03-31 16:00] VITALS: BP 118/69
[2022-03-31] MEDS: AMOXICILLIN TRIHYDRATE 250 MG CAPSULE PO SCH (17:01)
--- NOTE | 2022-03-31 18:49 | NUR ---
RN CLOSING NOTE PATIENT AWAKE IN BED RESTING, A/O X 2. NO S/S OF PAIN NOTED AT THIS TIME. ON ROOM AIR, NO DISTRESS OR SHORTNESS OF BREATH NOTED. PATIENT IS COOPERATIVE AND COMPLIANT WITH MEDICATION. ALL SCHEDULE MEDICATIONS ADMINISTERED. PATIENT HAVE WOUNDS ON HER FEET, WAITING FOR WOUND CONSULT, WOUNDS WERE CLEAN AND COVER WITH DRY DRESSING. PATIENT DENIES SUICIDE IDEATION AND HOMICIDAL IDEATION AT THIS TIME. PATIENT HAS NO NEEDS AT THIS TIME. PATIENT EDUCATED ON THE USE OF THE CALL PERDUE. FALL AND SAFETY MEASURES IN PLACE, BED ALARM ON, BED IN LOW AND LOCK POSITION, CALL LIGHT AND TABLE WITHIN EASY REACH, SIDE RAILS UP X2. WILL ENDORSE TO PEANUT PICKER.
[2022-03-31 21:04] VITALS: BP 102/60
[2022-03-31] MEDS ORDERED: TRAZODONE 50 MG TABLET PO SCH (22:00)
[2022-03-31] MEDS ORDERED: ATORVASTATIN 10 MG TABLET PO SCH ×2 (22:00)
[2022-03-31] MEDS ORDERED: QUETIAPINE FUMARATE 25 MG TABLET PO SCH (22:00)
--- NOTE | 2022-04-01 00:24 | NUR ---
Pt c/o insomnia. Restoril 7.5 mg 1 cap po prn given as orderd. Will continue to monitor.
--- NOTE | 2022-04-01 01:23 | NUR ---
Post 1 hr Restoril effective. Pt asleep in bed easy to arouse. Frequent visual check done for safety. Will continue to monitor. Will endorse to next shift
--- NOTE | 2022-04-01 07:25 | NUR ---
RN OPENING NOTE PATIENT AWAKE AMBULATES WITH WALKER, PATIENT IS A/O X 1-2. NON ROOM AIR, WITH NO DISTRESS OR SHORTNESS OF BREATH NOTED. PATIENT DENIES PAIN AT THIS TIME. PATIENT IS COOPERATIVE AND COMPLIANT WITH MEDICATION. PATIENT DENIES SUICIDE IDEATION AND HOMICIDAL IDEATION AT THIS TIME. PATIENT HAS NO NEEDS AT THIS TIME. PATIENT EDUCATED ON THE USE OF THE CALL PERDUE. FALL AND SAFETY MEASURES IN PLACE, BED ALARM ON, BED IN LOW AND LOCK POSITION, CALL LIGHT AND TABLE WITHIN EASY REACH, SIDE RAILS UP X2.
[2022-04-01] MEDS: BLOOD SUGAR DIAGNOSTIC 1 EACH STRIP IN SCH ×2 (07:30→12:14)
--- NOTE | 2022-04-01 07:30 | NUR ---
RN OPENING NOTE RECEIVED PATIENT ALERT AND ORIENTED X 2-3. ON ROOM AIR, WITH EQUAL AND UNLABORED BREATHING WITH NO DISTRESS OR SHORTNESS OF BREATH NOTED SATURATING AT 96%. PATIENT DENIES PAIN AT THIS TIME. PATIENT DENIES SUICIDE IDEATION AND HOMICIDAL IDEATION AT THIS TIME. PATIENT HAS NO NEEDS AT THIS TIME. PATIENT EDUCATED ON THE USE OF THE CALL PERDUE. FALL AND SAFETY MEASURES IN PLACE, BED ALARM ON, BED IN LOW AND LOCK POSITION, CALL LIGHT AND TABLE WITHIN EASY REACH, SIDE RAILS UP X2. WILL CONTINUE TO MONITOR
[2022-04-01 08:00] VITALS: BP 127/74
[2022-04-01] MEDS: PANTOPRAZOLE 40 MG TABLET.DR PO SCH (08:22)
[2022-04-01] MEDS: BUMETANIDE (1 MG) 1 MG TABLET PO SCH (08:22)
[2022-04-01] MEDS: AMOXICILLIN TRIHYDRATE 250 MG CAPSULE PO SCH (08:22)
[2022-04-01] MEDS: ALLOPURINOL 100 MG TABLET PO SCH (08:23)
[2022-04-01] MEDS: cetrizine 10 MG TABLET PO SCH (08:23)
[2022-04-01] MEDS: GABAPENTIN 300 MG CAPSULE PO SCH ×2 (08:23→12:13)
[2022-04-01] MEDS: LEVOTHYROXINE SODIUM 25 MCG TABLET PO SCH (08:23)
[2022-04-01] MEDS: POTASSIUM CHLORIDE 10 MEQ TABLET.SA PO SCH (08:23)
[2022-04-01] MEDS: VENLAFAXINE XR 75 MG CAP.SR.24H PO SCH (08:23)
[2022-04-01 08:24] VITALS: BP 127/74
[2022-04-01] MEDS: DILTIAZEM HCL CD 240 MG PO SCH (08:24)
[2022-04-01] MEDS: MAGNESIUM OXIDE 400 MG TABLET PO SCH (08:30)
[2022-04-01] MEDS: APIXABAN 5 MG TABLET PO SCH (08:31)
[2022-04-01] MEDS ORDERED: KEY,NONCONTROL,TO KEEP IN PYXI 1 EA MC ONE ×4 (08:48→12:56)
--- NOTE | 2022-04-01 09:00 | NUR ---
NATE Initial Discharge Plan: Patient currently resides at home oated at [address] [place] [id number]; ([phone]). Patient lives with her . Patient's daughter Sofia ([phone]) is involved in her care. Patient will be returning back home. NATE will work with the MD, treatment team, and family to help coordinate appropriate discharge.
--- NOTE | 2022-04-01 09:00 | NUR ---
Clinical Note: Patient placed on a 5150 hold for GD. Pt had verbalized that she is feeling depressed and appeared disorganized on the medical surgical floor. Patient currently resides at home [facility] at [address] [place] [address]; ([phone]). Patient lives with her . Patient's daughter Sofia ([phone]) is involved in her care.
--- NOTE | 2022-04-01 09:01 | NUR ---
NATE Family Contact: NATE spoke with pt's daughter Sofia ([phone]) and discussed treatment and discharge plan. SW notified that pt will be discharged today back home and she was aware. Sofia will rock picker pt today at 1PM.
--- NOTE | 2022-04-01 09:30 | NUR ---
RN NOTE PATIENT'S SUBOXONE NOTED DISCREPANCY IN COUNT. CONSULTED CHARGE NURSE AND ELEVATED CONCERN TO PHARMACIST SHIRA. MEDICATION AND MEDICATION COUNT SHEET BROUGHT TO PHARMACY AND GIVEN TO PHARMACIST TO CORRECTION. PENDING TODAY'S DOSE.
--- NOTE | 2022-04-01 09:31 | NUR ---
Coordination of Care: Patient will follow up with primary doctor, Dr. Aparicio located at [address] [place] [address] [address], [place] [address]; ([phone]) on April 11 at 9:15AM who will monitor and provide psychotropic medications.
--- NOTE | 2022-04-01 09:31 | NUR ---
SW Discharge Note: Patient will be discharged back home located at [address] [place] [address]; ([phone]). Patients daughter Sofia ([phone]) will forklift picker pt at 1PM. Patient is alert and oriented x2. Patient happy to be going back home. Patient denies suicidal or homicidal ideation. Patient denies visual/auditory hallucinations. Patient will follow up with primary doctor, Dr. Aparicio located at [address] [place] [address]; ([phone]) on April 11 at 9:15AM who will monitor and provide psychotropic medications. Patient presents with euthymic mood and congruent affect.
[2022-04-01] MEDS: BUPRENORPHINE SL SCH ×2 (10:00→12:14)
[2022-04-01] MEDS: NALOXONE SL SCH ×2 (10:00→12:14)
--- NOTE | 2022-04-01 10:35 | NUR ---
RN NOTE FOLLOW UP DONE ON MEDICATION SUBOXONE, STILL WORKING ON MEDICATION DISCREPANCY. WILL FOLLOW UP.
--- NOTE | 2022-04-01 10:45 | NUR ---
RN NOTE PATIENT SEEN BY DR. THORPE WITH ORDERS FOR DISCHARGE WITH MEDICATIONS RECONCILED.
[2022-04-01 12:05] LABS: BILIRUBIN,URINE NEGATIVE (NEGATIVE); COLOR,URINE YELLOW (YELLOW); LEUKOCYTE ESTERASE ,URINE NEGATIVE (NEGATIVE); NITRITE, URINE NEGATIVE (NEGATIVE); PROTEIN,URINE NEGATIVE (NEGATIVE); UGLUCOSE NEGATIVE (NEGATIVE); UROBILINOGEN,URINE 0.2 EU/dL (0.2)
--- NOTE | 2022-04-01 12:20 | NUR ---
RN NOTE DISCREPANCY RESOLVED, AND SUBOXONE GIVEN SL.
--- NOTE | 2022-04-01 12:41 | NUR ---
RN NOTE HEALTH TEACHING DONE REGARDING DISCHARGE. PATIENT VERBALIZED UNDERSTANDING AND APPRECIATION. AWAITING DAUGHTER/ FAMILY TO PACKAGE DYER PATIENT. IN STABLE CONDITION. PATIENT REFUSED BODY CHECK BUT AGREED ON HAVING DRESSING CHANGED ON THE RIGHT GREAT TOE. DRESSING CHANGED AND DRESSING DRY AND INTACT. COMFORT MEASURES PROVIDED.
--- NOTE | 2022-04-01 13:22 | NUR ---
RN NOTE PATIENT DISCHARGED ORDERED. IN STABLE CONDITION AND WITH GOOD DISPOSITION. PER DAUGHTER, PATIENT CAME WITH SOME BELONGINGS WHICH INCLUDES T-SHIRT, SWEAT PANTS (NAVY BLUE) AND A PAIR OF SHOES (SUEDE, CLOSED TOES). BELONGINGS LIST SHOWED PATIENT DID NOT COME WITH ANY PERSONAL BELONGINGS. ISSUE WAS ELEVATED TO MANAGER BUSINESS SYSTEMS CARIDAD. APPARENTLY, PATIENT CAME FROM ANOTHER DEPARTMENT, [facility]. MANAGER BUSINESS SYSTEMS WILL FOLLOW UP AND DAUGHTER GIVEN THE PHONE NUMBER AND EXTENSION NUMBER OF THE MANAGER BUSINESS SYSTEMS. PATIENT ACCOMPANIED TO LOBBY BY NURSE VIA WHEELCHAIR. IN STABLE CONDITION. ENDORSED ACCORDINGLY.
[2022-04-01 15:12] LABS: CREATININE, URINE 45.5 MG/DL (30.0-125.0)
== END 2022-04-01 13:15 | disposition home or self-care (01) | DRG 885 ==
LOC: GPS 18:04
PROVIDERS: ADMIT Psychiatry & Neurology Psychiatry; ATTEND Student in an Organized Health Care Education/Training Program
DX: F39 Unspecified mood [affective] disorder (principal); N17.0 Acute kidney failure with tubular necrosis; N18.9 Chronic kidney disease, unspecified; G93.41 Metabolic encephalopathy; M48.54XA Collapsed vertebra, not elsewhere classified, thoracic region, initial encounter for fracture; I48.20 Chronic atrial fibrillation, unspecified; D68.59 Other primary thrombophilia; F32.A Depression, unspecified; F29 Unspecified psychosis not due to a substance or known physiological condition; I12.9 Hypertensive chronic kidney disease with stage 1 through stage 4 chronic kidney disease, or unspecified chronic kidney disease; M79.7 Fibromyalgia; Z73.6 Limitation of activities due to disability; F03.90 Unspecified dementia, unspecified severity, without behavioral disturbance, psychotic disturbance, mood disturbance, and anxiety; R29.6 Repeated falls; M81.0 Age-related osteoporosis without current pathological fracture; I25.10 Atherosclerotic heart disease of native coronary artery without angina pectoris; E03.9 Hypothyroidism, unspecified; E11.22 Type 2 diabetes mellitus with diabetic chronic kidney disease; E78.5 Hyperlipidemia, unspecified; J44.9 Chronic obstructive pulmonary disease, unspecified; G89.29 Other chronic pain; Z90.710 Acquired absence of both cervix and uterus; Z90.49 Acquired absence of other specified parts of digestive tract; Z87.891 Personal history of nicotine dependence; E88.09 Other disorders of plasma-protein metabolism, not elsewhere classified; Z79.01 Long term (current) use of anticoagulants; Z79.899 Other long term (current) drug therapy; Z87.39 Personal history of other diseases of the musculoskeletal system and connective tissue; S91.109A Unspecified open wound of unspecified toe(s) without damage to nail, initial encounter; L08.9 Local infection of the skin and subcutaneous tissue, unspecified; X58.XXXA Exposure to other specified factors, initial encounter; Y92.9 Unspecified place or not applicable; F41.9 Anxiety disorder, unspecified
CPT/HCPCS: 36415; 80053-TC; 80061-TC; 82570-TC; 84300-TC; 85025-TC; 87081-TC; 97112-TC; 97116-TC; 97530-TC; J1815

== ENCOUNTER 2022-08-21 21:20 | Emergency (ER) | payer MEDICARE, OTHER ==
[~2022-08-21] VITALS: Ht 177.8 cm; Wt 136.1 kg
[~2022-08-21 21:20] MED LIST changes: +ACET-868 PO; +ALLA266C2 TP; +ATOR10TA PO; +BLOO-668 IN; -CEPH750C9 PO; +DEXT50DI8 IV; -DIAZ10TA4 PO; +GABA-532 PO; -GABA300C PO; +HYDR-3980 PO; +HYDR-4209 PO; +INSU100V3 SQ; +MAG30ORA PO; +MAGN400O6 PO; +PANT40TA2 PO; -PRAV10TA40 PO; -QUET25TA PO; -TRAZ150T75 MT; -VENL150C2 PO
--- NOTE | 2022-08-21 22:32 | NUR ---
DTR MIRIAM [phone]
[2022-08-21] MEDS ORDERED: LIDOCAINE HCL/PF 1% 30 ML VIAL TP ONE (23:00)
--- NOTE | 2022-08-21 23:15 | NUR ---
PATIENT [id number] FROM HOME C/O LEFT LOWER LEG WOUND. PATIENT IS A/O X 3, RR EVEN AND UNLABORED NO SOB NOTED, VSS, PATIENT IS AFEBRILE. PATINET TAKEN TO ER BED 16 CONNECTED TO CARIDAC AND POX MONITORS. WILL CONTINUIE TO MONITOR.
[2022-08-21 23:39] LABS: BASOPHILS % (AUTO) 0.3 % (0.0-2.0); EOSINOPHILS % (AUTO) 0.9 % (0.0-6.0); HEMATOCRIT 34 % (33-45); HEMOGLOBIN 9.9 g/dL (11.5-14.8); LYMPHOCYTES # (AUTO) 2.9 K/uL (0.8-4.8); LYMPHOCYTES % (AUTO) 18.9 % (20.0-44.0); MEAN CORPUSCULAR HGB CONC 29 g/dl (31.0-36.0); MEAN CORPUSCULAR VOLUME 89 fL (82-100); MONOCYTES # (AUTO) 1.5 K/uL (0.1-1.30); MONOCYTES % (AUTO) 9.7 % (2.0-12.0); NEUTROPHILS # (AUTO) 10.6 K/uL (1.8-8.9); NEUTROPHILS % (AUTO) 70.2 % (43.0-81.0); PLATELET COUNT (AUTO) 293 K/uL (150-450); RED BLOOD CELL COUNT(AUTO) 3.83 MIL/uL (4.0-5.2); WHITE BLOOD COUNT (AUTO) 15.1 K/uL (4.3-11.0)
[2022-08-21 23:56] LABS: CALCIUM, SERUM 8.2 mg/dL (8.5-10.1); CARBON DIOXIDE 31 mmol/L (21-32); CHLORIDE 101 mmol/L (98-107); CREATININE 1.6 mg/dL (0.6-1.3); GLUCOSE 101 mg/dL (74-106); POTASSIUM 4.4 mmol/L (3.5-5.1); SODIUM SERUM 134 mmol/L (136-145); UREA NITROGEN, BLOOD 35 mg/dL (7-18)
--- NOTE | 2022-08-22 02:43 | NUR ---
EMT AT PT'S BEDSIDE FOR WOUND CARE
--- NOTE | 2022-08-22 03:09 | NUR ---
FAMILY TO SWEATBAND SHAPER PATIENT ETA 7 AM
--- NOTE | 2022-08-22 04:52 | NUR ---
PT URINATED VIA BEDPAN/INCONTINENT. ADLS DONE; PT KEPT CLEAN AND DRY. SAFETY MEASURES IN PLACE.
--- NOTE | 2022-08-22 07:06 | NUR ---
Patient discharged to home in stable condition with son. Written and verbal after care instructions given. Patient verbalizes understanding of instruction. DC via W/C.
[2022-08-22 07:07] VITALS: BP 108/68
== END 2022-08-22 07:07 | disposition home or self-care (01) ==
LOC: ER 21:26
DX: S20.219A Contusion of unspecified front wall of thorax, initial encounter (principal); S30.1XXA Contusion of abdominal wall, initial encounter; R79.89 Other specified abnormal findings of blood chemistry; D72.829 Elevated white blood cell count, unspecified; I10 Essential (primary) hypertension; E78.5 Hyperlipidemia, unspecified; I48.91 Unspecified atrial fibrillation; E11.9 Type 2 diabetes mellitus without complications; M79.7 Fibromyalgia; G89.29 Other chronic pain; F41.9 Anxiety disorder, unspecified; F17.200 Nicotine dependence, unspecified, uncomplicated; Z86.69 Personal history of other diseases of the nervous system and sense organs; Z90.89 Acquired absence of other organs; Z90.710 Acquired absence of both cervix and uterus; Z79.899 Other long term (current) drug therapy; W50.4XXA Accidental scratch by another person, initial encounter; Y93.89 Activity, other specified; Y92.89 Other specified places as the place of occurrence of the external cause; Y99.8 Other external cause status
CPT/HCPCS: 99284; 71250; 12001; 70450; 74176; 85025; 80048; 36415; 85730; J3490; A6403

== ENCOUNTER 2022-09-09 09:56 | Emergency (ER) | payer MEDICARE, OTHER ==
[~2022-09-09] VITALS: Ht 162.6 cm; Wt 106.6 kg
[2022-09-09 10:04] VITALS: BP 132/71
--- NOTE | 2022-09-09 10:20 | NUR ---
PT SEEN BY FOR EVSAL
--- NOTE | 2022-09-09 10:25 | NUR ---
TECH AT BEDSIDE FOR WOUND CARE
--- NOTE | 2022-09-09 10:46 | NUR ---
Patient discharged to home in stable condition. Written and verbal after care instructions given. Patient verbalizes understanding of instruction.
== END 2022-09-09 10:49 | disposition home or self-care (01) ==
LOC: ER 09:59
DX: Z48.02 Encounter for removal of sutures (principal); I11.0 Hypertensive heart disease with heart failure; I50.9 Heart failure, unspecified; R60.0 Localized edema; E78.5 Hyperlipidemia, unspecified; I48.91 Unspecified atrial fibrillation; M79.7 Fibromyalgia; G89.29 Other chronic pain; J44.9 Chronic obstructive pulmonary disease, unspecified; F32.A Depression, unspecified; Z90.89 Acquired absence of other organs; Z90.710 Acquired absence of both cervix and uterus; F17.200 Nicotine dependence, unspecified, uncomplicated; Z79.899 Other long term (current) drug therapy

== ENCOUNTER 2022-10-16 08:54 | Emergency (ER) | payer MEDICARE, OTHER ==
[~2022-10-16] VITALS: Ht 165.1 cm; Wt 115.2 kg
--- NOTE | 2022-10-16 09:00 | NUR ---
[id number], c/o sob x 3-4 days 98% on room air.
[2022-10-16] MEDS ORDERED: PRAV10TA40 PO (09:26)
[2022-10-16] MEDS ORDERED: TRAZ-257 PO (09:26)
[2022-10-16] MEDS ORDERED: VENL150C58 PO (09:26)
[2022-10-16] MEDS ORDERED: CLON1TAB12 PO (09:27)
[2022-10-16 09:38] LABS: HEMATOCRIT 25 % (33-45); HEMOGLOBIN 7.2 g/dL (11.5-14.8); MEAN CORPUSCULAR HGB CONC 29 g/dl (31.0-36.0); MEAN CORPUSCULAR VOLUME 74 fL (82-100); PLATELET COUNT (AUTO) 450 K/uL (150-450); RED BLOOD CELL COUNT(AUTO) 3.43 MIL/uL (4.0-5.2); WHITE BLOOD COUNT (AUTO) 11.6 K/uL (4.3-11.0)
[2022-10-16 09:39] LABS: BASOPHILS # (AUTO) 0.1 K/uL (0.0-0.2); BASOPHILS % (AUTO) 0.5 % (0.0-2.0); EOSINOPHILS % (AUTO) 1.6 % (0.0-6.0); LYMPHOCYTES # (AUTO) 1.6 K/uL (0.8-4.8); LYMPHOCYTES % (AUTO) 13.7 % (20.0-44.0); MONOCYTES # (AUTO) 1.1 K/uL (0.1-1.30); MONOCYTES % (AUTO) 9.2 % (2.0-12.0); NEUTROPHILS # (AUTO) 8.7 K/uL (1.8-8.9)
[2022-10-16 09:47] VITALS: BP 123/67
[2022-10-16] MEDS ORDERED: FUROSEMIDE 40 MG/4 ML VIAL IV ONE (10:00)
--- NOTE | 2022-10-16 10:02 | NUR ---
MOVE SHEET SUBMITTED.
[2022-10-16 10:04] LABS: CALCIUM, SERUM 8.8 mg/dL (8.5-10.1); CARBON DIOXIDE 29 mmol/L (21-32); CHLORIDE 104 mmol/L (98-107); CREATININE 1.4 mg/dL (0.6-1.3); GLUCOSE 128 mg/dL (74-106); POTASSIUM 4.1 mmol/L (3.5-5.1); SODIUM SERUM 139 mmol/L (136-145); UREA NITROGEN, BLOOD 25 mg/dL (7-18)
[2022-10-16 10:16] LABS: ALANINE AMINOTRANSFERASE 15 U/L (12-78); ALBUMIN 2.7 g/dL (3.4-5.0); ALKALINE PHOSPHATASE 125 U/L (46-116); ASPARTATE AMINOTRANSFERASE 16 U/L (15-37); BILIRUBIN,DIRECT 0.1 mg/dL (0.0-0.2); BILIRUBIN,TOTAL 0.2 mg/dL (0.2-1.0); TOTAL PROTEIN, SERUM 7.2 g/dL (6.4-8.2)
--- NOTE | 2022-10-16 10:23 | NUR ---
covid swab taken and sent to lab
[2022-10-16] MEDS ORDERED: FUROSEMIDE 40 MG/4 ML VIAL ONE (10:37)
--- NOTE | 2022-10-16 11:20 | NUR ---
urine collected and sent to lab
--- NOTE | 2022-10-16 11:59 | NUR ---
GOT BED 328-1
--- NOTE | 2022-10-16 12:12 | NUR ---
Lis tamez in [facility] - 10/16/22 at 1213 by NATE report given to Miranda garcia JENNI
--- NOTE | 2022-10-16 12:13 | NUR ---
report given to hieu GOODWIN for JENNI
--- NOTE | 2022-10-16 14:34 | NUR ---
RN AMA REPORT RECEIVED PATIENT [facility] , DUE DX OF CHF EXACERBATION , A/O X 4 , VERBALLY RESPONSIVE AND ABLE TO MAKE NEEDS KNOWN , ON ROOM AIR AND NO SOB OR DISTRESS NOTED UPON ARRIVAL , NO C/O OF PAIN AND DISCOMFORT , PATIENT COMPLAINED ABOUT THAT HER BUTTOM PAJAMA WAS MISSING AND SOMEONE TOOK AND CALLING STAFF TREY , ER WAS CALLED AND INFORMED REGARDING THE MISSING PANTS AND THEY SAID THAT SHE ONLY HAD THE TOP PAJAMA AND DIAPER WHEN SHE CAME IN , ONE STAFF WENT TO ER TO DOUBLE CHECK BUT NOTHING FOUND , PATIENT TRIED TO GET UP BY HERSELF USING THE FOUR WHEEL WALKER , AMBULATORY USING THE FOUR WHEEL WALKER , OFFERED FOR BODY CHECK AND PATIENT REFUSED , REMOVED THE ID BAND AND PULLED OUT THE IV ACCESS , SCREAMING AND YELLING THAT SHE WANT TO GO HOME AND SHE SAID SHE DOESNT WANT ANY TREATMENT PROVIDED TO HER , STAFF FROM LAB CAME TO DRAW BLOOD BUT SHE REFUSED , V/S WAS TAKEN AND RECORDED BP 145/64, P 88 , RR 18, T 98.0, O2 SAT 96% , OFFERED TO HAVE THE TELE BOX BUT REFUSED , CALLED THE DAUGHTER SPOKE WITH MIRIAM AND EXPLAIN THAT HER MOTHER WANTS TO GO HOME AND SHE SAID HER DAD WILL DECIDE FOR IT , SPOKE WITH RENE AND EXPLAINED THAT SHE GONNA BE D/C AGAINST MEDICAL ADVICE AND RENE AGREED , EXPLAINED TO PATIENT REGARDING THE AMA FORM AND AND SHE SIGNED AND AGREED TO GO AGAINST MEDICAL ADVICE , PATIENT WAS PIC K UP BY AND ASSISTED TO LOBBY BY GREGORY Lees RN , PATIENT LEFT WITH NO SOB OR ANY DISTRESS NOTED AND NO C/ O OF PAIN AND DISCOMFORT , LEFT VIA PRIVATE CAR WITH AND ALL HER BELONGINGS WERE TAKEN
== END 2022-10-16 14:30 | disposition left against medical advice (07) ==
LOC: ER 08:59 → UNDOADMIN 12:08 → TELE 12:08 → ER 14:30 → UNDODISIN 14:30
DX: I11.0 Hypertensive heart disease with heart failure (principal); I50.9 Heart failure, unspecified; R06.09 Other forms of dyspnea; R60.0 Localized edema; Z20.822 Contact with and (suspected) exposure to COVID-19; D50.9 Iron deficiency anemia, unspecified; F03.90 Unspecified dementia, unspecified severity, without behavioral disturbance, psychotic disturbance, mood disturbance, and anxiety; I48.91 Unspecified atrial fibrillation; Z79.01 Long term (current) use of anticoagulants; M79.7 Fibromyalgia; E11.40 Type 2 diabetes mellitus with diabetic neuropathy, unspecified; Z79.4 Long term (current) use of insulin; G89.29 Other chronic pain; M54.9 Dorsalgia, unspecified; J44.9 Chronic obstructive pulmonary disease, unspecified; E78.5 Hyperlipidemia, unspecified; E66.9 Obesity, unspecified; Z68.41 Body mass index [BMI] 40.0-44.9, adult; Z53.29 Procedure and treatment not carried out because of patient's decision for other reasons; F32.A Depression, unspecified; Z79.899 Other long term (current) drug therapy; Z90.710 Acquired absence of both cervix and uterus; Z87.891 Personal history of nicotine dependence; R07.9 Chest pain, unspecified
CPT/HCPCS: 99285; 96374; 71045; 87426; 93005; 85025; 80048; 80076; 36415; 84484 ×2; 86850; 83880; J1940; C9803; G0378

== ENCOUNTER 2022-12-31 20:16 | Inpatient (IN) | payer MEDICARE, OTHER ==
[~2022-12-31] VITALS: Ht 162.6 cm; Wt 110.7 kg
[~2022-12-31 20:16] MED LIST changes: -ACET-868 PO; -ALLA266C2 TP; -AMOX500C2 PO; -ATOR10TA PO; -BLOO-668 IN; -BUPR1FIL3 SL; -CETI-355 PO; +CLON1TAB12 PO; -DEXT50DI8 IV; -HYDR-3980 PO; -HYDR-4209 PO; -INSU100V3 SQ; -MAG30ORA PO; -MAGN400O6 PO; -MAGN400T52 PO; -PANT40TA2 PO; +PRAV10TA40 PO; +TRAZ-257 PO; +VENL150C58 PO
--- NOTE | 2022-12-31 23:00 | NUR ---
CLINICAL MATERIAL HANDLERDEPOSITION OPERATOR NOTE PT BROUGHT UP VIA GURNEY WITH 2 CREDIT COLLECTION SPECIALIST FROM [facility] AT THIS TIME. [facility] UNDER LOAD BLOCKER [place] FOR ADMITTING DX COPD EXACERBATION. A/O X4 AND ABLE TO MAKE NEEDS KNOWN. PT ON O2 @ 2LPM VIA NC, TOLERATING WELL. SOB UPON EXCERTION. NO S/S OF RESPIRATORY DISTRESS. ON EXTERNAL NIGHT COORDINATOR READING A FIB 111 BPM. IV ACCESS RAC 20G SL, INTACT AND PATENT. AMBULATORY WITH WALKER. NOTED WITH WOUND LLE, BLE REDNESS, AND RUE ABRASION, WOUND CARE CONSULT ORDERED. ORIENTED TO UNIT, ROOM, AND STAFF. PT BELONGINGS ACCOUNTED FOR AND BELONGINGS LIST SIGNED. SAFETY PRECAUTIONS IN PLACE. BED IN LOWEST LOCKED POSITION, HOB ELEVATED, SIDE RAILS UP X3, BED ALARM ON, AND CALL LIGHT AND TABLE WITHIN REACH. ALL NEEDS MET AT THIS TIME.
[2023-01-01] MEDS ORDERED: IPRATROPIUM NEB FS 0.5 MG/2.5 ML AMPUL.NEB NEB PRN (00:30)
[2023-01-01] MEDS ORDERED: ACETAMINOPHEN 325 MG TABLET PO PRN (00:30)
[2023-01-01] MEDS ORDERED: ONDANSETRON HCL/PF 4 MG/2 ML VIAL IVP PRN (00:30)
[2023-01-01] MEDS ORDERED: MAG HYDROX/AL HYDROX/SIMETH 30 ML UDC PO PRN (00:30)
[2023-01-01] MEDS ORDERED: ALBUTEROL FS 2.5 MG/0.5 ML VIAL.NEB NEB PRN (00:30)
[2023-01-01] MEDS ORDERED: MAGNESIUM HYDROXIDE 30 ML UDC PO PRN (00:30)
[2023-01-01] MEDS ORDERED: HYDROCODONE/APAP 5/325MG TABLET PO PRN (00:30)
[2023-01-01] MEDS ORDERED: Z GUARD REMEDY 4 OZ OINT TP PRN (00:30)
[2023-01-01 01:05] VITALS: BP 151/95
[2023-01-01] MEDS: TRAZODONE 50 MG TABLET PO PRN ×2 (02:27→23:55)
--- NOTE | 2023-01-01 02:27 | NUR ---
RN NOTE PT REQUESTED SLEEPING MEDICATION. ADMINISTERED TRAZODONE 100 MG FOR SLEEP ORDERED. MADE COMFORTABLE IN BED. ALL NEEDS MET AT THIS TIME.
[2023-01-01] MEDS: methylPREDNISolone SOD SUCC 40 MG/ML VIAL IV SCH ×3 (04:09→21:04)
[2023-01-01] MEDS: MORPHINE SULFATE INJ 2 MG/ML DISP.SYRIN IV PRN (04:09)
--- NOTE | 2023-01-01 04:10 | NUR ---
RN NOTE PT COMPLAINED OF PAIN 8/10 OF THE ABDOMEN. ADMINISTERED MORPHINE 4 MG IV FOR SEVERE PAIN ORDERED. MADE COMFORTABLE IN BED. ALL NEEDS MET AT THIS TIME.
[2023-01-01 04:28] VITALS: BP 163/110
--- NOTE | 2023-01-01 06:07 | NUR ---
RN NOTE CALLED AND LEFT MESSAGE FOR DAUGHTER LOULOU PER PATIENT REQUEST. PT UNABLE TO REMEMBER THE DOSAGE OF ALL THE MEDICATION SHE TAKES AT HOME AND STATED "MY DAUGHTER WOULD KNOW. SHE PREPARES MY MEDICATION FOR ME EVERYDAY". MED RECON UNABLE TO BE COMPLETED AT THIS TIME. LOULOU EATON [phone]
--- NOTE | 2023-01-01 06:36 | NUR ---
STATE TROOPER CLOSING NOTE PT AWAKE IN BED. A/O X4 AND ABLE TO MAKE NEEDS KNOWN. PT ON O2 @ 2LPM VIA NC, TOLERATING WELL. SOB UPON EXCERTION. NO S/S OF RESPIRATORY DISTRESS. ON EXTERNAL CHEMIST ENZYMES READING A FIB 114 BPM. IV ACCESS RAC 20G SL, INTACT AND PATENT. KEPT CLEAN AND DRY. ALL DUE MEDS GIVEN A ORDERED. MED RECON NOT COMPLETE, AWAITING DAUGHTER LOULOU CALL BACK TO VERIFY MEDICATION, WILL ENDORSE TO NEXT SHIFT. SAFETY PRECAUTIONS IN PLACE AT ALL TIMES. BED IN LOWEST LOCKED POSITION, HOB ELEVATED, SIDE RAILS UP X3, BED ALARM ON, AND CALL LIGHT AND TABLE WITHIN REACH. ALL NEEDS MET AT THIS TIME AND WILL ENDORSE TO ONCOMING NURSE FOR JENNI.
--- NOTE | 2023-01-01 07:30 | NUR ---
NURSE REVIEWER OPENING NOTE RECEIVED PT AWAKE IN BED. A/O X4 AND ABLE TO MAKE NEEDS KNOWN. PT ON O2 @ 2LPM VIA NC, TOLERATING WELL. PT HAD BM THIS AM. NO S/S OF RESPIRATORY DISTRESS. ON EXTERNAL REAMING MACHINE OPERATOR READING A FIB 84 BPM. IV ACCESS RAC 20G SL, INTACT AND PATENT. KEPT CLEAN AND DRY. ALL DUE MEDS GIVEN A ORDERED. SAFETY PRECAUTIONS IN PLACE AT ALL TIMES. BED IN LOWEST LOCKED POSITION, HOB ELEVATED, SIDE RAILS UP X3, BED ALARM ON, AND CALL LIGHT AND TABLE WITHIN REACH. WILL ADMINISTER SCHEDULED MEDS AND CONTINUE TO MONITOR PT.
[2023-01-01 08:00] VITALS: BP 150/97
[2023-01-01] MEDS: PANTOPRAZOLE 40 MG TABLET.DR PO SCH (08:18)
--- NOTE | 2023-01-01 08:59 | NUR ---
WOUND CARE CONSULT: PT PRESENTS WITH REDNESS AND EDEMA TO LOWER LEGS AND FEET WITH FRAGILE AREAS TO LOWER LEGS AND VARICOSE VEINS, PRESENT ON ADMISSION. PT ALSO HAS EXCORIATED AREA TO RT THIGH WHERE SHE STATES SHE SCRATCHED HER SKIN. NO DRAINAGE OR ERYTHEMA NOTED. DR QUINTANILLA CALLED FOR DPM CONSULT. IN AGREEMENT WITH PLAN OF CARE.
[2023-01-01 10:30] LABS: ABG BASE EXCESS 0.9 mmol/L; ABG PCO2 39.2 mmHg (35.0-45.0); ABG PH 7.426 (7.350-7.450); ABG PO2 80.9 mmHg (75.0-100.0); AaDO2 72.5 mmHg; COHb 1.1 % (0.5-1.5); MetHb 0.3 % (0.0-1.5); O2Hb 94.7 % (94.0-97.0); SITE, ABG Left Radial
[2023-01-01] MEDS: IPRATROPIUM NEB FS 0.5 MG/2.5 ML AMPUL.NEB NEB SCH ×3 (10:48→19:28)
[2023-01-01] MEDS ORDERED: CALC500T52 PO (11:08)
[2023-01-01] MEDS ORDERED: MULT-447 PO (11:08)
[2023-01-01] MEDS ORDERED: DIAZ10TA4 PO (11:08)
[2023-01-01] MEDS ORDERED: BUPR1FIL3 SL (11:08)
[2023-01-01] MEDS ORDERED: ONDA4TAB5 PO (11:08)
[2023-01-01] MEDS ORDERED: UBID100C13 PO (11:08)
[2023-01-01] MEDS ORDERED: EMPA10TA PO (11:08)
[2023-01-01] MEDS ORDERED: OMEG-167 PO (11:08)
[2023-01-01] MEDS ORDERED: CETI10TA14 PO (11:08)
[2023-01-01] MEDS ORDERED: GLUC-141 PO (11:08)
[2023-01-01] MEDS ORDERED: MAGN400T8 PO (11:08)
[2023-01-01] MEDS ORDERED: cetrizine 10 MG TABLET PO SCH (11:30)
[2023-01-01] MEDS: GABAPENTIN 100 MG CAPSULE PO SCH ×2 (12:12→17:14)
[2023-01-01] MEDS: CALCIUM CARBONATE (1250) 500 MG TABLET PO SCH (12:12)
[2023-01-01] MEDS: MAGNESIUM OXIDE 400 MG TABLET PO SCH (12:12)
[2023-01-01] MEDS: BUMETANIDE (1 MG) 1 MG TABLET PO SCH ×2 (12:12→17:14)
[2023-01-01 12:15] LABS: ALANINE AMINOTRANSFERASE 23 U/L (12-78); ALBUMIN 3.5 g/dL (3.4-5.0); ALKALINE PHOSPHATASE 79 U/L (46-116); ASPARTATE AMINOTRANSFERASE 24 U/L (15-37); BILIRUBIN,DIRECT 0.1 mg/dL (0.0-0.2); BILIRUBIN,TOTAL 0.2 mg/dL (0.2-1.0); CALCIUM, SERUM 9.4 mg/dL (8.5-10.1); CARBON DIOXIDE 26 mmol/L (21-32); CHLORIDE 102 mmol/L (98-107); CREATININE 1.5 mg/dL (0.6-1.3); GLUCOSE 156 mg/dL (74-106); POTASSIUM 4.6 mmol/L (3.5-5.1); SODIUM SERUM 138 mmol/L (136-145); UREA NITROGEN, BLOOD 22 mg/dL (7-18)
[2023-01-01] MEDS: DILTIAZEM HCL CD 240 MG PO SCH (12:25)
[2023-01-01] MEDS: MULTIVIT W/MINERALS 1 TAB TABLET PO SCH (12:30)
[2023-01-01] MEDS: LEVOTHYROXINE SODIUM 25 MCG TABLET PO SCH (12:32)
[2023-01-01 12:42] LABS: BASOPHILS % (AUTO) 0.1 % (0.0-2.0); HEMATOCRIT 43 % (33-45); HEMOGLOBIN 12.7 g/dL (11.5-14.8); LYMPHOCYTES # (AUTO) 0.8 K/uL (0.8-4.8); LYMPHOCYTES % (AUTO) 11.9 % (20.0-44.0); MEAN CORPUSCULAR HGB CONC 30 g/dl (31.0-36.0); MEAN CORPUSCULAR VOLUME 85 fL (82-100); MONOCYTES # (AUTO) 0.1 K/uL (0.1-1.30); MONOCYTES % (AUTO) 1.8 % (2.0-12.0); NEUTROPHILS # (AUTO) 6.1 K/uL (1.8-8.9); NEUTROPHILS % (AUTO) 86.2 % (43.0-81.0); PLATELET COUNT (AUTO) 332 K/uL (150-450); RED BLOOD CELL COUNT(AUTO) 5.05 MIL/uL (4.0-5.2)
[2023-01-01] MEDS ORDERED: DIAZEPAM 10 MG TABLET PO SCH (13:00)
[2023-01-01] MEDS ORDERED: VANCOMYCIN 1.5 GM in IV D5W 500ml IV ONE (14:00)
[2023-01-01] MEDS: APIXABAN 5 MG TABLET PO SCH ×2 (15:43→21:06)
[2023-01-01 16:00] VITALS: BP 142/87
--- NOTE | 2023-01-01 18:52 | NUR ---
HAND ROLLER CLOSING NOTE PT AWAKE RESTING IN BED. A/O X4 AND ABLE TO MAKE NEEDS KNOWN. PT STABLE ON ROOM AIR, TOLERATING WELL. NO S/S OF RESPIRATORY DISTRESS. ON EXTERNAL NEGOTIATOR SALES READING A FIB 88 BPM. IV ACCESS RAC 20G SL, INTACT AND PATENT. KEPT CLEAN AND DRY. ALL DUE MEDS GIVEN A ORDERED. SAFETY PRECAUTIONS IN PLACE AT ALL TIMES. BED IN LOWEST LOCKED POSITION, HOB ELEVATED, SIDE RAILS UP X3, BED ALARM ON, AND CALL LIGHT AND TABLE WITHIN REACH. ALL MEDS ADMINISTERED PRESCRIBED. WILL ENDORSE TO NEXT SHIFT
--- NOTE | 2023-01-01 19:30 | NUR ---
PRINTING EQUIPMENT MECHANIC OPENING NOTE RECEIVED PT AWAKE, SITTING IN BSC. PT A/O X4, AND ABLE TO MAKE NEEDS KNOWN. PT ON RA, TOLERATING WELL. NO S/S OF RESPIRATORY DISTRESS NOTED. ON EXTERNAL CO FOUNDER AND CHIEF STRATEGY OFFICER READING A FIB 86 BPM. IV ACCESS TO RIGHT AC 20G SL, INTACT AND PATENT. SAFETY PRECAUTIONS IN PLACE. BED IN LOWEST LOCKED POSITION, HOB ELEVATED, SIDE RAILS UP X2, BED ALARM ON, AND CALL LIGHT AND TABLE WITHIN REACH. WILL CONTINUE TO MONITOR PT.
[2023-01-01 20:00] VITALS: BP 127/68
[2023-01-01] MEDS: TRAZODONE 50 MG TABLET PO SCH (21:04)
[2023-01-01] MEDS: ATORVASTATIN 10 MG TABLET PO SCH (21:04)
--- NOTE | 2023-01-01 23:50 | NUR ---
MATRIX PLATER NOTE PT C/O INSOMNIA. TRAZODONE PRN IS OFFERED TO PT, BUT PT DECLINED. MED IS RETURNED.
[2023-01-02] VITALS: BP 152/90
--- NOTE | 2023-01-02 | NUR ---
LINUX SYSTEMS ENGINEER NOTE PT REPORTS PAIN TO NECK, SHOULDERS, AND BACK. PAIN MED MORPHINE ADMINISTERED TO PT.
[2023-01-02] MEDS: MORPHINE SULFATE INJ 2 MG/ML DISP.SYRIN IV PRN (00:01)
--- NOTE | 2023-01-02 00:20 | NUR ---
METAL SPRAYER MACHINED PARTS NOTE ENDORSED PT TO NURSE BENZ FOR CONTINUITY OF CARE.
--- NOTE | 2023-01-02 00:30 | NUR ---
AQUACULTURIST NOTE RECEIVED PATIENT FROM KRISTEN RN; PATIENT IS A/O X 4, ABLE TO MAKE NEEDS KNOWN; STABLE ON ROOM AIR, TOLERATING WELL BREATHING EVENLY AND NO S/S OF DISTRESS NOTED; WITH IV ACCESS ON RAC G#20 - SALINE LOCK; ENCOURAGED VERBALIZATION OF NEEDS; WITH PRESENCE OF SITTER AT BEDSIDE; SAFETY MEASURES IMPLEMENTED, BED IN LOW AND LOCKED POSITION, SIDE RAILS UP X 2, CALL LIGHT WITHIN REACH; WILL CONTINUE TO MONITOR THROUGHOUT SHIFT
[2023-01-02] MEDS: IPRATROPIUM NEB FS 0.5 MG/2.5 ML AMPUL.NEB NEB SCH ×4 (01:30→20:04)
[2023-01-02] MEDS: clonazePAM 1 MG TABLET PO PRN ×2 (02:05→22:50)
[2023-01-02 04:00] VITALS: BP 130/98
[2023-01-02] MEDS: methylPREDNISolone SOD SUCC 40 MG/ML VIAL IV SCH ×3 (04:35→20:08)
[2023-01-02 06:22] LABS: BASOPHILS % (AUTO) 0.1 % (0.0-2.0); HEMATOCRIT 39 % (33-45); HEMOGLOBIN 11.7 g/dL (11.5-14.8); LYMPHOCYTES # (AUTO) 0.6 K/uL (0.8-4.8); LYMPHOCYTES % (AUTO) 4.1 % (20.0-44.0); MEAN CORPUSCULAR HGB CONC 30 g/dl (31.0-36.0); MEAN CORPUSCULAR VOLUME 84 fL (82-100); MONOCYTES # (AUTO) 0.5 K/uL (0.1-1.30); MONOCYTES % (AUTO) 3.5 % (2.0-12.0); NEUTROPHILS # (AUTO) 12.6 K/uL (1.8-8.9); NEUTROPHILS % (AUTO) 92.3 % (43.0-81.0); PLATELET COUNT (AUTO) 280 K/uL (150-450); RED BLOOD CELL COUNT(AUTO) 4.63 MIL/uL (4.0-5.2); WHITE BLOOD COUNT (AUTO) 13.6 K/uL (4.3-11.0)
--- NOTE | 2023-01-02 06:50 | NUR ---
HUMAN RESOURCES BENEFITS SPECIALIST CLOSING NOTE PATIENT IN BED, A/O X 4, ABLE TO MAKE NEEDS KNOWN; STABLE ON ROOM AIR, TOLERATING WELL, BREATHING EVENLY AND NO S/S OF DISTRESS NOTED; WITH IV ACCESS ON RAC G#20 - SALINE LOCK, INTACT AND PATENT, FLUSHING WELL; WITH PRESENCE OF SITTER AT BEDSIDE; HAD EPISODE OF NERVOUS BREAKDOWN VERBALIZED BY PATIENT BUT WAS ABLE TO CALM DOWN IMMEDIATELY AND FELL ASLEEP; ADMINISTERED MEDICATIONS PRESCRIBED, PATIENT'S NEEDS ATTENDED; MONITORED PATIENT ACCORDINGLY; SAFETY MEASURES IMPLEMENTED, BED IN LOW AND LOCKED POSITION, SIDE RAILS UP X 2, CALL LIGHT WITHIN REACH; WILL ENDORSE TO AM NURSE FOR JENNI.
[2023-01-02 07:02] LABS: CALCIUM, SERUM 8.8 mg/dL (8.5-10.1); CARBON DIOXIDE 27 mmol/L (21-32); CHLORIDE 103 mmol/L (98-107); CREATININE 1.3 mg/dL (0.6-1.3); GLUCOSE 183 mg/dL (74-106); MAGNESIUM 2.4 mg/dL (1.8-2.4); PHOSPHORUS 3.4 mg/dL (2.5-4.9); POTASSIUM 4.1 mmol/L (3.5-5.1); SODIUM SERUM 139 mmol/L (136-145); UREA NITROGEN, BLOOD 23 mg/dL (7-18)
--- NOTE | 2023-01-02 07:12 | NUR ---
RESPIRATORY ASSISTANT OPENING NOTES RECEIVED PATIENT AWAKE IN CHAIR, A/Ox4, ABLE TO MAKE NEEDS KNOWN. SITTER AT BEDSIDE. ON ROOM AIR, NO S/S OF RESPIRATORY DISTRESS. ON TELE MONITORING SHOWING A-FIB HR 109. IV ACCESS RAC #20G S/L. INTACT AND PATENT. NO C/O OF CHEST PAIN OR DISCOMFORT. AMBULATORY WITH WALKER/ASSIST, USES BEDSIDE COMMODE. SKIN ISSUES: L LEG WOUND, BLE REDNESS, R ARM ABRASION. SAFETY MEASURES IN PLACE: BED LOCKED AND IN LOWEST POSITION, HOB ELEVATED, CALL LIGHT WITHIN REACH, SIDE RAILS UPx2. WILL CONTINUE TO MONITOR.
[2023-01-02] MEDS: LEVOTHYROXINE SODIUM 25 MCG TABLET PO SCH (07:50)
[2023-01-02] MEDS: PANTOPRAZOLE 40 MG TABLET.DR PO SCH (07:50)
[2023-01-02] MEDS: MAGNESIUM OXIDE 400 MG TABLET PO SCH (08:50)
[2023-01-02] MEDS: VENLAFAXINE XR 75 MG CAP.SR.24H PO SCH (08:50)
[2023-01-02] MEDS: BUMETANIDE (1 MG) 1 MG TABLET PO SCH (08:51)
[2023-01-02] MEDS: CALCIUM CARBONATE (1250) 500 MG TABLET PO SCH (08:51)
[2023-01-02] MEDS: ALLOPURINOL 100 MG TABLET PO SCH (08:51)
[2023-01-02] MEDS: MULTIVIT W/MINERALS 1 TAB TABLET PO SCH (08:51)
[2023-01-02] MEDS: DILTIAZEM HCL CD 240 MG PO SCH (08:51)
[2023-01-02] MEDS: APIXABAN 5 MG TABLET PO SCH ×2 (08:57→20:09)
[2023-01-02] MEDS: AMMONIUM LACTATE 227 GM BOTTLE TP SCH ×2 (09:00→17:39)
[2023-01-02] MEDS: FLUOCINONIDE 0.05% CREAM 60 GM TUBE TP SCH ×2 (09:00→17:39)
[2023-01-02] MEDS ORDERED: BUMETANIDE INJ 4 MG in IV D5W 24 ML IV ONE (10:00)
[2023-01-02] MEDS: FUROSEMIDE 40 MG/4 ML VIAL IV SCH ×3 (10:36→17:39)
--- NOTE | 2023-01-02 11:11 | NUR ---
RN NOTES LAC HYDRIN AND LIDEX NOT AVAILABLE ON UNIT. NOTIFIED PHARMACY x2, WILL AWAIT FOR MEDICATION.
[2023-01-02] MEDS ORDERED: VANCOMYCIN 1 GM in IV D5W 250ml IV SCH (14:00)
[2023-01-02] MEDS ORDERED: ALPRAZOLAM 1 MG TABLET PO ONE (14:30)
[2023-01-02] MEDS: VANCOMYCIN 1.25 GM in IV D5W 250 ML IV SCH (14:50)
[2023-01-02 16:00] VITALS: BP 148/84
[2023-01-02 18:04] LABS: BILIRUBIN,URINE NEGATIVE (NEGATIVE); COLOR,URINE YELLOW (YELLOW); LEUKOCYTE ESTERASE ,URINE NEGATIVE (NEGATIVE); NITRITE, URINE NEGATIVE (NEGATIVE); PROTEIN,URINE NEGATIVE (NEGATIVE); UGLUCOSE NEGATIVE (NEGATIVE); UROBILINOGEN,URINE 0.2 EU/dL (0.2)
[2023-01-02 18:17] LABS: BACTERIA,URINE Rare /HPF (None Seen); SQUAMOUS EPITHELIAL CELL,UR Few /HPF (None Seen); WBC,URINE 0-2 /HPF (0-3)
--- NOTE | 2023-01-02 18:57 | NUR ---
EPILEPSY PHYSICIAN CLOSING NOTES PATIENT AWAKE IN BED, A/Ox4, ABLE TO MAKE NEEDS KNOWN. STABLE ON ROOM AIR, NO S/S OF RESPIRATORY DISTRESS. ON TELE MONITORING SHOWING A-FIB HR 109. IV ACCESS RAC #20G S/L. INTACT AND PATENT. NO C/O OF CHEST PAIN OR DISCOMFORT. AMBULATORY WITH WALKER/ASSIST, USES BEDSIDE COMMODE. SKIN ISSUES: L LEG WOUND, BLE REDNESS, R ARM ABRASION. SAFETY MEASURES MAINTAINED: BED LOCKED AND IN LOWEST POSITION, HOB ELEVATED, CALL LIGHT WITHIN REACH, SIDE RAILS UPx2. WILL ENDORSE TO NEXT SHIFT ANY JENNI.
--- NOTE | 2023-01-02 19:30 | NUR ---
QUALITY ASSURANCE REPRESENTATIVE OPENING NOTE RECEIVED PATIENT IN BED, AWAKE, ALERT AND ORIENTED X4. ABLE TO COMMUNICATE NEEDS WITH THE STAFFS. AFEBRILE AND NOT IN ANY FORM OF ACUTE DISTRESS. BREATHING EVEN AND NON LABORED. ON TELE MONITORING WITH CURRENT READING OF A-FIB 104. WITH IV ACCESS ON RAC 20G-SL. SAFETY MEASURES IN PLACE. KEPT BED IN LOCKED AND IN LOW POSITION. SIDE RAILS UP X2. ADVISED TO USE THE CALL LIGHT WHEN IN NEED OF ASSISTANCE.
[2023-01-02 20:06] VITALS: BP 142/102
[2023-01-02] MEDS: TRAZODONE 50 MG TABLET PO SCH (21:12)
[2023-01-02] MEDS: ATORVASTATIN 10 MG TABLET PO SCH (21:12)
--- NOTE | 2023-01-02 22:55 | NUR ---
PHYSICIAN ADVISOR NOTE PATIENT NOTED WITH AGITATION AND C/O THAT SHE'S UNABLE TO SLEEP DESPITE TAKING HER ROUTINE TRAZODONE. ADMINISTERED PRN CLONAZEPAM TO CALM HER DOWN.
[2023-01-03 00:19] VITALS: BP 144/101
[2023-01-03] MEDS: IPRATROPIUM NEB FS 0.5 MG/2.5 ML AMPUL.NEB NEB SCH ×3 (01:15→13:17)
[2023-01-03] MEDS: methylPREDNISolone SOD SUCC 40 MG/ML VIAL IV SCH ×2 (04:40→13:26)
--- NOTE | 2023-01-03 06:30 | NUR ---
PROTECTIVE SIGNAL OPERATOR CLOSING NOTE PATIENT IN BED, SLEEPING INTERMITTENTLY. ABLE TO COMMUNICATE NEEDS WITH THE STAFFS. AFEBRILE AND NOT IN ANY FORM OF ACUTE DISTRESS. BREATHING EVEN AND NON LABORED. ON TELE MONITORING WITH CURRENT READING OF A-FIB 102. WITH IV ACCESS ON RAC 20G-SL. MEDICATED ORDERED. SAFETY MEASURES IN PLACE. KEPT BED IN LOCKED AND IN LOW POSITION. SIDE RAILS UP X2. ADVISED TO USE THE CALL LIGHT WHEN IN NEED OF ASSISTANCE. ALL NURSING NEEDS ATTENDED. ENDORSED TO INCOMING SHIFT FOR CONTINUITY OF CARE.
[2023-01-03 06:31] LABS: BASOPHILS % (AUTO) 0.1 % (0.0-2.0); HEMATOCRIT 43 % (33-45); HEMOGLOBIN 13.1 g/dL (11.5-14.8); LYMPHOCYTES # (AUTO) 0.7 K/uL (0.8-4.8); LYMPHOCYTES % (AUTO) 6.1 % (20.0-44.0); MEAN CORPUSCULAR HGB CONC 30 g/dl (31.0-36.0); MEAN CORPUSCULAR VOLUME 84 fL (82-100); MONOCYTES # (AUTO) 0.4 K/uL (0.1-1.30); MONOCYTES % (AUTO) 3.6 % (2.0-12.0); NEUTROPHILS # (AUTO) 10.3 K/uL (1.8-8.9); NEUTROPHILS % (AUTO) 90.2 % (43.0-81.0); PLATELET COUNT (AUTO) 343 K/uL (150-450); RED BLOOD CELL COUNT(AUTO) 5.13 MIL/uL (4.0-5.2); WHITE BLOOD COUNT (AUTO) 11.4 K/uL (4.3-11.0)
[2023-01-03 06:51] LABS: CALCIUM, SERUM 9.1 mg/dL (8.5-10.1); CARBON DIOXIDE 26 mmol/L (21-32); CHLORIDE 100 mmol/L (98-107); CREATININE 1.4 mg/dL (0.6-1.3); GLUCOSE 150 mg/dL (74-106); MAGNESIUM 2.5 mg/dL (1.8-2.4); PHOSPHORUS 3.8 mg/dL (2.5-4.9); POTASSIUM 4.2 mmol/L (3.5-5.1); SODIUM SERUM 137 mmol/L (136-145); UREA NITROGEN, BLOOD 32 mg/dL (7-18)
[2023-01-03 07:00] VITALS: BP_SYST 144; BP_SYST 156; BP_DIAS 80; BP_DIAS 94
--- NOTE | 2023-01-03 07:20 | NUR ---
TELE INTERIOR DESIGN COORDINATOR OPENING NOTES RECEIVED PATIENT AWAKE IN BED , A/Ox4, ABLE TO MAKE NEEDS KNOWN. ON ROOM AIR, NO S/S OF RESPIRATORY DISTRESS. ON TELE MONITORING SHOWING A-FIB HR 101. IV ACCESS RAC #20G S/L. INTACT AND PATENT. NO C/O OF CHEST PAIN OR DISCOMFORT. AMBULATORY WITH WALKER/ASSIST, USES BEDSIDE COMMODE. SKIN ISSUES: L LEG WOUND, BLE REDNESS, R ARM AND HIP ABRASION. PATIENT COMPLAINING OF PAIN IN ABDOMEN. WILL GIVE MEDICATION SCHEDULED. SAFETY MEASURES IN PLACE: BED LOCKED AND IN LOWEST POSITION, HOB ELEVATED, CALL LIGHT WITHIN REACH, SIDE RAILS UPx2.
[2023-01-03] MEDS: ALLOPURINOL 100 MG TABLET PO SCH (08:47)
[2023-01-03] MEDS: MAGNESIUM OXIDE 400 MG TABLET PO SCH (08:47)
[2023-01-03] MEDS: LEVOTHYROXINE SODIUM 25 MCG TABLET PO SCH (08:47)
[2023-01-03] MEDS: MULTIVIT W/MINERALS 1 TAB TABLET PO SCH (08:48)
[2023-01-03] MEDS: VENLAFAXINE XR 75 MG CAP.SR.24H PO SCH (08:48)
[2023-01-03] MEDS: PANTOPRAZOLE 40 MG TABLET.DR PO SCH (08:48)
[2023-01-03] MEDS: APIXABAN 5 MG TABLET PO SCH (08:50)
[2023-01-03] MEDS: DILTIAZEM HCL CD 240 MG PO SCH (08:51)
[2023-01-03] MEDS: CALCIUM CARBONATE (1250) 500 MG TABLET PO SCH (08:52)
[2023-01-03] MEDS: FLUOCINONIDE 0.05% CREAM 60 GM TUBE TP SCH (08:52)
[2023-01-03] MEDS: AMMONIUM LACTATE 227 GM BOTTLE TP SCH (08:52)
[2023-01-03] MEDS: MORPHINE SULFATE INJ 2 MG/ML DISP.SYRIN IV PRN (08:56)
[2023-01-03] MEDS ORDERED: FUROSEMIDE 40 MG TABLET PO SCH (09:00)
--- NOTE | 2023-01-03 09:07 | NUR ---
RN NOTES PATIENT COMPLAINING OF LOWER ABDOMEN PAIN, PRN MORPHINE ADMINISTERED FOR PAIN 06/01. WILL CONTINUE TO MONITOR.
[2023-01-03] MEDS ORDERED: ARIPIPRAZOLE 2 MG TABLET PO SCH (10:00)
--- NOTE | 2023-01-03 11:12 | NUR ---
CENTER HUMAN RESOURCES MANAGER NOTES PATIENT REQUESTED PRN MILK OF MAGNESIA, DID NOT WANT TO WAIT FOR BEDTIME TO TAKE. ADMINISTERED MOM PATIENT SAID SHE HAS NOT HAD A BOWEL MOVEMENT. PATIENT NOTED AGITATED AND THROWING WATER AND CHUCKS, REORIENTED AND CALMED. ADMINISTERED ABILIFY 2MG PER MD ORDER.
[2023-01-03 12:06] VITALS: BP 138/102
[2023-01-03] MEDS ORDERED: METH4TAB17 PO (12:25)
[2023-01-03] MEDS ORDERED: CEPH250C PO (12:25)
[2023-01-03] MEDS: VANCOMYCIN 1.25 GM in IV D5W 250 ML IV SCH (13:26)
--- NOTE | 2023-01-03 16:40 | NUR ---
GREEN BUILDING MATERIALS DESIGNER DISCHARGE NOTE PATIENT DISCHARGED IN A STABLE MEDICAL CONDITION. PATIENT IS BREATHING EVENLY, NO S/S OF SOB. A/OX4 ABLE TO MAKE NEEDS KNOWN. NO COMPLAINTS OF PAIN AT THIS TIME. IV ACCESS REMOVED AND CATHETER TIP INTACT, PRESSURE DRESSING APPLIED, NO SIGNS OF BLEEDING NOTED. NAME ARM BAND REMOVED. SKIN ASSESSMENT WAS DONE AND PICTURE TAKEN AND PLACED IN THE PATIENT CHART. HEALTH TEACHING AND DISCHARGED INSTRUCTIONS WERE GIVEN AND VERBALIZED UNDERSTANDING. PATIENT BELONGING WERE ACCOUNTED FOR AND BELONGING SHEET WAS SIGNED. PATIENT WAS ACCOMPANIED BY WITH HYDRAULIC PLUMBER HELPER TO LOBBY AND LEFT IN FAMILY CAR/ WITH HER DAUGHTER..
[2023-01-03] MEDS ORDERED: GABA300C PO (17:05)
== END 2023-01-03 17:02 | disposition home health service (06) | DRG 291 ==
LOC: TELE 22:52 → MED 01-01 19:13 → TELE 01-01 19:15
PROVIDERS: ADMIT Nurse Practitioner Acute Care; ATTEND Nurse Practitioner Acute Care
DX: I13.0 Hypertensive heart and chronic kidney disease with heart failure and stage 1 through stage 4 chronic kidney disease, or unspecified chronic kidney disease (principal); I50.31 Acute diastolic (congestive) heart failure; J96.01 Acute respiratory failure with hypoxia; J44.1 Chronic obstructive pulmonary disease with (acute) exacerbation; E66.2 Morbid (severe) obesity with alveolar hypoventilation; Z68.41 Body mass index [BMI] 40.0-44.9, adult; F03.93 Unspecified dementia, unspecified severity, with mood disturbance; F03.94 Unspecified dementia, unspecified severity, with anxiety; F33.1 Major depressive disorder, recurrent, moderate; L03.311 Cellulitis of abdominal wall; D68.59 Other primary thrombophilia; N17.9 Acute kidney failure, unspecified; L97.919 Non-pressure chronic ulcer of unspecified part of right lower leg with unspecified severity; L03.116 Cellulitis of left lower limb; L03.115 Cellulitis of right lower limb; N18.9 Chronic kidney disease, unspecified; E03.9 Hypothyroidism, unspecified; G89.29 Other chronic pain; F41.9 Anxiety disorder, unspecified; E78.5 Hyperlipidemia, unspecified; M19.90 Unspecified osteoarthritis, unspecified site; M79.7 Fibromyalgia; Z90.49 Acquired absence of other specified parts of digestive tract; Z90.710 Acquired absence of both cervix and uterus; Z87.891 Personal history of nicotine dependence; Z79.01 Long term (current) use of anticoagulants; Z79.899 Other long term (current) drug therapy; I87.8 Other specified disorders of veins; R60.9 Edema, unspecified; K83.9 Disease of biliary tract, unspecified; I48.91 Unspecified atrial fibrillation; I27.20 Pulmonary hypertension, unspecified; I25.10 Atherosclerotic heart disease of native coronary artery without angina pectoris
CPT/HCPCS: 36415; 36600; 71045-TC; 80048-TC; 80076-TC; 81001; 82803-TC; 83735-TC; 83880; 84100-TC; 85025-TC; 87081-TC; 87086-TC; 93307-TC; 93970-TC; 94799-TC; A4223; G0378; J1940; J2270; J2920; J3370; J3490; J7050; J7060

== ENCOUNTER 2023-01-23 15:58 | Inpatient (IN) | payer MEDICARE, OTHER ==
[~2023-01-23] VITALS: Ht 167.6 cm; Wt 113.4 kg
[~2023-01-23 15:58] MED LIST changes: +BUPR1FIL3 SL; +CALC500T52 PO; +CEPH250C PO; -CLON1TAB12 PO; +EMPA10TA PO; -GABA-532 PO; +GABA300C PO; +GLUC-141 PO; +MAGN400T8 PO; +METH4TAB17 PO; +MULT-447 PO; -NALO25TA PO; +OMEG-167 PO; +ONDA4TAB5 PO; +UBID100C13 PO
--- NOTE | 2023-01-23 16:05 | NUR ---
RECEIVED PT 77 YRS FEMALECAME BY [place] FROM [facility]
--- NOTE | 2023-01-23 17:00 | NUR ---
SEEN BY DR. ALONZO
--- NOTE | 2023-01-23 17:50 | NUR ---
INSERTED ANGO CATHETER G 20 ON RT AC BLOOD DROW AND SENT TO LAB
[2023-01-23] MEDS ORDERED: IV NS 0.9% 1,000 ML BAG IV ONE (18:00)
[2023-01-23 18:27] LABS: BASOPHILS % (AUTO) 0.5 % (0.0-2.0); EOSINOPHILS % (AUTO) 2.7 % (0.0-6.0); HEMATOCRIT 39 % (33-45); HEMOGLOBIN 11.9 g/dL (11.5-14.8); LYMPHOCYTES # (AUTO) 1.5 K/uL (0.8-4.8); LYMPHOCYTES % (AUTO) 19.6 % (20.0-44.0); MEAN CORPUSCULAR HGB CONC 30 g/dl (31.0-36.0); MEAN CORPUSCULAR VOLUME 88 fL (82-100); MONOCYTES # (AUTO) 0.6 K/uL (0.1-1.30); NEUTROPHILS # (AUTO) 5.3 K/uL (1.8-8.9); NEUTROPHILS % (AUTO) 69.2 % (43.0-81.0); PLATELET COUNT (AUTO) 229 K/uL (150-450); RED BLOOD CELL COUNT(AUTO) 4.46 MIL/uL (4.0-5.2); WHITE BLOOD COUNT (AUTO) 7.7 K/uL (4.3-11.0)
--- NOTE | 2023-01-23 18:37 | NUR ---
AMBULTE TO BSC VODING FREELY UA SENT TO LAB
[2023-01-23 18:41] LABS: CALCIUM, SERUM 9.5 mg/dL (8.5-10.1); CARBON DIOXIDE 34 mmol/L (21-32); CHLORIDE 105 mmol/L (98-107); CREATININE 1.6 mg/dL (0.6-1.3); GLUCOSE 118 mg/dL (74-106); POTASSIUM 4.5 mmol/L (3.5-5.1); SODIUM SERUM 142 mmol/L (136-145); UREA NITROGEN, BLOOD 31 mg/dL (7-18)
[2023-01-23 18:55] LABS: ALANINE AMINOTRANSFERASE 23 U/L (12-78); ALKALINE PHOSPHATASE 70 U/L (46-116); ASPARTATE AMINOTRANSFERASE 17 U/L (15-37); BILIRUBIN,TOTAL 0.2 mg/dL (0.2-1.0); TOTAL PROTEIN, SERUM 6.8 g/dL (6.4-8.2)
--- NOTE | 2023-01-23 19:42 | NUR ---
HAND OFF ASMITA GOODWIN
--- NOTE | 2023-01-23 20:37 | NUR ---
COVID ANTIGEN SWAB COLLECTED AND SENT TO LAB
--- NOTE | 2023-01-23 20:51 | NUR ---
DR ALONZO ON PHONE CALL WITH DR THORPE ADMITTING
[2023-01-23] MEDS ORDERED: FUROSEMIDE 40 MG/4 ML VIAL IV ONE (21:00)
[2023-01-23] MEDS ORDERED: FUROSEMIDE 40 MG/4 ML VIAL ONE (21:04)
--- NOTE | 2023-01-23 21:37 | NUR ---
MRSA SWAB COLLECTED AND SENT TO LAB.
[2023-01-23 21:42] LABS: EOSINOPHILS % (MANUAL) 3 % (0-4); LYMPHOCYTES % (MANUAL) 17 % (16-48); MONOCYTES % (MANUAL) 4 % (0-11.0); NEUTROPHILS % (MANUAL) 76 (42-76)
--- NOTE | 2023-01-23 23:04 | NUR ---
RM 314-2
--- NOTE | 2023-01-23 23:24 | NUR ---
REPORT GIVEN TO CHRISTA MCCORMICK 3W
[2023-01-23] MEDS ORDERED: ONDANSETRON HCL/PF 4 MG/2 ML VIAL IVP PRN (23:30)
[2023-01-23] MEDS ORDERED: MAGNESIUM HYDROXIDE 30 ML UDC PO PRN (23:30)
[2023-01-23] MEDS ORDERED: VANCOMYCIN 2 GM in IV D5W 500 ML IV SCH (23:30)
[2023-01-23] MEDS ORDERED: MORPHINE SULFATE INJ 2 MG/ML DISP.SYRIN IV PRN (23:30)
[2023-01-23] MEDS ORDERED: ACETAMINOPHEN 325 MG TABLET PO PRN (23:30)
[2023-01-23] MEDS ORDERED: Z GUARD REMEDY 4 OZ OINT TP PRN (23:30)
[2023-01-23] MEDS ORDERED: ZOLPIDEM TARTRATE 5 MG TABLET PO PRN (23:30)
[2023-01-23] MEDS ORDERED: MAG HYDROX/AL HYDROX/SIMETH 30 ML UDC PO PRN (23:30)
--- NOTE | 2023-01-23 23:51 | NUR ---
PT TRANSFERED TO 3W VIA ACLS PROTOCOL
--- NOTE | 2023-01-23 23:55 | NUR ---
DEVOPS SOLUTIONS ARCHITECT ADMITTING NOTE PT ARRIVED TO UNIT @ 2340 VIA GURNEY, ASSISTED BY ER STAFF, ABLE TO MOVE SELF TO UNIT BED. A/O X4, ABLE TO MAKE NEEDS KNOWN, COOPERATIVE. ON RA WITH NO SOB OR DISTRESS NOTED. DENIES CHEST PAIN. VITAL SIGNS: 114/84 BP, 82 HR, 20 RR, 97.9 F, 94% O2. WEIGHT: 250 LB. BLOOD SUGAR: 87. PLACED ON ULTRASONIC SOLDERER SHOWING CONTROLLED AFIB, 82 HR. PT STATES HAVING SOME WHEEZING, BREATH SOUNDS AUSCULTATED, WNL, NO WHEEZING NOTED. CIRCULATION WNL. BILATERAL LOWER LEGS SWOLLEN, 2+ PITTING, C/O PAIN WHEN BEING POKED DURING ASSESSMENT. SKIN ASSESSMENT PERFORMED, ISSUES NOTED AND DOCUMENTED IN CHART. BELONGINGS CHECKED AND DOCUMENTED. PT ORIENTED TO UNIT AND HOW TO USE CALL LIGHT. MADE COMFORTABLE, PLACED IN SEMI-FOWLERS POSITION. PT ASKING FOR SNACKS AND WANTING TO PEE AT THIS TIME. SAFETY PRECAUTIONS PUT IN PLACE: BED LOCKED AND IN LOWEST POSITION, BED ALARM ON, SIDE RAILS UP X3, CALL LIGHT AND TRAY TABLE WITHIN REACH. WILL CONTINUE TO MONITOR AND ASSIST.
[2023-01-24] MEDS ORDERED: VANCOMYCIN 1 GM /D5W 250 ML PB IV ONE (01:29)
[2023-01-24] MEDS ORDERED: methylPREDNISolone (4MG) 4 MG TABLET PO SCH (01:30)
[2023-01-24] MEDS ORDERED: DEXTROSE 50%-WATER 50 ML DISP.SYRIN IV PRN (01:30)
--- NOTE | 2023-01-24 01:50 | NUR ---
RN NOTE VANCOMYCIN SCHEDULED FOR 2330 DELAYED ADMIN DUE TO DRUG AVAILABILITY.
[2023-01-24] MEDS ORDERED: ONDANSETRON 4 MG TAB.RAPDIS PO PRN (02:30)
[2023-01-24 06:17] LABS: BASOPHILS % (AUTO) 0.4 % (0.0-2.0); EOSINOPHILS % (AUTO) 3.7 % (0.0-6.0); HEMATOCRIT 38 % (33-45); HEMOGLOBIN 11.6 g/dL (11.5-14.8); LYMPHOCYTES # (AUTO) 1.3 K/uL (0.8-4.8); LYMPHOCYTES % (AUTO) 22.1 % (20.0-44.0); MEAN CORPUSCULAR HGB CONC 31 g/dl (31.0-36.0); MEAN CORPUSCULAR VOLUME 88 fL (82-100); MONOCYTES # (AUTO) 0.4 K/uL (0.1-1.30); MONOCYTES % (AUTO) 7.3 % (2.0-12.0); NEUTROPHILS % (AUTO) 66.5 % (43.0-81.0); PLATELET COUNT (AUTO) 228 K/uL (150-450); RED BLOOD CELL COUNT(AUTO) 4.28 MIL/uL (4.0-5.2)
[2023-01-24 06:34] LABS: CALCIUM, SERUM 8.7 mg/dL (8.5-10.1); CREATININE 1.3 mg/dL (0.6-1.3); MAGNESIUM 2.5 mg/dL (1.8-2.4); POTASSIUM 3.3 mmol/L (3.5-5.1)
[2023-01-24] MEDS: BLOOD SUGAR DIAGNOSTIC 1 EACH STRIP VI SCH ×4 (06:44→22:14)
[2023-01-24] MEDS: INSULIN REGULAR, HUMAN 100 UNIT/ML 3 ML VIAL SQ PRN ×3 (06:44→17:58)
[2023-01-24 07:00] VITALS: BP 123/78
--- NOTE | 2023-01-24 07:00 | NUR ---
PSYCHIATRIC NURSING AIDE CLOSING NOTE PT IN BED SLEEPING, EASILY AROUSABLE. A/O X4, ABLE TO MAKE NEEDS KNOWN. STABLE ON RA WITH NO SOB OR DISTRESS NOTED. DENIES CHEST PAIN. ON CATERING COORDINATOR SHOWING CONTROLLED AFIB, 90 HR. BILATERAL LOWER LEGS SWOLLEN, 2+ PITTING. IV ACCESS RAC #20G SL, INTACT, PATENT, FLUSHING WELL. VOIDED TWICE LAST NIGHT, PLACED ON [place] NO OUTPUT YET. ALL CARE PROVIDED AND MEDS TOLERATED WELL. SAFETY PRECAUTIONS MAINTAINED: BED LOCKED AND IN LOWEST POSITION, BED ALARM ON, SIDE RAILS UP X3, CALL LIGHT AND TRAY TABLE WITHIN REACH. WILL ENDORSE JENNI TO DAY SHIFT NURSE.
--- NOTE | 2023-01-24 07:10 | NUR ---
RN NOTE PT C/O ABDOMINAL PAIN 10/10 BUT REFUSES PAIN MEDS. ASKING TO BE REPOSITIONED AND TO SIT UP IN BED. HELP PROVIDED AND PT VERBALIZED EFFECTIVENESS. WILL ENDORSE TO DAY SHIFT NURSE.
--- NOTE | 2023-01-24 07:30 | NUR ---
OPENING NOTE PATIENT RECEIVED AWAKE A/O X4, ON ROOM AIR, NO S/S OF DISTRESS. ABLE TO MAKE NEEDS KNOWN. IV ACCESS RAC G#20 INTACT AND PATENT, FLUSHING WELL. SKIN ASSESSMENT: BLE SWELLING AND REDNESS AND SACRAL REDNESS. PATIENT CONTINENT: BRP AND BSC. WITH ASSIST. FALL AND SAFETY PRECAUTION IN PLACE: BED LOCKED AND AT THE LOWEST POSITION, SRX2, CALL LIGHT WITHIN REACH.
[2023-01-24] MEDS: LEVOTHYROXINE SODIUM 25 MCG TABLET PO SCH (08:28)
[2023-01-24] MEDS: PANTOPRAZOLE 40 MG TABLET.DR PO SCH (08:28)
[2023-01-24] MEDS: VENLAFAXINE XR 75 MG CAP.SR.24H PO SCH (08:29)
[2023-01-24] MEDS: MAGNESIUM OXIDE 400 MG TABLET PO SCH (08:29)
[2023-01-24] MEDS: DILTIAZEM HCL CD 240 MG PO SCH (08:29)
[2023-01-24] MEDS: CALCIUM CARBONATE (1250) 500 MG TABLET PO SCH (08:31)
[2023-01-24] MEDS: HYDROCODONE/APAP 5/325MG TABLET PO PRN ×2 (08:31→20:00)
[2023-01-24] MEDS: GABAPENTIN 300 MG CAPSULE PO SCH ×3 (08:31→17:11)
[2023-01-24] MEDS: MULTIVIT W/MINERALS 1 TAB TABLET PO SCH (08:31)
[2023-01-24] MEDS: ALLOPURINOL 100 MG TABLET PO SCH (08:31)
[2023-01-24] MEDS: APIXABAN 5 MG TABLET PO SCH ×2 (08:32→21:32)
[2023-01-24] MEDS ORDERED: Medication Not On Formulary EA (Buprenorphine Hcl/Naloxone Hcl (Suboxone 8 Mg-2 Mg Sl Fi SL SCH (09:00)
[2023-01-24] MEDS ORDERED: Medication Not On Formulary EA (Gluc/Chon-Msm#2/C/D3/Mang/Born (Glucosamin-Chondroitin-M PO SCH (09:00)
[2023-01-24] MEDS ORDERED: Medication Not On Formulary EA (Omega-3 Fatty Acids/Fish Oil (Fish Oil 1,000 Mg Softgel) PO SCH (09:00)
[2023-01-24] MEDS: FUROSEMIDE 40 MG/4 ML VIAL IV SCH (09:12)
[2023-01-24] MEDS ORDERED: POTASSIUM CHLORIDE 20 MEQ POWDER PACKET PO ONE (10:00)
[2023-01-24 12:00] VITALS: BP 130/69
[2023-01-24] MEDS: IPRATROPIUM NEB FS 0.5 MG/2.5 ML AMPUL.NEB NEB SCH ×2 (14:16→20:24)
[2023-01-24] MEDS: ALBUTEROL HALF STRENGTH 1.25 MG/3 ML VIAL.NEB NEB SCH ×2 (14:16→20:24)
[2023-01-24 15:02] LABS: ABG BASE EXCESS 3.4 mmol/L; ABG OXYGEN SATURATION 91.1 % (92.0-98.5); ABG PCO2 41.8 mmHg (35.0-45.0); ABG PH 7.442 (7.350-7.450); ABG PO2 58.9 mmHg (75.0-100.0); AaDO2 40.8 mmHg; COHb 0.9 % (0.5-1.5); MetHb 0.1 % (0.0-1.5); O2Hb 90.2 % (94.0-97.0); SITE, ABG Right Radial; VENT MODE, BG Room Air
[2023-01-24 16:00] VITALS: BP 131/68
--- NOTE | 2023-01-24 19:32 | NUR ---
desiree rn opening received patient in bed. a/ox3, forgetful-- saying that she has not received her dinner tray. no s/s of apparent distress on room air. c/o 8/10 pain on her abdomen, soft and non-tender upon palpation. reading sr on the tele monitor with 84bpm. encouraged with the use of call light. vamshi noted at bedside and a bed side commode. will manage pain and will continue with plan of care for patient. Addendum: 01/24/23 at 2245 by ZEB CAT RN desiree rn opening received patient in bed. a/ox3, forgetful-- saying that she has not received her dinner tray. no s/s of apparent distress on room air. c/o 8/10 pain on her abdomen, soft and non-tender upon palpation. reading a-fib* on the tele monitor with 84bpm. encouraged with the use of call light. vamshi noted at bedside and a bed side commode. will manage pain and will continue with plan of care for patient.
--- NOTE | 2023-01-24 19:40 | NUR ---
CLOSING NOTE PATIENT IS AWAKE, IN BED, A/O X4, ON ROOM AIR, NO S/S OF DISTRESS. ABLE TO MAKE NEEDS KNOWN. IV ACCESS RAC G#20 INTACT AND PATENT, FLUSHING WELL. SKIN ASSESSMENT: BLE SWELLING AND REDNESS AND SACRAL REDNESS. MEDICATION ADMINISTERED SCHEDULED. PATIENT IS EXPRESSES ANXIETY DUE TO A FAMILY MATTER. PATIENT CONTINENT: BRP AND BSC. WITH ASSIST. FALL AND SAFETY PRECAUTION MAINTAINED: BED LOCKED AND AT THE LOWEST POSITION, SRX2, CALL LIGHT WITHIN REACH. ENDORSED TO MEDICAL PHYSICS TEACHER NURSE.
[2023-01-24 20:00] VITALS: BP 121/89
--- NOTE | 2023-01-24 20:05 | NUR ---
noc rn note patient c/o 05/01, doesn't want anything strong but [place]. Given [place] 5 as ordered PRN. will-reassess.
[2023-01-24] MEDS: TRAZODONE 50 MG TABLET PO SCH (21:32)
[2023-01-24] MEDS: ATORVASTATIN 10 MG TABLET PO SCH (21:33)
[2023-01-24] MEDS: *INSULIN REGULAR(HUMULIN R)HUM 100 UNIT/ML VIAL SQ PRN (22:13)
[2023-01-25] VITALS: BP 129/70
[2023-01-25] MEDS: HYDROCODONE/APAP 5/325MG TABLET PO PRN ×2 (00:48→18:07)
[2023-01-25] MEDS: VANCOMYCIN 1.25 GM in IV D5W 250 ML IV SCH (00:50)
--- NOTE | 2023-01-25 01:10 | NUR ---
noc rn note patient request for a social service consult. Per patient her daughter told her that she might be better off and to quote patient "in a nursing homes". Patient was emotional saying that the daughter is the one living with her in her own house and that the daughter doesn't work and is in disability. Made charge nurseErnestina aware of the situation. Social Service consult ordered as patient requested. Emotional support given at this time to patient.
[2023-01-25] MEDS: ALBUTEROL HALF STRENGTH 1.25 MG/3 ML VIAL.NEB NEB SCH ×5 (01:30→19:51)
[2023-01-25] MEDS: IPRATROPIUM NEB FS 0.5 MG/2.5 ML AMPUL.NEB NEB SCH ×5 (01:30→19:51)
[2023-01-25 04:00] VITALS: BP 122/70
--- NOTE | 2023-01-25 05:53 | NUR ---
noc rn note Patient refused blood draw this am. patient education done. Per patient she just wants to sleep.
[2023-01-25] MEDS: BLOOD SUGAR DIAGNOSTIC 1 EACH STRIP VI SCH ×4 (06:53→21:28)
[2023-01-25] MEDS: INSULIN REGULAR, HUMAN 100 UNIT/ML 3 ML VIAL SQ PRN ×3 (06:53→17:05)
--- NOTE | 2023-01-25 06:53 | NUR ---
noc rn note Patient's blood sugar 112. No coverage needed.
--- NOTE | 2023-01-25 07:05 | NUR ---
noc rn closing Patient sitting in bed c/o of intermittent sleep. no s/s of apparent distress on room air. pain managed with medications. reading a-fib throughout shift. All needs attended. all scheduled medications administered. will endorse to morning shift rn for continuity of patient care.
--- NOTE | 2023-01-25 07:30 | NUR ---
LIP READING TEACHER OPENING NOTE RECEIVED PATIENT AWAKE IN BED A/O X4. ON ROOM AIR, NO S/S OF DISTRESS AND NO SOB NOTED. ABLE TO MAKE NEEDS KNOWN. IV ACCESS RAC G#20 SL, INTACT AND PATENT, FLUSHING WELL. WITH EXTERNAL CORE LOADER ON AFIB WITH HR 104. PATIENT HAS BLE SWELLING AND REDNESS AND SACRAL REDNESS. PATIENT IS CONTINENT, AMBULATORY WITH ASSISTANCE. FALL AND SAFETY PRECAUTION IN PLACE: BED LOCKED AND AT THE LOWEST POSITION, SIDE RAILS UP X2, CALL LIGHT WITHIN REACH. WILL CONTINUE TO MONITOR FOR JENNI
[2023-01-25 08:00] VITALS: BP 145/109
[2023-01-25] MEDS: LEVOTHYROXINE SODIUM 25 MCG TABLET PO SCH (08:03)
[2023-01-25] MEDS: PANTOPRAZOLE 40 MG TABLET.DR PO SCH (08:03)
--- NOTE | 2023-01-25 09:17 | NUR ---
RN NOTE PHARMACY CALLED TO CLARIFY IF PATIENT SHOULD BE IN THE MEDICATION MEDROL. PER PHARMACY PATIENT WENT HOME WITH MEDROL FOR 6 DAYS ON HER PREVIOUS ADMISSION AND MEDICATION SHOULD BE DC. DR MILNER WAS INFORMED WHILE AT BEDSIDE AND DR STATED PATIENT SHOULD BE ON IT BUT HE WILL LOOK INTO.
[2023-01-25] MEDS: MULTIVIT W/MINERALS 1 TAB TABLET PO SCH (09:52)
[2023-01-25] MEDS: ALLOPURINOL 100 MG TABLET PO SCH (09:52)
[2023-01-25] MEDS: GABAPENTIN 300 MG CAPSULE PO SCH ×3 (09:52→17:04)
[2023-01-25] MEDS: DILTIAZEM HCL CD 240 MG PO SCH (09:53)
[2023-01-25] MEDS: APIXABAN 5 MG TABLET PO SCH ×2 (09:55→21:19)
[2023-01-25] MEDS: CALCIUM CARBONATE (1250) 500 MG TABLET PO SCH (09:55)
[2023-01-25] MEDS: VENLAFAXINE XR 75 MG CAP.SR.24H PO SCH (09:55)
[2023-01-25] MEDS: MAGNESIUM OXIDE 400 MG TABLET PO SCH (09:55)
[2023-01-25] MEDS: FUROSEMIDE 40 MG/4 ML VIAL IV SCH (09:56)
[2023-01-25] MEDS: FLUTICASONE/VILANTEROL 1 EACH BLST.W.DEV IH SCH (11:00)
[2023-01-25 12:00] VITALS: BP 141/82
[2023-01-25 16:00] VITALS: BP 155/76
--- NOTE | 2023-01-25 18:49 | NUR ---
VB NET DEVELOPER CLOSING NOTE PATIENT AWAKE IN BED A/O X3-4. ON ROOM AIR, NO S/S OF DISTRESS AND NO SOB NOTED. ABLE TO MAKE NEEDS KNOWN. IV AT RAC #20G SL INTACT, PATENT AND FLUSHING WELL. WITH EXTERNAL DISTRIBUTION DESIGNER WITH CURRENT READING OF CONTROLLED A-FIB WITH HR 102. SKIN ASSESSMENT DONE, WITH CELLULITIS OF BLE, SKIN CARE IMPLEMENTED. SCHEDULED MEDICATION ADMINISTERED. FALL AND SAFETY PRECAUTION IN PLACE: BED LOCKED AND AT THE LOWEST POSITION, SIDE RAILS UP X2, CALL LIGHT WITHIN REACH. WILL ENDORSE TO GANG SUPERVISOR NURSE.
--- NOTE | 2023-01-25 19:33 | NUR ---
noc rn opening Received patient sitting in chair. a/ox4. no s/s of apparent distress on room air. Pain subsided to 7 at this time, being chronic. Patient has no fluids running. reading A-fib on the tele monitor. Encouraged with the use of call light. will continue with patient's plan of care.
--- NOTE | 2023-01-25 20:42 | NUR ---
noc rn note Patient given Tylenol per patient request. c/o Hip pain that radiates to her lumbar area. Snacks provided. Will re-assess.
[2023-01-25] MEDS: ATORVASTATIN 10 MG TABLET PO SCH (21:20)
[2023-01-25] MEDS: TRAZODONE 50 MG TABLET PO SCH (21:20)
[2023-01-25] MEDS: *INSULIN REGULAR(HUMULIN R)HUM 100 UNIT/ML VIAL SQ PRN (21:28)
--- NOTE | 2023-01-25 21:28 | NUR ---
desiree rn note- non-admin Blood sugar 122. No coverage needed.
[2023-01-26] VITALS: BP 126/85
[2023-01-26] MEDS: VANCOMYCIN 1.25 GM in IV D5W 250 ML IV SCH (00:53)
[2023-01-26] MEDS: IPRATROPIUM NEB FS 0.5 MG/2.5 ML AMPUL.NEB NEB SCH ×4 (01:18→20:10)
[2023-01-26] MEDS: ALBUTEROL HALF STRENGTH 1.25 MG/3 ML VIAL.NEB NEB SCH ×4 (01:19→20:10)
[2023-01-26 04:00] VITALS: BP 142/92
[2023-01-26] MEDS: BLOOD SUGAR DIAGNOSTIC 1 EACH STRIP VI SCH ×4 (06:23→22:25)
[2023-01-26] MEDS: INSULIN REGULAR, HUMAN 100 UNIT/ML 3 ML VIAL SQ PRN ×2 (06:23→12:17)
--- NOTE | 2023-01-26 06:24 | NUR ---
noc rn note Patient blood sugar 110 this am. no coverage needed.
[2023-01-26 06:36] LABS: CALCIUM, SERUM 9.3 mg/dL (8.5-10.1); CARBON DIOXIDE 31 mmol/L (21-32); CHLORIDE 105 mmol/L (98-107); CREATININE 1.3 mg/dL (0.6-1.3); GLUCOSE 112 mg/dL (74-106); POTASSIUM 3.9 mmol/L (3.5-5.1); SODIUM SERUM 142 mmol/L (136-145); UREA NITROGEN, BLOOD 21 mg/dL (7-18)
--- NOTE | 2023-01-26 07:01 | NUR ---
noc rn closing Patient sitting in bed c/o of intermittent sleep. no s/s of apparent distress-- started on o2 2lpm via nc for comfort this am, patient was c/o SOB. reading a-fib throughout shift. All needs attended. all scheduled medications administered. will endorse to morning shift rn for continuity of patient care.
--- NOTE | 2023-01-26 07:30 | NUR ---
PATIENT RECEIVED RESTING COMFORTABLY IN BED. NO S/S OR C/O PAIN OR DISTRESS NOTED. SIDE RAILS UP X2, CALL LIGHT LEFT WITHIN REACH. WILL CONTINUE PLAN OF CARE.
[2023-01-26 08:16] VITALS: BP 154/89
[2023-01-26] MEDS: PANTOPRAZOLE 40 MG TABLET.DR PO SCH (08:16)
[2023-01-26] MEDS: LEVOTHYROXINE SODIUM 25 MCG TABLET PO SCH (08:17)
[2023-01-26] MEDS: FUROSEMIDE 40 MG/4 ML VIAL IV SCH (08:17)
[2023-01-26] MEDS: MAGNESIUM OXIDE 400 MG TABLET PO SCH (08:19)
[2023-01-26] MEDS: VENLAFAXINE XR 75 MG CAP.SR.24H PO SCH (08:19)
[2023-01-26] MEDS: DILTIAZEM HCL CD 240 MG PO SCH (08:19)
[2023-01-26] MEDS: ALLOPURINOL 100 MG TABLET PO SCH (08:20)
[2023-01-26] MEDS: CALCIUM CARBONATE (1250) 500 MG TABLET PO SCH (08:20)
[2023-01-26] MEDS: GABAPENTIN 300 MG CAPSULE PO SCH ×3 (08:20→16:52)
[2023-01-26] MEDS: MULTIVIT W/MINERALS 1 TAB TABLET PO SCH (08:20)
[2023-01-26] MEDS: APIXABAN 5 MG TABLET PO SCH ×2 (08:22→20:54)
[2023-01-26] MEDS: FLUTICASONE/VILANTEROL 1 EACH BLST.W.DEV IH SCH (08:23)
[2023-01-26] MEDS: HYDROCODONE/APAP 5/325MG TABLET PO PRN ×2 (09:47→20:53)
[2023-01-26 12:00] VITALS: BP 118/75
[2023-01-26 16:07] VITALS: BP 152/98
--- NOTE | 2023-01-26 18:34 | NUR ---
CHANGE OF SHIFT REPORT PATIENT RESTING COMFORTABLY IN CHAIR. NO S/S OR C/O PAIN OR DISTRESS NOTED. SIDE RAILS UP X2, CALL LIGHT LEFT WITHIN REACH. PT KEPT CLEAN, DRY, AND COMFORTABLE. NO SIGNIFICANT CHANGSE SINCE PREVIOUS SHIFT. WILL GIVE REPORT TO NOC. CHRISTA.
--- NOTE | 2023-01-26 19:30 | NUR ---
MS RN OPENING NOTE RECEIVED PATIENT AWAKE IN BED, WATCHING TV AT THIS TIME. A/O X4, ABLE TO MAKE NEEDS KNOWN. ON RA WITH NO S/S OF DISTRESS AND SOB NOTED. DENIES PAIN AT THIS TIME. IV ACCESS RAC G#20 SL, INTACT AND PATENT, FLUSHING WELL. REDNESS ON BILATERAL LEGS, SWELLING ON L LEG, NO WEEPING NOTED. PATIENT CONTINENT, AMBULATORY WITH WALKER. FALL AND SAFETY PRECAUTION IN PLACE: BED LOCKED AND AT THE LOWEST POSITION, SIDE RAILS UP X2, CALL LIGHT WITHIN REACH. WILL CONTINUE TO MONITOR AND ASSIST.
[2023-01-26 20:31] VITALS: BP 145/99
[2023-01-26] MEDS: *INSULIN REGULAR(HUMULIN R)HUM 100 UNIT/ML VIAL SQ PRN (22:25)
[2023-01-26] MEDS: TRAZODONE 50 MG TABLET PO SCH (22:26)
[2023-01-26] MEDS: ATORVASTATIN 10 MG TABLET PO SCH (22:26)
[2023-01-26] MEDS ORDERED: ZOLPIDEM TARTRATE 5 MG TABLET PO PRN (22:30)
[2023-01-27] MEDS: IPRATROPIUM NEB FS 0.5 MG/2.5 ML AMPUL.NEB NEB SCH ×3 (00:55→12:38)
[2023-01-27] MEDS: ALBUTEROL HALF STRENGTH 1.25 MG/3 ML VIAL.NEB NEB SCH ×3 (00:55→12:38)
[2023-01-27] MEDS: VANCOMYCIN 1.25 GM in IV D5W 250 ML IV SCH (01:15)
[2023-01-27] MEDS: HYDROCODONE/APAP 5/325MG TABLET PO PRN (05:55)
--- NOTE | 2023-01-27 06:51 | NUR ---
MS RN CLOSING NOTE PATIENT AWAKE IN BED, WATCHING TV AT THIS TIME. A/O X4, ABLE TO MAKE NEEDS KNOWN. STABLE ON O2 2L VIA NC (SOMETIMES RA) WITH NO S/S OF DISTRESS AND SOB NOTED. DENIES PAIN AT THIS TIME. IV ACCESS RAC G#20 SL, INTACT AND PATENT, FLUSHING WELL. REDNESS ON BILATERAL LEGS, SWELLING ON L LEG, NO WEEPING NOTED. PATIENT CONTINENT, AMBULATORY WITH WALKER. ALL CARE PROVIDED AND MEDS TOLERATED WELL. FALL AND SAFETY PRECAUTION IN PLACE: BED LOCKED AND AT THE LOWEST POSITION, SIDE RAILS UP X2, CALL LIGHT WITHIN REACH. WILL ENDORSE JENNI TO DAY SHIFT NURSE.
[2023-01-27 07:00] VITALS: BP 157/79
--- NOTE | 2023-01-27 07:20 | NUR ---
MS RN OPENING NOTE RECEIVED PATIENT AWAKE IN BED, A/O X4, ABLE TO MAKE NEEDS KNOWN. ON RA WITH NO S/S OF DISTRESS AND SOB NOTED. DENIES PAIN AT THIS TIME. IV ACCESS RAC G#20 SL, INTACT AND PATENT, FLUSHING WELL. REDNESS ON BILATERAL LEGS, NO COMPLAIN OF PAIN OR DISCOMFORT AT THIS TIME. PATIENT AMBULATES WITH WALKER. FALL AND SAFETY PRECAUTION IN PLACE: BED LOCKED AND AT THE LOWEST POSITION, SIDE RAILS UP X2, CALL LIGHT WITHIN REACH. WILL CONTINUE WITH PLAN OF CARE.
[2023-01-27 07:21] LABS: CALCIUM, SERUM 9.3 mg/dL (8.5-10.1); CREATININE 1.3 mg/dL (0.6-1.3); POTASSIUM 3.9 mmol/L (3.5-5.1)
[2023-01-27] MEDS: BLOOD SUGAR DIAGNOSTIC 1 EACH STRIP VI SCH (08:10)
[2023-01-27] MEDS: ALLOPURINOL 100 MG TABLET PO SCH (08:26)
[2023-01-27] MEDS: VENLAFAXINE XR 75 MG CAP.SR.24H PO SCH (08:26)
[2023-01-27] MEDS: MULTIVIT W/MINERALS 1 TAB TABLET PO SCH (08:26)
[2023-01-27] MEDS: LEVOTHYROXINE SODIUM 25 MCG TABLET PO SCH (08:26)
[2023-01-27 08:30] VITALS: BP 157/79
[2023-01-27] MEDS: DILTIAZEM HCL CD 240 MG PO SCH (08:30)
[2023-01-27] MEDS: PANTOPRAZOLE 40 MG TABLET.DR PO SCH (08:30)
[2023-01-27] MEDS: GABAPENTIN 300 MG CAPSULE PO SCH (08:30)
[2023-01-27] MEDS: MAGNESIUM OXIDE 400 MG TABLET PO SCH (08:30)
[2023-01-27] MEDS: CALCIUM CARBONATE (1250) 500 MG TABLET PO SCH (08:31)
[2023-01-27] MEDS: APIXABAN 5 MG TABLET PO SCH (08:33)
[2023-01-27] MEDS: FLUTICASONE/VILANTEROL 1 EACH BLST.W.DEV IH SCH (08:33)
[2023-01-27] MEDS ORDERED: POTASSIUM CHLORIDE 10 MEQ TABLET.SA PO SCH (09:00)
[2023-01-27] MEDS ORDERED: FUROSEMIDE 40 MG TABLET PO SCH (09:00)
[2023-01-27 09:30] LABS: CALCIUM, SERUM 9.5 mg/dL (8.5-10.1); CARBON DIOXIDE 27 mmol/L (21-32); CHLORIDE 103 mmol/L (98-107); CREATININE 1.4 mg/dL (0.6-1.3); GLUCOSE 129 mg/dL (74-106); POTASSIUM 4.3 mmol/L (3.5-5.1); SODIUM SERUM 142 mmol/L (136-145); UREA NITROGEN, BLOOD 23 mg/dL (7-18)
[2023-01-27 09:52] LABS: ALANINE AMINOTRANSFERASE 22 U/L (12-78); ALBUMIN 3.2 g/dL (3.4-5.0); ALKALINE PHOSPHATASE 78 U/L (46-116); ASPARTATE AMINOTRANSFERASE 19 U/L (15-37); BILIRUBIN,TOTAL 0.3 mg/dL (0.2-1.0); TOTAL PROTEIN, SERUM 7.1 g/dL (6.4-8.2)
--- NOTE | 2023-01-27 10:30 | NUR ---
MS RN NOTE SEEN BY DR. FRANKLIN WITH ORDER FOR DISCHARGE. HEALTH TEACHING DONE REGARDING DISCHARGE AND DISCHARGE INSTRUCTIONS. VERBALIZED UNDERSTANDING AND APPRECIATION. IN STABLE CONDITION. AWAITING FINAL ORDERS
[2023-01-27] MEDS ORDERED: TIOT18CA3 INH (11:23)
[2023-01-27] MEDS ORDERED: FLUT1BLS IH (11:23)
[2023-01-27] MEDS ORDERED: DOXY100C2 PO (11:23)
[2023-01-27] MEDS ORDERED: ALBU18HF2 INH (11:26)
--- NOTE | 2023-01-27 13:20 | NUR ---
MS RN NOTE PATIENT DISCHARGED AT AROUND 1310 ORDERED, IN STABLE CONDITION. IV ACCESS REMOVED AND COVERED WITH DRY DRESSING. TOLERATED WELL. MEDICATION INSTRUCTIONS EXPLAINED TO THE PATIENT AND PATIENT'S DAUGHTER VANESSA SAVAGE). VERBALIZED UNDERSTANDING AND APPRECIATION. HOME HEALTH C/O MARKET RELATIONSHIP MANAGER. PATIENT ID REMOVED AND WHEELED TO LOBBY WITH DAUGHTER PICKING UP THE PATIENT. ENDORSED ACCORDINGLY.
[2023-01-28] MEDS ORDERED: VANCOMYCIN 1 GM in IV D5W 250ml IV SCH (01:00)
== END 2023-01-27 13:06 | disposition home health service (06) | DRG 602 ==
LOC: ER 16:00 → TELE 23:12 → MED 01-26 22:05
PROVIDERS: ADMIT Student in an Organized Health Care Education/Training Program; ATTEND Internal Medicine
DX: L03.115 Cellulitis of right lower limb (principal); I50.33 Acute on chronic diastolic (congestive) heart failure; I13.0 Hypertensive heart and chronic kidney disease with heart failure and stage 1 through stage 4 chronic kidney disease, or unspecified chronic kidney disease; F03.93 Unspecified dementia, unspecified severity, with mood disturbance; F03.94 Unspecified dementia, unspecified severity, with anxiety; Z68.41 Body mass index [BMI] 40.0-44.9, adult; D68.59 Other primary thrombophilia; J44.1 Chronic obstructive pulmonary disease with (acute) exacerbation; L03.116 Cellulitis of left lower limb; N18.9 Chronic kidney disease, unspecified; I48.91 Unspecified atrial fibrillation; I25.10 Atherosclerotic heart disease of native coronary artery without angina pectoris; Z20.822 Contact with and (suspected) exposure to COVID-19; E11.22 Type 2 diabetes mellitus with diabetic chronic kidney disease; E11.40 Type 2 diabetes mellitus with diabetic neuropathy, unspecified; M79.7 Fibromyalgia; G89.29 Other chronic pain; Z90.49 Acquired absence of other specified parts of digestive tract; Z90.710 Acquired absence of both cervix and uterus; Z98.890 Other specified postprocedural states; E03.9 Hypothyroidism, unspecified; E78.5 Hyperlipidemia, unspecified; E87.6 Hypokalemia; Z79.01 Long term (current) use of anticoagulants; Z79.899 Other long term (current) drug therapy; Z87.891 Personal history of nicotine dependence; E66.01 Morbid (severe) obesity due to excess calories; G47.33 Obstructive sleep apnea (adult) (pediatric)
CPT/HCPCS: 36415; 36600; 70220-TC; 71045-TC; 80048-TC; 80053-TC; 80076-TC; 80202-TC; 82803-TC; 82962-TC; 83605-TC; 83735-TC; 83880; 84100-TC; 84484-TC; 85025-TC; 87040-TC; 87081-TC; 93970-TC; 94799-TC; 97112-TC; 97116-TC; 97530-TC; A4223; C9803; G0378; J1815; J1940; J3370; J7030; J7050; J7060

== ENCOUNTER 2023-04-14 12:27 | Inpatient (IN) | payer MEDICARE, OTHER ==
[~2023-04-14] VITALS: Ht 162.6 cm; Wt 108.9 kg
[~2023-04-14 12:27] MED LIST changes: -BUPR1FIL3 SL; -CALC500T52 PO; -CEPH250C PO; +DOCU250C14 PO; +DOXE10CA2 PO; -GLUC-141 PO; -MAGN400T8 PO; -METH4TAB17 PO; +METH5TAB2 PO; -MULT-447 PO; +MULT-754 PO; -OMEG-167 PO; -ONDA4TAB5 PO; +OXYC-128 PO; +POLY17PO4 PO; -UBID100C13 PO
[2023-04-14 13:31] LABS: BASOPHILS % (AUTO) 0.3 % (0.0-2.0); EOSINOPHILS % (AUTO) 2.3 % (0.0-6.0); HEMATOCRIT 39 % (33-45); HEMOGLOBIN 12.2 g/dL (11.5-14.8); LYMPHOCYTES # (AUTO) 1.1 K/uL (0.8-4.8); LYMPHOCYTES % (AUTO) 14.2 % (20.0-44.0); MEAN CORPUSCULAR HGB CONC 31 g/dl (31.0-36.0); MEAN CORPUSCULAR VOLUME 91 fL (82-100); MONOCYTES # (AUTO) 0.7 K/uL (0.1-1.30); MONOCYTES % (AUTO) 8.7 % (2.0-12.0); NEUTROPHILS # (AUTO) 5.7 K/uL (1.8-8.9); NEUTROPHILS % (AUTO) 74.5 % (43.0-81.0); PLATELET COUNT (AUTO) 340 K/uL (150-450); RED BLOOD CELL COUNT(AUTO) 4.31 MIL/uL (4.0-5.2); WHITE BLOOD COUNT (AUTO) 7.7 K/uL (4.3-11.0)
[2023-04-14 13:36] LABS: BILIRUBIN,URINE NEGATIVE (NEGATIVE); COLOR,URINE YELLOW (YELLOW); LEUKOCYTE ESTERASE ,URINE NEGATIVE (NEGATIVE); NITRITE, URINE NEGATIVE (NEGATIVE); PROTEIN,URINE NEGATIVE (NEGATIVE); UGLUCOSE 2+ mg/dL (NEGATIVE); UROBILINOGEN,URINE 0.2 EU/dL (0.2)
[2023-04-14 13:44] LABS: CALCIUM, SERUM 9.3 mg/dL (8.5-10.1); CARBON DIOXIDE 27 mmol/L (21-32); CHLORIDE 103 mmol/L (98-107); CREATININE 1.4 mg/dL (0.6-1.3); GLUCOSE 144 mg/dL (74-106); POTASSIUM 3.8 mmol/L (3.5-5.1); SODIUM SERUM 141 mmol/L (136-145); UREA NITROGEN, BLOOD 22 mg/dL (7-18)
[2023-04-14 13:52] LABS: ALANINE AMINOTRANSFERASE 27 U/L (12-78); ALBUMIN 2.9 g/dL (3.4-5.0); ALCOHOL, BLOOD < 3 mg/dL (0-10); ALKALINE PHOSPHATASE 69 U/L (46-116); ASPARTATE AMINOTRANSFERASE 20 U/L (15-37); BILIRUBIN,DIRECT 0.1 mg/dL (0.0-0.2); BILIRUBIN,TOTAL 0.3 mg/dL (0.2-1.0); TOTAL PROTEIN, SERUM 7.1 g/dL (6.4-8.2)
[2023-04-14] MEDS ORDERED: CEPHALEXIN MONOHYDRATE 500 MG CAPSULE PO ONE ×2 (15:30→16:14)
--- NOTE | 2023-04-14 15:42 | NUR ---
CALLED NURSING SUP REGARDING PT BED
[2023-04-14] MEDS ORDERED: CHLO25CA22 PO (17:30)
[2023-04-14] MEDS ORDERED: HYDR-3980 PO (17:30)
--- NOTE | 2023-04-14 18:33 | NUR ---
ROOM 219 A AFTER SHIFT CHANGE
--- NOTE | 2023-04-14 19:09 | NUR ---
gps said give report after de oliveira of shift
--- NOTE | 2023-04-14 19:45 | NUR ---
CUSTOMER EQUIPMENT ENGINEER NOTE: ADMITTED A 77Y/O, FEMALE, FROM -[facility]. ADMITTED ON A 5150 HOLD FOR GD. PER HOLD, PT. ADMITTED DUE TO WANTS TO TAKE ALL HER MEDICATIONS ,GD. UPON FACE TO FACE EVALUATION, PATIENT IS ALERT AND ORIENTED X2 ANXIOUS, AGGRESSIVE, DISORGANIZED.SKIN ASSESSMENT DONE,HER LOWER AND UPPER EXTREMITIES BRUISE AND WOUND, AND LEFT BIG TOE HAS OPEN WOUND. PATIENT'S RIGHTS WERE DISCUSSED AND BOOKLET WAS GIVEN. CONTACTED DR. SUAREZ OF THE ADMISSION. INFORMED HER DAUGHTER .BED IN LOW AND LOCKED POSITION. VITAL SIGNS REFUSED. PT UNABLE TO SIGN ADMITTING DOCUMENTS D/T AGGRESSIVE BEHAVIOR. SAFETY PRECAUTIONS MAINTAINED. WILL CONTINUE TO MONITOR Q15 MINS FOR MOOD, SAFETY AND BEHAVIOR.
--- NOTE | 2023-04-14 19:46 | NUR ---
REPORT GIVEN TO PAIGE GOODWIN
[2023-04-14 19:50] VITALS: TEMP 98.4
--- NOTE | 2023-04-14 19:50 | NUR ---
PATIENT TRANSFERED TO [facility] ACCOMPANIED BY ZHANNA
[2023-04-14] MEDS ORDERED: BLOOD SUGAR DIAGNOSTIC 1 EACH STRIP IN ONE (20:30)
[2023-04-14] MEDS ORDERED: MAG HYDROX/AL HYDROX/SIMETH 30 ML UDC PO PRN (20:30)
[2023-04-14] MEDS ORDERED: MAGNESIUM HYDROXIDE 30 ML UDC PO PRN (20:30)
[2023-04-14 20:45] VITALS: BP 126/94; TEMP 98.4; O2SAT 95
[2023-04-14] MEDS: ZOLPIDEM TARTRATE 5 MG TABLET PO PRN (21:44)
--- NOTE | 2023-04-14 21:44 | NUR ---
RN NOTE:- PATIENT UNABLE TO SLEEP PRN AMBIEN 5MG PO GIVEN PER PATIENT REQUEST , WILL CONTINUE TO MONITOR.
[2023-04-15] MEDS: LORAZEPAM 0.5 MG TABLET PO PRN ×2 (02:49→09:49)
--- NOTE | 2023-04-15 02:49 | NUR ---
RN NOTE:- PT ANXIOUS AND RESTLESS AT THIS TIME. ATIVAN PO ADMINISTERED ORDERED.WILL CONTINUE TO MONITOR.
[2023-04-15] MEDS: ACETAMINOPHEN 325 MG TABLET PO PRN ×2 (06:59→20:13)
[2023-04-15 07:12] LABS: CHOLESTEROL 133 mg/dL (<200); HDL CHOLESTEROL 53 mg/dL (40-60); LDL 59 mg/dL (0-99); TRIGLYCERIDES 105 mg/dL (30-150)
[2023-04-15 07:42] LABS: CREATININE 1.4 mg/dL (0.6-1.3)
--- NOTE | 2023-04-15 07:51 | NUR ---
WOUND CARE CONSULT: PT KNOWN TO WOUND CARE FROM PREVIOUS ADMISSIONS. PT YELLING AND AGITATED THIS AM. REVIEWED CHART, NURSING DOCUMENTATION AND PHOTOS WHICH INDICATE LEFT GREAT TOE WOUND, REDNESS WITH WOUNDS TO LOWER LEGS, PRESENT ON ADMISSION. DR QUINTANILLA CALLED FOR DPM CONSULT. DISCUSSED SKIN PROTECTION WITH NURSING STAFF. MD IN AGREEMENT WITH PLAN OF CARE.
[2023-04-15] MEDS ORDERED: Z GUARD REMEDY 4 OZ OINT TP PRN (08:00)
[2023-04-15 08:53] LABS: CALCIUM, SERUM 9.3 mg/dL (8.5-10.1); CARBON DIOXIDE 25 mmol/L (21-32); CHLORIDE 103 mmol/L (98-107); CREATININE 1.5 mg/dL (0.6-1.3); GLUCOSE 115 mg/dL (74-106); POTASSIUM 3.7 mmol/L (3.5-5.1); SODIUM SERUM 139 mmol/L (136-145); UREA NITROGEN, BLOOD 21 mg/dL (7-18)
--- NOTE | 2023-04-15 09:09 | NUR ---
NATE Initial Discharge Note: Patient currently resides at home located [address] [place] [address]; ([phone]). Pt would want to return back home. NATE will contact pt's daughter Angela ([phone]) and will discuss treatment and discharge plan. NATE will work with the MD, family, and treatment team.
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
[2023-04-15] MEDS: Z GUARD REMEDY 4 OZ OINT TP SCH (09:46)
[2023-04-15] MEDS ORDERED: DOXEPIN HCL 10 MG CAPSULE PO PRN (12:00)
[2023-04-15] MEDS: CHLORDIAZEPOXIDE HCL 25 MG CAPSULE PO PRN ×2 (12:37→20:55)
[2023-04-15] MEDS: GABAPENTIN 300 MG CAPSULE PO SCH ×2 (12:37→16:47)
--- NOTE | 2023-04-15 14:25 | NUR ---
NATE FAMILY CONTACT: NATE CONTACTED PT'S DAUGHTER VANESSA ([phone]) AND DISCUSSED TREATMENT/DISCHARGE PLAN. DAUGHTER HAD CONCERNS ABOUT PT AT HOME. SHE EXPRESSED THAT SHE HAS BEEN DIFFICULT AT HOME. PT HAS DEMENTIA. SHE EXPRESSED THAT HER DEMENTIA HAS BECOME WORSE. SHE STATED THAT HER AND HER FATHER CARE FOR PT AT HOME 24 HOURS. SHE EXPRESSED THAT SHE IS A HIGH RISK FOR SI. SHE STATED THAT SHE HAS MOMENTS AT HOME WHERE SHE RUNS OFF TO THE STREET NAKED. NO DPOA OR CONSERVATOR. SHE WOULD WANT PT TO GO BACK HOME WHEN SHE IS STABLE.
[2023-04-15 16:00] VITALS: BP 103/65; TEMP 98.7; O2SAT 97
[2023-04-15 21:00] VITALS: BP 123/65; TEMP 97.5; O2SAT 98
[2023-04-15] MEDS: ZOLPIDEM TARTRATE 5 MG TABLET PO PRN (22:09)
--- NOTE | 2023-04-16 00:30 | NUR ---
GPS RN NOTES PATIENT C/O LOWER BACK PAIN ON A PAIN SCALE OF 9/10. TYLENOL WAS GIVEN BUT INEFFECTIVE. EPIC ON-CALL ASSIGNMENT OFFICER FERDINAND NOTIFIED OF THE FINDING ASSESSMENT AND OBTAINED ORDER OF NORCO 5/325MG PO X1 DOSE NOW NOTED AND CARRIED OUT.
[2023-04-16] MEDS ORDERED: HYDROCODONE/APAP 5/325MG TABLET PO ONE (01:00)
[2023-04-16] MEDS: CHLORDIAZEPOXIDE HCL 25 MG CAPSULE PO PRN (05:29)
[2023-04-16 07:42] LABS: CALCIUM, SERUM 8.9 mg/dL (8.5-10.1); CREATININE 1.3 mg/dL (0.6-1.3)
[2023-04-16 08:00] VITALS: BP 130/91; TEMP 98.7; O2SAT 96
--- NOTE | 2023-04-16 08:00 | NUR ---
GPS RN NOTE: RECEIVED PT IN BED. AAOX3. ABLE TO MAKE NEEDS KNOWN. CURRENT BEHAVIOR ANXIOUS, CALM, COOPERATIVE WITH CARE, GUARDED, MED COMPLIANT WITH WHOLE PILL, NEEDY AND LOUD. NO RESP DISTRESS NOTED. AFEBRILE. ON VISUAL MONITORING [id number] FOR SAFETY AND NEEDS. BEDS KEPT LOW AND LOCK FOR SAFETY.
[2023-04-16] MEDS: ACETAMINOPHEN 325 MG TABLET PO PRN (08:27)
[2023-04-16] MEDS: VENLAFAXINE XR 150 MG CAP.SR.24H PO SCH (08:27)
[2023-04-16] MEDS: ARIPIPRAZOLE 5 MG TABLET PO SCH (08:27)
[2023-04-16] MEDS: GABAPENTIN 300 MG CAPSULE PO SCH ×3 (08:28→16:46)
[2023-04-16] MEDS: Z GUARD REMEDY 4 OZ OINT TP SCH (08:31)
[2023-04-16] MEDS: HYDROCODONE/APAP 5/325MG TABLET PO PRN ×2 (10:05→18:57)
--- NOTE | 2023-04-16 15:31 | NUR ---
GPS RN NOTE: PT IS AAOX4. ABLE TO MAKE NEEDS KNOWN. ABLE TO MAKE DECISIONS. PER PT SHES REQUESTING FOR REGULAR DIET. DISCUSS RISK AND BENEFITS. CONT TO INSIST FOR REGULAR DIET. MD MADE AWARE WITH REGULAR DIET ORDER.
[2023-04-16 20:00] VITALS: BP 135/82; TEMP 98.1; O2SAT 97
[2023-04-17] MEDS: HYDROCODONE/APAP 5/325MG TABLET PO PRN ×3 (00:46→19:28)
--- NOTE | 2023-04-17 00:58 | NUR ---
RN NOTES PATIENT C/O LOWER BACK PAIN ON A PAIN SCALE OF 7/10. PATIENT REQUESTED NORCO 5/325MG PO X1 DOSE ADMINISTERED , ORDER .WILL CONTINUE TO MONITOR.
[2023-04-17] MEDS: ACETAMINOPHEN 325 MG TABLET PO PRN (03:54)
--- NOTE | 2023-04-17 03:59 | NUR ---
RN NOTE:- PT REQUESTED ,TYLENOL PO ADMINISTERED ORDER,FOR PAIN. WILL CONT TO MONITOR.
[2023-04-17] MEDS: CHLORDIAZEPOXIDE HCL 25 MG CAPSULE PO PRN (05:26)
--- NOTE | 2023-04-17 05:33 | NUR ---
RN NOTE:- PT ANXIOUS AND YELLING AT THIS TIME AND REQUESTED MED ,LIBRIUM PO ADMINISTERED ORDERED.WILL CONTINUE TO MONITOR.
[2023-04-17 08:00] VITALS: BP 153/97; TEMP 97.8; O2SAT 98
[2023-04-17] MEDS: ARIPIPRAZOLE 5 MG TABLET PO SCH (08:21)
[2023-04-17] MEDS: GABAPENTIN 300 MG CAPSULE PO SCH ×4 (08:21→20:25)
[2023-04-17] MEDS: VENLAFAXINE XR 150 MG CAP.SR.24H PO SCH (08:21)
[2023-04-17] MEDS: Z GUARD REMEDY 4 OZ OINT TP SCH (08:22)
--- NOTE | 2023-04-17 10:48 | NUR ---
RN- NOTES NORCO ADMINISTERED DUE TO PATIENT COMPLAINTS OF 10/10 PAIN OF THE LOWER ABDOMEN.
[2023-04-17] MEDS ORDERED: LOPERAMIDE HCL (2 MG CAP) 2 MG CAPSULE PO PRN (15:00)
[2023-04-17 16:00] VITALS: BP 154/96; TEMP 97.8; O2SAT 95
--- NOTE | 2023-04-17 17:12 | NUR ---
RN- NOTES IMODIUM ADMINISTERED DUE TO PATIENT COMPLAINTS OF DIARRHEA.
--- NOTE | 2023-04-17 18:55 | NUR ---
RN- CLOSING NOTES PATIENT AWAKE, SITTING IN WHEELCHAIR IN THE HALLWAY, BREATHING EVEN AND NON LABORED WITH NO S/S OF DISTRESS. PATIENT IS COOPERATIVE, GUARDED, NEEDY, ATTENTION SEEKINGS, ANXIOUS, LABILE, SUSPICIOUS, AGGRESSIVE AND ISOLATIVE. PATIENT IS MEDICATION COMPLAINT. ENCOURAGED PATIENT TO LEAVE ROOM AND SOCIALIZE WITH STAFF, PATIENT REFUSED. DENIES SI/HI AT THIS TIME. WILL CONTINUE TO MONITOR Q 15 MINUTES FOR SAFETY AND BEHAVIOR.
--- NOTE | 2023-04-17 19:36 | NUR ---
RN- NOTES : PAIN PT.C/O LOWER ABDOMEN PAIN NORCO ADMINISTERED DUE TO PATIENT COMPLAINTS OF 7/10 PAIN ,WILL CONTINUE TO MONITOR. .
[2023-04-17 20:00] VITALS: BP 138/84; TEMP 98; O2SAT 98
[2023-04-17] MEDS: ZOLPIDEM TARTRATE 5 MG TABLET PO PRN (21:50)
--- NOTE | 2023-04-17 21:55 | NUR ---
RN NOTES : INSOMNIA PT. C/O INSOMNIA PRN AMBIEN 5 MG PO GIVEN ,WILL CONTINUE TO MONITOR.
[2023-04-18] MEDS: HYDROCODONE/APAP 5/325MG TABLET PO PRN (02:36)
--- NOTE | 2023-04-18 02:36 | NUR ---
RN- NOTES : PAIN PT.C/O GENERALIZED BODY PAIN NORCO ADMINISTERED DUE TO PATIENT COMPLAINTS OF 7/10 PAIN ,WILL CONTINUE TO MONITOR .
[2023-04-18 08:00] VITALS: BP 129/69; TEMP 97.8; O2SAT 98
[2023-04-18] MEDS: VENLAFAXINE XR 150 MG CAP.SR.24H PO SCH (08:04)
[2023-04-18] MEDS: ARIPIPRAZOLE 5 MG TABLET PO SCH (08:04)
[2023-04-18] MEDS: GABAPENTIN 300 MG CAPSULE PO SCH ×4 (08:04→21:21)
[2023-04-18] MEDS: Z GUARD REMEDY 4 OZ OINT TP SCH (08:05)
[2023-04-18] MEDS ORDERED: POLYETHYLENE GLYCOL 3350 17 GM POWD.PACK PO PRN (08:30)
--- NOTE | 2023-04-18 08:42 | NUR ---
COURT NOTIFICATION: SW CONTACTED PT'S DAUGHTER VANESSA ([phone]) AND NOTIFIED OF 5250 HEARING.
[2023-04-18] MEDS ORDERED: GABAPENTIN 300 MG CAPSULE PO SCH (09:00)
--- NOTE | 2023-04-18 10:08 | NUR ---
Court Hearing: Patient's court hearing for 5250 was today and it was upheld for GD and danger to self.
[2023-04-18] MEDS: HYDROCODONE/APAP 10/325MG TABLET PO PRN (10:53)
[2023-04-18] MEDS: DILTIAZEM HCL CD 240 MG PO SCH (11:06)
[2023-04-18] MEDS: POTASSIUM CHLORIDE 10 MEQ TABLET.SA PO SCH (11:06)
[2023-04-18] MEDS: ALLOPURINOL 100 MG TABLET PO SCH (11:06)
[2023-04-18] MEDS: BUMETANIDE (1 MG) 1 MG TABLET PO SCH (11:07)
[2023-04-18] MEDS: APIXABAN 5 MG TABLET PO SCH ×2 (11:14→17:11)
[2023-04-18] MEDS ORDERED: NALOXONE HCL 0.4 MG/ML AMPUL IV PRN (14:00)
[2023-04-18] MEDS: oxyCODONE HCL SR 10MG TAB.SR.12H PO SCH ×2 (15:08→21:21)
[2023-04-18 16:00] VITALS: BP 137/96; TEMP 98.1; O2SAT 96
[2023-04-18] MEDS: ATORVASTATIN 10 MG TABLET PO SCH (21:21)
--- NOTE | 2023-04-18 21:21 | NUR ---
RN- NOTES : PAIN PT.C/O ABDOMINAL PAIN 05/01 , SCHEDULE PO OXYCONTIN 10 MG ADMINISTERED PER MD ORDERS ,WILL CONTINUE TO MONITOR .
[2023-04-18] MEDS: DOCUSATE SODIUM 250 MG CAPSULE PO SCH (21:22)
[2023-04-18] MEDS: ZOLPIDEM TARTRATE 5 MG TABLET PO PRN (22:35)
--- NOTE | 2023-04-18 22:36 | NUR ---
RN NOTES : INSOMNIA PT. C/O INSOMNIA PRN AMBIEN 5 MG PO GIVEN ,WILL CONTINUE TO MONITOR.
--- NOTE | 2023-04-19 03:43 | NUR ---
GPS RN NOTE, PATIENT HAS A COMPLAINT OF ITCHING ON RIGHT GLUTEAL FOLD AND IS REQUESTING BENADRYL AT THIS TIME. PAGED [facility] [employer] AND INFORMED ANDRESSA STREETER DNP OF MY FINDINGS. ANDRESSA STREETER DNP ORDERED BENADRYL 25MG PO Q6HR PRN FOR ITCHING. ALL ORDERS NOTED AND CARRIED OUT WILL CONTINUE TO MONITOR THIS PATIENT WITH THE HELP OF STAFF.
[2023-04-19] MEDS ORDERED: diphenhydrAMINE HCL 25 MG CAPSULE PO PRN (04:00)
[2023-04-19 08:00] VITALS: BP 135/77; TEMP 98; O2SAT 97
[2023-04-19] MEDS: ALLOPURINOL 100 MG TABLET PO SCH (08:26)
[2023-04-19] MEDS: LEVOTHYROXINE SODIUM 25 MCG TABLET PO SCH (08:26)
[2023-04-19] MEDS: oxyCODONE HCL SR 10MG TAB.SR.12H PO SCH ×2 (08:27→20:04)
[2023-04-19] MEDS: VENLAFAXINE XR 150 MG CAP.SR.24H PO SCH (08:27)
[2023-04-19] MEDS: BUMETANIDE (1 MG) 1 MG TABLET PO SCH (08:27)
[2023-04-19] MEDS: GABAPENTIN 300 MG CAPSULE PO SCH ×4 (08:27→20:02)
[2023-04-19] MEDS: POTASSIUM CHLORIDE 10 MEQ TABLET.SA PO SCH (08:27)
[2023-04-19] MEDS: ARIPIPRAZOLE 5 MG TABLET PO SCH (08:28)
[2023-04-19] MEDS: APIXABAN 5 MG TABLET PO SCH ×2 (08:28→16:53)
[2023-04-19] MEDS: Z GUARD REMEDY 4 OZ OINT TP SCH (08:29)
[2023-04-19] MEDS: DILTIAZEM HCL CD 240 MG PO SCH (08:30)
--- NOTE | 2023-04-19 09:01 | NUR ---
Called Dr. Kern at [phone] for the consult and left a message.
[2023-04-19 16:00] VITALS: BP 131/95; TEMP 98; O2SAT 97
[2023-04-19] MEDS: CHLORDIAZEPOXIDE HCL 25 MG CAPSULE PO PRN (16:09)
[2023-04-19 20:00] VITALS: BP 145/74; TEMP 98.1; O2SAT 98
[2023-04-19] MEDS: DOCUSATE SODIUM 250 MG CAPSULE PO SCH (21:42)
[2023-04-19] MEDS: ZOLPIDEM TARTRATE 5 MG TABLET PO PRN (21:42)
[2023-04-19] MEDS: ATORVASTATIN 10 MG TABLET PO SCH (21:43)
[2023-04-19] MEDS: HYDROCODONE/APAP 10/325MG TABLET PO PRN (23:47)
[2023-04-20] MEDS: ACETAMINOPHEN 325 MG TABLET PO PRN (02:29)
--- NOTE | 2023-04-20 03:14 | NUR ---
2142 Ambien 5mg given per patient requested for insomia. 234 [place] 10-325 given for c/o severe abdominal pain. 2228 Tylenol 650mg given for c/o of abdominal pain. 0310 Patient sleeping with no sign of distress or discomfort. Will continue monitor.
[2023-04-20] MEDS: LEVOTHYROXINE SODIUM 25 MCG TABLET PO SCH (07:47)
[2023-04-20] MEDS: HYDROCODONE/APAP 10/325MG TABLET PO PRN (07:48)
--- NOTE | 2023-04-20 07:48 | NUR ---
RN- NOTES OXYCODONE ADMINISTERED DUE TO PATIENT COMPLAINTS OF 05/01 PAIN ON LOWER ABDOMEN. Addendum: 04/20/23 at 0751 by MAIKEL FONTANA RN INCORRECT MEDICATION NAME- NORCO ADMINISTERED
[2023-04-20 08:00] VITALS: BP_SYST 127; TEMP 97.6; O2SAT 95
[2023-04-20] MEDS: GABAPENTIN 300 MG CAPSULE PO SCH ×4 (08:43→20:07)
[2023-04-20] MEDS: ARIPIPRAZOLE 5 MG TABLET PO SCH (08:43)
[2023-04-20] MEDS: ALLOPURINOL 100 MG TABLET PO SCH (08:43)
[2023-04-20] MEDS: DILTIAZEM HCL CD 240 MG PO SCH (08:44)
[2023-04-20] MEDS: BUMETANIDE (1 MG) 1 MG TABLET PO SCH ×2 (08:44→08:56)
[2023-04-20] MEDS: POTASSIUM CHLORIDE 10 MEQ TABLET.SA PO SCH (08:45)
[2023-04-20] MEDS: APIXABAN 5 MG TABLET PO SCH ×2 (08:45→16:25)
[2023-04-20] MEDS: VENLAFAXINE XR 150 MG CAP.SR.24H PO SCH (08:46)
[2023-04-20] MEDS: oxyCODONE HCL SR 10MG TAB.SR.12H PO SCH ×3 (08:55→20:07)
[2023-04-20] MEDS: Z GUARD REMEDY 4 OZ OINT TP SCH (09:19)
--- NOTE | 2023-04-20 10:13 | NUR ---
RN- NOTES PATIENT REFUSED OXYCONTIN PREVIOUSLY, BUT REQUESTED PAIN MEDICATION AT THIS TIME.
[2023-04-20] MEDS: CHLORDIAZEPOXIDE HCL 25 MG CAPSULE PO PRN (14:56)
--- NOTE | 2023-04-20 14:56 | NUR ---
RN- NOTES LIBRIUM ADMINISTERED DUE TO PATIENT COMPLAINTS OF INCREASED ANXIETY AND ATTEMPTING TO PEEL SKIN OFF OF BODY.
[2023-04-20 16:00] VITALS: BP 132/99; TEMP 98; O2SAT 97
--- NOTE | 2023-04-20 18:36 | NUR ---
RN- CLOSING NOTES PATIENT AWAKE, RESTING IN BED, BREATHING EVEN AND NON LABORED WITH NO S/S OF DISTRESS. PATIENT IS COOPERATIVE, GUARDED, NEEDY, ATTENTION SEEKING, ANXIOUS, LABILE, SUSPICIOUS, AND ISOLATIVE. PATIENT IS MEDICATION COMPLAINT. PATIENT CONTINUES TO COMPLAIN OF PAIN INTERMITTENTLY THROUGHOUT THE DAY. PATIENT COMPLAINTS OF INCREASED ANXIETY, PRN MEDICATION ADMINISTERED. ENCOURAGED PATIENT TO LEAVE ROOM AND SOCIALIZE WITH STAFF, PATIENT REFUSED. DENIES SI/HI AT THIS TIME. WILL CONTINUE TO MONITOR Q 15 MINUTES FOR SAFETY AND BEHAVIOR.
--- NOTE | 2023-04-20 19:30 | NUR ---
GPS RN OPENING NOTE RECEIVED PT AWAKE IN BED. PT STABLE ON ROOM AIR. NO SOB OR S/S OF RESPIRATORY DISTRESS. BREATHING EVEN AND UNLABORED. PT IS COOPERATIVE, GUARDED, NEEDY, ATTENTION SEEKING, ANXIOUS, LABILE, SUSPICIOUS, MED COMPLIANT, AND ISOLATIVE. DENIES SI/HI AT THIS TIME. WILL CONTINUE TO MONITOR Q15MIN FOR SAFETY AND BEHAVIOR.
--- NOTE | 2023-04-20 20:07 | NUR ---
RN NOTE GABAPENTIN 300 MG NOT SCANNING. BRADLEY BARCODED. CHARGE NURSE MALGORZATA TOSCANO.
[2023-04-20 21:16] VITALS: BP 142/95; TEMP 97.9; O2SAT 95
[2023-04-20] MEDS: ATORVASTATIN 10 MG TABLET PO SCH (21:36)
[2023-04-20] MEDS: DOCUSATE SODIUM 250 MG CAPSULE PO SCH (21:36)
[2023-04-20] MEDS: ZOLPIDEM TARTRATE 5 MG TABLET PO PRN (21:37)
--- NOTE | 2023-04-20 21:37 | NUR ---
RN NOTE PT COMPLAINED OF INSOMNIA. ADMINISTERED AMBIEN 5 MG FOR SLEEP ORDERED. MADE COMFORTABLE IN BED. ALL NEEDS MET AT THIS TIME.
[2023-04-21] MEDS: CHLORDIAZEPOXIDE HCL 25 MG CAPSULE PO PRN ×2 (04:24→20:20)
--- NOTE | 2023-04-21 04:27 | NUR ---
RN NOTE PT COMPLAINED OF ANXIETY. ADMINISTERED LIBRIUM FOR ANXIETY ORDERED. ALL NEEDS MET AT THIS TIME.
--- NOTE | 2023-04-21 07:32 | NUR ---
RN OPENING NOTE RECEIVED PATIENT AWAKE IN BED, STABLE ON ROOM AIR. NO SOB OR S/S OF RESPIRATORY DISTRESS. BREATHING EVEN AND UNLABORED. PATIENT IS COOPERATIVE, GUARDED, NEEDY, ATTENTION SEEKING, ANXIOUS, LABILE, SUSPICIOUS AND ISOLATIVE. DENIES SI/HI AT THIS TIME. WILL CONTINUE TO MONITOR Q15MIN FOR SAFETY AND BEHAVIOR.
[2023-04-21 07:52] LABS: CALCIUM, SERUM 9.6 mg/dL (8.5-10.1); POTASSIUM 4.2 mmol/L (3.5-5.1)
[2023-04-21 08:00] VITALS: BP 110/60; TEMP 98; O2SAT 97
[2023-04-21] MEDS: LEVOTHYROXINE SODIUM 25 MCG TABLET PO SCH (08:07)
[2023-04-21] MEDS: BUMETANIDE (1 MG) 1 MG TABLET PO SCH ×2 (08:13→08:59)
[2023-04-21] MEDS: ALLOPURINOL 100 MG TABLET PO SCH (08:13)
[2023-04-21] MEDS: ARIPIPRAZOLE 5 MG TABLET PO SCH (08:13)
[2023-04-21] MEDS: POTASSIUM CHLORIDE 10 MEQ TABLET.SA PO SCH (08:13)
[2023-04-21] MEDS: VENLAFAXINE XR 150 MG CAP.SR.24H PO SCH (08:14)
[2023-04-21] MEDS: GABAPENTIN 300 MG CAPSULE PO SCH ×4 (08:15→20:53)
[2023-04-21] MEDS: APIXABAN 5 MG TABLET PO SCH ×2 (08:16→18:07)
[2023-04-21] MEDS: DILTIAZEM HCL CD 240 MG PO SCH (08:28)
[2023-04-21] MEDS: oxyCODONE HCL SR 10MG TAB.SR.12H PO SCH ×2 (08:28→20:53)
[2023-04-21] MEDS: Z GUARD REMEDY 4 OZ OINT TP SCH (08:42)
--- NOTE | 2023-04-21 08:59 | NUR ---
RN NOTE PATIENT REFUSED TO TAKE BUMETANIDE. RISKS AND BENEFITS REITERATED COMPLYING TO MEDICATION 3X BUT PATIENT IS SHOUTING AND REFUSING MEDICATION. WILL CONTINUE TO MONITOR THE PATIENT.
--- NOTE | 2023-04-21 10:07 | NUR ---
RN NOTE CALLED DR[facility] TO FOLLOW ON THE CONSULT FOR SEVERE STOMACH PAIN, WAS INFORMED THAT THEY WILL JUST CALLBACK. WILL CONTINUE TO MONITOR THE PATIENT.
[2023-04-21] MEDS: NYSTATIN CREAM 15 GM TUBE TP PRN ×2 (10:22→18:13)
[2023-04-21] MEDS: HYDROCODONE/APAP 10/325MG TABLET PO PRN (14:29)
[2023-04-21 16:00] VITALS: BP 125/95; TEMP 98.7; O2SAT 96
--- NOTE | 2023-04-21 19:04 | NUR ---
CLOSING NOTE PATIENT AWAKE IN BED, STABLE ON ROOM AIR. NO SOB OR S/S OF RESPIRATORY DISTRESS. BREATHING EVEN AND UNLABORED. PATIENT IS COOPERATIVE, GUARDED, NEEDY, ATTENTION SEEKING, ANXIOUS, LABILE, SUSPICIOUS AND ISOLATIVE. DENIES SI/HI AT THIS TIME. SKIN CARE IMPLEMENTED. ALL NEEDS ATTENDED AND ANTICIPATED. WILL ENDORSE TO NEXT SHIFT NURSE
--- NOTE | 2023-04-21 20:20 | NUR ---
RN NOTE PT COMPLAINED OF ANXIETY. ADMINISTERED LIBRIUM FOR ANXIETY ORDERED. ALL NEEDS MET AT THIS TIME.
[2023-04-21 21:13] VITALS: BP 153/80; TEMP 98.8; O2SAT 98
[2023-04-21] MEDS: ATORVASTATIN 10 MG TABLET PO SCH (21:30)
[2023-04-21] MEDS: DOCUSATE SODIUM 250 MG CAPSULE PO SCH (21:30)
[2023-04-21] MEDS: ZOLPIDEM TARTRATE 5 MG TABLET PO PRN (22:08)
--- NOTE | 2023-04-21 22:08 | NUR ---
RN NOTES : PT. C/O INSOMNIA PRN AMBIEN 5 MG PO GIVEN ,WILL CONTINUE TO MONITOR
[2023-04-22] MEDS: CHLORDIAZEPOXIDE HCL 25 MG CAPSULE PO PRN (04:10)
[2023-04-22] MEDS: POTASSIUM CHLORIDE 10 MEQ TABLET.SA PO SCH (08:01)
[2023-04-22 08:03] VITALS: BP 136/72
[2023-04-22] MEDS: DILTIAZEM HCL CD 240 MG PO SCH (08:03)
[2023-04-22] MEDS: GABAPENTIN 300 MG CAPSULE PO SCH ×2 (08:04→12:20)
[2023-04-22] MEDS: VENLAFAXINE XR 150 MG CAP.SR.24H PO SCH (08:04)
[2023-04-22] MEDS: ARIPIPRAZOLE 5 MG TABLET PO SCH (08:04)
[2023-04-22] MEDS: oxyCODONE HCL SR 10MG TAB.SR.12H PO SCH (08:04)
[2023-04-22] MEDS: LEVOTHYROXINE SODIUM 25 MCG TABLET PO SCH (08:04)
[2023-04-22] MEDS: ALLOPURINOL 100 MG TABLET PO SCH (08:04)
[2023-04-22] MEDS: BUMETANIDE (1 MG) 1 MG TABLET PO SCH (08:04)
[2023-04-22] MEDS: Z GUARD REMEDY 4 OZ OINT TP SCH (08:07)
[2023-04-22] MEDS: APIXABAN 5 MG TABLET PO SCH (09:04)
--- NOTE | 2023-04-22 09:06 | NUR ---
GPS OPENING NOTE: RECEIVED PATIENT AWAKE IN BED, STABLE ON ROOM AIR. NO SOB OR S/S OF RESPIRATORY DISTRESS. BREATHING EVEN AND UNLABORED. PATIENT IS COOPERATIVE, GUARDED, NEEDY, ATTENTION SEEKING, ANXIOUS, LABILE, SUSPICIOUS AND ISOLATIVE. DENIES SI/HI AT THIS TIME. WILL CONTINUE TO MONITOR Q15MIN FOR SAFETY AND BEHAVIOR.
--- NOTE | 2023-04-22 09:52 | NUR ---
NATE Coordination of Care: Patient will follow up with primary doctor, Dr. Aparicio located at [id number] [place] [address] [address], [place] [address]; ([phone]) on via telehealth April 22 at 3:15PM who will monitor and provide psychotropic medications and requested a GI doctor for a referral.
--- NOTE | 2023-04-22 09:56 | NUR ---
SW Discharge Note: Patient will be discharged back home located at [address] [place] [address]; ([phone]). Patients daughter Sofia ([phone]) will supervisor opening and picking pt between 1-2PM. Patient is alert and oriented x2. Patient happy to be going back home. Patient denies suicidal or homicidal ideation. Patient denies visual/auditory hallucinations. Patient will follow up with primary doctor, Dr. Aparicio located at [id number] [place] [id number]; ([phone]) on via telehealth April 22 via telehealth at 3:15PM who will monitor and provide psychotropic medications and requested a GI doctor for a referral. Patient presents with euthymic mood and congruent affect.
[2023-04-22] MEDS: HYDROCODONE/APAP 10/325MG TABLET PO PRN (12:20)
[2023-04-22] MEDS ORDERED: BUME1TAB8 PO (12:27)
[2023-04-22] MEDS ORDERED: APIX5TAB PO (12:27)
[2023-04-22] MEDS ORDERED: OXYC10TA49 PO (12:27)
[2023-04-22] MEDS ORDERED: DILT-4 PO (12:27)
--- NOTE | 2023-04-22 13:00 | NUR ---
[facility]PS DISCHARGE NOTE: THIS IS A 77YEAR OLD FEMALE DISCHARGE TO HOME IN STABLE CONDITION. COMPLIANT WITH MEDICATIONS, COOPERATIVE WITH TREATMENT PLANS. PT DENIES SI/HI AND INSTRUCTED TO GO TO THE CLOSEST ER IF DEVELOPING SI/HI. BEHAVIOR IMPROVED, PSYCHIATRIC, TX PLANS MET, MEDICAL TX PLANS AND DEFERRED FOR CONTINUAL MONITORING. EDUCATED PT ABOUT AFTER CARE PLAN (EXIT CARE) AND COPY PROVIDED. RETURNED PERSONAL BELONGINGS TO PT. MED RECON WITH DR. GARCIA PSYC, DR GARCIAS MED [employer] APPLICATION DEVELOPER. PT SIGNED D/C PAPERWORK. WOUNDS PICTURE TAKEN AND DOCUMENTED IN CHART. PT LEFT UNIT AT 1300 VIA PRIVATE TRANSPORTATION. ASSISTED BY MANUFACTURING ADVISOR TO CAR. DAUGHTER SIGN AND TOOK RESPONSIBILITY OF CARE. PT LEFT IN STABLE CONDITION.
[2023-04-22] MEDS ORDERED: EMPAGLIFLOZIN 25 MG TABLET PO SCH (14:00)
== END 2023-04-22 13:00 | disposition home or self-care (01) | DRG 885 ==
LOC: ER 12:30 → TRANSITION 17:40 → GPS 19:04
PROVIDERS: ADMIT Psychiatry & Neurology Psychiatry; ATTEND Internal Medicine
DX: F33.2 Major depressive disorder, recurrent severe without psychotic features (principal); N17.0 Acute kidney failure with tubular necrosis; N18.9 Chronic kidney disease, unspecified; I48.20 Chronic atrial fibrillation, unspecified; I50.32 Chronic diastolic (congestive) heart failure; D68.69 Other thrombophilia; R45.851 Suicidal ideations; Z68.41 Body mass index [BMI] 40.0-44.9, adult; I87.313 Chronic venous hypertension (idiopathic) with ulcer of bilateral lower extremity; L97.829 Non-pressure chronic ulcer of other part of left lower leg with unspecified severity; L97.819 Non-pressure chronic ulcer of other part of right lower leg with unspecified severity; I13.0 Hypertensive heart and chronic kidney disease with heart failure and stage 1 through stage 4 chronic kidney disease, or unspecified chronic kidney disease; F03.94 Unspecified dementia, unspecified severity, with anxiety; F03.93 Unspecified dementia, unspecified severity, with mood disturbance; E03.9 Hypothyroidism, unspecified; E11.22 Type 2 diabetes mellitus with diabetic chronic kidney disease; E78.5 Hyperlipidemia, unspecified; E83.19 Other disorders of iron metabolism; I25.10 Atherosclerotic heart disease of native coronary artery without angina pectoris; I27.20 Pulmonary hypertension, unspecified; G89.4 Chronic pain syndrome; M79.7 Fibromyalgia; L60.3 Nail dystrophy; Z79.01 Long term (current) use of anticoagulants; Z79.899 Other long term (current) drug therapy; Z90.710 Acquired absence of both cervix and uterus; Z79.84 Long term (current) use of oral hypoglycemic drugs; Z90.49 Acquired absence of other specified parts of digestive tract; J44.9 Chronic obstructive pulmonary disease, unspecified; M81.0 Age-related osteoporosis without current pathological fracture; M62.81 Muscle weakness (generalized); E66.01 Morbid (severe) obesity due to excess calories; M79.675 Pain in left toe(s); F41.1 Generalized anxiety disorder; I89.0 Lymphedema, not elsewhere classified; Z79.891 Long term (current) use of opiate analgesic
CPT/HCPCS: 36415; 73502; 80048-TC; 80061-TC; 80076-TC; 82565-TC; 82962-TC; 83690-TC; 85025-TC; 87081-TC; 97112-TC; 97116-TC; 97530-TC; G0480; Q0163